=== PATIENT | female | born 1940 | race Caucasian/White ===

== ENCOUNTER → 2023-05-19 | Outpatient (REF) | payer MEDICARE, OTHER, SELFPAY | LOC: DHSLP | PROVIDERS: ATTENDING PHYSICIAN Internal Medicine; FAMILY PHYSICIAN Family Medicine | DX: G47.33 Obstructive sleep apnea (adult) (pediatric) (principal) | CPT/HCPCS: 95806 ==

== ENCOUNTER 2023-06-19 12:06 | Inpatient (IN) | payer MEDICARE, OTHER, SELFPAY ==
[2023-06-19] VITALS (20 sets, daily range): BP systolic 106–158; BP diastolic 65–107; BMI 27.2; BMI 24.3
[2023-06-19 09:08] LABS: % Basophils 0.4 % (0-2); % Eosinophils 1.7 % (0-6); % Immature Granulocytes 0.2 % (0-0.5); % Lymphocytes 11.6 % (20.5-51.1); % Monocytes 9.5 % (1.7-9.3); % Neutrophils 76.6 % (42.2-75.2); Absolute Eosinophils 0.1 10^3/uL (0-0.7); Absolute Monocytes 0.8 10^3/uL (0.1-0.6); Absolute Neutrophils 6.5 10^3/uL (1.4-6.5); Hematocrit 36.1 % (37.0-47.0); Hemoglobin 11.6 g/dL (12.0-16.0); Mean Corp Hgb Conc. 32.1 g/dL (33.0-37.0); Mean Corpuscular Volume 99.4 fL (81.0-99.0); Mean Platelet Volume 9.6 fL (7.4-10.4); Nucleated Red Blood Cells % 0 %; Platelet Count 282 10^3/uL (130-400); Red Blood Cell Count 3.63 10^6/uL (4.20-5.40); Red Cell Dist. Width 15.1 % (11.5-14.5); White Blood Cell Count 8.5 10^3/uL (4.8-10.8)
[2023-06-19 09:30] LABS: NT-proBNP 3490 pg/ml; Troponin I < 0.012 ng/ml
[2023-06-19 09:32] LABS: ALT (SGPT) 32 U/L (0-35); AST (SGOT) 39 U/L (14-36); Albumin 3.2 g/dl (3.5-5.0); Alkaline Phosphatase 76 U/L (38-126); Blood Urea Nitrogen 19 mg/dl (7-17); Calcium 8.9 mg/dl (8.4-10.2); Carbon Dioxide 29 mmol/L (22-30); Chloride 104 mmol/L (98-107); Estimated Creatinine Clearance 51 ml/min; Glucose 109 mg/dl (70-99); Potassium 4.3 mmol/L (3.5-5.1); Sodium 137 mmol/L (135-145); Total Bilirubin 0.7 mg/dl (0.2-1.3); Total Protein 6.3 g/dl (6.3-8.2); eGFR > 60.00
--- NOTE | 2023-06-19 09:52 | ED.GENMED ---
History of Present Illness
General
Chief Complaint: Breathing Problem
Source: patient
Exam Limitations: none
Time Seen by Provider: 06/19/23 09:06
Nursing documentation reviewed up to this point in time: agreed with
Travel History
Have you had any contact with someone who has COVID-19?: No
Do you have any symptoms of coronavirus? Fever > 100 degrees, chills, cough, shortness of breath, sore throat, loss of taste or smell, muscle aches, or headache?: No
History of Present Illness
History of Present Illness:
82-year-old female with interstitial lung disease heart failure AF followed by Dr. Horton and Dr. Curtis baseline 3 L of oxygen past few days has had increased shortness of breath worse last evening and this morning so short of breath she can get off
the toilet, no fevers, has had mild leg edema mild cough, no hemoptysis no abdominal pain
Past History
Past History
ED Past Medical History: Arrthythmia (atrial fibrillation), CHF, GERD, HTN, Hypercholesterolemia, Psychiatric (Anxiety, Depression), Other (Rheumatoid arthritis, dizziness, shingles, Lyme disease, vertigo, PNA, Diverticulitis, Cataracts) and Other
(RA)
ED Past Surgical History: Orthopedic (Laminectomy, Left hip replacement, Bilateral knee replacement) and Other (Cataract surgery, laminectomy)
Patient has exhibited threatening behavior?: No
PSI?: No
Social History
Tobacco: Non-smoker
Alcohol: None
Drug: None
Personal:
Living: with family
Employment: Retired
Family History
Family History: Other
Review of Systems
Review of Systems
All Other Systems: Not applicable
Constitutional: Reports fatigue; Denies fever
Respiratory: Reports cough and trouble breathing
Cardiac: Reports no symptoms; Denies chest pain
ABD/GI: Reports no symptoms
: Reports no symptoms
Musculoskeletal: Reports no symptoms
Skin: Reports no symptoms
Neurological: Reports weakness
Endocrine: Reports no symptoms
Phy Exam
Physical Exam
Physical Exam:
Physical Exam
General: Chronically ill-appearing
Neck: No jaundice
Heart: Tachycardic
Lungs: Crackles
Abdomen: Not
Neuro: alert and oriented. no focal neurological deficits
Skin: no rash
Psychiatric: well kept. interactive and cooperative
Extremities: no edema
Scores
Heart Failure Risk
Heart Failure Risk Score: Yes
History of Stroke or TIA: Yes
History of intubation for respiratory distress: No
Heart rate on ED arrival >/= 110: Yes
SaO2 <90% on arrival on room air: Yes
HR >/=110 during 3min walk test (or too ill to perform test): Yes
ECG has acute ischemic changes: No
Urea >/=12mmol/L (BUN 33.6mg/dL): No
Serum CO2>/=35mmol/L: No
Troponin I or T elevated to ME Level (0.4mg/dL): No
NT-proBNP >/=5,000ng/L (5,000pg/ml): Yes
HF Risk Score: 5
Admission Status: VERY HIGH RISK 39.8% Consider admission to hospital
Course
Orders/Labs/Results
Orders:
Orders
06/19/23 08:57
CMP [Comprehensive Metabolic Panel] Urgent
Complete Blood Count/With Diff Urgent
NT-proBNP Urgent
Troponin I Urgent
06/19/23 09:15
CR Chest - 2 Views Urgent
Comment:
Reason For Exam: sobb
06/19/23 09:54
Ipratropium/Albuterol Sulfate [Duoneb] 3 ml INH R NOW STA
06/19/23 Lunch
Cholesterol Lowering
At Your Request: Full Participation
06/19/23 10:02
Prothrombin Time Urgent
06/19/23 10:41
Furosemide [Lasix] 60 mg IV NOW STA
06/19/23 11:28
COVID-19 Antigen Routine
Source: Nasal Swab
06/19/23 11:31
Admit/Transfer Patient As Directed
Co-Sign Provider:
Level of Care: Inpatient admission
Assign to:: IVU
Physician / Group: Danie
Diagnosis: Acute heart failure, rapid atrial fibrillation
Reason for Hospitalization: Heart failure treatment, rate control, cardiology consult
Expected length of stay greater than two midnights?: Yes
ELOS- Estimated Length of Stay in days: 4
I certify the patient meets the requirements for IP care: Yes
06/19/23 11:33
Code Status As Directed
Resuscitation Status: Do not resuscitate
Reached after discussion with pt or family/Healthcare POA: Yes
DNR Bracelet Application ONCE
06/19/23 11:41
Diltiazem 125 mg/125 ml Nss [Cardizem] 125 mg in 125 ml .ROUTE .STK-MED
06/19/23 11:45
Diltiazem 125 mg/125 ml Nss [Cardizem] 125 mg in 125 ml IV PER PROTOCOL
Initial dose in mg/hr, then titrate:: 5
Titrate to keep:: Heart rate 80-100 bpm
Titrate by mg/hr:: 5 mg/hr
Frequency of titrations (minutes):: 15
Maximum dose in mg/hr:: 15
06/19/23 12:04
Electrocardiogram (*1) Urgent
Reason for Study: Abnormal EKG
EKG- Treatment ONCE
06/19/23 15:52
Acetaminophen [Tylenol] 1,000 mg PO BIDPRN PRN
Ipratropium/Albuterol Sulfate [Duoneb] 3 ml INH R Q4HPRN PRN
Ipratropium/Albuterol Sulfate [Duoneb] 3 ml INH R QID
Rosuvastatin Calcium [Crestor] 10 mg PO NOON
06/19/23 15:52
Echo 2D MMode Color/Doppler [Echo 2D MMode Color/Doppler] Routine
Reason for Study: CHF
CARDIOLOGY CONSULT Routine
Consulting Provider: Ghassan Edmonds
Was physician already notified: Yes
VTE Contraindication Routine
VTE Mechanical Device Contraindication: Edema of lower extremity
Pharmocologic Contraindication: Medical Contraindication
Activity As Directed
Activity Level: With Assistance
I&O [Intake/ Output] As Directed
Frequency: q12h
Rx Incentive Spirometry [RESP] Routine
Frequency: q1h while awake
Rx Pep / Acapela [RESP] Routine
06/20/23 03:13
CMP [Comprehensive Metabolic Panel] IN AM
INR [Prothrombin Time] IN AM
06/20/23 08:00
Empagliflozin [Jardiance] 10 mg PO DAILY
Flecainide [Tambocor] 100 mg PO BID
Fluoxetine HCl [Prozac] 20 mg PO DAILY
Furosemide [Lasix] 40 mg IV DAILY
Potassium Chloride [KCl] 20 meq PO DAILY
06/20/23 12:00
Magnesium Oxide 500 mg PO NOON
06/21/23 06:00
CMP [Comprehensive Metabolic Panel] IN AM
INR [Prothrombin Time] IN AM
06/22/23 06:00
CMP [Comprehensive Metabolic Panel] IN AM
INR [Prothrombin Time] IN AM
Abnormal Lab Results
06/19/23 06/19/23
08:57 10:02
RBC 3.63 L 10^6/uL
(4.20-5.40)
Hgb 11.6 L g/dL
(12.0-16.0)
Hct 36.1 L %
(37.0-47.0)
MCV 99.4 H fL
(81.0-99.0)
MCH 32.0 H pg
(27.0-31.0)
MCHC 32.1 L g/dL
(33.0-37.0)
RDW 15.1 H %
(11.5-14.5)
Absolute Lymphs (auto) 1.0 L 10^3/uL
(1.2-3.4)
Absolute Monos (auto) 0.8 H 10^3/uL
(0.1-0.6)
Neutrophils % 76.6 H %
(42.2-75.2)
Lymphocytes % 11.6 L %
(20.5-51.1)
Monocytes % 9.5 H %
(1.7-9.3)
PT 36.6 H Sec
(11.4-14.6)
BUN 19 H mg/dl
(7-17)
Glucose 109 H mg/dl
(70-99)
AST 39 H U/L
(14-36)
Albumin 3.2 L g/dl
(3.5-5.0)
06/19/23 08:57
06/19/23 08:57
Vital Signs
Initial and Last Documented VS:
Initial Vital Signs
Pulse Ox
97
06/19/23 08:44
Last Documented Vital Signs
Temp Pulse Resp BP Pulse Ox
98.4 F 77 20 125/85 97
06/19/23 22:59 06/20/23 05:00 06/19/23 22:59 06/20/23 03:11 06/19/23 22:59
MDM/Problems Addressed
Differential Diagnosis Includes:
Interstitial lung disease flare, CHF, bronchitis, pneumonia, less likely PE as she is anticoagulated
MDM/Problems Addressed:
Shortness of breath cough
Chronic conditions affecting care:
CHF interstitial lung disease A-fib
Chronic conditions affecting care: HTN and Arrhythmia
Acute Exacerbation and/or Progression of Chronic Illness: HTN and Arrhythmia
*Radiology
Radiology exam reviewed: preliminary read by ED provider
*Pulse Oximetry
Patient hypoxic: yes
*EKG
Interpreted by ED Provider?: Yes
Interpretation: abnormal
Comparison EKG: no comparison EKG present
Heart Rate: 112
Rate: tachycardiac
Rhythm: a-fib
Ischemia: non-specific ST changes
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
Rate: tachycardiac
Interpretation: abnormal
Heart Rate: 112
Rhythm: a-fib
*Critical Care Note
Total Time (30-74mins, 75-104mins- exclusive of procedures): 13
Data Reviewed
Review of Other/Old Records Reveals: Labs
Source: patient and records
Update Note
Update Note:
10:35 AM chest x-ray noted proBNP noted will give dose of IV diuretic low threshold to admit
ED Attending Note
-
Portions of this chart may have been created with voice recognition software.� Occasional wrong word or��sound alike� substitutions may have occurred due to the inherent limitations of voice recognition software.
Discharge Plan
Departure
Patient Disposition: Admit
Date of Disposition: 06/19/23
Time of Disposition: 10:41
Admit to: Telemetry
Presentation/result/management discussed w/ accepting MD/DO: Hospitalist
Patient with high blood pressure during this ER visit?: Yes
Condition: Fair
Discharge Problem:
ILD (interstitial lung disease), PAF (paroxysmal atrial fibrillation), Acute on chronic hypoxic respiratory failure, Hypertensive heart disease with heart failure, Acute on chronic heart failure with preserved ejection fraction (HFpEF), Pulmonary
hypertension
Interventions
Interventions:
*Risk Screen - Suicide Last Done: 06/19/23 08:48
*General Assessment Last Done: 06/19/23 08:48
*Neglect/Abuse Screening Last Done: 06/19/23 08:48
ED- Fall Risk Assessment Last Done: 06/19/23 08:48
*ED COVID-19 Vaccine History Last Done: 06/19/23 08:48
*Nursing Disposition Last Done: 06/19/23 16:45
ED- Cardiac Assessment Last Done: 06/19/23 08:48
ED- Pulmonary Assessment Last Done: 06/19/23 08:48
Discharge Date and Time
Discharge Date/Time: 06/19/23 16:45
[2023-06-19] MEDS: DUONEB 3 ML INH ×3 (10:01→21:11)
[2023-06-19 10:31] LABS: INR 3.68; PT 36.6 Sec (11.4-14.6)
[2023-06-19] MEDS: LASIX 60 MG IV (10:48)
--- NOTE | 2023-06-19 11:38 | HPS.HSE ---
Family Physician
-
Family Physician: Samir Tobias
Chief Complaint
-
Shortness of breath
History of Present Illness
82-year-old female with interstitial lung disease here complaining of shortness of breath that she noticed last night, worsened this morning. Baseline uses 3 L of oxygen at home continuously. This morning the shortness of breath was so bad that
she could not get off the toilet. Has postnasal drip induced cough but this is chronic. Shortness of breath somewhat worse when she is completely supine. Denies any chest pain or pressure.
Medical History
Past Medical History
Past Medical History: Reports Other
Additional Past Medical History:
CHF, diastolic
ILD
Paroxysmal atrial fibrillation
Hypertension
Rheumatoid arthritis
Seasonal allergies
Mixed hyperlipidemia
Osteopenia
Lumbar spinal stenosis
Major depression
Past Surgical History: Reports Other
Additional Past Surgical History:
Left total hip replacement
Left total knee replacement
Right total knee replacement
Social History
Tobacco: Non-smoker
Alcohol: None
Drug: None
Personal:
Living: With Family
Family History
Family History: Not pertinent
Allergies / Home Medications
Allergies reflects when Allergies were last updated in [facility].
Home Medications with original date entered in [facility]
Allergy/Medication List:
Allergies
Allergy/AdvReac Type Severity Reaction Status Date / Time
No Known Allergies Allergy Verified 11/22/22 17:22
Home Medications
vitamin B complex-vitamin C-folic acid 400 mcg tablet 1 tab PO NOON Supplement 07/18/17
calcium carbonate 600 mg-vitamin D3 20 mcg (800 unit) tablet 1 tab PO NOON Supplement 02/01/18
flecainide 100 mg tablet 100 mg PO BID Arrhythmia 02/01/18
fluoxetine 20 mg capsule 20 mg PO DAILY Mental Health/Anxiety 04/26/18
rosuvastatin 10 mg tablet 10 mg PO NOON High Cholesterol 10/25/22
warfarin 5 mg tablet 7.5 mg PO TUWETHFR@1200 Blood Clot Prevention/Tx 11/22/22
furosemide 40 mg tablet 40 mg PO DAILY #90 tabs 11/28/22
ipratropium 0.5 mg-albuterol 3 mg (2.5 mg base)/3 mL nebulization soln 3 ml inhalation R TIDPRN PRN sob/wheezing 12/21/22
empagliflozin 10 mg tablet (Jardiance) 10 mg PO DAILY 30 days #30 tabs 12/26/22
acetaminophen 500 mg tablet (Tylenol Extra Strength) 1,000 mg PO BIDPRN PRN hand pain 06/19/23
albuterol sulfate 90 mcg/actuation aerosol inhaler 1 puff inhalation R Q4HPRN PRN sob 06/19/23
budesonide 160 mcg-glycopyr 9 mcg-formot 4.8 mcg/actuation HFA inhaler (Breztri Aerosphere) 2 inh inhalation R BID 06/19/23
magnesium oxide 400 mg PO NOON 06/19/23
potassium chloride 20 mEq tablet,extended release(part/cryst) 20 meq PO DAILY 06/19/23
verapamil 120 mg tablet,extended release 120 mg PO NOON Arrhythmia 06/19/23
warfarin 5 mg tablet 5 mg PO SUMOSA@1200 06/19/23
Review of Systems
-
History Source: Patient
A 12 point ROS was completed and negative except as noted: Yes
Respiratory: Reports Trouble Breathing
Physical Exam
Vital Signs
Vital Signs
Temp Pulse Resp BP Pulse Ox
98.1 F 122 20 133/92 96
06/19/23 08:48 06/19/23 11:30 06/19/23 08:48 06/19/23 11:00 06/19/23 11:30
Physical Exam
General: Well Developed, Well Nourished, No Apparent Distress and Comfortable
HEENT: NormoCephalic, Anicteric and Moist mucous membranes
Respiratory: Rales
Cardiac: S1/S2, Irregular Rhythm and Tachycardia
Breast: Deferred by me
GI: Soft, Non Tender and Non Distended
Genito-urinary: Deferred by me
Musculoskeletal: No Clubbing, No Cyanosis, Edema, Left Lower Extremity and Edema, Right Lower Extremity
Skin: Warm and Dry
Neuro: AO x 3
Hematologic/Lymphatic: No Lymphadenopathy
Psych: Calm
Laboratory Results
-
06/19/23 08:57
06/19/23 08:57
Laboratory Results
PT 36.6 Sec (11.4-14.6) H 06/19/23 10:02
INR 3.68 06/19/23 10:02
Total Bilirubin 0.7 mg/dl (0.2-1.3) 06/19/23 08:57
AST 39 U/L (14-36) H 06/19/23 08:57
ALT 32 U/L (0-35) 06/19/23 08:57
Alkaline Phosphatase 76 U/L (38-126) 06/19/23 08:57
Troponin I < 0.012 ng/ml 06/19/23 08:57
Impression/Plan
-
Acute on chronic hypoxic respiratory failure -suspect multifactorial etiology including rapid atrial fibrillation, acute heart failure exacerbation, chronic interstitial lung disease. Baseline uses 3 L of oxygen at home continuously. Currently on
3 L, monitor for now. Changed cardiomegaly, diffuse increased reticular opacity, small bilateral effusions. Interstitial edema suspected.
Check COVID antigen.
Rapid atrial fibrillation -history of paroxysmal A-fib. Admit to IVU. Start Cardizem drip. Consult cardiology. On chronic warfarin therapy, INR over 3, hold for for tonight, repeat INR in the morning. Continue flecainide pending cardiology
input.
She is followed by Dr. Curtis.
Acute on chronic heart failure preserved EF exacerbation -patient admits to 3 pound weight gain over the past few days. BNP elevated, 3490. She is on furosemide 40 mg daily at home. IV Lasix administered in the emergency room, will continue.
Daily weights, I's and O's. Check echocardiogram. Fluid and sodium restriction. Suspect rapid atrial fibrillation may have triggered heart failure exacerbation.
Chronic interstitial lung disease -on chronic home O2. Followed by Dr. Horton.
Rheumatoid arthritis -stable.
Hypertension
Hyperlipidemia -new rosuvastatin.
DNR -confirmed with patient.
[2023-06-19] MEDS: CARDIZEM 125 IV (11:45)
[2023-06-19 11:50] LABS: COVID-19 Antigen Negative (Negative)
--- NOTE | 2023-06-19 11:53 | CON.CAR ---
Addendum entered and electronically signed by Ghassan Edmonds MD 06/19/23 16:48:
Patient seen and examined in collaboration with [employer]CH[employer]IC; agree with below.
-82-year-old female with medical history as outlined below, including paroxysmal A-fib (on Coumadin, flecainide, and verapamil at home) and COPD/ILD; admitted with A-fib with RVR likely secondary to underlying lung disease exacerbation.
-Continue Cardizem drip.
-Continue flecainide 100 mg twice daily.
-Will likely transition to a higher dose of verapamil tomorrow to 240 mg daily (currently taking 120 mg daily at home) with hopes of discontinuing Cardizem drip at that time.
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
Original Note:
Consultation
Consultation Request
Date/Time Consultation Requested: 06/19/23 11:30a
Date/Time Consultation Performed: 06/19/23 11:45a
Requesting Provider: Dr. Helton
Performing Provider: MAT Muñoz for Dr. Edmodns
Reason for Consultation: rapid Afib, HFpEF
Medical History
-
Chief Complaint: sob
History of Present Illness:
Mrs. Quiñonez is an 82 yo female with HFpEF, mild/mod , paroxysmal Afib on Coumadin ([id number] VASC 5) and Flecainide, TAA 4.5cm, COPD/ILD on 2L NC oxygen, HTN, RA, GERD and HLD, who presents to the ER with c/o SOB and noted to be in rapid Afib. She
reports feeling acutely SOB last night, worse with exertion. No associated symptoms. She denies any palpitations. She is admitted to the hospitalist service and we are consulted for acute HFpEF and rapid Afib. She denies any missed doses of her
home medications, denies any abnormal bleeding on Coumadin. She is on IV Cardizem drip with rates in the 110s. She denies feeling any palpitations currently or last night. INR is 3.68 currently.
Past Medical History
Past Medical History: Other (as above)
Past Surgical History: Other (cataract, right TKA, left TKA, left JAVI, laminectomy, d&c)
Social History
Tobacco: Non-Smoker
Alcohol: None
Personal:
Living: With Family
Employment: Retired
Family History
Family History: Reviewed & Not Pertinent
Allergies / Home Medications
Allergy/AdvReac Type Severity Reaction Status Date / Time
No Known Allergies Allergy Verified 11/22/22 17:22
�Medication �Instructions �Recorded �Confirmed �Type
vitamin B complex-vitamin C-folic 1 tab PO NOON Supplement 07/18/17 06/19/23 History
acid 400 mcg tablet
calcium carbonate 600 mg-vitamin 1 tab PO NOON Supplement 02/01/18 06/19/23 History
D3 20 mcg (800 unit) tablet
flecainide 100 mg tablet 100 mg PO BID Arrhythmia 02/01/18 06/19/23 History
fluoxetine 20 mg capsule 20 mg PO DAILY Mental 04/26/18 06/19/23 History
Health/Anxiety
rosuvastatin 10 mg tablet 10 mg PO NOON High Cholesterol 10/25/22 06/19/23 History
warfarin 5 mg tablet 7.5 mg PO FR@1200 Blood Clot 11/22/22 06/19/23 History
Prevention/Tx
furosemide 40 mg tablet 40 mg PO DAILY #90 tabs 11/28/22 06/19/23 Rx
ipratropium 0.5 mg-albuterol 3 mg 3 ml inhalation R TIDPRN PRN 12/21/22 06/19/23 History
(2.5 mg base)/3 mL nebulization sob/wheezing
soln
empagliflozin 10 mg tablet 10 mg PO DAILY 30 days #30 tabs 12/26/22 06/19/23 Rx
(Jardiance)
acetaminophen 500 mg tablet 1,000 mg PO BIDPRN PRN hand pain 06/19/23 06/19/23 History
(Tylenol Extra Strength)
albuterol sulfate 90 mcg/actuation 1 puff inhalation R Q4HPRN PRN sob 06/19/23 06/19/23 History
aerosol inhaler
budesonide 160 mcg-glycopyr 9 2 inh inhalation R BID 06/19/23 06/19/23 History
mcg-formot 4.8 mcg/actuation HFA
inhaler (Breztri Aerosphere)
magnesium oxide 400 mg PO NOON 06/19/23 06/19/23 History
potassium chloride 20 mEq 20 meq PO DAILY 06/19/23 06/19/23 History
tablet,extended release(part/cryst)
verapamil 120 mg tablet,extended 120 mg PO NOON Arrhythmia 06/19/23 06/19/23 History
release
warfarin 5 mg tablet 5 mg PO SUMOSA@1200 06/19/23 06/19/23 History
Review of Systems
-
History Source: Patient
All other systems: Negative unless noted
Physical Exam
Vital Signs
Temp Pulse Resp BP Pulse Ox
98.1 F 122 20 133/92 96
06/19/23 08:48 06/19/23 11:30 06/19/23 08:48 06/19/23 11:00 06/19/23 11:30
Lab Results
06/19/23 08:57
06/19/23 08:57
Troponin I < 0.012 ng/ml 06/19/23 08:57
Obo-W-Zzeirwkrbua Pept 3490 pg/ml 06/19/23 08:57
Physical Exam
General: Well Developed, Well Nourished and No Apparent Distress
HEENT: Normocephalic, Anicteric and Moist Mucous Membranes
Respiratory: Crackles (diffuse b/l ) and Non Labored Respirations
Cardiac: S1/S2, Irregular Rhythm (tachycardic) and Murmur (2/6 UZMA)
Breast: Deferred by me
GI: Soft, Non Tender, Non Distended and Normal Bowel Sounds
Rectal: Deferred by Provider
Genito-urinary: No Costovertebral Tender
Musculoskeletal: No Clubbing, No Cyanosis and No Edema
Skin: Warm and Dry
Neuro: AO x 3
Hematologic/Lymphatic: No Lymphadenopathy
Psych: Calm
Impression / Plan
-
Afib - rapid ventricular response.
- rates slowing with IV Cardizem, continue.
- no missed doses of Flecainide, Verapamil or Warfarin.
- continue Flecainide for now, avoiding Amiodarone and Sotalol due to ILD/COPD.
- on Coumadin, [id number] VASC 5. INR 3.68 today, denies any bleeding.
HFpEF - acute on chronic.
- agree with IV Lasix 40mg BID and monitor.
- daily weights, I&Os.
- continue Jardiance.
COPD/ILD - chronic 2L NC.
- oxygen, diuresis.
HTN - stable.
- monitor on Cardizem drip.
��Data reviewed:
�������LHC/RHC 12/25/2022 PCWP 16 CO 5.5 CI 2.9 mild to moderate AAS MG 18 mmHg GEOVANNY 1.5 cm2 EF 67 no significant CAD. Luminal irregularities. Mild pulmonary hypertension. Weight at time of RHC 170 pounds.
�������CT chest t 02/2021 ascending aortic aneurysm 4.5 cm
�������CT angio 02/2020 with ascending aorta ( aneurysm) 4.3cm.
Echo 11/25/22: Normal biventricular size and systolic function without RWMA, EF 60-65%, stage II diastolic dysfunction, mild/mod MR, mild peak/mean gradients 31/17mmHg, mild AR.
�������Echocardiogram 10/07/2022 from [facility] EF 55-70 mild MR mild TR mild AR with mild AAS ascending aorta 4.4 cm.
�������Echocardiogram 2020 normal left ventricular function mild to moderate mitral regurgitation mild aortic regurgitation mild tricuspid regurgitation. Ascending aorta 4.6 cm.
�������Echocardiogram 11/11/17 normal left ventricular systolic function, mild to moderate mitral regurgitation, mild aortic regurgitation, mild tricuspid regurgitation. Aortic root 3.8 cm.
�������Lexiscan nuclear perfusion stress test 12/18/17 normal perfusion. Ejection fraction 72%. No ischemia.
Data Reviewed
-
Radiology: Report Reviewed by me (CXR: small b/l pleural effusions)
Medical Tests (Nuc Med, Echo etc): Report Reviewed by me (Echo 11/25/22: Normal biventricular size and systolic function without RWMA, EF 60-65%, stage II diastolic dysfunction, mild/mod MR, mild peak/mean gradients 31/17mmHg, mild AR.)
Labs: Labs Reviewed by me
Old Records: Reviewed (testing as noted above.)
[2023-06-19] MEDS: TAMBOCOR 100 MG PO (15:57)
[2023-06-19] MEDS: TYLENOL 1000 MG PO (15:59)
[2023-06-19] MEDS: DUONEB INH (17:12)
--- NOTE | 2023-06-19 17:30 | PTCARENOTE ---
Received pt from ED via stretcher. Walked into room w/o difficulty. Pt still reports feeling but this has improved this coming to the hospital. 99-100% on 3L, pt wears 3L baseline at home, fine crackles 1/2 bilaterally. No cough. BP wnl, Afib on
monitor HR 80-90's. Cardizem gtt @ 10mg/hr. Will monitor closely. Full assessment and admission completed.
[2023-06-19] MEDS: CRESTOR 10 MG PO (18:08)
--- NOTE | 2023-06-19 19:30 | PTCARENOTE ---
report received. aaox3. afib on monitor. nss. pulse ox 97% on 3lnc. cardizem gtt @ 10. Hr in the 70-80's. Will monitor
[2023-06-20] MEDS: CARDIZEM 125 IV (02:58)
[2023-06-20 03:11] VITALS: BP 125/85
[2023-06-20 03:59] LABS: INR 3.38; PT 34.2 Sec (11.4-14.6)
[2023-06-20 04:03] LABS: ALT (SGPT) 23 U/L (0-35); AST (SGOT) 27 U/L (14-36); Albumin 3.1 g/dl (3.5-5.0); Alkaline Phosphatase 64 U/L (38-126); Blood Urea Nitrogen 26 mg/dl (7-17); Calcium 9.3 mg/dl (8.4-10.2); Carbon Dioxide 32 mmol/L (22-30); Chloride 102 mmol/L (98-107); Estimated Creatinine Clearance 53 ml/min; Glucose 97 mg/dl (70-99); Sodium 141 mmol/L (135-145); Total Bilirubin 0.6 mg/dl (0.2-1.3); Total Protein 6.3 g/dl (6.3-8.2); eGFR > 60.00
[2023-06-20 06:00] VITALS: BMI 24.3
[2023-06-20 06:50] VITALS: BP 121/75
[2023-06-20] MEDS: DUONEB 3 ML INH ×4 (07:20→18:05)
--- NOTE | 2023-06-20 09:22 | W.PN.CD ---
Addendum entered and electronically signed by Ghassan Edmonds MD 06/20/23 14:07:
Patient seen and examined in collaboration with CANAL LOCK TENDER CHIEF OPERATOR; agree with below.
-Discontinuing Cardizem drip.
-Increasing home dose of verapamil from 120 to 240 mg daily.
-Continue flecainide 100 mg twice daily.
-Transition to PO Lasix tomorrow.
-Treatment of respiratory status as per primary Hospitalist team.
Original Note:
Today's Communication / Plan
-
-transition from IV diltiazem to PO verapamil at increased dosing (240 mg daily)
-IV Lasix today, then transition back to PO tomorrow
-continue warfarin and INR monitoring
Impression / Plan
-
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
exacerbation.
Afib - rapid ventricular response:
- rates improved with IV diltiazem- will transition to verapamil at increased dosing (240 mg daily) and monitor
- no missed doses of Flecainide, Verapamil or Warfarin.
- continue Flecainide for now, avoiding Amiodarone and Sotalol due to ILD/COPD.
- on Coumadin, [id number] VASC 5. INR 3.38 today, denies any bleeding.
HFpEF - acute on chronic.
-Echo 06/19/23: LV ejection fraction is 60-65%. No regional wall motion abnormalities are seen. Mild to moderate concentric left ventricular hypertrophy. Moderately dilated left atrium. Moderately dilated right atrium. Mild to moderate mitral
regurgitation. Mild to moderate aortic stenosis; peak/mean gradients are 31/17 mmHg, calculated GEOVANNY is 1.2 cm2. Mild aortic regurgitation. Moderate tricuspid regurgitation. Estimated pulmonary artery pressure of 40-45 mmHg. The IVC is dilated and
does not collapse.
- improved weight back down to her baseline (155-160 per patient)- today is 155. Give IV lasix today, then transition to PO tomorrow.
- continue Jardiance.
COPD/ILD - chronic 3L NC.
-oxygen, getting breathing tx
-management per primary
HTN - stable.
-monitor with med adjustments
Data:
�������LHC/RHC 12/25/2022 PCWP 16 CO 5.5 CI 2.9 mild to moderate AAS MG 18 mmHg GEOVANNY 1.5 cm2 EF 67 no significant CAD. Luminal irregularities. Mild pulmonary hypertension. Weight at time of RHC 170 pounds.
�������CT chest t 02/2021 ascending aortic aneurysm 4.5 cm
�������CT angio 02/2020 with ascending aorta ( aneurysm) 4.3cm.
Echo 11/25/22: Normal biventricular size and systolic function without RWMA, EF 60-65%, stage II diastolic dysfunction, mild/mod MR, mild peak/mean gradients 31/17mmHg, mild AR.
�������Echocardiogram 10/07/2022 from [facility] EF 55-70 mild MR mild TR mild AR with mild AAS ascending aorta 4.4 cm.
�������Echocardiogram 2020 normal left ventricular function mild to moderate mitral regurgitation mild aortic regurgitation mild tricuspid regurgitation. Ascending aorta 4.6 cm.
�������Echocardiogram 11/11/17 normal left ventricular systolic function, mild to moderate mitral regurgitation, mild aortic regurgitation, mild tricuspid regurgitation. Aortic root 3.8 cm.
�������Lexiscan nuclear perfusion stress test 12/18/17 normal perfusion. Ejection fraction 72%. No ischemia.
Physical Exam
Vital Signs/Labs
Vital Signs
Temp Pulse Resp BP Pulse Ox
98.0 F 108 18 121/75 97
06/20/23 06:48 06/20/23 08:00 06/20/23 07:26 06/20/23 06:50 06/20/23 09:18
06/19/23 06/20/23 06/21/23
06:59 06:59 06:59
Actual Weight 70.4 kg
06/19/23 08:57
06/20/23 03:13
PT 34.2 Sec (11.4-14.6) H 06/20/23 03:13
INR 3.38 06/20/23 03:13
06/19/23
08:57
Vpk-B-Uxahgybqvao Pept 3490
LAB Results
06/19/23
08:57
Troponin I < 0.012
Physical Exam
Constitutional: No acute distress
EENT: Anicteric
Cardiovascular: Pedal edema is absent and Rhythm/rate is irregular
Respiratory: Crackles Present (bases) and Other (on O2 by NC)
Neuro/Psych: AO x 3
Data Reviewed
-
Date of Service: June 20, 2023
EKG: Other (afib)
[2023-06-20] MEDS: LASIX 40 MG IV (09:41)
[2023-06-20] MEDS: JARDIANCE 10 MG PO (09:41)
[2023-06-20] MEDS: KCL 20 MEQ PO (09:41)
[2023-06-20] MEDS: TAMBOCOR 100 MG PO ×2 (09:41→20:10)
[2023-06-20] MEDS: PROZAC 20 MG PO (09:41)
--- NOTE | 2023-06-20 10:29 | W.PN.HOSP.TC ---
Today's Communication/Plan
-
Continue diuresis
Rate control
Bowel regimen
Assessment / Plan
Assessment / Plan
Gen-AAOx3, NAD
HEENT-NC, AT, anicteric, clear oral mm
Neck-supple
CV-reg, no M, +S1/S2
Lungs-Rales bilateral bases
Abd-soft, NT, ND
Ext-no edema
Musculoskeletal-no cyanosis, clubbing
Skin-warm and dry
Neuro-grossly non-focal
Psych-calm, cooperative
Acute on chronic hypoxic respiratory failure -suspect multifactorial etiology including rapid atrial fibrillation, acute heart failure exacerbation, chronic interstitial lung disease. Baseline uses 3 L of oxygen at home continuously. Currently on
3 L, monitor for now. Chest x-ray with cardiomegaly, diffuse increased reticular opacity, small bilateral effusions. Interstitial edema suspected. COVID-negative.
Rapid atrial fibrillation -history of paroxysmal A-fib. Rates overall improving. Verapamil resumed at higher dose. Off Cardizem drip. Cardiology following. INR 3.3 today, warfarin on hold currently.
She is known to Dr. Curtis.
Acute on chronic heart failure preserved EF exacerbation - Suspect rapid atrial fibrillation may have triggered heart failure exacerbation. Continue IV Lasix. Echocardiogram completed, LVEF 60 to 65%, no regional wall motion abnormalities, mild
to moderate concentric LVH, mild to moderate MR, mild to moderate AAS. Moderate TR.
Chronic interstitial lung disease -on chronic home O2. Followed by Dr. Horton.
Chronic anemia -likely anemia of chronic disease. Hemoglobin at baseline.
Rheumatoid arthritis -stable.
Hypertension
Hyperlipidemia -new rosuvastatin.
Constipation -will order bowel regimen.
DNR -confirmed with patient.
Anticipated Discharge: Within 24 hours
Subjective/Interval History
-
Date of Service: June 20, 2023
Patient seen and examined. Somewhat less short of breath today. No other complaints.
Objective Data
-
Labs:
Laboratory Results
06/20/23
03:13
PT 34.2 H
INR 3.38
Sodium 141
Potassium 4.0
Chloride 102
Carbon Dioxide 32 H
BUN 26 H
Creatinine 0.8
Glucose 97
Calcium 9.3
Total Bilirubin 0.6
AST 27
ALT 23
Alkaline Phosphatase 64
Vital Signs:
Vital Signs
Temp Pulse Resp BP Pulse Ox
98.0 F 96 18 121/75 97
06/20/23 06:48 06/20/23 09:41 06/20/23 07:26 06/20/23 09:41 06/20/23 09:18
Review of Systems
-
History Source: Patient
All other systems: Reviewed and negative
[2023-06-20] MEDS: CALAN EXTENDED RELEASE 240 MG PO (10:35)
[2023-06-20 10:59] VITALS: BP 113/75
[2023-06-20] MEDS: COLACE 100 MG PO ×2 (11:48→20:11)
[2023-06-20] MEDS: MAGNESIUM OXIDE 500 MG PO (11:48)
[2023-06-20] MEDS: MIRALAX 17 GRAMS PO (11:48)
[2023-06-20] MEDS: CRESTOR 10 MG PO (11:48)
[2023-06-20 15:38] VITALS: BP 112/67
[2023-06-20 20:04] VITALS: BP 115/77
[2023-06-20 22:15] VITALS: BP 128/87
[2023-06-21 04:16] VITALS: BP 114/84
[2023-06-21 04:31] VITALS: BMI 24.7
[2023-06-21 04:53] LABS: INR 2.87
[2023-06-21 05:02] LABS: Carbon Dioxide 35 mmol/L (22-30)
[2023-06-21 05:13] LABS: ALT (SGPT) 20 U/L (0-35); AST (SGOT) 22 U/L (14-36); Albumin 2.9 g/dl (3.5-5.0); Alkaline Phosphatase 62 U/L (38-126); Blood Urea Nitrogen 26 mg/dl (7-17); Calcium 9.3 mg/dl (8.4-10.2); Chloride 102 mmol/L (98-107); Estimated Creatinine Clearance 47 ml/min; Glucose 98 mg/dl (70-99); Potassium 4.2 mmol/L (3.5-5.1); Sodium 139 mmol/L (135-145); Total Bilirubin 0.5 mg/dl (0.2-1.3); Total Protein 5.9 g/dl (6.3-8.2); eGFR > 60.00
[2023-06-21] MEDS: DUONEB 3 ML INH ×4 (07:36→19:29)
[2023-06-21 08:06] VITALS: BP 129/93
--- NOTE | 2023-06-21 08:11 | W.PN.HOSP.TC ---
Today's Communication/Plan
-
Resume warfarin
Assessment / Plan
Assessment / Plan
Gen-AAOx3, NAD
HEENT-NC, AT, anicteric, clear oral mm
Neck-supple
CV-irregular, tachycardic, systolic M, +S1/S2
Lungs-Rales bilateral bases
Abd-soft, NT, ND
Ext-no edema
Musculoskeletal-no cyanosis, clubbing
Skin-warm and dry
Neuro-grossly non-focal
Psych-calm, cooperative
Acute on chronic hypoxic respiratory failure -suspect multifactorial etiology including rapid atrial fibrillation, acute heart failure exacerbation, chronic interstitial lung disease. Baseline uses 3 L of oxygen at home continuously. Currently on
3 L, monitor for now. Chest x-ray with cardiomegaly, diffuse increased reticular opacity, small bilateral effusions. Interstitial edema suspected. COVID-negative.
Rapid atrial fibrillation -history of paroxysmal A-fib. Rates occasionally fast still. May need cardioversion prior to discharge. Verapamil resumed at higher dose. Off Cardizem drip. Cardiology following. INR improved to 2.87 today. Will
resume warfarin at slightly lower dose, 6 mg daily. This works out to 42 mg/week. Prior to admission she was on 45 mg weekly. Discussed with patient. Monitor INR closely.
She is known to Dr. Curtis.
Acute on chronic heart failure preserved EF exacerbation - Suspect rapid atrial fibrillation may have triggered heart failure exacerbation. Cardiology changed Lasix to 40 mg p.o. daily, which is her home dose. Weight is slightly up today but
patient appears euvolemic. I's and O's are not recorded accurately. Echocardiogram completed, LVEF 60 to 65%, no regional wall motion abnormalities, mild to moderate concentric LVH, mild to moderate MR, mild to moderate AAS. Moderate TR.
Chronic interstitial lung disease -on chronic home O2. Followed by Dr. Horton.
Chronic anemia -likely anemia of chronic disease. Hemoglobin at baseline.
Rheumatoid arthritis -stable.
Essential hypertension stable.-
Hyperlipidemia - rosuvastatin.
Constipation -continue bowel regimen. Moving bowels.
DNR -confirmed with patient.
Anticipated Discharge: 24 - 48 hours
Subjective/Interval History
-
Date of Service: June 21, 2023
Patient seen and examined. Still with dyspnea on exertion.
Objective Data
-
Labs:
Laboratory Results
06/21/23
04:22
PT 30.0 H
INR 2.87
Sodium 139
Potassium 4.2
Chloride 102
Carbon Dioxide 35 H
BUN 26 H
Creatinine 0.9
Glucose 98
Calcium 9.3
Total Bilirubin 0.5
AST 22
ALT 20
Alkaline Phosphatase 62
Vital Signs:
Vital Signs
Temp Pulse Resp BP Pulse Ox
97.8 F 91 16 114/84 99
06/21/23 04:16 06/21/23 07:39 06/21/23 07:39 06/21/23 04:16 06/21/23 07:39
I&O
06/20/23 06/21/23 06/22/23
06:59 06:59 06:59
Intake Total 720 / 720
Output Total 200 / 200
Balance 520 / 520
Review of Systems
-
History Source: Patient
All other systems: Reviewed and negative
[2023-06-21] MEDS: LASIX 40 MG PO (08:33)
[2023-06-21] MEDS: KCL 20 MEQ PO (08:33)
[2023-06-21] MEDS: JARDIANCE 10 MG PO (08:34)
[2023-06-21] MEDS: CALAN EXTENDED RELEASE 240 MG PO (08:34)
[2023-06-21] MEDS: COLACE 100 MG PO (08:34)
[2023-06-21] MEDS: TAMBOCOR 100 MG PO ×2 (08:34→19:43)
[2023-06-21] MEDS: MIRALAX 17 GRAMS PO (08:34)
[2023-06-21] MEDS: PROZAC 20 MG PO (08:35)
[2023-06-21 11:49] VITALS: BP 98/62
[2023-06-21] MEDS: MAGNESIUM OXIDE 500 MG PO (13:23)
[2023-06-21] MEDS: CRESTOR 10 MG PO (13:23)
[2023-06-21 15:33] VITALS: BP 113/97
--- NOTE | 2023-06-21 16:24 | W.PN.CD ---
Today's Communication / Plan
-
- Heart rates rates remain a bit suboptimal; continue flecainide 100 mg twice daily and verapamil 240 mg daily.
- Will arrange for DCCVN tomorrow; patient's INR has been therapeutic since 05/25/2023.
- NPO after midnight.
Impression / Plan
-
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
exacerbation.
Afib - rapid ventricular response:
- Heart rates rates remain a bit suboptimal; continue flecainide 100 mg twice daily and verapamil 240 mg daily.
- Will arrange for DCCVN tomorrow; patient's INR has been therapeutic since 05/25/2023.
- NPO after midnight.
- Continue warfarin; [id number] VASC 5.
HFpEF - acute on chronic.
-Echo 06/19/23: LV ejection fraction is 60-65%. No regional wall motion abnormalities are seen. Mild to moderate concentric left ventricular hypertrophy. Moderately dilated left atrium. Moderately dilated right atrium. Mild to moderate mitral
regurgitation. Mild to moderate aortic stenosis; peak/mean gradients are 31/17 mmHg, calculated GEOVANNY is 1.2 cm2. Mild aortic regurgitation. Moderate tricuspid regurgitation. Estimated pulmonary artery pressure of 40-45 mmHg. The IVC is dilated and
does not collapse.
-Volume status improved with IV Lasix; now transition to PO--continue Lasix 40 mg PO daily.
-Continue Jardiance.
COPD/ILD - chronic 3L NC.
-oxygen, getting breathing tx
-management per primary
Valvular heart disease -Mild to moderate /MR, moderate TR:
-Volume management with Lasix.
HTN - stable.
-monitor with med adjustments
Data:
�������LHC/RHC 12/25/2022 PCWP 16 CO 5.5 CI 2.9 mild to moderate AAS MG 18 mmHg GEOVANNY 1.5 cm2 EF 67 no significant CAD. Luminal irregularities. Mild pulmonary hypertension. Weight at time of RHC 170 pounds.
�������CT chest t 02/2021 ascending aortic aneurysm 4.5 cm
�������CT angio 02/2020 with ascending aorta ( aneurysm) 4.3cm.
Echo 11/25/22: Normal biventricular size and systolic function without RWMA, EF 60-65%, stage II diastolic dysfunction, mild/mod MR, mild peak/mean gradients 31/17mmHg, mild AR.
�������Echocardiogram 10/07/[address] [facility] EF 55-70 mild MR mild TR mild AR with mild AAS ascending aorta 4.4 cm.
�������Echocardiogram 2020 normal left ventricular function mild to moderate mitral regurgitation mild aortic regurgitation mild tricuspid regurgitation. Ascending aorta 4.6 cm.
�������Echocardiogram 11/11/17 normal left ventricular systolic function, mild to moderate mitral regurgitation, mild aortic regurgitation, mild tricuspid regurgitation. Aortic root 3.8 cm.
�������Lexiscan nuclear perfusion stress test 12/18/17 normal perfusion. Ejection fraction 72%. No ischemia.
Physical Exam
Vital Signs/Labs
Vital Signs
Temp Pulse Resp BP Pulse Ox
98.7 F 81 22 113/97 95
06/21/23 15:48 06/21/23 15:33 06/21/23 15:48 06/21/23 15:33 06/21/23 15:48
06/20/23 06/21/23 06/22/23
06:59 06:59 06:59
Actual Weight 70.3 kg 71.4 kg
06/19/23 08:57
06/21/23 04:22
PT 30.0 Sec (11.4-14.6) H 06/21/23 04:22
INR 2.87 06/21/23 04:22
06/19/23
08:57
[id number]-K-Mwsjhmmgvwo Pept 3490
LAB Results
06/19/23
08:57
Troponin I < 0.012
Physical Exam
Cardiovascular: Pedal edema is absent, Rhythm/rate is irregular, Systolic murmur present (04/21) and S1S2 is normal
Respiratory: Wheeze Absent and Crackles Present
GI: Soft
Neuro/Psych: AO x 3
Other: Skin (Warm, dry, intact)
Data Reviewed
-
Date of Service: June 21, 2023
EKG: Tracing Personally Visualized and interpreted (EKG: Atrial fibrillation)
Medical Tests (PFT, Pathology etc): Discussed with Patient
Labs: Labs Reviewed by me
[2023-06-21] MEDS: COUMADIN 6 MG PO (17:10)
[2023-06-21] MEDS: DULCOLAX 10 MG PO (17:11)
--- NOTE | 2023-06-21 18:04 | PTCARENOTE ---
Assumed care of pt this am and she reports feeling 'not quite back to her baseline' for activity tolerance and respiratory status. Throughout the day pt is independent in activity but feels increased fatigued and taking multiple naps. 3L NC which is
her baseline use of oxygen at home and pulse ox remains > 94% throughout the day. Lungs with bilateral coarse and basilar crackles. Lowers with trace edema, pt reports this about 'normal' for her. Heart rate in 90s to low 100s Atrial Fibrillation
increases with activity then returns to 90s. Pt c/o of ongoing constipation and requests Dulcolax tablets as she feels her abd is tight and increasing her FAN. Order obtained and dulc tabs given. Pt independent in ADLs. Tolerating diet without
difficulties. Patient for Cardioversion Thursday. Pt had a cardioversion 30 years ago and verbalizes understanding of plan of care. Pt aware she will be NPO after midnight.
[2023-06-21 19:39] VITALS: BP 111/78
[2023-06-21] MEDS: COLACE PO (19:43)
[2023-06-21 22:12] VITALS: BP 116/83
[2023-06-22] VITALS (9 sets, daily range): BP systolic 113–142; BP diastolic 63–95; PULSE 77; O2SAT 97; BMI 25.0
--- NOTE | 2023-06-22 01:14 | PTCARENOTE ---
Patient denies any pain or discomfort. Tele remains Afib, HR in the 80-100's. VSS, and sating 95% on 3L (baseline O2). Patient aware to remain NPO at midnight for possible cardioversion on 06/21. Call [email or web address] in reach.
[2023-06-22 04:54] LABS: INR 2.11; PT 23.5 Sec (11.4-14.6)
[2023-06-22 05:14] LABS: ALT (SGPT) 30 U/L (0-35); AST (SGOT) 39 U/L (14-36); Albumin 3.3 g/dl (3.5-5.0); Alkaline Phosphatase 59 U/L (38-126); Blood Urea Nitrogen 28 mg/dl (7-17); Calcium 9.3 mg/dl (8.4-10.2); Carbon Dioxide 34 mmol/L (22-30); Chloride 100 mmol/L (98-107); Estimated Creatinine Clearance 53 ml/min; Glucose 88 mg/dl (70-99); Potassium 4.7 mmol/L (3.5-5.1); Sodium 136 mmol/L (135-145); Total Bilirubin 0.6 mg/dl (0.2-1.3); Total Protein 6.5 g/dl (6.3-8.2); eGFR > 60.00
--- NOTE | 2023-06-22 08:04 | W.PN.CD ---
Today's Communication / Plan
-
- Successful eleccardioversion to NSR 06/22/23
- Continue coumadin
- Will have EP assess options for detention management of afib. She want to consider ablation but would also consider transition from Flecainide to Tikosyn
Impression / Plan
-
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
exacerbation.
Afib - rapid ventricular response:
- Outpatietn flecainide 100 mg twice daily and verapamil 240 mg daily.
- Dr Curtis has discussed stopping Flecainide in the past and the patient has declined
- Successful eleccardioversion to NSR 06/22/23
- Therapeutic INR > 3 weeks. Continue warfarin; [id number] VASC 5.
- Will have EP assess options for detention management of afib. She want to consider ablation but would also consider transition from Flecainide to Tikosyn
HFpEF - acute on chronic.
-Echo 06/19/23: LV ejection fraction is 60-65%. No regional wall motion abnormalities are seen. Mild to moderate concentric left ventricular hypertrophy. Moderately dilated left atrium. Moderately dilated right atrium. Mild to moderate mitral
regurgitation. Mild to moderate aortic stenosis; peak/mean gradients are 31/17 mmHg, calculated GEOVANNY is 1.2 cm2. Mild aortic regurgitation. Moderate tricuspid regurgitation. Estimated pulmonary artery pressure of 40-45 mmHg. The IVC is dilated and
does not collapse.
-Volume status improved with IV Lasix; now transition to PO--continue Lasix 40 mg PO daily.
-Continue Jardiance.
COPD/ILD - chronic 3L NC.
-oxygen, getting breathing tx
-management per primary
Valvular heart disease -Mild to moderate /MR, moderate TR:
-Volume management with Lasix.
HTN - stable.
-monitor with med adjustments
Data:
�������LHC/RHC 12/25/2022 PCWP 16 CO 5.5 CI 2.9 mild to moderate AAS MG 18 mmHg GEOVANNY 1.5 cm2 EF 67 no significant CAD. Luminal irregularities. Mild pulmonary hypertension. Weight at time of RHC 170 pounds.
�������CT chest t 02/2021 ascending aortic aneurysm 4.5 cm
�������CT angio 02/2020 with ascending aorta ( aneurysm) 4.3cm.
Echo 11/25/22: Normal biventricular size and systolic function without RWMA, EF 60-65%, stage II diastolic dysfunction, mild/mod MR, mild peak/mean gradients 31/17mmHg, mild AR.
�������Echocardiogram 10/07/2022 from [facility] EF 55-70 mild MR mild TR mild AR with mild AAS ascending aorta 4.4 cm.
�������Echocardiogram 2020 normal left ventricular function mild to moderate mitral regurgitation mild aortic regurgitation mild tricuspid regurgitation. Ascending aorta 4.6 cm.
�������Echocardiogram 11/11/17 normal left ventricular systolic function, mild to moderate mitral regurgitation, mild aortic regurgitation, mild tricuspid regurgitation. Aortic root 3.8 cm.
�������Lexiscan nuclear perfusion stress test 12/18/17 normal perfusion. Ejection fraction 72%. No ischemia.
Physical Exam
Vital Signs/Labs
Vital Signs
Temp Pulse Resp BP Pulse Ox
98.8 F 96 20 127/90 99
06/22/23 06:52 06/22/23 05:00 06/22/23 06:52 06/22/23 03:31 06/22/23 06:52
06/21/23 06/22/23 06/23/23
06:59 06:59 06:59
Actual Weight 71.4 kg 72.2 kg
06/19/23 08:57
06/22/23 04:13
PT 23.5 Sec (11.4-14.6) H 06/22/23 04:13
INR 2.11 06/22/23 04:13
06/19/23
08:57
Ejx-Y-Lkaknrvgtds Pept 3490
LAB Results
06/19/23
08:57
Troponin I < 0.012
Physical Exam
Constitutional: No acute distress
Cardiovascular: Rhythm & rate is regular
Respiratory: Respiratory effort normal
GI: Soft
Neuro/Psych: Alert
Data Reviewed
-
Date of Service: June 22, 2023
Medical Decision Making: Reviewed Test Results
Medical Tests (PFT, Pathology etc): Report Reviewed by me
Labs: Labs Reviewed by me
[2023-06-22] MEDS: DUONEB INH (08:47)
[2023-06-22] MEDS: MIRALAX 17 GRAMS PO (08:57)
[2023-06-22] MEDS: TAMBOCOR 100 MG PO ×2 (08:57→19:53)
[2023-06-22] MEDS: COLACE 100 MG PO ×2 (08:57→19:53)
[2023-06-22] MEDS: JARDIANCE 10 MG PO (08:57)
[2023-06-22] MEDS: KCL 20 MEQ PO (08:57)
[2023-06-22] MEDS: PROZAC 20 MG PO (08:57)
[2023-06-22] MEDS: LASIX 40 MG PO (08:58)
[2023-06-22] MEDS: CALAN EXTENDED RELEASE 240 MG PO (08:58)
--- NOTE | 2023-06-22 09:00 | PTCARENOTE ---
received patient back from operations label clerk after cardioversion. pt AAOX3, denies pain. SR on telemetry heart rate in 70s. +pulses. +1 lower extremity edema. pt on 3L nasal cannula, sat 98%. lung sounds with crackles in the bases. +bs. voids in bathroom. pt
updated on plan of care. pt sitting in chair, ordering breakfast.
[2023-06-22] MEDS: DUONEB 3 ML INH ×3 (11:14→19:21)
[2023-06-22] MEDS: MAGNESIUM OXIDE 500 MG PO (12:11)
[2023-06-22] MEDS: CRESTOR 10 MG PO (12:11)
--- NOTE | 2023-06-22 13:27 | W.PN.HOSP.TC ---
Today's Communication/Plan
-
Monitor vital signs see plan
Successful cardioversion today
Possible transition to Tikosyn, defer to EP
cw coumadin
Assessment / Plan
Assessment / Plan
Gen-AAOx3, NAD
HEENT-NC, AT, anicteric, clear oral mm
Neck-supple
CV-regular, systolic M, +S1/S2
Lungs-Rales bilateral bases
Abd-soft, NT, ND
Ext-no edema
Musculoskeletal-no cyanosis, clubbing
Skin-warm and dry
Neuro-grossly non-focal
Psych-calm, cooperative
Acute on chronic hypoxic respiratory failure -suspect multifactorial etiology including rapid atrial fibrillation, acute heart failure exacerbation, chronic interstitial lung disease. Baseline uses 3 L of oxygen at home continuously. Currently on
3 L, monitor for now. Chest x-ray with cardiomegaly, diffuse increased reticular opacity, small bilateral effusions. Interstitial edema suspected. COVID-negative.
Rapid atrial fibrillation -history of paroxysmal A-fib. Rates occasionally fast still. s/p CV 5/6; now in NSR. Verapamil resumed at higher dose. Off Cardizem drip. Cardiology following. Monitor INR. Continue Coumadin.
She is known to Dr. Curtis.
plan for possible change flecainide to tikosyn; defer to EP
Acute on chronic heart failure preserved EF exacerbation - Suspect rapid atrial fibrillation may have triggered heart failure exacerbation. Cardiology changed Lasix to 40 mg p.o. daily, which is her home dose. Weight is slightly up today but
patient appears euvolemic. I's and O's are not recorded accurately. Echocardiogram completed, LVEF 60 to 65%, no regional wall motion abnormalities, mild to moderate concentric LVH, mild to moderate MR, mild to moderate AAS. Moderate TR.
Chronic interstitial lung disease -on chronic home O2. Followed by Dr. Horton.
Chronic anemia -likely anemia of chronic disease. Hemoglobin at baseline.
Rheumatoid arthritis -stable.
Essential hypertension stable.-
Hyperlipidemia - rosuvastatin.
Constipation -continue bowel regimen. Moving bowels.
DNR -confirmed with patient.
Anticipated Discharge: 24 - 48 hours
Subjective/Interval History
-
Date of Service: June 22, 2023
denies pain
Objective Data
-
Labs:
Laboratory Results
06/22/23
04:13
PT 23.5 H
INR 2.11
Sodium 136
Potassium 4.7
Chloride 100
Carbon Dioxide 34 H
BUN 28 H
Creatinine 0.8
Glucose 88
Calcium 9.3
Total Bilirubin 0.6
AST 39 H
ALT 30
Alkaline Phosphatase 59
Vital Signs:
Vital Signs
Temp Pulse Resp BP Pulse Ox
98.8 F 77 16 141/72 96
06/22/23 06:52 06/22/23 12:00 06/22/23 11:14 06/22/23 10:35 06/22/23 08:00
I&O
06/21/23 06/22/23 06/23/23
06:59 06:59 06:59
Intake Total 720 / 720 1180 / 1180
Output Total 200 / 200
Balance 520 / 520 1180 / 1180
--- NOTE | 2023-06-22 15:15 | CM ---
Chart reviewed. Patient is independent of ADLS, lives with her at the [facility] at [facility], wears O2 3L NC with [employer], ambulates with a rolling walker while wearing oxygen to carry the oxygen tank. Patient uses [facility]. Referral placed to [facility]. Plan is for the patient to return home with [facility]. CM to follow
[2023-06-22] MEDS: COUMADIN 6 MG PO (17:54)
--- NOTE | 2023-06-22 21:22 | PTCARENOTE ---
pt reassesed. pt OOB in chair, resting comfortably. AAOX3, denies pain. reports feeling tired today after cardioversion. dyspneic on exertion. remains on chronic 3L nasal cannula. remains SR on telemetry heart rate in 70s. no changes in assessment
noted.
[2023-06-23] VITALS (9 sets, daily range): BP systolic 91–150; BP diastolic 63–88; PULSE 73–85; O2SAT 98; BMI 25.0
--- NOTE | 2023-06-23 02:45 | PTCARENOTE ---
Assumed care of patient at 2300, no complaints at that time. SR with first degree AVB on the monitor. Sleeping at present.
[2023-06-23 06:31] LABS: % Basophils 0.3 % (0-2); % Eosinophils 4.4 % (0-6); % Immature Granulocytes 0.4 % (0-0.5); % Lymphocytes 17.8 % (20.5-51.1); % Monocytes 10.3 % (1.7-9.3); % Neutrophils 66.8 % (42.2-75.2); Absolute Eosinophils 0.3 10^3/uL (0-0.7); Absolute Lymphocytes 1.4 10^3/uL (1.2-3.4); Absolute Monocytes 0.8 10^3/uL (0.1-0.6); Absolute Neutrophils 5.2 10^3/uL (1.4-6.5); Hematocrit 34.4 % (37.0-47.0); Mean Corpuscular Hgb 31.1 pg (27.0-31.0); Mean Corpuscular Volume 97.2 fL (81.0-99.0); Nucleated Red Blood Cells % 0 %; Platelet Count 273 10^3/uL (130-400); Red Blood Cell Count 3.54 10^6/uL (4.20-5.40); Red Cell Dist. Width 15.1 % (11.5-14.5); White Blood Cell Count 7.8 10^3/uL (4.8-10.8)
[2023-06-23 06:47] LABS: Blood Urea Nitrogen 22 mg/dl (7-17); Calcium 9.1 mg/dl (8.4-10.2); Carbon Dioxide 30 mmol/L (22-30); Chloride 103 mmol/L (98-107); Estimated Creatinine Clearance 60 ml/min; Glucose 84 mg/dl (70-99); Potassium 4.8 mmol/L (3.5-5.1); Sodium 138 mmol/L (135-145); eGFR > 60.00
[2023-06-23] MEDS: DUONEB 3 ML INH ×2 (07:01→11:14)
[2023-06-23 08:50] LABS: PT 26.1 Sec (11.4-14.6)
[2023-06-23] MEDS: COLACE 100 MG PO ×2 (09:12→19:40)
[2023-06-23] MEDS: CALAN EXTENDED RELEASE 240 MG PO (09:12)
[2023-06-23] MEDS: FLUSH (NSS) 1 FLUSH IV ×2 (09:13→12:46)
[2023-06-23] MEDS: JARDIANCE 10 MG PO (09:13)
[2023-06-23] MEDS: KCL 20 MEQ PO (09:13)
[2023-06-23] MEDS: LASIX 40 MG PO (09:13)
[2023-06-23] MEDS: PROZAC 20 MG PO (09:13)
[2023-06-23] MEDS: MIRALAX 17 GRAMS PO (09:16)
--- NOTE | 2023-06-23 09:31 | W.PN.UPDATE ---
Update Note
Progress Note Update
EP Consult dictated
Imp/Suggestions
AFib, mostly paroxysmal
- Chronic warfarin
- Chronic Fle/Verapamil
- Very good control for many years
- Cardioversion 06/22/2023 is first in more than 10 years
- I suggest NO CHANGE in AFib management at this time
- If Afib quickly recurs then move to Tikosyn or better yet ABLATION evaulatoin
HFpEF
Asc TAA
No CAD at cath 12/2022
ILD
[2023-06-23] MEDS: TAMBOCOR 100 MG PO ×2 (10:10→19:40)
[2023-06-23] MEDS: SYMBICORT 160/4.5 MCG INHALER 2 PUFF INH ×2 (11:15→20:45)
[2023-06-23] MEDS: SPIRIVA RESPIMAT 2.5 MCG INH ×2 (11:19→11:21)
[2023-06-23] MEDS: VENTOLIN NEBULES INH (11:20)
--- NOTE | 2023-06-23 11:31 | CM ---
Chart reviewed. Patient is independent of ADLS, lives with her in the [facility] at [facility], ambulates with a rolling walker to help assist with holding her oxygen, she wears O2 3l at home and uses [employer], patient is
current with VN through [facility]. Plan is for the patient to return home with [facility]. CM to follow
--- NOTE | 2023-06-23 11:46 | PTCARENOTE ---
Received patient this morning sitting oob in the chair. Patient was inquiring about if plan was to continue her usual flecainide or switch to tikosyn. TT sent to cardiology. Dr. Osborne in to speak with the patient and plan is to continue current
medication regimen. Patient remains on 3L NC, still feels sob, will administer IV decadron as now ordered by hospitalist.
[2023-06-23] MEDS: DECADRON 4 MG IV ×2 (12:46→19:40)
[2023-06-23] MEDS: MAGNESIUM OXIDE 500 MG PO (12:46)
[2023-06-23] MEDS: CRESTOR 10 MG PO (12:46)
--- NOTE | 2023-06-23 13:54 | W.PN.HOSP.TC ---
Today's Communication/Plan
-
Monitor vital signs see plan
Still complains of short of breath, added Decadron
Continue with Lasix
Continue flecainide
Assessment / Plan
Assessment / Plan
Gen-AAOx3, NAD
HEENT-NC, AT, anicteric, clear oral mm
Neck-supple
CV-regular, systolic M, +S1/S2
Lungs-Rales bilateral bases
Abd-soft, NT, ND
Ext-no edema
Musculoskeletal-no cyanosis, clubbing
Skin-warm and dry
Neuro-grossly non-focal
Psych-calm, cooperative
Acute on chronic hypoxic respiratory failure -suspect multifactorial etiology including rapid atrial fibrillation, acute heart failure exacerbation, chronic interstitial lung disease. Baseline uses 3 L of oxygen at home continuously. Currently on
3 L, monitor for now. Chest x-ray with cardiomegaly, diffuse increased reticular opacity, small bilateral effusions. Interstitial edema suspected. COVID-negative.
I suspect ILD flareup. Will start Decadron and monitor. Patient does follow-up with pulmonary outpatient
Rapid atrial fibrillation -history of paroxysmal A-fib. Rates occasionally fast still. s/p CV 5/6; now in NSR. Verapamil resumed at higher dose. Off Cardizem drip. Cardiology following. Monitor INR. Continue Coumadin.
She is known to Dr. Curtis.
EP reviewed case with patient, plan now to remain on flecainide and follow-up outpatient.
Acute on chronic heart failure preserved EF exacerbation - Suspect rapid atrial fibrillation may have triggered heart failure exacerbation. Cardiology changed Lasix to 40 mg p.o. daily, which is her home dose. Weight is slightly up today but
patient appears euvolemic. I's and O's are not recorded accurately. Echocardiogram completed, LVEF 60 to 65%, no regional wall motion abnormalities, mild to moderate concentric LVH, mild to moderate MR, mild to moderate AAS. Moderate TR.
Chronic interstitial lung disease -on chronic home O2. Followed by Dr. Horton.
Suspect acute on chronic flareup, start Decadron and monitor
Chronic anemia -likely anemia of chronic disease. Hemoglobin at baseline.
Rheumatoid arthritis -stable.
Essential hypertension stable.-
Hyperlipidemia - rosuvastatin.
Constipation -continue bowel regimen. Moving bowels.
DNR -confirmed with patient.
Anticipated Discharge: Within 24 hours
Subjective/Interval History
-
Date of Service: June 23, 2023
denies pain
Objective Data
-
Labs:
Laboratory Results
06/23/23 06/23/23
05:54 08:29
WBC 7.8
Hgb 11.0 L
Hct 34.4 L
Plt Count 273
PT Cancelled 26.1 H
INR Cancelled 2.40
Sodium 138
Potassium 4.8
Chloride 103
Carbon Dioxide 30
BUN 22 H
Creatinine 0.7
Glucose 84
Calcium 9.1
Vital Signs:
Vital Signs
Temp Pulse Resp BP Pulse Ox
98.3 F 65 18 116/65 98
06/23/23 11:52 06/23/23 12:27 06/23/23 11:52 06/23/23 12:27 06/23/23 11:52
I&O
06/22/23 06/23/23 06/24/23
06:59 06:59 06:59
Intake Total 1180 / 1180 480 / 480 200 / 200
Balance 1180 / 1180 480 / 480 200 / 200
--- NOTE | 2023-06-23 15:39 | PTCARENOTE ---
Patient worried this morning that she was still so sob, pleased to have decadron added to her meds. Patient resting in bed now.
[2023-06-23] MEDS: VENTOLIN NEBULES 2.5 MG INH ×2 (16:51→20:45)
[2023-06-23] MEDS: COUMADIN 6 MG PO (17:22)
--- NOTE | 2023-06-23 17:58 | PTCARENOTE ---
Patient is still complaining of constipation unrelieved by miralax and colace. Passing gas and bowel sounds are present but unable to move her bowels and beginning to feel uncomfortable. Notified Dr. Glez for additional medication for constipation.
[2023-06-23] MEDS: DULCOLAX 10 MG RECTAL (19:40)
--- NOTE | 2023-06-23 23:19 | PTCARENOTE ---
Pt rec'd at change of shift with pt in recliner crocheting. + dyspnea with minimal exertion. O2 at 3 lit n/c maintained. sat 97-99%. At 1855 when telemetry assessed pt was in sinus rhythm At 1933 pt noted to have converted to afib; rate controlled.
Pt remains in afib at this time. Pt also
with c/o no bm despite Miralax and Colace. Pt given Dulcolax suppository with no success. requested po Dulcolax tablet from [facility].
[2023-06-24] VITALS (7 sets, daily range): BP systolic 115–146; BP diastolic 64–87; PULSE 65; O2SAT 98; BMI 25.0
[2023-06-24] MEDS: DULCOLAX 10 MG PO (02:08)
[2023-06-24] MEDS: DECADRON 4 MG IV ×3 (04:09→20:31)
[2023-06-24 04:47] LABS: % Basophils 0.1 % (0-2); % Immature Granulocytes 0.4 % (0-0.5); % Lymphocytes 4.3 % (20.5-51.1); % Monocytes 2.5 % (1.7-9.3); % Neutrophils 92.7 % (42.2-75.2); Absolute Lymphocytes 0.4 10^3/uL (1.2-3.4); Absolute Monocytes 0.2 10^3/uL (0.1-0.6); Absolute Neutrophils 8.9 10^3/uL (1.4-6.5); Hematocrit 35.1 % (37.0-47.0); Hemoglobin 11.3 g/dL (12.0-16.0); Mean Corp Hgb Conc. 32.2 g/dL (33.0-37.0); Mean Corpuscular Volume 96.2 fL (81.0-99.0); Mean Platelet Volume 9.5 fL (7.4-10.4); Nucleated Red Blood Cells % 0 %; Platelet Count 272 10^3/uL (130-400); Red Blood Cell Count 3.65 10^6/uL (4.20-5.40); White Blood Cell Count 9.6 10^3/uL (4.8-10.8)
[2023-06-24 04:56] LABS: INR 2.84; PT 29.8 Sec (11.4-14.6)
[2023-06-24 05:12] LABS: Blood Urea Nitrogen 22 mg/dl (7-17); Calcium 9.3 mg/dl (8.4-10.2); Carbon Dioxide 32 mmol/L (22-30); Chloride 102 mmol/L (98-107); Estimated Creatinine Clearance 60 ml/min; Glucose 139 mg/dl (70-99); Sodium 136 mmol/L (135-145); eGFR > 60.00
--- NOTE | 2023-06-24 06:27 | PTCARENOTE ---
Pt back in sinus rhythm with first degree
[2023-06-24] MEDS: SYMBICORT 160/4.5 MCG INHALER 2 PUFF INH ×2 (09:06→19:21)
[2023-06-24] MEDS: SPIRIVA RESPIMAT 2.5 MCG 2 PUFF INH (09:06)
[2023-06-24] MEDS: VENTOLIN NEBULES 2.5 MG INH ×4 (09:06→19:21)
[2023-06-24] MEDS: KCL 20 MEQ PO (09:31)
[2023-06-24] MEDS: CALAN EXTENDED RELEASE 240 MG PO (09:31)
[2023-06-24] MEDS: COLACE 100 MG PO ×2 (09:31→20:31)
[2023-06-24] MEDS: JARDIANCE 10 MG PO (09:31)
[2023-06-24] MEDS: MIRALAX 17 GRAMS PO (09:32)
[2023-06-24] MEDS: FLUSH (NSS) 1 FLUSH IV ×2 (09:32→12:33)
[2023-06-24] MEDS: PROZAC 20 MG PO (09:32)
[2023-06-24] MEDS: TAMBOCOR 100 MG PO ×2 (09:32→20:34)
[2023-06-24] MEDS: LASIX 40 MG PO (09:32)
--- NOTE | 2023-06-24 09:40 | PTCARENOTE ---
Patient sitting oob in the chair eating breakfast. States she slept well and feels that her breathing is a little better today. Still has been unable to move her bowels, received dulcolax tabs and supp last night, getting miralax this morning and
she wants to try prune juice. Patient was in a controlled AF during the night, asymptomatic, now SR. Dr. Stanley on the floor and notified, no changes to her current medications.
[2023-06-24] MEDS: CITROMA 300 ML PO (10:33)
--- NOTE | 2023-06-24 11:03 | PN.CDI ---
CDI
- -
CDI:
Physician Documentation Request
Admit Date: 06/19/23 12:06
Dear Doctor Newton
H&P and progress notes state 'Acute on chronic hypoxic respiratory failure Baseline uses 3 L of oxygen at home continuously. Currently on 3 L,'
Per documented vital signs pt has remains on 3 L without increase.
Please clarify in the Progress Notes:
� Acute Respiratory failure is/was present and is a clinical diagnosis based on (please include this additional support in the medical record)
�Chronic respiratory failure only
�Other
Use of terms such as suspected, likely, concern for, or probable (associated with a specific diagnosis that is being evaluated, monitored, or treated as if it exists) are acceptable and can be coded in the inpatient setting, when documented at the
time of discharge.
Thank you,
Nancy Hernandez RN, BSN
CDI Specialist
tiger text
Please use your independent medical judgment in providing your response.
--- NOTE | 2023-06-24 11:39 | CM ---
Chart reviewed. Patient is independent of ADLS, lives with her in Independent Living, ambulates with a rolling walker to hold her oxygen tank, wears 3l NC, uses [facility]. Patient is current with [facility]. Plan is for the patient
to return to [facility]. CM to follow
--- NOTE | 2023-06-24 11:42 | W.PN.HOSP.TC ---
Today's Communication/Plan
-
Monitor vitals
See plan
Mag citrate today
Continue with Decadron
Hopeful DC in next 24 hours
Assessment / Plan
Assessment / Plan
Gen-AAOx3, NAD
HEENT-NC, AT, anicteric, clear oral mm
Neck-supple
CV-regular, systolic M, +S1/S2
Lungs-Rales bilateral bases
Abd-soft, NT, ND
Ext-no edema
Musculoskeletal-no cyanosis, clubbing
Skin-warm and dry
Neuro-grossly non-focal
Psych-calm, cooperative
-Worsening SOB suspect multifactorial etiology including rapid atrial fibrillation, acute heart failure exacerbation, acute on chronic interstitial lung disease. Baseline uses 3 L of oxygen at home continuously. Currently on 3 L, monitor for now.
Chest x-ray with cardiomegaly, diffuse increased reticular opacity, small bilateral effusions. Interstitial edema suspected. COVID-negative.
I suspect ILD flareup. Started Decadron and she appears to be slowly improving. Patient does follow-up with pulmonary outpatient
chronic hypoxic respiratory failure on baseline 3 L
Rapid atrial fibrillation -history of paroxysmal A-fib. now in NSR after successful cardioversion 06/21. Verapamil resumed at higher dose. Off Cardizem drip. Cardiology following. Monitor INR. Continue Coumadin.
She is known to Dr. Curtis.
EP reviewed case with patient, plan now to remain on flecainide and follow-up outpatient.
Acute on chronic heart failure preserved EF exacerbation - Suspect rapid atrial fibrillation may have triggered heart failure exacerbation. Cardiology changed Lasix to 40 mg p.o. daily, which is her home dose. Weight is slightly up today but
patient appears euvolemic. I's and O's are not recorded accurately. Echocardiogram completed, LVEF 60 to 65%, no regional wall motion abnormalities, mild to moderate concentric LVH, mild to moderate MR, mild to moderate AAS. Moderate TR.
Constipation
Laxatives
Mag citrate today
Chronic interstitial lung disease -on chronic home O2. Followed by Dr. Horton.
Suspect acute on chronic flareup, start Decadron and monitor
Chronic anemia -likely anemia of chronic disease. Hemoglobin at baseline.
Rheumatoid arthritis -stable.
Essential hypertension stable.-
Hyperlipidemia - rosuvastatin.
Constipation -continue bowel regimen. Moving bowels.
DNR -confirmed with patient.
Anticipated Discharge: Within 24 hours
Subjective/Interval History
-
Date of Service: June 24, 2023
feels a little better
Objective Data
-
Labs:
Laboratory Results
06/24/23
04:24
WBC 9.6
Hgb 11.3 L
Hct 35.1 L
Plt Count 272
PT 29.8 H
INR 2.84
Sodium 136
Potassium 5.0
Chloride 102
Carbon Dioxide 32 H
BUN 22 H
Creatinine 0.7
Glucose 139 H
Calcium 9.3
Vital Signs:
Vital Signs
Temp Pulse Resp BP Pulse Ox
98.5 F 77 18 143/81 96
06/24/23 11:05 06/24/23 09:00 06/24/23 11:05 06/24/23 07:08 06/24/23 11:05
I&O
06/23/23 06/24/23 06/25/23
06:59 06:59 06:59
Intake Total 480 / 480 440 / 440 360 / 360
Balance 480 / 480 440 / 440 360 / 360
[2023-06-24] MEDS: MAGNESIUM OXIDE 500 MG PO (12:33)
[2023-06-24] MEDS: CRESTOR 10 MG PO (12:33)
[2023-06-24] MEDS: COUMADIN 6 MG PO (18:25)
--- NOTE | 2023-06-24 22:59 | PTCARENOTE ---
Pt rec'd at change of shift in recliner chair. no c/o pain. states resp status has improved with steroids. Reports feeling less sob, no coughing at present. Sinus with first degree on telemetry. No afib noted. Pt given afib book with verbal
education given as well.
[2023-06-25 03:48] VITALS: BP 149/85
[2023-06-25] MEDS: DECADRON 4 MG IV ×2 (03:50→12:58)
[2023-06-25 04:05] VITALS: BMI 24.9
[2023-06-25 04:15] LABS: % Basophils 0.1 % (0-2); % Immature Granulocytes 1.1 % (0-0.5); % Lymphocytes 3.3 % (20.5-51.1); % Monocytes 3.2 % (1.7-9.3); % Neutrophils 92.3 % (42.2-75.2); Absolute Immature Granulocytes 0.2 10^3/uL (0-0.05); Absolute Lymphocytes 0.5 10^3/uL (1.2-3.4); Absolute Monocytes 0.5 10^3/uL (0.1-0.6); Absolute Neutrophils 13.7 10^3/uL (1.4-6.5); Hematocrit 33.5 % (37.0-47.0); Hemoglobin 10.9 g/dL (12.0-16.0); Mean Corp Hgb Conc. 32.5 g/dL (33.0-37.0); Mean Corpuscular Hgb 31.1 pg (27.0-31.0); Mean Corpuscular Volume 95.7 fL (81.0-99.0); Mean Platelet Volume 9.3 fL (7.4-10.4); Nucleated Red Blood Cells % 0 %; Platelet Count 276 10^3/uL (130-400); Red Cell Dist. Width 15.1 % (11.5-14.5); White Blood Cell Count 14.9 10^3/uL (4.8-10.8)
[2023-06-25 04:24] LABS: PT 32.4 Sec (11.4-14.6)
--- NOTE | 2023-06-25 04:35 | PTCARENOTE ---
Pt remains in sinus rhythm.
[2023-06-25 04:40] LABS: Blood Urea Nitrogen 29 mg/dl (7-17); Calcium 9.7 mg/dl (8.4-10.2); Carbon Dioxide 30 mmol/L (22-30); Chloride 102 mmol/L (98-107); Estimated Creatinine Clearance 53 ml/min; Glucose 143 mg/dl (70-99); Potassium 4.9 mmol/L (3.5-5.1); Sodium 135 mmol/L (135-145); eGFR > 60.00
[2023-06-25 06:27] VITALS: BP 152/80
[2023-06-25] MEDS: SPIRIVA RESPIMAT 2.5 MCG 2 PUFF INH (07:11)
[2023-06-25] MEDS: SYMBICORT 160/4.5 MCG INHALER 2 PUFF INH (07:11)
[2023-06-25] MEDS: VENTOLIN NEBULES 2.5 MG INH ×2 (07:11→11:20)
--- NOTE | 2023-06-25 07:59 | W.PN.CD ---
Today's Communication / Plan
-
stable overnight
No complatins and wants to go home
remains in sinus
Ok for discharge from cardiac standpoint
She was on Coumadin 7.5mg - 4 days a wek and coumadin 5mg - 3 days a week on admit. She has 5 mg tablets at home
INR mildly high on admit
- At discharge Coumdian 5mg Thu , thu and thursday. Coumadin 7.5 Mg and Thursday
Impression / Plan
-
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
exacerbation.
Afib - rapid ventricular response:
- Outpatient flecainide 100 mg twice daily and verapamil 240 mg daily.
- Dr Curtis has discussed stopping Flecainide in the past and the patient has declined but we reconsidered change this admit
- Successful eleccardioversion to NSR 06/22/23
- Therapeutic INR > 3 weeks. Continue warfarin; [id number] VASC 5.
- EP DR Osborne reviewed and will coninue with Flecainde for now
HFpEF - acute on chronic.
-Echo 06/19/23: LV ejection fraction is 60-65%. No regional wall motion abnormalities are seen. Mild to moderate concentric left ventricular hypertrophy. Moderately dilated left atrium. Moderately dilated right atrium. Mild to moderate mitral
regurgitation. Mild to moderate aortic stenosis; peak/mean gradients are 31/17 mmHg, calculated GEOVANNY is 1.2 cm2. Mild aortic regurgitation. Moderate tricuspid regurgitation. Estimated pulmonary artery pressure of 40-45 mmHg. The IVC is dilated and
does not collapse.
-Volume status improved with IV Lasix; now transition to PO--continue Lasix 40 mg PO daily.
-Continue Jardiance.
COPD/ILD - chronic 3L NC.
-oxygen, getting breathing tx
-management per primary
Valvular heart disease -Mild to moderate /MR, moderate TR:
-Volume management with Lasix.
HTN - stable.
-monitor with med adjustments
Data:
�������LHC/RHC 12/25/2022 PCWP 16 CO 5.5 CI 2.9 mild to moderate AAS MG 18 mmHg GEOVANNY 1.5 cm2 EF 67 no significant CAD. Luminal irregularities. Mild pulmonary hypertension. Weight at time of RHC 170 pounds.
�������CT chest t 02/2021 ascending aortic aneurysm 4.5 cm
�������CT angio 02/2020 with ascending aorta ( aneurysm) 4.3cm.
Echo 11/25/22: Normal biventricular size and systolic function without RWMA, EF 60-65%, stage II diastolic dysfunction, mild/mod MR, mild peak/mean gradients 31/17mmHg, mild AR.
�������Echocardiogram 10/07/2022 from [facility] EF 55-70 mild MR mild TR mild AR with mild AAS ascending aorta 4.4 cm.
�������Echocardiogram 2020 normal left ventricular function mild to moderate mitral regurgitation mild aortic regurgitation mild tricuspid regurgitation. Ascending aorta 4.6 cm.
�������Echocardiogram 11/11/17 normal left ventricular systolic function, mild to moderate mitral regurgitation, mild aortic regurgitation, mild tricuspid regurgitation. Aortic root 3.8 cm.
�������Lexiscan nuclear perfusion stress test 12/18/17 normal perfusion. Ejection fraction 72%. No ischemia.
Physical Exam
Vital Signs/Labs
Vital Signs
Temp Pulse Resp BP Pulse Ox
97.8 F 68 16 149/85 100
06/25/23 03:48 06/25/23 07:16 06/25/23 07:16 06/25/23 03:48 06/25/23 07:16
06/24/23 06/25/23 06/26/23
06:59 06:59 06:59
Actual Weight 72.3 kg 72.1 kg
06/25/23 04:01
06/25/23 04:01
PT 32.4 Sec (11.4-14.6) H 06/25/23 04:01
INR 3.10 06/25/23 04:01
06/19/23
08:57
Sln-J-Ahzghrszmui Pept 3490
Physical Exam
Constitutional: No acute distress
Cardiovascular: Rhythm & rate is regular
Respiratory: Wheeze Absent and Rhonchi Absent
GI: Soft
Neuro/Psych: Alert
Data Reviewed
-
Date of Service: June 25, 2023
Medical Decision Making: Reviewed Test Results
X-Ray/CT/US/MRI/NUC/PET: Report Reviewed by me
Medical Tests (PFT, Pathology etc): Report Reviewed by me
[2023-06-25] MEDS: JARDIANCE 10 MG PO (08:28)
[2023-06-25] MEDS: CALAN EXTENDED RELEASE 240 MG PO (08:28)
[2023-06-25] MEDS: PROZAC 20 MG PO (08:28)
[2023-06-25] MEDS: LASIX 40 MG PO (08:28)
[2023-06-25] MEDS: TAMBOCOR 100 MG PO (08:28)
[2023-06-25] MEDS: COLACE 100 MG PO (08:28)
[2023-06-25] MEDS: KCL 20 MEQ PO (08:28)
[2023-06-25] MEDS: MIRALAX PO (08:29)
--- NOTE | 2023-06-25 10:41 | W.PN.HOSP.TC ---
Today's Communication/Plan
-
Monitor vital signs and plan
Change steroids to oral prednisone with taper
Continue with Lasix
Discharge today
Time of discharge 38 minutes
Assessment / Plan
Assessment / Plan
Gen-AAOx3, NAD
HEENT-NC, AT, anicteric, clear oral mm
Neck-supple
CV-regular, systolic M, +S1/S2
Lungs-Rales bilateral bases
Abd-soft, NT, ND
Ext-no edema
Musculoskeletal-no cyanosis, clubbing
Skin-warm and dry
Neuro-grossly non-focal
Psych-calm, cooperative
-Worsening SOB suspect multifactorial etiology including rapid atrial fibrillation, acute heart failure exacerbation, acute on chronic interstitial lung disease. Baseline uses 3 L of oxygen at home continuously. Currently on 3 L, monitor for now.
Chest x-ray with cardiomegaly, diffuse increased reticular opacity, small bilateral effusions. Interstitial edema suspected. COVID-negative.
I suspect ILD flareup. Started Decadron and she appears to be slowly improving. Transition to p.o. steroids with taper patient does follow-up with pulmonary outpatient
chronic hypoxic respiratory failure on baseline 3 L
Rapid atrial fibrillation -history of paroxysmal A-fib. now in NSR after successful cardioversion 06/21. Verapamil resumed at higher dose. Off Cardizem drip. Cardiology following. Monitor INR. Continue Coumadin.
She is known to Dr. Curtis.
EP reviewed case with patient, plan now to remain on flecainide and follow-up outpatient.
Acute on chronic heart failure preserved EF exacerbation - Suspect rapid atrial fibrillation may have triggered heart failure exacerbation. Cardiology changed Lasix to 40 mg p.o. daily, which is her home dose. Weight is slightly up today but
patient appears euvolemic. I's and O's are not recorded accurately. Echocardiogram completed, LVEF 60 to 65%, no regional wall motion abnormalities, mild to moderate concentric LVH, mild to moderate MR, mild to moderate AAS. Moderate TR.
Constipation
Laxatives
Not improved after mag citrate
Chronic interstitial lung disease -on chronic home O2. Followed by Dr. Horton.
Suspect acute on chronic flareup, start Decadron and monitor
Chronic anemia -likely anemia of chronic disease. Hemoglobin at baseline.
Rheumatoid arthritis -stable.
Essential hypertension stable.-
Hyperlipidemia - rosuvastatin.
Constipation -continue bowel regimen. Moving bowels.
DNR -confirmed with patient.
Anticipated Discharge: Today
Subjective/Interval History
-
Date of Service: June 25, 2023
feeling better
Objective Data
-
Labs:
Laboratory Results
06/25/23
04:01
WBC 14.9 H
Hgb 10.9 L
Hct 33.5 L
Plt Count 276
PT 32.4 H
INR 3.10
Sodium 135
Potassium 4.9
Chloride 102
Carbon Dioxide 30
BUN 29 H
Creatinine 0.8
Glucose 143 H
Calcium 9.7
Vital Signs:
Vital Signs
Temp Pulse Resp BP Pulse Ox
98.3 F 75 18 152/80 99
06/25/23 08:00 06/25/23 08:00 06/25/23 08:00 06/25/23 06:27 06/25/23 08:00
I&O
06/24/23 06/25/23 06/26/23
06:59 06:59 06:59
Intake Total 440 / 440 600 / 600 480 / 480
Balance 440 / 440 600 / 600 480 / 480
--- NOTE | 2023-06-25 10:50 | W.DCSUMMARY ---
Discharge Summary
Discharge Data
Date of Admission: 06/19/23
Date of Discharge: 06/25/23
-
Pending Results: No
Hospital Course
82-year-old female with past medical history of interstitial lung disease, A-fib, CHF, anemia, rheumatoid arthritis, essential hypertension, hyperlipidemia, chronic hypoxic respiratory failure came to the hospital with worsening shortness of breath
which was likely thought was multifactorial from atrial fibrillation, heart failure and interstitial lung disease. On this hospitalization patient diltiazem was increased. Patient also had successful cardioversion on 06/22/2023. For her heart
failure she was initially started on IV Lasix which was later transitioned to oral Lasix. Echocardiogram was consistent with a EF 60 to 65%. Despite diuresis and A-fib control she still continued to be short of breath and it appeared that that was
due to ILD flareup. Her symptoms then improved after we started IV steroids. She was transitioned to oral steroids prior to discharge. On this hospitalization patient was also seen by electrophysiology who did not wanted to change her flecainide
and wanted her to follow-up with them outpatient. Once patient symptoms continue to improve, she was then discharged home with instructions to follow-up with all her physicians outpatient.
Discharge Plan
-
Patient Disposition: Home (Routine Discharge)
Discharge Diagnosis/Procedures: Shortness of breath multifactorial secondary to atrial fibrillation, acute heart failure exacerbation, acute on chronic interstitial lung disease
Atrial fibrillation with rapid ventricular rate status post cardioversion
Acute on chronic congestive heart failure exacerbation
Constipation
Diet: As tolerated
Activity: As tolerated
Driving Restrictions: As prior to admission
Bathing Restrictions: None
Activity Restrictions/Additional Instructions:
Coumdian 5mg Thu , thu and thursday. Coumadin 7.5 Mg and Thursday
Instructions: Docusate, Prednisone, Verapamil, *CBC Heart Failure Instructions
Referrals:
[facility] [Other] (FAX [phone])
Jann Curtis MD [Active] - in two to four weeks
Samir Tobias MD [Family Provider] -
Prescriptions:
New
docusate sodium 100 mg Capsule
100 mg PO BID Qty: 0 0RF
verapamil 240 mg Tablet Extended Release
240 mg PO DAILY Qty: 30 0RF
prednisone 10 mg Tablet
See Rx Instructions .ROUTE .COMPLEX Qty: 30 0RF
Rx Instructions:
Take By Mouth:
40 mg daily x3 days, 30 mg daily x3 days,
20 mg daily x3 days, 10 mg daily x3 days.
polyethylene glycol 3350 [HealthyLax] 17 gram Powder In Packet
17 g PO DAILY Qty: 0 0RF
Continued
B complex-vitamin C-folic acid 1 EACH tablet
1 tab PO NOON
flecainide 100 MG tablet
100 mg PO BID
calcium carbonate-vitamin D3 1 EACH tablet
1 tab PO NOON
fluoxetine 20 MG capsule
20 mg PO DAILY
rosuvastatin 10 mg tablet
10 mg PO NOON
furosemide 40 mg Tablet
40 mg PO DAILY Qty: 90 0RF
ipratropium-albuterol 0.5 mg-3 mg(2.5 mg base)/3 mL solution for nebulization
3 ml INHALATION R TIDPRN PRN (Reason: sob/wheezing)
Jardiance 10 mg Tablet
10 mg PO DAILY 30 Days Qty: 30 0RF
acetaminophen [Tylenol Extra Strength] 500 mg Tablet
1,000 mg PO BIDPRN PRN (Reason: hand pain)
potassium chloride 20 mEq tablet,ER particles/crystals
20 meq PO DAILY
albuterol sulfate 90 mcg/actuation Hfa Aerosol Inhaler
1 puff INHALATION R Q4HPRN PRN (Reason: sob)
magnesium oxide 400 mg magnesium Tablet
400 mg PO NOON
Breztri Aerosphere 160-9-4.8 mcg/actuation Hfa Aerosol Inhaler
2 inh INHALATION R BID
Changed
warfarin 5 mg tablet
See Rx Instructions .ROUTE .COMPLEX Qty: 0 0RF
Rx Instructions:
7.5 mg orally and Thursday
warfarin 5 mg Tablet
5 mg PO .sumowedfri Qty: 0 0RF
Rx Instructions:
Thu , thu and thursday
Discontinued
verapamil 120 MG tablet extended release
120 mg PO NOON
Discharge Orders:
Discharge Patient (As Directed); Ordered 06/25/23
Ordered By: Isaias Glez
Care Plan Goals
Care Plan Goals:
Problem: Readiness for enhanced knowledge related to diagnosis and treatment plan
Goal: Understand your diagnosis and treatment plan needs, including medications if applicable.
Instructions: Know your diagnosis, underlying causes and treatment plan options, including medications if applicable. Consult with your health care team to learn about your diagnosis and treatment plan, including medications if applicable.
Discharge Date and Time
Discharge Date/Time: 06/25/23 16:23
Print Language: GREEN[place]
[2023-06-25] MEDS: MAGNESIUM OXIDE 500 MG PO (12:58)
[2023-06-25] MEDS: CRESTOR 10 MG PO (12:58)
[2023-06-25 13:36] VITALS: BP 115/69
[2023-06-25 14:47] VITALS: BP 110/66
[2023-06-25] MEDS: VENTOLIN NEBULES INH (15:45)
== END 2023-06-25 16:23 | disposition home health service (06) | DRG 196 ==
LOC: IVU 12:06
PROVIDERS: ADMITTING PHYSICIAN Hospitalist; ATTENDING PHYSICIAN Internal Medicine; CONSULT PHYSICIAN Internal Medicine; EMERGENCY PHYSICIAN Emergency Medicine; FAMILY PHYSICIAN Family Medicine; OTHER PHYSICIAN Internal Medicine Cardiovascular Disease
PROC: 5A2204Z Restoration of Cardiac Rhythm, Single (ICD-10-PCS; 2023-06-22)
DX: J84.9 Interstitial pulmonary disease, unspecified (principal); I50.33 Acute on chronic diastolic (congestive) heart failure; J96.11 Chronic respiratory failure with hypoxia; Z66 Do not resuscitate; M06.9 Rheumatoid arthritis, unspecified; I11.0 Hypertensive heart disease with heart failure; I48.0 Paroxysmal atrial fibrillation; E78.2 Mixed hyperlipidemia; K59.00 Constipation, unspecified; D64.9 Anemia, unspecified
CPT/HCPCS: 71046; 80048; 80053; 83880; 84484; 85025; 85610; 87811; 92960; 93005; 93306; 94640; 96365; 96366; 96375; 97116; 97162; 97530; 99285

== ENCOUNTER 2023-06-28 13:44 | Inpatient (IN) | payer MEDICARE, OTHER, SELFPAY ==
[2023-06-28] VITALS (17 sets, daily range): BP systolic 89–163; BP diastolic 56–93; BMI 26.0; BMI 24.4
[2023-06-28 04:56] LABS: % Basophils 0.1 % (0-2); % Eosinophils 0.1 % (0-6); % Immature Granulocytes 0.8 % (0-0.5); % Lymphocytes 11.3 % (20.5-51.1); % Monocytes 14.2 % (1.7-9.3); % Neutrophils 73.5 % (42.2-75.2); Absolute Immature Granulocytes 0.1 10^3/uL (0-0.05); Absolute Lymphocytes 1.7 10^3/uL (1.2-3.4); Absolute Monocytes 2.1 10^3/uL (0.1-0.6); Absolute Neutrophils 10.8 10^3/uL (1.4-6.5); Hematocrit 39.2 % (37.0-47.0); Hemoglobin 12.7 g/dL (12.0-16.0); Mean Corp Hgb Conc. 32.4 g/dL (33.0-37.0); Mean Corpuscular Volume 95.6 fL (81.0-99.0); Mean Platelet Volume 9.1 fL (7.4-10.4); Nucleated Red Blood Cells % 0 %; Platelet Count 305 10^3/uL (130-400); Red Cell Dist. Width 15.5 % (11.5-14.5); White Blood Cell Count 14.7 10^3/uL (4.8-10.8)
[2023-06-28 05:16] LABS: APTT 41.3 Sec (23.4-35.0); INR 2.53; PT 27.1 Sec (11.4-14.6)
[2023-06-28 05:23] LABS: Troponin I < 0.012 ng/ml
[2023-06-28 05:35] LABS: ALT (SGPT) 37 U/L (0-35); AST (SGOT) 24 U/L (14-36); Albumin 2.9 g/dl (3.5-5.0); Alkaline Phosphatase 59 U/L (38-126); Blood Urea Nitrogen 38 mg/dl (7-17); Calcium 9.1 mg/dl (8.4-10.2); Carbon Dioxide 30 mmol/L (22-30); Chloride 105 mmol/L (98-107); Estimated Creatinine Clearance 60 ml/min; Glucose 87 mg/dl (70-99); Potassium 3.9 mmol/L (3.5-5.1); Sodium 142 mmol/L (135-145); Total Bilirubin 0.4 mg/dl (0.2-1.3); Total Protein 5.7 g/dl (6.3-8.2); eGFR > 60.00
--- NOTE | 2023-06-28 06:21 | ED.GENMED ---
History of Present Illness
General
Chief Complaint: Chest Pain
Source: patient
Time Seen by Provider: 06/28/23 06:13
Travel History
Have you had any contact with someone who has COVID-19?: No
Do you have any symptoms of coronavirus? Fever > 100 degrees, chills, cough, shortness of breath, sore throat, loss of taste or smell, muscle aches, or headache?: No
History of Present Illness
History of Present Illness:
82-year-old female presents to the emergency room complaining of some pressure in her neck bilaterally as well as palpitations. Patient states she was hospitalized here at [facility] up until couple days ago. That hospitalization was due to
shortness of breath and atrial fibrillation. She was cardioverted into sinus rhythm which she remained in until she believes Thursday when she began having palpitations. Patient was also treated for heart failure and exacerbation of interstitial
lung disease. She is on chronic oxygen. She feels like her shortness of breath is at baseline. She does not have chest pain per se is concerned about this tightness in her neck. It has been constant yesterday.
Past History
Past History
ED Past Medical History: Arrthythmia (atrial fibrillation), CHF, GERD, HTN, Hypercholesterolemia, Psychiatric (Anxiety, Depression), Other (Rheumatoid arthritis, dizziness, shingles, Lyme disease, vertigo, PNA, Diverticulitis, Cataracts) and Other
(RA)
ED Past Surgical History: Orthopedic (Laminectomy, Left hip replacement, Bilateral knee replacement) and Other (Cataract surgery, laminectomy)
Patient has exhibited threatening behavior?: No
PSI?: No
Social History
Tobacco: Non-smoker
Alcohol: None
Drug: None
Personal:
Living: with family
Employment: Retired
Family History
Family History: Other
Phy Exam
Physical Exam
Physical Exam:
General: Awake, Alert, Oriented X3. Appears stated age and chronically ill
Vitals: unremarkable
Head: Atraumatic
Eyes: Pupils equal, EOMI
Throat: Airway intact, no exudates
Neck: Trachea midline
Lungs: Clear and equal b/l
Heart: irregular rate, no murmurs
Abd: Soft, Nontender, No pulsatile mass
Neuro: Nonfocal
Skin: Warm, dry, no rash
Extremities: pulses equal b/l, trace edema
Scores
Heart Score for Chest Pain Patients
STEMI patient?: No
History: Slightly or Non-Suspicious
ECG: Nonspecific Repolarization
Age: >/= 65 years
Risk Factors: >/= 3 Risk Factors or History of CAD
Troponin: </= Normal Limit
Heart Score for Chest Pain Patients: 5
Heart Score Risk: 20.3% MACE over next 6 weeks
Course
Orders/Labs/Results
Orders:
Orders
06/28/23 04:41
Electrocardiogram (*1) Urgent
Reason for Study: Chest Pain
Cardiac Monitoring- Treatment ONCE
EKG- Treatment ONCE
IV Insert/Care/Rem.- Treatment PRN
O2 Therapy [RESP] Urgent
Titrate/Wean O2 to maintain O2 sat greater than (%): 90
Special Instructions: Maintain sats >/=90%
Pulse Ox/spot Check [RESP] Urgent
Quantity: 1
Special Instructions: ON ROOM AIR
06/28/23 04:48
Complete Blood Count/With Diff Urgent
PTT Urgent
Prothrombin Time Urgent
Troponin I Urgent
06/28/23 04:57
Add On- LAB Urgent
Tests Added?: pt/irn
06/28/23 05:10
Comprehensive Metabolic Panel Routine
Comment: REDRAW
06/28/23 06:21
CR Chest - 2 Views Urgent
Comment:
Reason For Exam: sob, chest pain
06/28/23 08:09
Electrocardiogram (*1) Urgent
Reason for Study: Chest Pain
EKG- Treatment ONCE
06/28/23 08:17
NT-proBNP Urgent
Comment: ADD ON
Troponin I Urgent
06/28/23 09:01
Add On- LAB Urgent
Tests Added?: proBNP
06/28/23 09:51
Furosemide [Lasix] 40 mg IV NOW STA
Ipratropium/Albuterol Sulfate [Duoneb] 3 ml INH R NOW STA
06/28/23 10:00
Ipratropium/Albuterol Sulfate [Duoneb] 3 ml .ROUTE .STK-MED ONE
Abnormal Lab Results
06/28/23 06/28/23
04:48 05:10
WBC 14.7 H 10^3/uL
(4.8-10.8)
RBC 4.10 L 10^6/uL
(4.20-5.40)
MCHC 32.4 L g/dL
(33.0-37.0)
RDW 15.5 H %
(11.5-14.5)
Abs Immat Gran (auto) 0.1 H 10^3/uL
(0-0.05)
Absolute Neuts (auto) 10.8 H 10^3/uL
(1.4-6.5)
Absolute Monos (auto) 2.1 H 10^3/uL
(0.1-0.6)
Immature Gran % 0.8 H %
(0-0.5)
Lymphocytes % 11.3 L %
(20.5-51.1)
Monocytes % 14.2 H %
(1.7-9.3)
PT 27.1 H Sec
(11.4-14.6)
APTT 41.3 H Sec
(23.4-35.0)
BUN 38 H mg/dl
(7-17)
ALT 37 H U/L
(0-35)
Total Protein 5.7 L g/dl
(6.3-8.2)
Albumin 2.9 L g/dl
(3.5-5.0)
06/28/23 04:48
06/28/23 05:10
Vital Signs
Initial and Last Documented VS:
Initial Vital Signs
BP
151/93
06/28/23 04:41
Last Documented Vital Signs
Temp Pulse Resp BP Pulse Ox
98.5 F 101 19 130/87 100
06/28/23 04:45 06/28/23 10:02 06/28/23 10:00 06/28/23 10:02 06/28/23 10:00
MDM/Problems Addressed
Chronic conditions affecting care: HTN, Arrhythmia (Atrial fibrillation) and COPD
*Pulse Oximetry
Patient hypoxic: no (While on supplemental oxygen)
*EKG
Interpreted by ED Provider?: Yes
Heart Rate: 91
Rate: normal
Rhythm: a-fib
[place]: normal axis
Interval: normal interval
QRS Pattern: left vent hypertrophy
Ischemia: no ischemia
*White Mixing Operator Interpretation
Rate: normal
Interpretation: abnormal
Rhythm: a-fib
*Critical Care Note
Total Time (30-74mins, 75-104mins- exclusive of procedures): Not Applicable
Patient Management
Discussion with other providers: Hospitalist
ED Attending Note
-
Portions of this chart may have been created with voice recognition software.� Occasional wrong word or��sound alike� substitutions may have occurred due to the inherent limitations of voice recognition software.
Discharge Plan
Departure
Prescriptions:
No Action
B complex-vitamin C-folic acid 1 EACH tablet
1 tab PO NOON
flecainide 100 MG tablet
100 mg PO BID
calcium carbonate-vitamin D3 1 EACH tablet
1 tab PO NOON
fluoxetine 20 MG capsule
20 mg PO DAILY
rosuvastatin 10 mg tablet
10 mg PO NOON
furosemide 40 mg Tablet
40 mg PO DAILY Qty: 90 0RF
ipratropium-albuterol 0.5 mg-3 mg(2.5 mg base)/3 mL solution for nebulization
3 ml INHALATION R TIDPRN PRN (Reason: sob/wheezing)
Jardiance 10 mg Tablet
10 mg PO DAILY 30 Days Qty: 30 0RF
acetaminophen [Tylenol Extra Strength] 500 mg Tablet
1,000 mg PO BIDPRN PRN (Reason: hand pain)
potassium chloride 20 mEq tablet,ER particles/crystals
20 meq PO DAILY
albuterol sulfate 90 mcg/actuation Hfa Aerosol Inhaler
1 puff INHALATION R Q4HPRN PRN (Reason: sob)
magnesium oxide 400 mg magnesium Tablet
400 mg PO NOON
Breztri Aerosphere 160-9-4.8 mcg/actuation Hfa Aerosol Inhaler
2 inh INHALATION R BID
docusate sodium 100 mg Capsule
100 mg PO BID Qty: 0 0RF
verapamil 240 mg Tablet Extended Release
240 mg PO DAILY Qty: 30 0RF
prednisone 10 mg Tablet
See Rx Instructions .ROUTE .COMPLEX Qty: 30 0RF
Rx Instructions:
Take By Mouth:
40 mg daily x3 days, 30 mg daily x3 days,
20 mg daily x3 days, 10 mg daily x3 days.
polyethylene glycol 3350 [HealthyLax] 17 gram Powder In Packet
17 g PO DAILY Qty: 0 0RF
warfarin 5 mg tablet
See Rx Instructions .ROUTE .COMPLEX Qty: 0 0RF
Rx Instructions:
7.5 mg orally and Thursday
warfarin 5 mg Tablet
5 mg PO .sumowedfri Qty: 0 0RF
Rx Instructions:
Thu , thu and thursday
Referrals:
Samir Tobias MD [Family Provider] -
Interventions
Interventions:
*Risk Screen - Suicide Last Done: 06/28/23 04:45
*General Assessment Last Done: 06/28/23 04:45
*Neglect/Abuse Screening Last Done: 06/28/23 04:45
ED- Fall Risk Assessment Last Done: 06/28/23 04:52
*ED COVID-19 Vaccine History Last Done: 06/28/23 04:45
ED- Cardiac Assessment Last Done: 06/28/23 10:06
Discharge Date and Time
Print Language: SLOVAK
--- NOTE | 2023-06-28 08:06 | EDRN ---
Pt calling from doorway of her room for assistance. This RN went in and pt complained of SOB and chest pain 5-07/26. This RN replaced pt on stretcher, reconnected her to panel monitor. Dr. Marshall was informed by Josh Falcon NP who answered his
phone. Pt was tachypneic but resps slowed and pt calmer. Pt also said she thinks she felt panicky.
--- NOTE | 2023-06-28 08:23 | EDRN ---
Dr. Marshall was in to see pt and saw EKG which showed A FIB. EKG done jayesh 8:15 and repeat troponin sent at 8:17. Pt calmer at this time.
[2023-06-28 08:47] LABS: Troponin I 0.013 ng/ml
[2023-06-28 09:35] LABS: NT-proBNP 5050 pg/ml
--- NOTE | 2023-06-28 10:00 | EDRN ---
Dr. Marshall in to see pt at this time.
[2023-06-28] MEDS: DUONEB 3 ML INH ×3 (10:02→19:30)
[2023-06-28] MEDS: LASIX 40 MG IV (10:02)
--- NOTE | 2023-06-28 13:25 | HPS.HSE ---
Addendum entered and electronically signed by Todd Church MD 06/28/23 13:33:
I saw and examined the patient.
The PA note was reviewed and I agree with the note.
Comment:
82-year-old female with past medical history of interstitial lung disease, A-fib, CHF, anemia, rheumatoid arthritis, essential hypertension, hyperlipidemia, chronic hypoxic respiratory failure came to the hospital with worsening shortness of breath
which was likely thought was multifactorial from atrial fibrillation, heart failure and interstitial lung disease presented with chest discomfort and shortness of breath. Denies any productive cough. Denies any fevers or chills. Was recently
admitted for atrial fibrillation status post cardioversion. Also with ILD flare. Was started on prednisone taper regimen at home. Patient states she is unclear if with lower extremity edema. In the ER she was found to be in atrial fibrillation
with rapid ventricular response. Unclear if she received her morning dose of a.m. medication. Remains on baseline oxygenation.
Gen-AAOx3, NAD
HEENT-NC, AT, anicteric, clear oral mm
Neck-supple
CV-irregularly irregular, tachycardic in atrial fibrillation
Lungs-Rales bilateral bases, oxygenation
Abd-soft, NT, ND
Musculoskeletal-trace edema
Skin-warm and dry
Neuro-grossly non-focal
Psych-calm, cooperative
Impression
Dyspnea on exertion likely secondary acute on chronic heart failure exacerbation probably exacerbated with atrial fibrillation with rapid ventricular response
Chronic hypoxic respiratory failure on baseline 3 L
Atrial fibrillation with rapid ventricular response status post recent cardioversion
Chronic ILD
Rheumatoid arthritis
Primary hypertension hyperlipidemia
Plan
Start patient on IV Lasix 40 mg daily.
Cardiology evaluation
We need to control heart rate
May require Cardizem IV infusion
Continue with outpatient prednisone taper regimen
Continue with home dose of Coumadin his INR is therapeutic
Continue other home meds
DVT prophylaxis with Coumadin
DNR/DNI confirmed with patient
I spent a total of 78 minutes with the patient or on the floor. More than 50% of this time involved counseling and coordination of care.
Original Note:
Family Physician
-
Family Physician: Samir Tobias
Chief Complaint
-
Chest Pain and Shortness of Breath
History of Present Illness
This is a 82 year old female with a past medical history on a-fib, HFpEF, interstitial lung disease who presents today for worsening SOB x 3 days as well as new onset chest pain x 1 day. She described the SOB like she is not 'getting enough air' and
it has been worsening since onset. She states her chest pain is located centrally and radiates to her neck and is a dull pressure. She is chronically on 3L O2 at home which she is compliant with during the day and at night. She denies fever, chills,
coughing, wheezing, N/V or abdominal pain. She was recently admitted to [facility] for A-Fib and underwent cardioversion on 06/21. She is currently on a prednisone taper for recent acute exacerbation of her interstitial lung disease.
Medical History
Past Medical History
Past Medical History: Reports Other
Additional Past Medical History:
Chronic Diastolic Heart Failure
Atrial Fibrillation
Essential Hypertension
Hyperlipidemia
Interstitial Lung Disease
Rheumatoid Arthritis
Depression
Past Surgical History: Reports Other
Additional Past Surgical History:
Bilateral Cataracts
Laminectomy
Left Hip Replacement
Right Total Knee Replacement
Social History
Tobacco: Non-smoker
Alcohol: None
Drug: None
Personal:
Living: With Family
Family History
Family History: Not pertinent
Allergies / Home Medications
Allergies reflects when Allergies were last updated in [facility].
Home Medications with original date entered in [facility]
Allergy/Medication List:
Allergies
Allergy/AdvReac Type Severity Reaction Status Date / Time
No Known Allergies Allergy Verified 11/22/22 17:22
Home Medications
vitamin B complex-vitamin C-folic acid 400 mcg tablet 1 tab PO NOON Supplement 07/18/17
calcium carbonate 600 mg-vitamin D3 20 mcg (800 unit) tablet 1 tab PO NOON Supplement 02/01/18
flecainide 100 mg tablet 100 mg PO BID Arrhythmia 02/01/18
fluoxetine 20 mg capsule 20 mg PO DAILY Mental Health/Anxiety 04/26/18
rosuvastatin 10 mg tablet 10 mg PO NOON High Cholesterol 10/25/22
furosemide 40 mg tablet 40 mg PO DAILY #90 tabs 11/28/22
ipratropium 0.5 mg-albuterol 3 mg (2.5 mg base)/3 mL nebulization soln 3 ml inhalation R TIDPRN PRN sob/wheezing 12/21/22
empagliflozin 10 mg tablet (Jardiance) 10 mg PO DAILY 30 days #30 tabs 12/26/22
acetaminophen 500 mg tablet (Tylenol Extra Strength) 1,000 mg PO BIDPRN PRN hand pain 06/19/23
albuterol sulfate 90 mcg/actuation aerosol inhaler 1 puff inhalation R Q4HPRN PRN sob 06/19/23
budesonide 160 mcg-glycopyr 9 mcg-formot 4.8 mcg/actuation HFA inhaler (Breztri Aerosphere) 2 inh inhalation R BID Lung/Breathing Issues 06/19/23
magnesium oxide 400 mg PO NOON Supplement 06/19/23
potassium chloride 20 mEq tablet,extended release(part/cryst) 20 meq PO DAILY Supplement 06/19/23
docusate sodium 100 mg capsule 100 mg PO BID #0 caps 06/25/23
polyethylene glycol 3350 17 gram oral powder packet (HealthyLax) 17 g PO DAILY #0 ea 06/25/23
prednisone 10 mg tablet See Rx Instructions .Route .COMPLEX #30 tabs 06/25/23
verapamil 240 mg tablet,extended release 240 mg PO DAILY #30 tabs 06/25/23
warfarin 5 mg tablet 5 mg PO .sumowedfri Blood Clot Prevention/Tx #0 tabs 06/25/23
warfarin 5 mg tablet See Rx Instructions .Route .COMPLEX Blood Clot Prevention/Tx #0 tabs 06/25/23
Review of Systems
-
A 12 point ROS was completed and negative except as noted: Yes
Constitutional: Denies Fever or Chills
Respiratory: Reports Cough (Chronic) and Trouble Breathing
Cardiac: Reports See HPI
Abdomen/GI: Denies Abdominal Pain, Nausea or Vomiting
Physical Exam
Vital Signs
Vital Signs
Temp Pulse Resp BP Pulse Ox
98.5 F 114 21 118/81 100
06/28/23 04:45 06/28/23 12:45 06/28/23 12:45 06/28/23 11:00 06/28/23 12:45
Physical Exam
General: Comfortable and Conversant
HEENT: Anicteric, Moist mucous membranes and Oxygen (Nasal [place])
Respiratory: Rales (Bilateral Bases) and Non Labored Respirations
Cardiac: S1/S2, Irregular Rhythm and Tachycardia
GI: Soft and Non Tender
Rectal: Deferred by Provider
Musculoskeletal: No Clubbing, No Cyanosis and Other (+2 pitting edema bilateral lower ext)
Skin: Warm and Dry
Neuro: Awake, Alert, Oriented and Nonfocal/grossly intact
Psych: Calm
Laboratory Results
-
06/28/23 04:48
06/28/23 05:10
Laboratory Results
PT 27.1 Sec (11.4-14.6) H 06/28/23 04:48
INR 2.53 06/28/23 04:48
APTT 41.3 Sec (23.4-35.0) H 06/28/23 04:48
Total Bilirubin 0.4 mg/dl (0.2-1.3) 06/28/23 05:10
AST 24 U/L (14-36) 06/28/23 05:10
ALT 37 U/L (0-35) H 06/28/23 05:10
Alkaline Phosphatase 59 U/L (38-126) 06/28/23 05:10
Troponin I 0.013 ng/ml 06/28/23 08:17
Data Reviewed
-
Diagnostic Radiology: Report Reviewed by me
Lab Data: Labs Reviewed by me
Old Records: Reviewed
Impression/Plan
-
Persistent Atrial Fibrillation
-Failed cardioversion on June 21
-Consult Cardiology
-Give dose of verapamil now as patient missed morning dose - If heart remains elevated start Cardizem drip
-Continue Flecainide - Possible transition to Tikosyn
-Continue Coumadin for anticoagulation with Daily INR
Acute on Chronic Diastolic Heart Failure
-Continue Lasix 40mg IV Daily
-Continue Jardiance
-Monitor Is&Os and Daily Weights
Hyperlipidemia
-Continue Crestor
Chronic Hypoxic Respiratory Failure secondary to Interstitial Lung Disease
-Continue supplemental oxygen at 3L via nasal cannula
-Continue Pulmicort Neb and Duoneb in place of Breztri
-Continue prednisone taper
Depression
-Continue Fluoxetine
Rheumatoid Arthritis
-Stable
DVT proph: Coumadin
Code Status: DNR
--- NOTE | 2023-06-28 13:33 | W.PN.UPDATE ---
Update Note
Progress Note Update
For billing purposes
[2023-06-28] MEDS: CALAN EXTENDED RELEASE 240 MG PO (13:47)
--- NOTE | 2023-06-28 16:56 | CON.CAR ---
Consultation
Consultation Request
Date/Time Consultation Requested: 06/28/23, 2pm
Date/Time Consultation Performed: 06/28/23, 330pm
Requesting Provider: Ranjit
Performing Provider: Lizeth
Reason for Consultation: A fib, heart failure
Medical History
-
Chief Complaint: SOB
History of Present Illness:
82 yo female with chronic HFpEF, mild/mod , paroxysmal Afib on Coumadin ([id number] VASC 5) and Flecainide, TAA 4.5cm, COPD/ILD on 2L NC oxygen, HTN, RA, GERD and HLD, who presents to the ER with c/o SOB and noted to be back in A fib.
Recently admitted for A fib and HF. Underwent DCCV and diuresis. Was discharged in sinus rhythm. Now returns with palps, SOB, weight gain; and is back in A fib.
Past Medical History
Past Medical History: Arrhythmias (paroxysmal A fib), CHF (chronic HFPEF), GERD, HTN, Hypercholesterolemia and Valvular Disease
Past Surgical History: Other (cataract, right TKA, left TKA, left JAVI, laminectomy, d&c)
Social History
Tobacco: Non-Smoker
Alcohol: None
Personal:
Living: With Family
Employment: Retired
Family History
Family History: Reviewed & Not Pertinent
Allergies / Home Medications
Allergy/AdvReac Type Severity Reaction Status Date / Time
No Known Allergies Allergy Verified 11/22/22 17:22
�Medication �Instructions �Recorded �Confirmed �Type
calcium carbonate 600 mg-vitamin 1 tab PO NOON Supplement 02/01/18 06/28/23 History
D3 20 mcg (800 unit) tablet
flecainide 100 mg tablet 100 mg PO BID Arrhythmia 02/01/18 06/28/23 History
fluoxetine 20 mg capsule 20 mg PO DAILY Mental 04/26/18 06/28/23 History
Health/Anxiety
rosuvastatin 10 mg tablet 10 mg PO NOON High Cholesterol 10/25/22 06/28/23 History
furosemide 40 mg tablet 40 mg PO DAILY #90 tabs 11/28/22 06/28/23 Rx
ipratropium 0.5 mg-albuterol 3 mg 3 ml inhalation R TIDPRN PRN 12/21/22 06/28/23 History
(2.5 mg base)/3 mL nebulization sob/wheezing
soln
empagliflozin 10 mg tablet 10 mg PO DAILY 30 days #30 tabs 12/26/22 06/28/23 Rx
(Jardiance)
albuterol sulfate 90 mcg/actuation 2 puff inhalation R Q4HPRN PRN sob 06/19/23 06/28/23 History
aerosol inhaler
budesonide 160 mcg-glycopyr 9 2 inh inhalation R BID 06/19/23 06/28/23 History
mcg-formot 4.8 mcg/actuation HFA Lung/Breathing Issues
inhaler (Breztri Aerosphere)
magnesium oxide 400 mg PO NOON Supplement 06/19/23 06/28/23 History
potassium chloride 20 mEq 20 meq PO DAILY Supplement 06/19/23 06/28/23 History
tablet,extended release(part/cryst)
prednisone 10 mg tablet See Rx Instructions .Route 06/25/23 06/28/23 Rx
.COMPLEX #30 tabs
verapamil 240 mg tablet,extended 240 mg PO DAILY #30 tabs 06/25/23 06/28/23 Rx
release
B-complex with vitamin C 1 tab PO NOON 06/28/23 06/28/23 History
docusate sodium 100 mg capsule 100 mg PO BID PRN constipation 06/28/23 06/28/23 History
warfarin 5 mg tablet 5 mg PO SUMOWEFR Blood Clot 06/28/23 06/28/23 History
Prevention/Tx
warfarin 5 mg tablet 7.5 mg PO TUTHSA 06/28/23 06/28/23 History
Review of Systems
-
History Source: Patient
All other systems: Negative unless noted
Constitutional: Fatigue
Respiratory: Trouble Breathing
Cardiac: Palpitations
Physical Exam
Vital Signs
Temp Pulse Resp BP Pulse Ox
98.8 F 86 18 89/56 98
06/28/23 15:31 06/28/23 16:41 06/28/23 16:00 06/28/23 16:41 06/28/23 16:00
Lab Results
06/28/23 04:48
06/28/23 05:10
Troponin I 0.013 ng/ml 06/28/23 08:17
Qgn-B-Mhvskwjapmb Pept 5050 pg/ml 06/28/23 08:17
Physical Exam
General: Well Developed and Well Nourished
HEENT: Normocephalic and Anicteric
Respiratory: Clear and Wheezes (none)
Cardiac: S1/S2 (normal), Irregular Rhythm, Murmur (II/ systolic at RUSB), Peripheral Edema (minimal) and JVD (present)
GI: Soft, Non Tender and Non Distended
Musculoskeletal: No Clubbing, No Cyanosis and Edema (minimal)
Skin: Warm and Dry
Neuro: AO x 3
Psych: Calm
Impression / Plan
-
82 y/o female with chronic HFpEF, mild/mod , paroxysmal Afib on Coumadin ([id number] VASC 5) and Flecainide, TAA 4.5cm, COPD/ILD on 2L NC oxygen, HTN, RA, GERD and HLD, who is re-admitted with recurrent A fib and heart failure.
Afib - paroxysmal: recurrent
-INR today is 2.53
- Outpatient flecainide 100 mg twice daily and verapamil 240 mg daily
-last flecainide 06/26 PM; last verapamil 06/27
- Last DCCV 06/22/23
- A fib has recurred and is symptomatic
-she is interested in tikosyn load, and eventual ablation
-to discuss with EP washout periods for flecainide and verapamil
HFpEF - acute on chronic. Weight gain noted on ED scale, and given IV lasix.
-recent echo below
-Continue Jardiance.
-received IV lasix in ED, then BP dropped
-hold further lasix, and repeat weight
Valvular heart disease -Mild to moderate /MR, moderate TR:
-Volume management with lasix
HTN - BP low on admission
-holding verapamil
-monitor
ascending aortic aneurysm 4.5 cm
-monitor
COPD/ILD - chronic 3L NC.
-per hospitalist
Data:
�������LHC/RHC 12/25/2022: PCWP 16 CO 5.5 CI 2.9 mild to moderate AAS MG 18 mmHg GEOVANNY 1.5 cm2 EF 67 no significant CAD. Luminal irregularities. Mild pulmonary hypertension. Weight at time of RHC 170 pounds.
�������CT chest 02/2021 ascending aortic aneurysm 4.5 cm
Echo 06/19/23: EF 60-65%, mild/mod MR, mild/mod (peak/mean gradients 31/17mmHg, GEOVANNY 1.2cm2), mild AR, nl RV, moderate TR, PASP 40-45
.
Data Reviewed
-
EKG: Tracing Personally Visualized and interpreted (A fib, iLBBB, HR 92)
Medical Tests (Nuc Med, Echo etc): Report Reviewed by me (per note)
Labs: Labs Reviewed by me
--- NOTE | 2023-06-28 17:28 | PTCARENOTE ---
Received patient from the ED at 1515. Patient felt nauseated upon arrival, she was pale and diaphoretic. BP 104/76-AF on the monitor with HR 110's, 99% on 4L NC. Assisted to the bed and nausea began to subside. Patient felt nausea was possibly due
to being given verapamil PO in ED on an empty stomach. Order obtained to start IV diltiazem and for second dose of IV lasix however SBP 80-90's and HR controlled in the 70'80's. Dr. Stanley in the room to see the patient and medications withheld as
per MD order. Resting comfortably now, sipping soda, will order dinner soon. Call zaragoza within reach.
[2023-06-28] MEDS: DELTASONE 40 MG PO (18:15)
[2023-06-28] MEDS: COUMADIN 7.5 MG PO (18:16)
[2023-06-28] MEDS: PULMICORT 0.5 MG INH (19:29)
[2023-06-28] MEDS: TYLENOL 650 MG PO (20:28)
--- NOTE | 2023-06-28 21:18 | PTCARENOTE ---
Pt rec'd at change of shift awake,alert c/o mild discomfort in chest when taking deep breaths. O2 at 3 lit n/c, crackles noted 1/2 up B/l,no cough sat 95%. afib on telemetry over 100 with activity.
--- NOTE | 2023-06-28 22:56 | PTCARENOTE ---
Pt diaphoretic, afebrile afib rates 90-100 b/p stable. No further c/p pain.
[2023-06-29] VITALS (8 sets, daily range): BP systolic 83–120; BP diastolic 63–103; BMI 24.4
[2023-06-29 03:34] LABS: Hematocrit 42.3 % (37.0-47.0); Hemoglobin 13.6 g/dL (12.0-16.0); Mean Corp Hgb Conc. 32.2 g/dL (33.0-37.0); Mean Corpuscular Hgb 31.1 pg (27.0-31.0); Mean Corpuscular Volume 96.6 fL (81.0-99.0); Mean Platelet Volume 9.2 fL (7.4-10.4); Platelet Count 257 10^3/uL (130-400); Red Blood Cell Count 4.38 10^6/uL (4.20-5.40); Red Cell Dist. Width 15.6 % (11.5-14.5); White Blood Cell Count 27.3 10^3/uL (4.8-10.8)
[2023-06-29 03:45] LABS: INR 3.14; PT 32.3 Sec (11.4-14.6)
[2023-06-29 03:57] LABS: Blood Urea Nitrogen 33 mg/dl (7-17); Calcium 9.2 mg/dl (8.4-10.2); Carbon Dioxide 29 mmol/L (22-30); Chloride 99 mmol/L (98-107); Estimated Creatinine Clearance 53 ml/min; Glucose 139 mg/dl (70-99); Magnesium 2.1 mg/dl (1.6-2.3); Potassium 4.3 mmol/L (3.5-5.1); Sodium 139 mmol/L (135-145); eGFR > 60.00
[2023-06-29 04:19] LABS: Troponin I < 0.012 ng/ml
--- NOTE | 2023-06-29 04:27 | PTCARENOTE ---
Pt with night sweats x 3. Per pt she slept from mn to 0300 without complaint. Scheduled am 12 lead ecg completed read STEMI. am labs draw at that time including a troponin which resulted neg. Wbc elevated to 27.3. PA notified labs and ecg reviewed.
Pt pain free at present on O2 at 3 lit n/c. RODRIGO Ed Boatang will send ecg and update to Dr Stanley.
--- NOTE | 2023-06-29 07:54 | W.PN.CD ---
Addendum entered and electronically signed by Rd Christine DO 06/29/23 16:45:
Discussed with patient and with EP.
Patient would like to initiate dofetilide while admitted.
Verapamil discontinued.
Start diltiazem 240 mg PO daily.
Start dofetilide 250 mg q12 hours.
EKG 2H post dofetilide.
Maintain anticoagulation.
She will need DCCV if she does not spontaneously convert ().
Addendum entered and electronically signed by Rd Christine DO 06/29/23 13:06:
Echocardiogram is negative for any new wall motion abnormalities.
Pericardial effusion is more prominent, raising the possibility of pericarditis which would better fit with her pleuritic symptoms.
Check CRP/ESR.
Start colchicine 0.3 mg twice daily.
Maintain steroids (higher rate of relapse of pericarditis, though necessary for underlying pulmonary disease).
I will discuss transition to dofetilide and off of flecainide with my EP colleagues.
Original Note:
Today's Communication / Plan
-
Concerning EKG findings overnight (inferolateral LEOLA).
Chest pain has resolved.
Prior cath shows no CAD (12/25/2022).
STAT echo ordered and pending.
DDx includes focal pericarditis vs. ACS.
Cycle troponin.
Possible cath this morning.
Furosemide changed to PRN weight gain.
Impression / Plan
-
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
pleuritic chest pain.
#Afib
-Paroxysmal, recurrent.
-Rate/rhythm control with verapamil and flecainide. She is interested in dofetilide/ablation.
-Last DCCV was 06/22/2023.
-CHADS2-Vasc = 5 (CHF, HTN, Age x2, Female)
-Therapeutic anticoagulation with warfarin. INR = 2.53.
#Chest Pain
-Acute.
-Pleuritic when she was admitted, now resolved.
-EKG concerning for inferolateral LEOLA.
-Cycle troponin.
-STAT echo.
-Cardiac catheterization from 12/25/2022 shows no CAD. We will check a STAT echo and possibly re-cath.
#HFpEF
-Chronic.
-Recent echo below
-Continue empagliflozin.
-Weight gain noted on ED scale. Received IV furosemide in ED, then BP dropped (likely from true intravascular depletion).
-Daily weights. Furosemide changed to PRN weight gain.
#Valvular heart disease
-Mild to moderate /MR, moderate TR
-Volume management with furosemide PRN.
#HTN
-Chronic.
-Relatively hypotensive on admission, now recovered.
-Continue verapamil.
#Ascending aortic aneurysm
-4.[address] Chest (with contrast), 04/24/2022.
-Monitor.
#COPD/ILD
-Chronic, stable.
-Chronic 3L NC.
-Per hospitalist.
Subjective/Interval History:
Patient admitted yesterday with symptomatic atrial fibrillation/HFpEF.
Overnight, patient found to be diaphoretic.
Weight up in the ER (questionable accuracy) but lower than her discharge weight when she got to the floor (72.1 kg at discharge, 75.2 kg in ER, 70.7 kg in IVU).
DATA:
CXR, 06/28/2023:
IMPRESSION:
Chronic interstitial lung disease with suspicion for superimposed edema or interstitial pneumonia.
TTE, 06/19/2023:
CONCLUSIONS
-LV ejection fraction is 60-65%. No regional wall motion abnormalities are
seen. Mild to moderate concentric left ventricular hypertrophy.
-Normal right ventricular size and function.
-Moderately dilated left atrium. Moderately dilated right atrium.
-Mild to moderate mitral regurgitation.
-Mild to moderate aortic stenosis; peak/mean gradients are 31/17 mmHg,
calculated GEOVANNY is 1.2 cm2. Mild aortic regurgitation.
-Moderate tricuspid regurgitation. Estimated pulmonary artery pressure of 40-45
mmHg.
-The IVC is dilated and does not collapse.
Compared to previous echo on 11/25/2022, slightly progressive aortic stenosis
is noted. Progressive tricuspid regurgitation is noted. PASP has increased
(previously 30-35 mmHg).
Cardiac Catheterization, 12/25/2022:
CONCLUSIONS:
1. Top normal left and right heart filling pressures with mild pulmonary hypertension
2. Mild to moderate aortic stenosis with mean gradient 18 mmHg and calculated GEOVANNY 1.5 cm�
3. Borderline ascending aortic enlargement with 1+ aortic insufficiency
4. Normal left ventricular function with EF 67%
5. No significant CAD
6. No clear cardiac etiology for her ongoing dyspnea. She has mild to moderate aortic stenosis and was admitted with HFpEF
Physical Exam
Vital Signs/Labs
Vital Signs
Temp Pulse Resp BP Pulse Ox
36.6 C 97 16 120/85 98
06/29/23 07:13 06/29/23 07:13 06/29/23 07:13 06/29/23 03:08 06/29/23 07:13
06/27/23 06/28/23 06/29/23
11:59 11:59 11:59
Actual Weight 75.2 kg 70.6 kg
06/29/23 03:28
06/29/23 03:28
PT 32.3 Sec (11.4-14.6) H 06/29/23 03:28
INR 3.14 06/29/23 03:28
APTT 41.3 Sec (23.4-35.0) H 06/28/23 04:48
Magnesium 2.1 mg/dl (1.6-2.3) 06/29/23 03:28
06/28/23
08:17
Tsy-G-Rpcuohcztrc Pept 5050
LAB Results
06/28/23 06/28/23 06/29/23
04:48 08:17 03:45
Troponin I < 0.012 0.013 < 0.012
Physical Exam
Constitutional: No acute distress and Comfortable
EENT: Anicteric and Moist mucous membranes
Cardiovascular: Pedal edema is absent, JVD pressure is normal, Rhythm/rate is irregular, Systolic murmur present and S1S2 is normal
Respiratory: Respiratory effort normal and Other (Diffusely decreased.)
GI: Soft, Distention absent, Flat, Non tender and Normal bowel sounds
Neuro/Psych: AO x 3
Data Reviewed
-
Date of Service: June 29, 2023
Medical Decision Making: Reviewed Test Results, Independent Historian Assessment, Test Interpretation and Review of Case with other Provider
EKG: Tracing Personally Visualized and interpreted and Report Reviewed by me
Echo: Tracing Personally Visualized and interpreted and Report Reviewed by me
X-Ray/CT/US/MRI/NUC/PET: Image Personally Visualized and interpreted and Report Reviewed by me
Medical Tests (PFT, Pathology etc): Image Personally Visualized and interpreted and Report Reviewed by me
Labs: Labs Reviewed by me and Labs Ordered by me
Old Records: Reviewed
[2023-06-29 08:34] LABS: Troponin I < 0.012 ng/ml
[2023-06-29] MEDS: PULMICORT 0.5 MG INH (08:47)
[2023-06-29] MEDS: DUONEB 3 ML INH ×2 (08:47→11:54)
[2023-06-29] MEDS: LOW STRENGTH ASPIRIN 324 MG PO (09:21)
[2023-06-29] MEDS: MIRALAX PO (11:25)
--- NOTE | 2023-06-29 11:49 | W.PN.HOSP.TC ---
Today's Communication/Plan
-
monitor vitals
see plan
echo
flecainide,verapamil when ok with cardiology
cw prednisone with taper
Assessment / Plan
Assessment / Plan
Gen-AAOx3, NAD
HEENT-NC, AT, anicteric, clear oral mm
Neck-supple
CV-irregularly irregular, tachycardic in atrial fibrillation
Lungs-Rales bilateral bases, oxygenation
Abd-soft, NT, ND
Musculoskeletal-trace edema
Skin-warm and dry
Neuro-grossly non-focal
Psych-calm, cooperative
Persistent Atrial Fibrillation
-Failed cardioversion on June 21
cardiology following
Was given IV Lasix however was hypotensive after. Lasix is currently on hold
verapamil per cardiology
- Flecainide per cardiology
-Continue Coumadin for anticoagulation with Daily INR
periods of chest pain 06/27 with EKG concerning for inferolateral LEOLA
trop however benign
echo today; possible cath depending echo findings
Chronic Diastolic Heart Failure
Initially was thought that patient likely has acute on chronic CHF exacerbation however after IV Lasix blood pressure dropped.
-Continue Lasix 40mg IV Daily
-Continue Jardiance
-Monitor Is&Os and Daily Weights
Leukocytosis likely secondary to steroids
Monitor
Hyperlipidemia
-Continue Crestor
Chronic Hypoxic Respiratory Failure secondary to Interstitial Lung Disease
-Continue supplemental oxygen at 3L via nasal cannula
-Continue Pulmicort Neb and Duoneb in place of Breztri
-Continue prednisone taper
Depression
-Continue Fluoxetine
Rheumatoid Arthritis
-Stable
DVT proph: Coumadin
Code Status: DNR
Anticipated Discharge: > 48 hours
Subjective/Interval History
-
Date of Service: June 29, 2023
denies chest pain currently
Objective Data
-
Labs:
Laboratory Results
06/29/23
03:28
WBC 27.3 H
Hgb 13.6
Hct 42.3
Plt Count 257
PT 32.3 H
INR 3.14
Sodium 139
Potassium 4.3
Chloride 99
Carbon Dioxide 29
BUN 33 H
Creatinine 0.8
Glucose 139 H
Calcium 9.2
Vital Signs:
Vital Signs
Temp Pulse Resp BP Pulse Ox
98.4 F 105 22 114/94 99
06/29/23 11:39 06/29/23 11:39 06/29/23 11:39 06/29/23 07:35 06/29/23 11:39
I&O
06/28/23 06/29/23 06/30/23
06:59 06:59 06:59
Output Total 450 / 450
Balance -450 / -450
[2023-06-29] MEDS: CRESTOR 10 MG PO (13:38)
[2023-06-29] MEDS: MAGNESIUM OXIDE 500 MG PO (13:38)
[2023-06-29] MEDS: KCL 20 MEQ PO (13:38)
[2023-06-29] MEDS: PROZAC 20 MG PO (13:39)
[2023-06-29] MEDS: JARDIANCE 10 MG PO (13:39)
[2023-06-29] MEDS: DELTASONE 40 MG PO (13:39)
--- NOTE | 2023-06-29 13:57 | CM ---
spoke to pt in room, she lives with her husb in an apt with no steps to enter. she uses a walker when needed. plan is for dc to home when medcially stable.
--- NOTE | 2023-06-29 15:06 | PTCARENOTE ---
Pt is AOx3, no complaints of pain or discomfort this shift. Pt had ECHO done today. VSS. Afib on tele monitor. Call zaragoza within reach.
--- NOTE | 2023-06-29 18:04 | W.CARD.TIKOS ---
Initiate Tikosyn
-
I verify that the patient has not taken any verapamil (Isoptin/Calan), ketoconazole (Nizoral), cimetidine (Tagamet), trimethoprim (Trimpex), trimethoprim/sulfamethoxazole (Bactrim), megesterol (Megace), prochlorperazine (Compazine),
hydrochlorothiazide (HCTZ), dolutegravir (Tivicay) or any Class I or Class III anti-arrhythmic within the last three days
AND
I verify that the patient has not taken amiodarone within the last THREE months, or that the patient's amiodarone plasma concentration is <0.3 mcg/mL.
Creatinine 0.8 mg/dL (0.6-1.0) 06/29/23 03:28
Estimated Creat Clear 53 ml/min 06/29/23 03:28
Does patient have a Ventricular Conduction Abnormality: No
I have assessed the baseline QTc interval (using QT for heart rate less than 60 bpm) and deemed the patient is appropriate for Dofetilide therapy. I understand that Tikosyn is contraindicated if the QTc is >440msec (500msec in patients with
ventricular conduction abnormalities).
Baseline QTc (in msec): 477
QTc interval is greater than 440msec without conduction abnormality OR greater than 500msec with a conduction abnormality, but acceptable to proceed per Cardiology attending.
Ordering Physician: Stewart Christine
[2023-06-29] MEDS: COUMADIN 5 MG PO (18:42)
[2023-06-29] MEDS: COLCHICINE 0.299999999999999989 MG PO (19:32)
[2023-06-29] MEDS: SYMBICORT 160/4.5 MCG INHALER 2 PUFF INH (21:09)
--- NOTE | 2023-06-29 22:23 | PTCARENOTE ---
OOB in chair at change of shift. Denied any complaints of pain or discomfort. Remains in A-fib on the monitor.
[2023-06-30 04:04] VITALS: BP 119/94
[2023-06-30 04:53] LABS: % Basophils 0.1 % (0-2); % Immature Granulocytes 0.9 % (0-0.5); % Lymphocytes 3.7 % (20.5-51.1); % Monocytes 9.5 % (1.7-9.3); % Neutrophils 85.8 % (42.2-75.2); Absolute Immature Granulocytes 0.2 10^3/uL (0-0.05); Absolute Lymphocytes 0.8 10^3/uL (1.2-3.4); Absolute Monocytes 2.2 10^3/uL (0.1-0.6); Absolute Neutrophils 19.4 10^3/uL (1.4-6.5); Hematocrit 39.7 % (37.0-47.0); Hemoglobin 13.2 g/dL (12.0-16.0); Mean Corp Hgb Conc. 33.2 g/dL (33.0-37.0); Mean Corpuscular Hgb 31.3 pg (27.0-31.0); Mean Corpuscular Volume 94.1 fL (81.0-99.0); Mean Platelet Volume 9.2 fL (7.4-10.4); Nucleated Red Blood Cells % 0 %; Platelet Count 276 10^3/uL (130-400); Red Blood Cell Count 4.22 10^6/uL (4.20-5.40); Red Cell Dist. Width 15.6 % (11.5-14.5); White Blood Cell Count 22.6 10^3/uL (4.8-10.8)
[2023-06-30 05:07] LABS: PT 47.1 Sec (11.4-14.6)
[2023-06-30 05:08] LABS: Blood Urea Nitrogen 45 mg/dl (7-17); Calcium 9.3 mg/dl (8.4-10.2); Carbon Dioxide 29 mmol/L (22-30); Chloride 102 mmol/L (98-107); Estimated Creatinine Clearance 53 ml/min; Glucose 131 mg/dl (70-99); Potassium 4.3 mmol/L (3.5-5.1); Sodium 138 mmol/L (135-145); eGFR > 60.00
[2023-06-30 05:10] LABS: INR 5.06
[2023-06-30 05:15] LABS: Erythrocyte Sed Rate 33 mm/hour (0-20)
--- NOTE | 2023-06-30 05:32 | W.PN.UPDATE ---
Update Note
Progress Note Update
INR 5.06 will hold Coumadin today.
--- NOTE | 2023-06-30 06:21 | PTCARENOTE ---
Result of INR this morning of 5.06 tiger texted to Ralph Evans [employer], at 0525, orders received. Patient had periods of diaphoresis thru the nite.
[2023-06-30 07:09] VITALS: BP 115/76
[2023-06-30] MEDS: TIKOSYN 250 MCG PO ×2 (07:57→20:23)
[2023-06-30] MEDS: MIRALAX 17 GRAMS PO (07:57)
[2023-06-30] MEDS: PROZAC 20 MG PO (07:57)
[2023-06-30] MEDS: CARDIZEM CD 240 MG PO (07:58)
[2023-06-30] MEDS: KCL 20 MEQ PO (07:58)
[2023-06-30] MEDS: DELTASONE 30 MG PO (07:58)
[2023-06-30] MEDS: COLCHICINE 0.299999999999999989 MG PO ×2 (07:59→20:22)
[2023-06-30] MEDS: JARDIANCE 10 MG PO (07:59)
--- NOTE | 2023-06-30 08:24 | W.PN.CD ---
Today's Communication / Plan
-
Dofetilide load starting today.
EKG 2 hours after every dofetilide dose.
Likely DCCV on AM if she does not spontaneously convert.
Maintain colchicine for 2 months.
Impression / Plan
-
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
pleuritic chest pain.
#Afib
-Paroxysmal, recurrent.
-Rate control with diltiazem. Verapamil and flecainide discontinued. Starting dofetilide 250 mg q12 hours this morning. EKG 2 hours post dofetilide dose.
-Last DCCV was 06/22/2023.
-CHADS2-Vasc = 5 (CHF, HTN, Age x2, Female)
-Therapeutic anticoagulation with warfarin. INR = 5.06. Hold warfarin today.
#Chest Pain/Pericarditis
-Acute.
-Pleuritic when she was admitted, now resolved.
-EKG concerning for inferolateral LEOLA.
-Troponin negative.
-Cardiac catheterization from 12/25/2022 shows no CAD.
-Echo shows preserved systolic function/wall motion with a more prominent pericardial effusion. Given symptoms and echo findings, more consistent with pericarditis.
-Check CRP/ESR (may not be accurate due to steroids).
-Maintain colchicine for 2 months. She will need careful monitoring as steroids make pericarditis prone to relapse.
#HFpEF
-Chronic.
-Recent echo below.
-Continue empagliflozin.
-Weight gain noted on ED scale. Received IV furosemide in ED, then BP dropped (likely from true intravascular depletion).
-Daily weights. Furosemide changed to PRN weight gain.
#Valvular heart disease
-Mild to moderate /MR, moderate TR
-Volume management with furosemide PRN.
#HTN
-Chronic.
-Relatively hypotensive on admission, now recovered.
-Continue verapamil.
#Ascending aortic aneurysm
-4.[address] Chest (with contrast), 04/24/2022.
-Monitor.
#COPD/ILD
-Chronic, stable.
-Chronic 3L NC.
-Per hospitalist.
Subjective/Interval History:
Yesterday, patient felt better throughout the day.
Diagnosis of pericarditis was made as wall motion on echo is unchanged, inconsistent with STEMI. Colchicine 0.3 mg BID was started (in addition to her underlying steroids).
Discussed options for atrial fibrillation treatment. She would like to pursue dofetilide loading while inpatient.
HR is better controlled this morning.
DATA:
CXR, 06/28/2023:
IMPRESSION:
Chronic interstitial lung disease with suspicion for superimposed edema or interstitial pneumonia.
TTE, 06/19/2023:
CONCLUSIONS
-LV ejection fraction is 60-65%. No regional wall motion abnormalities are
seen. Mild to moderate concentric left ventricular hypertrophy.
-Normal right ventricular size and function.
-Moderately dilated left atrium. Moderately dilated right atrium.
-Mild to moderate mitral regurgitation.
-Mild to moderate aortic stenosis; peak/mean gradients are 31/17 mmHg,
calculated GEOVANNY is 1.2 cm2. Mild aortic regurgitation.
-Moderate tricuspid regurgitation. Estimated pulmonary artery pressure of 40-45
mmHg.
-The IVC is dilated and does not collapse.
Compared to previous echo on 11/25/2022, slightly progressive aortic stenosis
is noted. Progressive tricuspid regurgitation is noted. PASP has increased
(previously 30-35 mmHg).
Cardiac Catheterization, 12/25/2022:
CONCLUSIONS:
1. Top normal left and right heart filling pressures with mild pulmonary hypertension
2. Mild to moderate aortic stenosis with mean gradient 18 mmHg and calculated GEOVANNY 1.5 cm�
3. Borderline ascending aortic enlargement with 1+ aortic insufficiency
4. Normal left ventricular function with EF 67%
5. No significant CAD
6. No clear cardiac etiology for her ongoing dyspnea. She has mild to moderate aortic stenosis and was admitted with HFpEF
Physical Exam
Vital Signs/Labs
Vital Signs
Temp Pulse Resp BP Pulse Ox
36.8 C 98 16 115/76 100
06/30/23 07:06 06/30/23 07:09 06/30/23 07:06 06/30/23 07:09 06/30/23 07:06
06/28/23 06/29/23 06/30/23
11:59 11:59 11:59
Actual Weight 75.2 kg 70.6 kg
06/30/23 04:37
06/30/23 04:37
PT 47.1 Sec (11.4-14.6) H 06/30/23 04:37
INR 5.06 H* 06/30/23 04:37
APTT 41.3 Sec (23.4-35.0) H 06/28/23 04:48
Magnesium 2.1 mg/dl (1.6-2.3) 06/29/23 03:28
06/28/23
08:17
Beg-F-Qnanzgldvoj Pept 5050
LAB Results
06/28/23 06/28/23 06/29/23
04:48 08:17 03:45
Troponin I < 0.012 0.013 < 0.012
06/29/23
07:58
Troponin I < 0.012
Physical Exam
Constitutional: No acute distress and Comfortable
EENT: Anicteric and Moist mucous membranes
Cardiovascular: Pedal edema is absent, JVD pressure is normal, Rhythm/rate is irregular, Systolic murmur present and S1S2 is normal
Respiratory: Respiratory effort normal and Crackles Present (Bilateral bases.)
GI: Soft, Distention absent, Flat, Non tender and Normal bowel sounds
Neuro/Psych: AO x 3
Data Reviewed
-
Date of Service: June 30, 2023
Medical Decision Making: Reviewed Test Results, Independent Historian Assessment and Test Interpretation
EKG: Tracing Personally Visualized and interpreted and Report Reviewed by me
Echo: Tracing Personally Visualized and interpreted and Report Reviewed by me
X-Ray/CT/US/MRI/NUC/PET: Image Personally Visualized and interpreted and Report Reviewed by me
Medical Tests (PFT, Pathology etc): Image Personally Visualized and interpreted and Report Reviewed by me
Labs: Labs Reviewed by me and Labs Ordered by me
Old Records: Reviewed
[2023-06-30] MEDS: SYMBICORT 160/4.5 MCG INHALER 2 PUFF INH ×2 (08:26→20:37)
[2023-06-30] MEDS: SPIRIVA RESPIMAT 2.5 MCG 2 PUFF INH (08:27)
--- NOTE | 2023-06-30 09:03 | PTCARENOTE ---
Assumed care of pt from night RN. Pt received awake and alert, Ox3. VSS, CM shows AF 90-100, POX 100% on 3L. First dose of Tikosyn given at 0800, will check EKG at 1000. Pt denies any pain or discomfort, ambulating in room.
--- NOTE | 2023-06-30 10:43 | PTCARENOTE ---
Qt/QTc 2 hr after fist Tikosyn is 298/390.
[2023-06-30 11:01] VITALS: BP 118/89
--- NOTE | 2023-06-30 11:43 | W.PN.HOSP.TC ---
Today's Communication/Plan
-
Monitor vital signs and see plan
Continue with colchicine
Tikosyn loading, monitor QTc
Possible cardioversion on if patient does not convert
Hold Coumadin, INR supratherapeutic
Daily INR
Assessment / Plan
Assessment / Plan
Gen-AAOx3, NAD
HEENT-NC, AT, anicteric, clear oral mm
Neck-supple
CV-irregularly irregular, tachycardic
Lungs-Rales bilateral bases, oxygenation
Abd-soft, NT, ND
Musculoskeletal-trace edema
Skin-warm and dry
Neuro-grossly non-focal
Psych-calm, cooperative
Persistent Atrial Fibrillation
-Failed cardioversion on June 21
cardiology following
Was given IV Lasix however was hypotensive after. Lasix is currently on hold
Now started on Cardizem
Flecainide stopped and switched to Tikosyn. Monitor QTc
Plan for another cardioversion on if patient does not convert
Supratherapeutic INR, on Coumadin
Hold Coumadin
Monitor INR
periods of chest pain 06/27 with EKG concerning for inferolateral LEOLA suspect 2/2 Acute pericarditis
trop however benign
echo 06/28 without significant change. Concern for pericarditis. ESR and CRP high. now chest pain improving with colchicine; continue colchicine for 2 months. No plans for cath
Chronic Diastolic Heart Failure
Initially was thought that patient likely has acute on chronic CHF exacerbation however after IV Lasix blood pressure dropped.
lasix when ok with cardiology
-Continue Jardiance
-Monitor Is&Os and Daily Weights
Leukocytosis likely secondary to steroids
Monitor
Hyperlipidemia
-Continue Crestor
Chronic Hypoxic Respiratory Failure secondary to Interstitial Lung Disease
-Continue supplemental oxygen at 3L via nasal cannula
-Continue Pulmicort Neb and Duoneb in place of Breztri
-Continue prednisone taper
Depression
-Continue Fluoxetine
Rheumatoid Arthritis
-Stable
DVT proph: Coumadin,supratherapeutic INR
Code Status: DNR
I spent a total of 52 minutes with the patient or on the floor. More than 50% of this time involved counseling and coordination of care.
Anticipated Discharge: > 48 hours
Subjective/Interval History
-
Date of Service: June 30, 2023
denies pain
Objective Data
-
Labs:
Laboratory Results
06/30/23
04:37
WBC 22.6 H
Hgb 13.2
Hct 39.7
Plt Count 276
PT 47.1 H
INR 5.06 H*
Sodium 138
Potassium 4.3
Chloride 102
Carbon Dioxide 29
BUN 45 H
Creatinine 0.8
Glucose 131 H
Calcium 9.3
Vital Signs:
Vital Signs
Temp Pulse Resp BP Pulse Ox
98.3 F 103 20 118/89 100
06/30/23 10:59 06/30/23 11:01 06/30/23 10:59 06/30/23 11:01 06/30/23 10:59
I&O
06/29/23 06/30/23 07/01/23
06:59 06:59 06:59
Output Total 450 / 450 600 / 600
Balance -450 / -450 -600 / -600
[2023-06-30] MEDS: CRESTOR 10 MG PO (13:57)
[2023-06-30] MEDS: MAGNESIUM OXIDE 500 MG PO (13:57)
[2023-06-30 15:34] VITALS: BP 123/71
[2023-06-30 18:46] VITALS: BP 128/88
--- NOTE | 2023-06-30 19:45 | PTCARENOTE ---
Assumed care of pt from prev nsg shift; Pt AAOx3 w/no c/o CP or SOB. Pt does use O2 3L via NC at baseline. SpO2 sat 98-99% on the 3L O2. Pt's VS stable. Pt given info sheet on the Tikosyn which was started this AM. Pt to receive 2nd dose this
evening. Pt's questions answered & emotional support provided. Plan of care ongoing.
[2023-06-30] MEDS: FLUSH (NSS) 1 FLUSH IV (20:23)
[2023-06-30 22:44] VITALS: BP 120/82
[2023-07-01] VITALS (7 sets, daily range): BP systolic 111–145; BP diastolic 78–132; BMI 24.7
--- NOTE | 2023-07-01 03:12 | DOWNTIME ---
There was a [employer] Downtime on 06/30/2023 from 0100 to 07/01/2023 at 0300. Downtime documentation of patient's care, including medication administrations, has been reconciled in the electronic record per guidelines. Refer to the
patient's paper chart under the miscellaneous tab to see printed paper medication records and downtime forms.
[2023-07-01 03:57] LABS: % Basophils 0.1 % (0-2); % Eosinophils 0.8 % (0-6); % Immature Granulocytes 0.6 % (0-0.5); % Lymphocytes 9.5 % (20.5-51.1); % Monocytes 8.5 % (1.7-9.3); % Neutrophils 80.5 % (42.2-75.2); Absolute Eosinophils 0.1 10^3/uL (0-0.7); Absolute Immature Granulocytes 0.1 10^3/uL (0-0.05); Absolute Lymphocytes 1.6 10^3/uL (1.2-3.4); Absolute Monocytes 1.4 10^3/uL (0.1-0.6); Absolute Neutrophils 13.6 10^3/uL (1.4-6.5); Hematocrit 39.8 % (37.0-47.0); Hemoglobin 12.7 g/dL (12.0-16.0); Mean Corp Hgb Conc. 31.9 g/dL (33.0-37.0); Mean Corpuscular Hgb 30.8 pg (27.0-31.0); Mean Corpuscular Volume 96.6 fL (81.0-99.0); Mean Platelet Volume 9.8 fL (7.4-10.4); Nucleated Red Blood Cells % 0 %; Platelet Count 300 10^3/uL (130-400); Red Blood Cell Count 4.12 10^6/uL (4.20-5.40); Red Cell Dist. Width 15.7 % (11.5-14.5); White Blood Cell Count 16.9 10^3/uL (4.8-10.8)
[2023-07-01 04:17] LABS: INR 3.89; PT 38.2 Sec (11.4-14.6)
[2023-07-01 04:21] LABS: Blood Urea Nitrogen 42 mg/dl (7-17); Calcium 9.3 mg/dl (8.4-10.2); Carbon Dioxide 31 mmol/L (22-30); Chloride 104 mmol/L (98-107); Estimated Creatinine Clearance 53 ml/min; Glucose 98 mg/dl (70-99); Potassium 4.2 mmol/L (3.5-5.1); Sodium 141 mmol/L (135-145); eGFR > 60.00
[2023-07-01] MEDS: SPIRIVA RESPIMAT 2.5 MCG 2 PUFF INH (07:47)
[2023-07-01] MEDS: SYMBICORT 160/4.5 MCG INHALER 2 PUFF INH ×2 (07:47→19:31)
[2023-07-01] MEDS: CARDIZEM CD 240 MG PO (08:47)
[2023-07-01] MEDS: MIRALAX 17 GRAMS PO (08:47)
[2023-07-01] MEDS: DELTASONE 30 MG PO (08:48)
[2023-07-01] MEDS: PROZAC 20 MG PO (08:48)
[2023-07-01] MEDS: SENOKOT 17.1999999999999993 MG PO ×2 (08:48→19:46)
[2023-07-01] MEDS: TIKOSYN 250 MCG PO ×2 (08:48→19:48)
[2023-07-01] MEDS: JARDIANCE 10 MG PO (08:48)
[2023-07-01] MEDS: KCL 20 MEQ PO (08:48)
[2023-07-01] MEDS: COLCHICINE 0.299999999999999989 MG PO ×2 (08:49→19:47)
--- NOTE | 2023-07-01 09:50 | W.PN.HOSP.TC ---
Today's Communication/Plan
-
Awaiting cardioversion
Follow INR
Assessment / Plan
Assessment / Plan
CVS: S1-S2 normal
Chest: CTA B/L
Abdomen: Soft, NT / Bowel sounds present
Extremities: mild pedal edema, normal pulses
PETROLEUM GEOLOGIST: Non focal exam
#Persistent Atrial Fibrillation
Failed cardioversion on June 21
cardiology following
Was given IV Lasix however was hypotensive after. Lasix is currently on hold-weight stable
Now started on Cardizem
Flecainide stopped and switched to Tikosyn. Monitor QTc
Plan for another cardioversion on if patient does not convert
#Supratherapeutic INR, on Coumadin
Hold Coumadin
Monitor INR
#Periods of chest pain 06/27 with EKG concerning for inferolateral LEOLA suspect 2/2 Acute pericarditis
trop however benign
echo 06/28 without significant change.
Concern for pericarditis.
ESR and CRP high.
Now chest pain improving with colchicine; continue colchicine for 2 months.
No plans for cath
#Chronic Diastolic Heart Failure
Initially was thought that patient likely has acute on chronic CHF exacerbation however after IV Lasix blood pressure dropped.
Continue Jardiance
Monitor Is&Os and Daily Weights
#Leukocytosis likely secondary to steroids
Monitor
#Hyperlipidemia
-Continue Crestor
#Chronic Hypoxic Respiratory Failure secondary to Interstitial Lung Disease
-Continue supplemental oxygen at 3L via nasal cannula
-Continue Pulmicort Neb and Duoneb in place of Breztri
-Continue prednisone taper
#Depression
-Continue Fluoxetine
# Essential tremor
# Spinal stenosis/DDD osteopenia/osteoarthritis
#Rheumatoid Arthritis
-Stable
#DVT proph: Coumadin,supratherapeutic INR
#Code Status: DNR
Discussed with nursing
Anticipated Discharge: 24 - 48 hours
Subjective/Interval History
-
Date of Service: July 01, 2023
Objective Data
-
Labs:
Laboratory Results
07/01/23 07/01/23
03:41 03:42
WBC 16.9 H
Hgb 12.7
Hct 39.8
Plt Count 300
PT 38.2 H
INR 3.89
Sodium 141
Potassium 4.2
Chloride 104
Carbon Dioxide 31 H
BUN 42 H
Creatinine 0.8
Glucose 98
Calcium 9.3
Vital Signs:
Vital Signs
Temp Pulse Resp BP Pulse Ox
97.9 F 99 20 123/87 97
07/01/23 07:21 07/01/23 08:47 07/01/23 07:21 07/01/23 08:47 07/01/23 07:21
I&O
06/30/23 07/01/23 07/02/23
06:59 06:59 06:59
Intake Total 480 / 480
Output Total 1100 / 1100
Balance -620 / -620
[2023-07-01] MEDS: CRESTOR 10 MG PO (11:10)
[2023-07-01] MEDS: MAGNESIUM OXIDE 500 MG PO (11:10)
--- NOTE | 2023-07-01 11:12 | W.PN.CD ---
Today's Communication / Plan
-
Continue dofetilide load.
EKG 2h post dofetilide dose.
NPO after MN for DCCV tomorrow AM (if no spontaneous conversion).
Impression / Plan
-
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
pleuritic chest pain.
#Afib
-Paroxysmal, recurrent.
-Rate control with diltiazem.
-Dofetilide load is proceeding. QTc roughly 490 ms after 3 doses (stable from prior).
-All INR dating back to 05/25/2023 are therapeutic (> 3 weeks). INR on 05/18/2023 was 1.8.
-CHADS2-Vasc = 5 (CHF, HTN, Age x2, Female).
-Therapeutic anticoagulation with warfarin. INR = 5.06. Hold warfarin today.
-Given > 3 weeks of therapeutic INR and degree of lung disease, I would favor no JATINDER prior to DCCV.
-NPO after MN for DCCV tomorrow AM (if no spontaneous conversion).
#Chest Pain/Pericarditis
-Acute.
-Pleuritic when she was admitted, now resolved.
-EKG concerning for inferolateral LEOLA.
-Troponin negative.
-Cardiac catheterization from 12/25/2022 shows no CAD.
-Echo shows preserved systolic function/wall motion with a more prominent pericardial effusion. Given symptoms and echo findings, more consistent with pericarditis.
-ESR 33, CRP 219.40.
-Maintain colchicine for 2 months. She will need careful monitoring as steroids make pericarditis prone to relapse.
#HFpEF
-Chronic.
-Recent echo below.
-Continue empagliflozin.
-Weight gain noted on ED scale. Received IV furosemide in ED, then BP dropped (likely from true intravascular depletion).
-Daily weights. Furosemide changed to PRN weight gain.
#Valvular heart disease
-Mild to moderate /MR, moderate TR
-Volume management with furosemide PRN.
#HTN
-Chronic.
-Relatively hypotensive on admission, now recovered.
-Continue verapamil.
#Ascending aortic aneurysm
-4.[address] Chest (with contrast), 04/24/2022.
-Monitor.
#COPD/ILD
-Chronic, stable.
-Chronic 3L NC.
-Per hospitalist.
Subjective/Interval History:
Dofetilide started yesterday.
Weight stable.
HR improved on diltiazem.
Remains on 3LNC (home dose).
EKG's appear stable. QTc around 490 ms.
DATA:
CXR, 06/28/2023:
IMPRESSION:
Chronic interstitial lung disease with suspicion for superimposed edema or interstitial pneumonia.
TTE, 06/19/2023:
CONCLUSIONS
-LV ejection fraction is 60-65%. No regional wall motion abnormalities are
seen. Mild to moderate concentric left ventricular hypertrophy.
-Normal right ventricular size and function.
-Moderately dilated left atrium. Moderately dilated right atrium.
-Mild to moderate mitral regurgitation.
-Mild to moderate aortic stenosis; peak/mean gradients are 31/17 mmHg,
calculated GEOVANNY is 1.2 cm2. Mild aortic regurgitation.
-Moderate tricuspid regurgitation. Estimated pulmonary artery pressure of 40-45
mmHg.
-The IVC is dilated and does not collapse.
Compared to previous echo on 11/25/2022, slightly progressive aortic stenosis
is noted. Progressive tricuspid regurgitation is noted. PASP has increased
(previously 30-35 mmHg).
Cardiac Catheterization, 12/25/2022:
CONCLUSIONS:
1. Top normal left and right heart filling pressures with mild pulmonary hypertension
2. Mild to moderate aortic stenosis with mean gradient 18 mmHg and calculated GEOVANNY 1.5 cm�
3. Borderline ascending aortic enlargement with 1+ aortic insufficiency
4. Normal left ventricular function with EF 67%
5. No significant CAD
6. No clear cardiac etiology for her ongoing dyspnea. She has mild to moderate aortic stenosis and was admitted with HFpEF
Physical Exam
Vital Signs/Labs
Vital Signs
Temp Pulse Resp BP Pulse Ox
36.6 C 81 20 123/87 97
07/01/23 07:21 07/01/23 10:00 07/01/23 07:21 07/01/23 08:47 07/01/23 07:21
06/29/23 06/30/23 07/01/23
11:59 11:59 11:59
Actual Weight 70.6 kg
07/01/23 03:41
07/01/23 03:42
PT 38.2 Sec (11.4-14.6) H 07/01/23 03:42
INR 3.89 07/01/23 03:42
APTT 41.3 Sec (23.4-35.0) H 06/28/23 04:48
Magnesium 2.1 mg/dl (1.6-2.3) 06/29/23 03:28
06/28/23
08:17
Gol-Z-Pgliqqixgku Pept 5050
LAB Results
06/29/23 06/29/23
03:45 07:58
Troponin I < 0.012 < 0.012
Physical Exam
Constitutional: No acute distress and Comfortable
EENT: Anicteric and Moist mucous membranes
Cardiovascular: Pedal edema is absent, JVD pressure is normal, Rhythm/rate is irregular, S1S2 is normal and Murmur/rub/gallop absent
Respiratory: Respiratory effort normal, Lungs clear to auscul., Wheeze Absent, Rhonchi Absent and Crackles Present (Bilateral bases.)
GI: Soft, Distention absent, Flat, Non tender and Normal bowel sounds
Neuro/Psych: AO x 3
Data Reviewed
-
Date of Service: July 01, 2023
Medical Decision Making: Reviewed Test Results, Independent Historian Assessment and Test Interpretation
EKG: Tracing Personally Visualized and interpreted and Report Reviewed by me
Echo: Tracing Personally Visualized and interpreted and Report Reviewed by me
X-Ray/CT/US/MRI/NUC/PET: Image Personally Visualized and interpreted and Report Reviewed by me
Medical Tests (PFT, Pathology etc): Image Personally Visualized and interpreted and Report Reviewed by me
Labs: Labs Reviewed by me
--- NOTE | 2023-07-01 11:38 | CM ---
CM following for DC planning needs.
Attempted to meet w/ patient at bedside, however, patient was not present in her room.
Reviewed initial assessment. Pt. admitted from apartment w/ spouse. Pt. is functionally indep. w/ use of a RW at baseline.
Anticipated DC plan is for home without needs.
Will follow.
--- NOTE | 2023-07-01 16:49 | PTCARENOTE ---
Pt AOx3, no complaints of pain or discomfort. Afib on tele monitor. Wearing 3L O2 via NC. Educated on NPO after midnight for CV tomorrow. Call zaragoza within reach.
--- NOTE | 2023-07-02 01:58 | PTCARENOTE ---
Pt received at start of shift, HR afib. 4th dose of Tikosyn administered, QTc 2 hours after - 474. Updated pt on plan for CV in AM and NPO status at 0000, pt states understanding. Pt denies any diaphoresis, CP, SOB, or lightheadedness/dizziness.
Informed to notify RN if any changes, call zaragoza within reach.
[2023-07-02 05:04] VITALS: BP 135/80
[2023-07-02 05:41] LABS: INR 2.87; PT 30.5 Sec (11.4-14.6)
[2023-07-02 06:00] VITALS: BMI 25.1
[2023-07-02 06:03] LABS: Blood Urea Nitrogen 42 mg/dl (7-17); Calcium 8.9 mg/dl (8.4-10.2); Carbon Dioxide 28 mmol/L (22-30); Chloride 106 mmol/L (98-107); Estimated Creatinine Clearance 53 ml/min; Glucose 95 mg/dl (70-99); Magnesium 2.1 mg/dl (1.6-2.3); Potassium 4.4 mmol/L (3.5-5.1); Sodium 140 mmol/L (135-145); eGFR > 60.00
[2023-07-02 07:10] VITALS: BP 121/90
[2023-07-02] MEDS: SPIRIVA RESPIMAT 2.5 MCG 2 PUFF INH (07:24)
[2023-07-02] MEDS: SYMBICORT 160/4.5 MCG INHALER 2 PUFF INH (07:24)
--- NOTE | 2023-07-02 07:28 | W.PN.CD ---
Addendum entered and electronically signed by Michael Frey MD 07/02/23 08:16:
DCCV successful
Original Note:
Today's Communication / Plan
-
-Dofetilide
-Restart warfarin
-DCCV today
Impression / Plan
-
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
pleuritic chest pain.
#Afib
-Paroxysmal, recurrent.
-Rate control with diltiazem.
-Dofetilide
-All INR dating back to 05/25/2023 are therapeutic (> 3 weeks). INR on 05/18/2023 was 1.8.
-CHADS2-Vasc = 5 (CHF, HTN, Age x2, Female).
-Therapeutic anticoagulation with warfarin. Restart warfarin
-Given > 3 weeks of therapeutic INR and degree of lung disease, I would favor no JATINDER prior to DCCV.
-DCCV today
#Chest Pain/Pericarditis
-Acute.
-Pleuritic when she was admitted, now resolved.
-EKG concerning for inferolateral LEOLA.
-Troponin negative.
-Cardiac catheterization from 12/25/2022 shows no CAD.
-Echo shows preserved systolic function/wall motion with a more prominent pericardial effusion. Given symptoms and echo findings, more consistent with pericarditis.
-ESR 33, CRP 219.40.
-Maintain colchicine for 2 months. She will need careful monitoring as steroids make pericarditis prone to relapse.
#HFpEF
-Chronic.
-Recent echo below.
-Continue empagliflozin.
-Weight gain noted on ED scale. Received IV furosemide in ED, then BP dropped (likely from true intravascular depletion).
-Daily weights. Furosemide changed to PRN weight gain.
#Valvular heart disease
-Mild to moderate /MR, moderate TR
-Volume management with furosemide PRN.
#HTN
-Chronic.
-Relatively hypotensive on admission, now recovered.
-Continue verapamil.
#Ascending aortic aneurysm
-4.[address] Chest (with contrast), 04/24/2022.
-Monitor.
#COPD/ILD
-Chronic, stable.
-Chronic 3L NC.
-Per hospitalist.
Subjective/Interval History:
DATA:
CXR, 06/28/2023:
IMPRESSION:
Chronic interstitial lung disease with suspicion for superimposed edema or interstitial pneumonia.
TTE, 06/19/2023:
CONCLUSIONS
-LV ejection fraction is 60-65%. No regional wall motion abnormalities are
seen. Mild to moderate concentric left ventricular hypertrophy.
-Normal right ventricular size and function.
-Moderately dilated left atrium. Moderately dilated right atrium.
-Mild to moderate mitral regurgitation.
-Mild to moderate aortic stenosis; peak/mean gradients are 31/17 mmHg,
calculated GEOVANNY is 1.2 cm2. Mild aortic regurgitation.
-Moderate tricuspid regurgitation. Estimated pulmonary artery pressure of 40-45
mmHg.
-The IVC is dilated and does not collapse.
Compared to previous echo on 11/25/2022, slightly progressive aortic stenosis
is noted. Progressive tricuspid regurgitation is noted. PASP has increased
(previously 30-35 mmHg).
Cardiac Catheterization, 12/25/2022:
CONCLUSIONS:
1. Top normal left and right heart filling pressures with mild pulmonary hypertension
2. Mild to moderate aortic stenosis with mean gradient 18 mmHg and calculated GEOVANNY 1.5 cm�
3. Borderline ascending aortic enlargement with 1+ aortic insufficiency
4. Normal left ventricular function with EF 67%
5. No significant CAD
6. No clear cardiac etiology for her ongoing dyspnea. She has mild to moderate aortic stenosis and was admitted with HFpEF
Laboratory Data
07/02/23
05:06
INR 2.87
BUN 42 H
Creatinine 0.8
Generic Name Dose Route Start Last Admin
Trade Name Yanick PRN Reason Stop Dose Admin
Empagliflozin 10 mg 06/29/23 08:00 07/01/23 08:48
Empagliflozin (Jardiance) 10 Mg Tablet PO 07/27/23 07:59 10 mg
DAILY MARIEL
Potassium Chloride 20 meq 06/29/23 08:00 07/01/23 08:48
Potassium Chloride 20 Meq Extended Release Tablet PO 07/27/23 07:59 20 meq
DAILY MARIEL
Rosuvastatin Calcium 10 mg 06/29/23 12:00 07/01/23 11:10
Rosuvastatin (Crestor) 10 Mg Tablet PO 07/27/23 11:59 10 mg
NOON MARIEL
Warfarin Sodium 5 mg 06/29/23 18:00 06/29/23 18:42
Warfarin 5 Mg Tablet PO 07/04/23 17:59 5 mg
MOWEFR MARIEL
Furosemide 40 mg 06/28/23 16:00 06/28/23 16:41
Furosemide 40 Mg (10 Mg/Ml) 4 Ml Vial IV 07/26/23 15:59 Not Given
BID AT 0800,1600 MARIEL
Warfarin Sodium 7.5 mg 06/28/23 18:00 06/28/23 18:16
Warfarin 5 Mg Tablet PO 07/03/23 17:59 7.5 mg
SUTUTHSA MARIEL
Colchicine 0.3 mg 06/29/23 20:00 07/01/23 19:47
Colchicine 0.6 Mg Tablet PO 07/27/23 19:59 0.3 mg
BID MARIEL
Diltiazem HCl 240 mg 06/30/23 08:00 07/01/23 08:47
Diltiazem 240 Mg Extended Release (24 H) Capsule PO 06/11/24 07:59 240 mg
DAILY MARIEL
Dofetilide 250 mcg 06/30/23 08:00 07/01/23 19:48
Dofetilide 250 Mcg Capsule PO 07/28/23 07:59 250 mcg
Q12H MARIEL
Protocol
Physical Exam
Vital Signs/Labs
Vital Signs
Temp Pulse Resp BP Pulse Ox
36.5 C 84 20 135/80 100
07/02/23 07:04 07/02/23 07:00 07/02/23 07:04 07/02/23 05:04 07/02/23 07:04
07/01/23 07/02/23 07/03/23
06:59 06:59 06:59
Actual Weight 159 lb 13.362 oz
07/01/23 03:41
07/02/23 05:06
PT 30.5 Sec (11.4-14.6) H 07/02/23 05:06
INR 2.87 07/02/23 05:06
APTT 41.3 Sec (23.4-35.0) H 06/28/23 04:48
Magnesium 2.1 mg/dl (1.6-2.3) 07/02/23 05:06
06/28/23
08:17
Lim-A-Uddsxfkolqx Pept 5050
LAB Results
06/29/23
07:58
Troponin I < 0.012
Physical Exam
Constitutional: No acute distress
EENT: Anicteric and Moist mucous membranes
Cardiovascular: Systolic murmur absent, Diastolic murmur absent and Rhythm/rate is irregular
Respiratory: Respiratory effort normal, Lungs clear to auscul., Wheeze Absent and Crackles Absent
GI: Soft and Distention absent
Neuro/Psych: Alert
Data Reviewed
-
Date of Service: July 02, 2023
[2023-07-02] MEDS: TIKOSYN 250 MCG PO (07:32)
[2023-07-02] MEDS: CARDIZEM CD 240 MG PO (07:32)
--- NOTE | 2023-07-02 08:00 | PTCARENOTE ---
Assumed care of patient at 0645. Assessment completed and documented in shift assessment.
Patient is AAOX3, pleasant and cooperative. Taken to labor supervisor for cardioversion early AM/before 8AM.
--- NOTE | 2023-07-02 09:15 | PTCARENOTE ---
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 EKG obtained for Tikosyn dosing.
[2023-07-02] MEDS: SENOKOT PO ×2 (10:15→10:16)
[2023-07-02] MEDS: PROZAC 20 MG PO (10:17)
[2023-07-02] MEDS: JARDIANCE 10 MG PO (10:17)
[2023-07-02] MEDS: KCL 20 MEQ PO (10:17)
[2023-07-02] MEDS: COLCHICINE 0.299999999999999989 MG PO (10:17)
[2023-07-02] MEDS: MIRALAX 17 GRAMS PO (10:17)
[2023-07-02] MEDS: DELTASONE 30 MG PO (10:17)
--- NOTE | 2023-07-02 10:44 | CM ---
CM following for DC planning needs.
Met w/ patient at bedside. She is hopeful for DC soon.
Reviewed DC plans. Pt. was open to [facility] prior to admission and would like to resume services.
Referral initiated to [facility], followed by a phone call for resumption of care.
Call to [facility]- they do have Tikosyn in stock. Will still need x3 day supply prior to DC. This was relayed to pt.
She has transport home.
Plan: HOME w/ [facility] KAREN
--- NOTE | 2023-07-02 10:54 | W.PN.HOSP.TC ---
Addendum entered and electronically signed by Madyson Cruz MD 07/06/23 08:36:
correction- Paroxysmal Afib
Addendum entered and electronically signed by Madyson Cruz MD 07/02/23 15:03:
Dictation- [id number]
Addendum entered and electronically signed by Madyson Cruz MD 07/02/23 13:37:
Discussed with cardiology okay for discharge on dofetilide and Cardizem. Coumadin to be changed to 5 mg daily and INR check on Thursday. Cardiology to see the patient I have given her colchicine 20 tablet prescriptions. More scripts at cards appt as
OP .
Cardiology follow-up visit.
Patient to complete prednisone as outpatient
Total discharge coordination time 37 minutes
Original Note:
Today's Communication/Plan
-
Lasix
Watch HR
Possible discharge
Will D/W Cards re Coumadin
Assessment / Plan
Assessment / Plan
CVS: S1-S2 normal, SR now
Chest: CTA B/L
Abdomen: Soft, NT / Bowel sounds present
Extremities: mild pedal edema, normal pulses
GEOTHERMAL OPERATIONS ENGINEER: Non focal exam
#Persistent Atrial Fibrillation
Failed cardioversion on June 21
cardiology following
IV Lasix ordered today
Flecainide stopped and switched to Tikosyn.
Also on PO Cardizem
S/P cardioversion today with conversion to SR
#Supratherapeutic INR
INR OK now
#Periods of chest pain 06/27 with EKG concerning for inferolateral LEOLA suspect 2/2 Acute pericarditis
trop however benign
echo 06/28 without significant change.
Concern for pericarditis.
ESR and CRP high.
Now chest pain improving with colchicine; continue colchicine for 2 months.
No plans for cath
#Chronic Diastolic Heart Failure
Initially was thought that patient likely has acute on chronic CHF exacerbation however after IV Lasix blood pressure dropped.
Will give a dose IV now as she is in SR now.
Continue Jardiance
Monitor Is&Os and Daily Weights
#Leukocytosis likely secondary to steroids
#Hyperlipidemia
-Continue Crestor
#Chronic Hypoxic Respiratory Failure secondary to Interstitial Lung Disease
-Continue supplemental oxygen at 3L via nasal cannula
-Continue Pulmicort Neb and Duoneb in place of Breztri
-Continue prednisone taper
#Depression
-Continue Fluoxetine
# Essential tremor
# Spinal stenosis/DDD osteopenia/osteoarthritis
#Rheumatoid Arthritis
-Stable
#DVT proph: Coumadin
#Code Status: DNR
Discussed with nursing at bed side
D/W Cards
Called , went to message
Called daughter and updated. Also discussed to check NOACS , if covered may bed a better choice given her INR was running high.
Anticipated Discharge: Today
Subjective/Interval History
-
Date of Service: July 02, 2023
Objective Data
-
Labs:
Laboratory Results
07/02/23
05:06
PT 30.5 H
INR 2.87
Sodium 140
Potassium 4.4
Chloride 106
Carbon Dioxide 28
BUN 42 H
Creatinine 0.8
Glucose 95
Calcium 8.9
Vital Signs:
Vital Signs
Temp Pulse Resp BP Pulse Ox
97.7 F 90 16 121/90 100
07/02/23 07:04 07/02/23 07:32 07/02/23 07:30 07/02/23 07:32 07/02/23 07:30
I&O
07/01/23 07/02/23 07/03/23
06:59 06:59 06:59
Intake Total 480 / 480 240 / 240
Output Total 1100 / 1100
Balance -620 / -620 240 / 240
[2023-07-02] MEDS: LASIX 40 MG IV (11:01)
[2023-07-02 11:44] VITALS: BP 130/69
[2023-07-02] MEDS: CRESTOR 10 MG PO (13:33)
[2023-07-02] MEDS: MAGNESIUM OXIDE 500 MG PO (13:34)
--- NOTE | 2023-07-02 13:35 | W.DS.TRANS ---
DC Summary - Communications Operator
-
Discharge Instructions:
Sleep Apnea Risk Low
Discharge Diagnosis/Procedures Atrial fibrillation with cardioversion, chest
pain, CHF, high cholesterol, interstitial lung
disease, depression, essential tremor, spinal
stenosis,
Diet 2 Gram Sodium,Restrict fluids to 48 oz
Activity As tolerated
Driving Restrictions As prior to admission
Blood Work INR Thursday- slip in chart, BMP 1 week
Other Services V[facility]
Specialty Instructions Weigh Daily
Instructions: *CBC Heart Failure Instructions
Stand-Alone Forms:
Changes to Home Medications: Yes
Discharge Medications:
DC Medications w/original date entered in [employer]
calcium carbonate 600 mg-vitamin D3 20 mcg (800 unit) tablet 1 tab PO NOON Supplement 02/01/18
fluoxetine 20 mg capsule 20 mg PO DAILY Mental Health/Anxiety 04/26/18
rosuvastatin 10 mg tablet 10 mg PO NOON High Cholesterol 10/25/22
ipratropium 0.5 mg-albuterol 3 mg (2.5 mg base)/3 mL nebulization soln 3 ml inhalation R TIDPRN PRN sob/wheezing 12/21/22
albuterol sulfate 90 mcg/actuation aerosol inhaler 2 puff inhalation R Q4HPRN PRN sob 06/19/23
budesonide 160 mcg-glycopyr 9 mcg-formot 4.8 mcg/actuation HFA inhaler (Breztri Aerosphere) 2 inh inhalation R BID Lung/Breathing Issues 06/19/23
magnesium oxide 400 mg PO NOON Supplement 06/19/23
potassium chloride 20 mEq tablet,extended release(part/cryst) 20 meq PO DAILY Supplement 06/19/23
B-complex with vitamin C 1 tab PO NOON Supplement 06/28/23
docusate sodium 100 mg capsule 100 mg PO BID PRN constipation 06/28/23
furosemide 40 mg tablet 40 mg PO DAILY Fluid Retention/Swelling 06/29/23
prednisone 10 mg tablet See Rx Instructions .Route .COMPLEX Anti-Inflammatory 06/29/23
colchicine 0.6 mg tablet 0.3 mg (1/2 x 0.6 mg) PO BID Heart disease/condition #20 tabs 07/02/23
diltiazem HCl 240 mg capsule,extended release 24 hr 240 mg PO DAILY Arrhythmia #30 caps 07/02/23
dofetilide 250 mcg capsule 250 mcg PO Q12H Arrhythmia #60 caps 07/02/23
empagliflozin 10 mg tablet (Jardiance) 10 mg PO DAILY Heart disease/condition 30 days #30 tabs 07/02/23
nystatin 100,000 unit/mL oral suspension 5 ml PO QID thrush #60 mL 07/02/23
polyethylene glycol 3350 17 gram oral powder packet (HealthyLax) 17 g PO DAILY Constipation #0 ea 07/02/23
warfarin 5 mg tablet 5 mg PO DAILY Blood Clot Prevention/Tx #0 tabs 07/02/23
Home Medication Changes
new
colchicine 0.6 mg tablet 0.3 mg (1/2 x 0.6 mg) PO BID Heart disease/condition #20 tabs 07/02/23
diltiazem HCl 240 mg capsule,extended release 24 hr 240 mg PO DAILY Arrhythmia #30 caps 07/02/23
dofetilide 250 mcg capsule 250 mcg PO Q12H Arrhythmia #60 caps 07/02/23
empagliflozin 10 mg tablet (Jardiance) 10 mg PO DAILY Heart disease/condition 30 days #30 tabs 07/02/23
nystatin 100,000 unit/mL oral suspension 5 ml PO QID thrush #60 mL 07/02/23
polyethylene glycol 3350 17 gram oral powder packet (HealthyLax) 17 g PO DAILY Constipation #0 ea 07/02/23
Dose change Coumadin
Stopped Verapamil,Flecainide
Pending Results: No
--- NOTE | 2023-07-02 13:39 | PN.CDI ---
CDI
- -
CDI:
Physician Documentation Request
Admit Date: 06/28/23 13:44
Dear Doctor Nancy,
Patient presented to ED complaining of some pressure in her neck bilaterally as well as palpitations.
Patient found to be in atrial fibrillation.
Hospitalist progress notes refer to the afib as persistent.
Cardiology as paroxysmal, recurrent.
In an attempt to clarify potential conflicting documentation, please clarify:
Paroxysmal atrial fibrillation - terminates spontaneously or with intervention within 7 days of onset
Persistent atrial fibrillation - episodes of continuous AF that last more than 7 days and do not self-terminate
Other - please specify
Use of terms such as suspected, likely, concern for, or probable (associated with a specific diagnosis that is being evaluated, monitored, or treated as if it exists) are acceptable and can be coded in the inpatient setting, when documented at the
time of discharge.
Thank you,
Nancy Hernandez RN, BSN
CDI Specialist
tiger text
Please use your independent medical judgment in providing your response.
[2023-07-02 15:15] VITALS: BP 122/66
--- NOTE | 2023-07-02 15:50 | PTCARENOTE ---
Patient written for discharge.
Removed IV. Went over discharge instructions. Discussed importance of medication adherence, HF education and follow-up.
Awaiting ride from daughter.
== END 2023-07-02 17:09 | disposition home health service (06) | DRG 309 ==
LOC: IVU 13:44
PROVIDERS: Emergency Medicine; Internal Medicine; Internal Medicine Cardiovascular Disease; Nurse Practitioner Gerontology; Physician Assistant Medical; ADMITTING PHYSICIAN Hospitalist; ATTENDING PHYSICIAN Hospitalist; CONSULT PHYSICIAN Internal Medicine; EMERGENCY PHYSICIAN Emergency Medicine; FAMILY PHYSICIAN Family Medicine
PROC: 5A2204Z Restoration of Cardiac Rhythm, Single (ICD-10-PCS; 2023-07-02)
DX: I48.0 Paroxysmal atrial fibrillation (principal); I31.39 Other pericardial effusion (noninflammatory); J84.9 Interstitial pulmonary disease, unspecified; J96.11 Chronic respiratory failure with hypoxia; I50.32 Chronic diastolic (congestive) heart failure; Z66 Do not resuscitate; I11.0 Hypertensive heart disease with heart failure; F32.A Depression, unspecified; M06.9 Rheumatoid arthritis, unspecified; Z79.01 Long term (current) use of anticoagulants; E78.00 Pure hypercholesterolemia, unspecified; G25.0 Essential tremor; M48.00 Spinal stenosis, site unspecified
CPT/HCPCS: 71046; 80048; 80053; 83735; 83880; 84484; 85025; 85027; 85610; 85652; 85730; 86140; 92960; 93005; 93306; 93458; 94640; 96374; 99285; C1894

== ENCOUNTER 2023-07-09 16:21 | Inpatient (IN) | payer MEDICARE, OTHER, SELFPAY ==
[2023-07-09] VITALS (12 sets, daily range): BP systolic 107–129; BP diastolic 73–96; BMI 25.9; BMI 25.2
[2023-07-09 12:12] LABS: % Basophils 0.3 % (0-2); % Eosinophils 2.2 % (0-6); % Immature Granulocytes 0.7 % (0-0.5); % Lymphocytes 8.5 % (20.5-51.1); % Monocytes 9.3 % (1.7-9.3); Absolute Eosinophils 0.3 10^3/uL (0-0.7); Absolute Immature Granulocytes 0.1 10^3/uL (0-0.05); Absolute Lymphocytes 1.2 10^3/uL (1.2-3.4); Absolute Monocytes 1.3 10^3/uL (0.1-0.6); Absolute Neutrophils 10.6 10^3/uL (1.4-6.5); Hematocrit 35.3 % (37.0-47.0); Hemoglobin 11.1 g/dL (12.0-16.0); Mean Corp Hgb Conc. 31.4 g/dL (33.0-37.0); Mean Corpuscular Hgb 30.5 pg (27.0-31.0); Mean Platelet Volume 9.4 fL (7.4-10.4); Nucleated Red Blood Cells % 0 %; Platelet Count 318 10^3/uL (130-400); Red Blood Cell Count 3.64 10^6/uL (4.20-5.40); Red Cell Dist. Width 16.4 % (11.5-14.5); White Blood Cell Count 13.5 10^3/uL (4.8-10.8)
[2023-07-09 12:24] LABS: ALT (SGPT) 26 U/L (0-35); AST (SGOT) 24 U/L (14-36); Albumin 3.2 g/dl (3.5-5.0); Alkaline Phosphatase 60 U/L (38-126); Blood Urea Nitrogen 28 mg/dl (7-17); Calcium 8.9 mg/dl (8.4-10.2); Carbon Dioxide 32 mmol/L (22-30); Chloride 101 mmol/L (98-107); Glucose 77 mg/dl (70-99); Potassium 4.3 mmol/L (3.5-5.1); Sodium 140 mmol/L (135-145); eGFR > 60.00
[2023-07-09 12:31] LABS: NT-proBNP 2200 pg/ml
[2023-07-09 12:44] LABS: INR 2.84; PT 30.2 Sec (11.4-14.6)
--- NOTE | 2023-07-09 13:14 | ED.GENMED ---
History of Present Illness
General
Chief Complaint: Breathing Problem
Source: patient
Time Seen by Provider: 07/09/23 11:34
Travel History
Have you had any contact with someone who has COVID-19?: No
Do you have any symptoms of coronavirus? Fever > 100 degrees, chills, cough, shortness of breath, sore throat, loss of taste or smell, muscle aches, or headache?: Yes
Symptoms:: SOB
History of Present Illness
History of Present Illness:
82-year-old female with history of paroxysmal atrial fibrillation, CHF, interstitial lung disease who presents short of breath and weight gain. Patient recently had a cardioversion for A-fib but on repeat visit with cardiology was back in A-fib.
The patient was in sinus rhythm when she was discharged. Patient states she has had progressive shortness of breath and progressive weight gain. Patient admits that she saw cardiology and was advised to increase Lasix. Despite that she has had
weight gain. Does have interstitial lung disease as well. Is on 3 L at home
Past History
Past History
ED Past Medical History: Arrthythmia (atrial fibrillation), CHF, GERD, HTN, Hypercholesterolemia, Psychiatric (Anxiety, Depression), Other (Rheumatoid arthritis, dizziness, shingles, Lyme disease, vertigo, PNA, Diverticulitis, Cataracts) and Other
(RA)
ED Past Surgical History: Orthopedic (Laminectomy, Left hip replacement, Bilateral knee replacement) and Other (Cataract surgery, laminectomy)
Patient has exhibited threatening behavior?: No
PSI?: No
Social History
Tobacco: Non-smoker
Alcohol: None
Drug: None
Personal:
Living: with family
Employment: Retired
Family History
Family History: Other
Phy Exam
Physical Exam
Physical Exam:
CONSTITUTIONAL Patient alert and oriented to person, place and time. Well-appearing. Vital signs reviewed.
HEAD atraumatic, normocephalic.
EYES eyelids normal to inspection, Extraocular muscles intact, Conjunctiva normal, Sclera normal.
NECK normal range of motion, Trachea midline, no jugular venous distention.
RESPIRATORY CHEST No respiratory distress noted, Chest expansion equal, crackles at bilateral bases
CARDIOVASCULAR irregularly irregular and tachycardic.
ABDOMEN abdomen nontender, Bowel sounds normal. No distention.
BACK normal inspection, no obvious deformities
UPPER EXTREMITY range of motion normal, Motor strength normal, no cyanosis, no edema.
LOWER EXTREMITY range of motion normal, Motor strength normal, no cyanosis, mild edema bilaterally
NEURO Speech normal, No focal motor deficits, Superior coma scale 15, Memory normal, Cranial Nerves intact to screening exam.
SKIN skin warm, dry, and normal in color.
PSYCHIATRIC patient oriented to person place and time, Normal affect.
Scores
Heart Failure Risk
Heart Failure Risk Score: Yes
History of Stroke or TIA: No
History of intubation for respiratory distress: No
Heart rate on ED arrival >/= 110: No
SaO2 <90% on arrival on room air: No
HR >/=110 during 3min walk test (or too ill to perform test): Yes
ECG has acute ischemic changes: No
Urea >/=12mmol/L (BUN 33.6mg/dL): No
Serum CO2>/=35mmol/L: No
Troponin I or T elevated to HI Level (0.4mg/dL): No
NT-proBNP >/=5,000ng/L (5,000pg/ml): No
HF Risk Score: 2
Admission Status: MEDIUM RISK 9.2% Consider observation or discharge to home with homecare & f/u visit to PCP/Director Plans, or SNF for treatment
Course
Orders/Labs/Results
Orders:
Orders
07/09/23 11:24
CXR2 [CR Chest - 2 Views ] Urgent
Comment:
Reason For Exam: SOB
07/09/23 11:25
Electrocardiogram (*1) Urgent
Reason for Study: Shortness of Breath
EKG- Treatment ONCE
07/09/23 11:51
CMP [Comprehensive Metabolic Panel] Urgent
Complete Blood Count/With Diff Urgent
NT-proBNP Urgent
PT/INR [Prothrombin Time] Urgent
07/09/23 13:14
Furosemide [Lasix] 80 mg IV NOW STA
07/09/23 14:00
Weight As Directed
Frequency: Daily
Comment: starting now thank you
07/09/23 14:05
CARDIOLOGY CONSULT Routine
Consulting Provider: Michael Frey
Was physician already notified: Yes
Reason for consult: af,chf
07/09/23 15:29
Admit/Transfer Patient As Directed
Co-Sign Provider:
Level of Care: Inpatient admission
Assign to:: IVU
Physician / Group: Hospitalist
Diagnosis: Afib,chf
Reason for Hospitalization: Afib,chf
Expected length of stay greater than two midnights?: Yes
ELOS- Estimated Length of Stay in days: 3
I certify the patient meets the requirements for IP care: Yes
07/09/23 15:31
Digoxin [Lanoxin] 500 mcg PO NOW STA
07/09/23 17:18
Blood Culture Q30M
MARCIN Source: Blood/Venous
Specimen Description:
07/09/23 17:25
Blood Culture Q30M
MARCIN Source: Blood/Venous
Specimen Description:
07/09/23 17:45
Albuterol [ProAIR HFA INHALER] 2 puff INH R Q4HPRN PRN
Furosemide [Lasix] 40 mg IV BID AT 0800,1600
Ipratropium/Albuterol Sulfate [Duoneb] 3 ml INH R TIDPRN PRN
07/09/23 17:45
HF DIETARY CONSULT Routine
HF EDUCATOR CONSULT Routine
Comment:
Activity As Directed
Activity Level: Ambulate
Intake/ Output As Directed
Frequency: Per unit guidelines
Patient Education As Directed
Type: CHF folder
Comment: give on admission. Document in Interdisciplinary Education record
Sleep Apnea Assessment by RN As Directed
Comment:
Physician Instructions:
Vital Signs As Directed
Frequency: Other
Additional Instructions:: Q12 or per unit guidelines if more frequent.
Weight As Directed
Frequency: Daily
Type of Scale: Standing Scale
Comment: Daily morning weight. If unable to stand, use balanced bed scale.
Weight As Directed
Frequency: Once
Type of Scale: Standing Scale
Comment: Upon Admission. If unable to stand, use balanced bed scale.
Pulse Ox/cont/shift [RESP] Routine
Quantity: 1
Special Instructions: Daily pulse oximetry at rest. If greater than 92% at rest also obtain pulse oximetry
while ambulating as tolerated.
07/09/23 18:00
Warfarin [Coumadin] 5 mg PO QPM
07/09/23 18:31
Troponin I Q6H
Comment: at admission & every 6 hours x 2 (3 total), ECG to be done with each level
07/09/23 18:56
Urinalysis Reflex To Culture Routine
Date Specimen was Collected: 07/09/23
Time Specimen was Collected: 18:55
07/09/23 20:00
Budesonide/Formoterol 160/4.5 [Symbicort 160/4.5 Mcg Inhaler] 2 puff INH R BID
Colchicine 0.3 mg PO BID
Dofetilide [Tikosyn] 250 mcg PO Q12
07/10/23 07:28
Basic Metabolic Panel IN AM
Magnesium IN AM
Troponin I Q6H
Comment: at admission & every 6 hours x 2 (3 total), ECG to be done with each level
07/10/23 08:00
Digoxin [Lanoxin] 500 mcg PO ONCE ONE
Diltiazem Extended Release [Cardizem Cd] 240 mg PO DAILY
Empagliflozin [Jardiance] 10 mg PO DAILY
Fluoxetine HCl [Prozac] 20 mg PO DAILY
Potassium Chloride [KCl] 20 meq PO DAILY
07/10/23 12:00
Calcium Carbonate/Vitamin D3 [Oscal 500 + D] 500 mg PO NOON
Magnesium l-Lactate [Mag-Tab Sr] 84 mg PO NOON
Rosuvastatin Calcium [Crestor] 10 mg PO NOON
Vitamin B Complex with C [B COMPLEX w/VITAMIN C] 1 caplet PO NOON
07/11/23 06:00
Basic Metabolic Panel IN AM
07/12/23 06:00
Basic Metabolic Panel IN AM
Abnormal Lab Results
07/09/23
11:51
WBC 13.5 H 10^3/uL
(4.8-10.8)
RBC 3.64 L 10^6/uL
(4.20-5.40)
Hgb 11.1 L g/dL
(12.0-16.0)
Hct 35.3 L %
(37.0-47.0)
MCHC 31.4 L g/dL
(33.0-37.0)
RDW 16.4 H %
(11.5-14.5)
Abs Immat Gran (auto) 0.1 H 10^3/uL
(0-0.05)
Absolute Neuts (auto) 10.6 H 10^3/uL
(1.4-6.5)
Absolute Monos (auto) 1.3 H 10^3/uL
(0.1-0.6)
Immature Gran % 0.7 H %
(0-0.5)
Neutrophils % 79.0 H %
(42.2-75.2)
Lymphocytes % 8.5 L %
(20.5-51.1)
PT 30.2 H Sec
(11.4-14.6)
Carbon Dioxide 32 H mmol/L
(22-30)
BUN 28 H mg/dl
(7-17)
Total Protein 6.0 L g/dl
(6.3-8.2)
Albumin 3.2 L g/dl
(3.5-5.0)
07/09/23 11:51
07/09/23 11:51
Vital Signs
Initial and Last Documented VS:
Initial Vital Signs
BP
122/90
07/09/23 11:24
Last Documented Vital Signs
Temp Pulse Resp BP Pulse Ox
98.0 F 86 20 114/50 97
07/10/23 15:12 07/10/23 15:08 07/10/23 15:12 07/10/23 15:09 07/10/23 15:12
MDM/Problems Addressed
MDM/Problems Addressed:
Congestive heart failure, atrial fibrillation with RVR, chronic interstitial lung disease, hypoxia
*Radiology
Radiology exam reviewed: preliminary read by ED provider (Volume overload, Cardiomegaly)
*Pulse Oximetry
Patient hypoxic: yes
*EKG
Interpreted by ED Provider?: Yes
Interpretation: abnormal
Rate: tachycardiac
Rhythm: a-fib
Ischemia: non-specific ST changes
*Endodontist Interpretation
Rate: tachycardiac
Interpretation: abnormal
Rhythm: a-fib
*Critical Care Note
Total Time (30-74mins, 75-104mins- exclusive of procedures): 30 minutes
Data Reviewed
Review of Other/Old Records Reveals: Discharge Summary
Source: patient
Further Testing Considered But Not Given:
Consider CTA but do not suspect PE the likelihood of CHF with weight gain and recurrent A-fib
Patient Management
Discussion with other providers: Hospitalist
Escalation/DeEscalation of care consider admission/obs:
Recurrent A-fib and now with weight gain and suspected CHF. Diuresed. Not tolerating diuresing with 80 of Lasix at home.
ED Attending Note
-
Portions of this chart may have been created with voice recognition software.� Occasional wrong word or��sound alike� substitutions may have occurred due to the inherent limitations of voice recognition software.
Discharge Plan
Departure
Patient Disposition: Admit
Date of Disposition: 07/09/23
Time of Disposition: 13:20
Admit to: Telemetry
Presentation/result/management discussed w/ accepting MD/DO: Hospitalist
Discharge Problem:
Atrial fibrillation with RVR, Congestive heart failure
Interventions
Interventions:
*Risk Screen - Suicide Last Done: 07/09/23 18:00
*General Assessment Last Done: 07/09/23 11:54
*Neglect/Abuse Screening Last Done: 07/09/23 11:54
ED- Fall Risk Assessment Last Done: 07/09/23 11:54
*ED COVID-19 Vaccine History Last Done: 07/09/23 18:00
*Nursing Disposition Last Done: 07/09/23 17:47
ED- Cardiac Assessment Last Done: 07/09/23 11:54
ED- Pulmonary Assessment Last Done: 07/09/23 11:54
Discharge Date and Time
Discharge Date/Time: 07/09/23 17:48
[2023-07-09] MEDS: LASIX 80 MG IV (13:21)
--- NOTE | 2023-07-09 14:06 | HPS.HSE ---
Addendum entered and electronically signed by Madyson Cruz MD 07/09/23 17:41:
Pt wants DNR
Original Note:
Family Physician
-
Family Physician: Samir Tobias
Chief Complaint
-
Shortness of breath
History of Present Illness
82-year-old female who was recently admitted here for CHF, atrial fibrillation had a cardioversion and was back in sinus rhythm she was discharged. She was seen in the cardiology office where her Lasix was increased. She is back in atrial
fibrillation and has shortness of breath and weight gain.
Medical History
Past Medical History
Past Medical History: Reports Other
Additional Past Medical History:
Chronic respiratory failure on oxygen, atrial fibrillation, hypertension, hyperlipidemia, diverticulosis, arthritis, rheumatoid arthritis, anxiety and depression
Past Surgical History: Reports Other
Additional Past Surgical History:
Bilateral cataract surgery, laminectomy, left hip replacement, bilateral total knee arthroplasty
Social History
Tobacco: Non-smoker
Alcohol: None
Drug: None
Living: With Family
Family History
Family History: CAD (mom) and Cancer (colon ca father)
Allergies / Home Medications
Allergies reflects when Allergies were last updated in [facility].
Home Medications with original date entered in [facility]
Allergy/Medication List:
Allergies
Allergy/AdvReac Type Severity Reaction Status Date / Time
No Known Allergies Allergy Verified 11/22/22 17:22
Home Medications
calcium carbonate 600 mg-vitamin D3 20 mcg (800 unit) tablet 1 tab PO NOON Supplement 02/01/18
fluoxetine 20 mg capsule 20 mg PO DAILY Mental Health/Anxiety 04/26/18
rosuvastatin 10 mg tablet 10 mg PO NOON High Cholesterol 10/25/22
ipratropium 0.5 mg-albuterol 3 mg (2.5 mg base)/3 mL nebulization soln 3 ml inhalation R TIDPRN PRN sob/wheezing 12/21/22
albuterol sulfate 90 mcg/actuation aerosol inhaler 2 puff inhalation R Q4HPRN PRN sob 06/19/23
budesonide 160 mcg-glycopyr 9 mcg-formot 4.8 mcg/actuation HFA inhaler (Breztri Aerosphere) 2 inh inhalation R BID Lung/Breathing Issues 06/19/23
magnesium oxide 400 mg PO NOON Supplement 06/19/23
potassium chloride 20 mEq tablet,extended release(part/cryst) 20 meq PO DAILY Supplement 06/19/23
B-complex with vitamin C 1 tab PO NOON Supplement 06/28/23
furosemide 40 mg tablet 40 mg PO DAILY Fluid Retention/Swelling 06/29/23
colchicine 0.6 mg tablet 0.3 mg (1/2 x 0.6 mg) PO BID Heart disease/condition #20 tabs 07/02/23
diltiazem HCl 240 mg capsule,extended release 24 hr 240 mg PO DAILY Arrhythmia #30 caps 07/02/23
dofetilide 250 mcg capsule 250 mcg PO Q12H Arrhythmia #60 caps 07/02/23
empagliflozin 10 mg tablet (Jardiance) 10 mg PO DAILY Heart disease/condition 30 days #30 tabs 07/02/23
warfarin 5 mg tablet 5 mg PO SUSA@1800 Blood Clot Prevention/Tx 07/09/23
warfarin 7.5 mg tablet 7.5 mg PO TUWETHFR@1800 Blood Clot Prevention/Tx 07/09/23
Review of Systems
-
A 12 point ROS was completed and negative except as noted: Yes
Respiratory: Reports Trouble Breathing
Cardiac: Denies Chest Pain or Palpitations
Abdomen/GI: Denies Abdominal Pain
Physical Exam
Vital Signs
Vital Signs
Temp Pulse Resp BP Pulse Ox
100.1 F 117 17 124/83 99
07/09/23 11:28 07/09/23 13:30 07/09/23 13:30 07/09/23 13:23 07/09/23 13:23
Physical Exam
General: Comfortable
Respiratory: Rales
Cardiac: S1/S2 and Irregular Rhythm
GI: Soft and Normal Bowel Sounds
Musculoskeletal: Edema, Left Lower Extremity and Edema, Right Lower Extremity
Neuro: AO x 3 and Nonfocal/grossly intact
Psych: Intact Judgment/Insight
Laboratory Results
-
07/09/23 11:51
07/09/23 11:51
Laboratory Results
PT 30.2 Sec (11.4-14.6) H 07/09/23 11:51
INR 2.84 07/09/23 11:51
Total Bilirubin 1.0 mg/dl (0.2-1.3) 07/09/23 11:51
AST 24 U/L (14-36) 07/09/23 11:51
ALT 26 U/L (0-35) 07/09/23 11:51
Alkaline Phosphatase 60 U/L (38-126) 07/09/23 11:51
Data Reviewed
-
Diagnostic Radiology: Image Personally Visualized and interpreted (Chest [id number]-[id number] changes small bilateral pleural effusions left greater than right. Cardiomegaly, increase in cardiac silhouette )
Impression/Plan
-
IMPRESSION/PLAN:
# Paroxysmal Atrial Fibrillation
Failed cardioversion on June 21, successful cardioversion on 07/06/2023
Back in atrial fibrillation now
Lasix 40 IV BID
cardiology consultation
Flecainide stopped and switched to Tikosyn last admission
Also on PO Cardizem
Continue Coumadin which was recently changed to 5 mg daily dosage. INR therapeutic
# Heart failure-acute on chronic heart failure with preserved ejection fraction
Patient on Lasix 40 mg daily which was increased to 50 mg with recent cardiology visit
Still in CHF
Also on Jardiance
Monitor intake output
Cardiology evaluation
# Recent admission-concern for pericarditis.
ESR and CRP high.
Patient started on colchicine; continue colchicine for 2 months.
#Leukocytosis -workup again including blood culture
Recently finished Prednisone Taper
#Hyperlipidemia
Continue Crestor
#Chronic Hypoxic Respiratory Failure secondary to Interstitial Lung Disease
Continue supplemental oxygen at 3L via nasal cannula
Continue Pulmicort Neb and Duoneb in place of Breztri
Recently finished prednisone taper
#Depression
Continue Fluoxetine
# Essential tremor
#Spinal stenosis/DDD osteopenia/osteoarthritis
#Rheumatoid Arthritis
#DVT prophylaxis: Coumadin
#Code Status: needs to be addressed.
D/W Cards
--- NOTE | 2023-07-09 14:22 | CON.CAR ---
Addendum entered and electronically signed by Michael Frey MD 07/09/23 15:31:
I saw and examined the patient.
The SHRINK PIT OPERATOR's note was reviewed and I agree with the note.
Comment: 82F with recurrent AF despite flecainide and, now, dofetilide. Rate is a bit fast and she is developing mild HF.
- Another antiarrhythmic seems less than ideal. Amiodarone might work better, but she already has significant lung disease. There is no reason to suspect sotalol,etc., would work better. She is already referred for ablation with Dr. Hampton
- Continue dofetilide until PVI
- add digoxin for rate control & continue diltiazem
Original Note:
Medical History
-
Chief Complaint: SOB, weight gain
History of Present Illness:
82 y/o female with persistent AFIB on warfarin, ILD on NC, HFpEF, TAA 4.5cm, HTN, RA, GERD, and HLD. She was recently hospitalized with recurrent AFIB (after CV early June) and CHF exacerbation. Her flecainide was stopped, and dofetilide was started.
She had a CV on 07/02/23. Verapamil was stopped transitioned to diltiazem. She was also treated with steroids for her lung disease. Finally, she was treated for pericarditis and is on colchicine. She was d/c'd home 07/02/23. She was seen in our office
2 days ago and was back in AFIB and also had some weight gain, LE edema. Lasix was increased from 40 mg to 80 mg, but she continued to gain weight then developed SOB. Plan was for OP EP eval to consider ablation.
Past Medical History
Past Medical History: Arrhythmias, CHF, COPD, GERD, HTN and Hypercholesterolemia
Social History
Tobacco: Non-Smoker
Personal:
Living: With Family
Family History
Family History: Reviewed & Not Pertinent
Allergies / Home Medications
Allergy/AdvReac Type Severity Reaction Status Date / Time
No Known Allergies Allergy Verified 11/22/22 17:22
�Medication �Instructions �Recorded �Confirmed �Type
calcium carbonate 600 mg-vitamin 1 tab PO NOON Supplement 02/01/18 07/09/23 History
D3 20 mcg (800 unit) tablet
fluoxetine 20 mg capsule 20 mg PO DAILY Mental 04/26/18 07/09/23 History
Health/Anxiety
rosuvastatin 10 mg tablet 10 mg PO NOON High Cholesterol 10/25/22 07/09/23 History
ipratropium 0.5 mg-albuterol 3 mg 3 ml inhalation R TIDPRN PRN 12/21/22 07/09/23 History
(2.5 mg base)/3 mL nebulization sob/wheezing
soln
albuterol sulfate 90 mcg/actuation 2 puff inhalation R Q4HPRN PRN sob 06/19/23 07/09/23 History
aerosol inhaler
budesonide 160 mcg-glycopyr 9 2 inh inhalation R BID 06/19/23 07/09/23 History
mcg-formot 4.8 mcg/actuation HFA Lung/Breathing Issues
inhaler (Breztri Aerosphere)
magnesium oxide 400 mg PO NOON Supplement 06/19/23 07/09/23 History
potassium chloride 20 mEq 20 meq PO DAILY Supplement 06/19/23 07/09/23 History
tablet,extended release(part/cryst)
B-complex with vitamin C 1 tab PO NOON Supplement 06/28/23 07/09/23 History
furosemide 40 mg tablet 40 mg PO DAILY Fluid 06/29/23 07/09/23 History
Retention/Swelling
colchicine 0.6 mg tablet 0.3 mg (1/2 x 0.6 mg) PO BID Heart 07/02/23 07/09/23 Rx
disease/condition #20 tabs
diltiazem HCl 240 mg 240 mg PO DAILY Arrhythmia #30 caps 07/02/23 07/09/23 Rx
capsule,extended release 24 hr
dofetilide 250 mcg capsule 250 mcg PO Q12H Arrhythmia #60 caps 07/02/23 07/09/23 Rx
empagliflozin 10 mg tablet 10 mg PO DAILY Heart 07/02/23 07/09/23 Rx
(Jardiance) disease/condition 30 days #30 tabs
warfarin 5 mg tablet 5 mg PO SUSA@1800 Blood Clot 07/09/23 07/09/23 History
Prevention/Tx
warfarin 7.5 mg tablet 7.5 mg PO TUWETHFR@1800 Blood Clot 07/09/23 07/09/23 History
Prevention/Tx
Review of Systems
-
History Source: Patient
All other systems: Negative unless noted
Constitutional: Weight Gain
Respiratory: Trouble Breathing
Physical Exam
Vital Signs
Temp Pulse Resp BP Pulse Ox
100.1 F 117 17 124/83 99
07/09/23 11:28 07/09/23 13:30 07/09/23 13:30 07/09/23 13:23 07/09/23 13:23
Lab Results
07/09/23 11:51
07/09/23 11:51
Pvm-M-Axqbkdxzydh Pept 2200 pg/ml 07/09/23 11:51
Physical Exam
General: Well Developed, Well Nourished and No Apparent Distress
HEENT: Normocephalic and Anicteric
Respiratory: Crackles (b/l bases) and Other (on O2 by NC)
Cardiac: Irregular Rhythm
Musculoskeletal: Edema (mild BLE edema)
Neuro: AO x 3
Psych: Calm
Impression / Plan
-
AFIB, recurrent:
-rates mildly fast- continue diltiazem
-on dofetilide, plan as OP was to see Dr. Hampton to discuss ablation. Will discuss overall rhythm plan with EP.
-continue warfarin and daily INR monitoring- they have been therapeutic since CV to my review
Calkh-hs-gvdvccx HFpEF:
-Recent echo EF is 55%, Severe biatrial dilation, At least moderate mitral regurgitation. Mild to moderate tricuspid regurgitation. Ascending aorta is 4.1 cm. Trivial pericardial effusion. Mild pulmonary hypertension.
-agree with IV diuresis, which requires intensive monitoring
-weight in ER ordered and pending, but patient reports 6 lb weight gain. Was 72.5 kg at recent d/c.
Recent pericarditis:
-continue colchicine
ILD/COPD:
-on O2 by TN
-management per primary team
Ascending aortic aneurysm
-4.[address] Chest (with contrast), 04/24/2022.
-Monitor over time
HTN:
-stable
-monitor
Data Reviewed
-
EKG: Tracing Personally Visualized and interpreted (AFIB 109 BPM)
Radiology: Report Reviewed by me
Medical Tests (Nuc Med, Echo etc): Report Reviewed by me (Echo 06/2023: EF is 55%, Severe biatrial dilation, At least moderate mitral regurgitation. Mild to moderate tricuspid regurgitation. Ascending aorta is 4.1 cm. Trivial pericardial effusion.
Mild pulmonary hypertension.)
Labs: Labs Reviewed by me
[2023-07-09] MEDS: LANOXIN 500 MCG PO (16:58)
[2023-07-09] MEDS: LASIX IV (18:14)
[2023-07-09] MEDS: COUMADIN 5 MG PO (18:22)
--- NOTE | 2023-07-09 18:34 | PTCARENOTE ---
pt received from ER, oriented. Afib on the monitor, HR 110-140s. irregular apical pulses. palpable pulses. pt on 3LNC, 98% POX. lungs crackles in b/l bases. FAN. pt abdomen s/n, denies n/v. PIV. admission interview completed. labs drawn.
[2023-07-09 19:01] LABS: Troponin I 0.014 ng/ml
[2023-07-09 19:03] LABS: Urine Albumin Negative (Neg - Trace); Urine Bilirubin Negative (Negative); Urine Character Clear (Clear); Urine Color Yellow; Urine Glucose 3+ (Negative); Urine Ketone Negative (Negative); Urine Leukocyte 2+ (Negative); Urine Nitrite Negative (Negative); Urine Occult Blood Negative (Negative); Urine Urobilinogen Negative (Neg - 1+)
[2023-07-09 19:16] LABS: Urine Bacteria Few (Negative); Urine Red Blood Cell 0-2 /HPF (0-2)
[2023-07-09] MEDS: SYMBICORT 160/4.5 MCG INHALER 2 PUFF INH (20:12)
[2023-07-09] MEDS: COLCHICINE 0.299999999999999989 MG PO (20:43)
[2023-07-09] MEDS: TIKOSYN 250 MCG PO (20:43)
[2023-07-10 02:03] LABS: Troponin I 0.014 ng/ml
[2023-07-10 03:35] VITALS: BP 122/84
[2023-07-10 03:36] VITALS: BMI 24.8
--- NOTE | 2023-07-10 04:16 | PTCARENOTE ---
Pt AAOX3 w/no c/o CP or SOB overnight. VS stable w/BP 122/84, HR 90's at rest & in the 110's-120's w/activity. Pt limiting OOB to BSC at this time. Pt remains Afib on telemetry monitoring. Pt afebrile overnight w/temp max 99.3. Pt stated that she
'feels much better already'. Pt w/call zaragoza within reach & plan of care ongoing.
[2023-07-10 07:19] VITALS: BP 116/90
[2023-07-10] MEDS: COLCHICINE 0.299999999999999989 MG PO ×2 (07:58→20:41)
[2023-07-10] MEDS: PROZAC 20 MG PO (07:58)
[2023-07-10] MEDS: TIKOSYN 250 MCG PO ×2 (07:58→20:41)
[2023-07-10] MEDS: CARDIZEM CD 240 MG PO (07:58)
[2023-07-10] MEDS: KCL 20 MEQ PO (07:58)
[2023-07-10] MEDS: JARDIANCE 10 MG PO (07:58)
[2023-07-10] MEDS: LASIX 40 MG IV (07:58)
[2023-07-10 08:15] LABS: Troponin I 0.012 ng/ml
[2023-07-10 08:24] LABS: Blood Urea Nitrogen 24 mg/dl (7-17); Calcium 8.5 mg/dl (8.4-10.2); Carbon Dioxide 33 mmol/L (22-30); Chloride 102 mmol/L (98-107); Estimated Creatinine Clearance 60 ml/min; Glucose 95 mg/dl (70-99); Magnesium 2.1 mg/dl (1.6-2.3); Potassium 3.7 mmol/L (3.5-5.1); Sodium 139 mmol/L (135-145); eGFR > 60.00
--- NOTE | 2023-07-10 08:35 | W.PN.CD ---
Today's Communication / Plan
-
continue with rate control and diuresis
- increase rate control
timing of cardioversion being assessed
with recent pericarditis will check out follow up study to r/o effusion
Impression / Plan
-
AFIB, recurrent:
-rratees mildly elvated. will increse rate control
-on dofetilide, plan as OP - ( Dr Frey reviewed with EP - Dr Hampton) will continue Dofetiilide and rate conrol as we assess timingof ablation.
-continue warfarin and daily INR monitoring- they have been therapeutic since CV to my review
Vjwot-lo-drdnucr HFpEF:
-Recent echo EF is 55%, Severe biatrial dilation, At least moderate mitral regurgitation. Mild to moderate tricuspid regurgitation. Ascending aorta is 4.1 cm. Trivial pericardial effusion. Mild pulmonary hypertension.
- IV diuresis, which requires intensive monitoring
-monitor weights and renal function
Recent pericarditis:
-continue colchicine
- follow up echo
ILD/COPD:
-on O2 by NC
-management per primary team
Ascending aortic aneurysm
-4.[address] Chest (with contrast), 04/24/2022.
-Monitor over time
HTN:
-stable
-monitor
Physical Exam
Vital Signs/Labs
Vital Signs
Temp Pulse Resp BP Pulse Ox
99 F 125 20 166/90 98
07/10/23 07:18 07/10/23 07:58 07/10/23 07:18 07/10/23 07:58 07/10/23 07:19
07/09/23 07/10/23 07/11/23
06:59 06:59 06:59
Actual Weight 71.8 kg
07/09/23 11:51
07/10/23 07:28
PT 30.2 Sec (11.4-14.6) H 07/09/23 11:51
INR 2.84 07/09/23 11:51
Magnesium 2.1 mg/dl (1.6-2.3) 07/10/23 07:28
07/09/23
11:51
Yxn-W-Kmxvppkjyiw Pept 2200
LAB Results
07/09/23 07/10/23 07/10/23
18:31 00:47 01:30
Troponin I 0.014 Cancelled 0.014
07/10/23
07:28
Troponin I 0.012
Physical Exam
Constitutional: No acute distress
Cardiovascular: Rhythm/rate is irregular
Respiratory: Wheeze Absent, Rhonchi Absent and Other (fine crackles at bases)
GI: Soft
Neuro/Psych: Alert
Data Reviewed
-
Date of Service: July 10, 2023
Medical Decision Making: Reviewed Test Results
EKG: Report Reviewed by me
Medical Tests (PFT, Pathology etc): Report Reviewed by me
Labs: Labs Reviewed by me
[2023-07-10] MEDS: LANOXIN 500 MCG PO (10:06)
[2023-07-10] MEDS: SYMBICORT 160/4.5 MCG INHALER INH (10:27)
[2023-07-10] MEDS: SPIRIVA RESPIMAT 2.5 MCG INH (10:27)
--- NOTE | 2023-07-10 10:30 | W.PN.HOSP.TC ---
Today's Communication/Plan
-
Cardizem dose increased
Continue Tikosyn
Diuresis
Assessment / Plan
Assessment / Plan
CVS: S1-S2 irregular
Chest: rales
Abdomen: Soft, NT / Bowel sounds present
Extremities: B/L edema
CASCARA BARK CUTTER: Non focal exam
# Paroxysmal Atrial Fibrillation
Afib with E+RVR
Failed cardioversion on June 21, successful cardioversion on 07/06/2023
Back in atrial fibrillation now
Lasix 40 IV BID
cardiology consultation
Flecainide stopped and switched to Tikosyn last admission
Also on PO Cardizem-dose increased
Continue Coumadin which was recently changed to 5 mg daily dosage. INR therapeutic
Eventually needs ablation timing per cardiology
# Heart failure-acute on chronic heart failure with preserved ejection fraction
Patient on Lasix 40 mg daily which was increased to 80 mg with recent cardiology visit
Still in CHF
Lasix 40 IV BID
Also on Jardiance
Monitor intake output
Cardiology evaluation noted
# Recent admission-concern for pericarditis.
ESR and CRP high.
Patient started on colchicine; continue colchicine for 2 months.
#Leukocytosis -workup again including blood culture
Recently finished Prednisone Taper
#Hyperlipidemia
Continue Crestor
#Chronic Hypoxic Respiratory Failure secondary to Interstitial Lung Disease
Continue supplemental oxygen at 3L via nasal cannula
Continue Pulmicort Neb and Duoneb in place of Breztri
Recently finished prednisone taper
#Depression
Continue Fluoxetine
# Essential tremor
#Spinal stenosis/DDD osteopenia/osteoarthritis
#Rheumatoid Arthritis
#DVT prophylaxis: Coumadin
#Code Status: DNR
Anticipated Discharge: > 48 hours
Subjective/Interval History
-
Date of Service: July 10, 2023
Objective Data
-
Labs:
Laboratory Results
07/10/23
07:28
Sodium 139
Potassium 3.7
Chloride 102
Carbon Dioxide 33 H
BUN 24 H
Creatinine 0.7
Glucose 95
Calcium 8.5
Vital Signs:
Vital Signs
Temp Pulse Resp BP Pulse Ox
99 F 107 20 166/90 98
07/10/23 07:18 07/10/23 10:06 07/10/23 07:18 07/10/23 07:58 07/10/23 07:19
I&O
07/09/23 07/10/23 07/11/23
06:59 06:59 06:59
Intake Total 480 / 480
Output Total 3250 / 3250
Balance -2770 / -2770
[2023-07-10 11:04] VITALS: BP 128/87
--- NOTE | 2023-07-10 12:21 | PTCARENOTE ---
Pt AOx3, no complaints of pain or discomfort. On 3L O2. VSS, afib on tele monitor. Independent with ADLs. Repeat ECHO done today. Call zaragoza within reach.
--- NOTE | 2023-07-10 12:38 | CM ---
Addendum entered by Sonja Pugh 07/10/23 16:59:
pt requested VN with kamran rae, referral faxed.
Original Note:
spoke to pt in room, she is prev indep, lives with her husb in an apt with no steps to enter. she uses O2 at home 3L-[employer] is her provider. she uses a rollator to carry her O2. she denies any dc planning needs. plan is for dc to home when medically
stable.
[2023-07-10] MEDS: OSCAL 500 + D 500 MG PO (13:14)
[2023-07-10] MEDS: MAG-TAB SR 84 MG PO (13:15)
[2023-07-10] MEDS: B COMPLEX w/VITAMIN C 1 CAPLET PO (13:15)
[2023-07-10] MEDS: CRESTOR 10 MG PO (13:15)
--- NOTE | 2023-07-10 13:17 | W.PN.UPDATE ---
Update Note
Progress Note Update
TTE shows large pericardial effusion without overt tamponade physiology
INR is therapeutic, which would increase risk of pericardiocentesis.
Patient is clinically stable so we will defer pericardiocentesis until INR down. But obviously we will reevaluate frequently
- lower diuretic
- hold warfarin
- continue dig for rate control
Patient and family updated
[2023-07-10] MEDS: CARDIZEM 30 MG PO ×2 (15:07→22:46)
[2023-07-10 15:09] VITALS: BP 114/50
[2023-07-10] MEDS: LANOXIN 125 MCG PO (15:09)
[2023-07-10 15:56] LABS: Hematocrit 34.4 % (37.0-47.0); Hemoglobin 11.3 g/dL (12.0-16.0); Mean Corp Hgb Conc. 32.8 g/dL (33.0-37.0); Mean Corpuscular Hgb 31.2 pg (27.0-31.0); Mean Platelet Volume 8.9 fL (7.4-10.4); Platelet Count 269 10^3/uL (130-400); Red Blood Cell Count 3.62 10^6/uL (4.20-5.40)
[2023-07-10 16:12] LABS: INR 2.87
[2023-07-10 19:16] VITALS: BP 105/72
[2023-07-10] MEDS: SYMBICORT 160/4.5 MCG INHALER 2 PUFF INH (20:25)
[2023-07-10 22:40] VITALS: BP 117/84
--- NOTE | 2023-07-11 03:52 | PTCARENOTE ---
Pt AAOx3 w/no c/o CP or increased SOB; Pt is SOB at baseline from chronic respiratory disease & uses 3L O2 via NC at home. Pt's VS stable w/HR in the 80's-90's at rest & in the low 100's w/activity. Pt remains A-fib on telemetry monitoring, but the
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 Pt w/call zaragoza within reach & plan of care ongoing.
[2023-07-11 04:11] VITALS: BP 119/79
[2023-07-11 04:49] VITALS: BMI 24.7
[2023-07-11 04:55] LABS: INR 2.87
[2023-07-11 05:09] LABS: Calcium 8.8 mg/dl (8.4-10.2); Carbon Dioxide 33 mmol/L (22-30); Estimated Creatinine Clearance 70 ml/min; Glucose 111 mg/dl (70-99); eGFR > 60.00
[2023-07-11 05:20] LABS: Blood Urea Nitrogen 29 mg/dl (7-17); Chloride 102 mmol/L (98-107); Sodium 139 mmol/L (135-145)
[2023-07-11] MEDS: SYMBICORT 160/4.5 MCG INHALER 2 PUFF INH ×2 (07:35→18:11)
[2023-07-11] MEDS: SPIRIVA RESPIMAT 2.5 MCG 2 PUFF INH (07:35)
[2023-07-11] MEDS: TIKOSYN 250 MCG PO ×2 (09:25→19:38)
[2023-07-11] MEDS: PROZAC 20 MG PO (09:27)
[2023-07-11] MEDS: COLCHICINE 0.299999999999999989 MG PO ×2 (09:27→19:39)
[2023-07-11] MEDS: KCL 20 MEQ PO (09:30)
[2023-07-11] MEDS: CARDIZEM 30 MG PO ×3 (09:30→22:12)
[2023-07-11] MEDS: LASIX 40 MG PO (09:31)
[2023-07-11] MEDS: JARDIANCE 10 MG PO (09:31)
[2023-07-11] MEDS: CARDIZEM CD 360 MG PO (09:32)
--- NOTE | 2023-07-11 09:43 | W.PN.CD ---
Today's Communication / Plan
-
Hodl warfarin
Echo on Tue and likely pericardiocentesis
Watch for need for urgent reversal of INR and urgent pericardiocentesis
Impression / Plan
-
Recent pericarditis, now with large pericardial effusion => high risk
- Anticipate follow up echo and likely pericardiocentesis
- Need to presume a component of hemorrhagic effusion => off warfarin now
AFIB, recurrent:
-rates mildly elevated.
-on dofetilide, plan as OP - ( Dr Frey reviewed with Dr Hampton) will continue Dofetilide and rate control as we assess timing of ablation.
-warfarin on hold
Ncegv-ur-rnwgaqw HFpEF:
-Recent echo EF is 55%, Severe biatrial dilation, At least moderate mitral regurgitation. Mild to moderate tricuspid regurgitation. Ascending aorta is 4.1 cm.
-Gentle IV diuresis, with large effusion
-monitor weights and renal function
ILD/COPD:
-on O2 by NC
-management per primary team
Ascending aortic aneurysm
-4.[address] Chest (with contrast), 04/24/2022.
-Monitor over time
HTN:
-stable
-monitor
Subjective:
Feels OK
Physical Exam
Vital Signs/Labs
Vital Signs
Temp Pulse Resp BP Pulse Ox
98.3 F 105 18 119/79 98
07/11/23 07:21 07/11/23 07:39 07/11/23 07:39 07/11/23 04:11 07/11/23 07:39
07/10/23 07/11/23 07/12/23
06:59 06:59 06:59
Actual Weight 71.8 kg 71.4 kg
07/10/23 15:45
07/11/23 04:22
PT 30.0 Sec (11.4-14.6) H 07/11/23 04:22
INR 2.87 07/11/23 04:22
Magnesium 2.1 mg/dl (1.6-2.3) 07/10/23 07:28
07/09/23
11:51
Pyu-G-Eidatggvzwf Pept 2200
LAB Results
07/09/23 07/10/23 07/10/23
18:31 00:47 01:30
Troponin I 0.014 Cancelled 0.014
07/10/23
07:28
Troponin I 0.012
Physical Exam
Constitutional: No acute distress
Cardiovascular: Rhythm/rate is irregular and Pedal edema present
Respiratory: Respiratory effort normal and Lungs clear to auscul.
GI: Soft and Distention absent
Neuro/Psych: AO x 3
Data Reviewed
-
Date of Service: July 11, 2023
--- NOTE | 2023-07-11 10:20 | W.PN.HOSP.TC ---
Addendum entered and electronically signed by Madyson Cruz MD 07/11/23 10:30:
Correction- Pericardial effusion now large- Pt to get Pericardiocentesis Hold Warfarin
Original Note:
Today's Communication/Plan
-
Diuresis
Rest of the plan per cardiology
Assessment / Plan
Assessment / Plan
CVS: S1-S2 irregular
Chest: rales
Abdomen: Soft, NT / Bowel sounds present
Extremities: B/L edema
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
ECHO 07/10/23-normal LV function. EF 55%. Mild concentric LVH. Mild to moderate . Moderate TR pulmonary pressure 49 mmHg. Pericardial effusion is now-mild
# Paroxysmal Atrial Fibrillation
Afib with E+RVR
Failed cardioversion on June 21, successful cardioversion on 07/06/2023
Back in atrial fibrillation now
Lasix 40 IV BID
cardiology consultation
Flecainide stopped and switched to Tikosyn last admission
Also on PO Cardizem-dose increased
Continue Coumadin which was recently changed to 5 mg daily dosage. INR therapeutic
Eventually needs ablation timing per cardiology
# Heart failure-acute on chronic heart failure with preserved ejection fraction
Patient on Lasix 40 mg daily which was increased to 80 mg with recent cardiology visit
Still in CHF
Lasix 40 IV BID
Also on Jardiance
Monitor intake output
Cardiology evaluation noted
# Recent admission-concern for pericarditis.
ESR and CRP high.
Patient started on colchicine; continue colchicine for 2 months.
#Leukocytosis -workup again including blood culture
Recently finished Prednisone Taper
#Hyperlipidemia
Continue Crestor
#Chronic Hypoxic Respiratory Failure secondary to Interstitial Lung Disease
Continue supplemental oxygen at 3L via nasal cannula
Continue Pulmicort Neb and Duoneb in place of Breztri
Recently finished prednisone taper
#Depression
Continue Fluoxetine
# Essential tremor
#Spinal stenosis/DDD osteopenia/osteoarthritis
#Rheumatoid Arthritis
#DVT prophylaxis: Coumadin
#Code Status: DNR
Offered to talk to family. Pt declined. Says she is keeping them updated.
Anticipated Discharge: 24 - 48 hours
Subjective/Interval History
-
Date of Service: July 11, 2023
Objective Data
-
Labs:
Laboratory Results
07/11/23
04:22
PT 30.0 H
INR 2.87
Sodium 139
Potassium 4.0
Chloride 102
Carbon Dioxide 33 H
BUN 29 H
Creatinine 0.6
Glucose 111 H
Calcium 8.8
Vital Signs:
Vital Signs
Temp Pulse Resp BP Pulse Ox
98.3 F 105 18 119/79 98
07/11/23 07:21 07/11/23 07:39 07/11/23 07:39 07/11/23 04:11 07/11/23 07:39
I&O
07/10/23 07/11/23 07/12/23
06:59 06:59 06:59
Intake Total 480 / 480 720 / 720
Output Total 3250 / 3250 1100 / 1100
Balance -2770 / -2770 -380 / -380
[2023-07-11 11:41] VITALS: BP 110/81
[2023-07-11] MEDS: LANOXIN 125 MCG PO (12:32)
[2023-07-11] MEDS: B COMPLEX w/VITAMIN C 1 CAPLET PO (12:32)
[2023-07-11] MEDS: OSCAL 500 + D 500 MG PO (12:32)
[2023-07-11] MEDS: MAG-TAB SR 84 MG PO (12:32)
[2023-07-11] MEDS: CRESTOR 10 MG PO (12:32)
[2023-07-11 15:42] VITALS: BP 93/68
[2023-07-11 19:35] VITALS: BP 120/58
--- NOTE | 2023-07-11 19:57 | PTCARENOTE ---
Pt rec'd oob in recliner chair awake,alert watching movie. Lungs with crackles throughout,pt denies cough. o2 maintained at pt's usual o2 of 3 lit n/c with at 98%.
Pt reports passing hard small bm earlier today requesting Colace and Miralax in am 'not tonight'. Controlled afib on telemetry.
[2023-07-11 22:14] VITALS: BP 134/80
[2023-07-11] MEDS: ProAIR HFA INHALER 2 PUFF INH (22:24)
--- NOTE | 2023-07-11 22:24 | PTCARENOTE ---
Pt awoken for Vs stated she felt sob and asked for extra mn tx. rsp called at bedside at this time. 97% on 3 lit n/c. RR 28
[2023-07-12 03:47] VITALS: BMI 24.8
[2023-07-12 03:55] VITALS: BP 125/65
[2023-07-12 04:08] LABS: Hematocrit 33.6 % (37.0-47.0); Hemoglobin 10.8 g/dL (12.0-16.0); Mean Corp Hgb Conc. 32.1 g/dL (33.0-37.0); Mean Corpuscular Hgb 31.1 pg (27.0-31.0); Mean Corpuscular Volume 96.8 fL (81.0-99.0); Platelet Count 277 10^3/uL (130-400); Red Blood Cell Count 3.47 10^6/uL (4.20-5.40); Red Cell Dist. Width 16.1 % (11.5-14.5); White Blood Cell Count 9.5 10^3/uL (4.8-10.8)
[2023-07-12 04:25] LABS: INR 2.26; PT 24.8 Sec (11.4-14.6)
[2023-07-12 04:57] LABS: Blood Urea Nitrogen 26 mg/dl (7-17); Calcium 8.9 mg/dl (8.4-10.2); Carbon Dioxide 30 mmol/L (22-30); Chloride 103 mmol/L (98-107); Estimated Creatinine Clearance 60 ml/min; Glucose 107 mg/dl (70-99); Potassium 3.8 mmol/L (3.5-5.1); Sodium 139 mmol/L (135-145); eGFR > 60.00
[2023-07-12] MEDS: SYMBICORT 160/4.5 MCG INHALER 2 PUFF INH ×2 (06:18→18:12)
[2023-07-12] MEDS: SPIRIVA RESPIMAT 2.5 MCG 2 PUFF INH (06:18)
[2023-07-12 07:13] VITALS: BP 113/67
--- NOTE | 2023-07-12 08:00 | PTCARENOTE ---
resumed care of aptient from previous RN. walking rounds completed. assessment done with patient oob in chair. Lungs with crackles throughout. SOB. dysp exert. 99% on 3L. Dr xavier at bedside currently. reporting increased SOB. colace given per
order for slight constupation. pulses palpable and will continue to monitor.
[2023-07-12] MEDS: JARDIANCE 10 MG PO (09:20)
[2023-07-12] MEDS: CARDIZEM 30 MG PO ×3 (09:20→22:30)
[2023-07-12] MEDS: CARDIZEM CD 360 MG PO (09:20)
[2023-07-12] MEDS: PROZAC 20 MG PO (09:21)
[2023-07-12] MEDS: TIKOSYN 250 MCG PO ×2 (09:21→19:38)
[2023-07-12] MEDS: KCL 20 MEQ PO (09:21)
[2023-07-12] MEDS: COLCHICINE 0.299999999999999989 MG PO ×2 (09:21→19:38)
[2023-07-12] MEDS: COLACE 100 MG PO ×2 (09:22→19:38)
[2023-07-12] MEDS: LASIX 40 MG PO (09:22)
--- NOTE | 2023-07-12 09:30 | W.PN.HOSP.TC ---
Today's Communication/Plan
-
Check urgent echo
Type and screen
Hold 2 units of FFP's
Chest x-ray ordered
Assessment / Plan
Assessment / Plan
CVS: S1-S2 irregular
Chest: rales
Abdomen: Soft, NT / Bowel sounds present
Extremities: B/L edema
LEAD BURNER: Non focal exam
ECHO 07/10/23-normal LV function. EF 55%. Mild concentric LVH. Mild to moderate . Moderate TR pulmonary pressure 49 mmHg. Pericardial effusion is large
# Large pericardial effusion
Likely secondary to rheumatoid arthritis
Check CRP and sed rate
Repeat echo today because she is feeling more short of breath mostly with exertion
Also get chest x-ray
If she has any hemodynamic compromise may need pericardiocentesis sooner than planned with FFP's
Type and screen and hold FFP's ordered
Not hypotensive
# Paroxysmal Atrial Fibrillation
Afib with RVR
Failed cardioversion on June 21, successful cardioversion on 07/06/2023
Back in atrial fibrillation now
Lasix 40 p.o. daily
cardiology consultation
Flecainide stopped and switched to Tikosyn last admission
Also on PO Cardizem-dose increased
Continue Coumadin which was recently changed to 5 mg daily dosage. On hold. INR still in therapeutic range
Eventually needs ablation timing per cardiology
# Heart failure-acute on chronic heart failure with preserved ejection fraction
Patient on Lasix 40 mg daily which was increased to 80 mg with recent cardiology visit
Lasix 40 IV BID on admission-changed to Lasix 40 mg PO daily.
Also on Jardiance
Monitor intake output
Cardiology evaluation noted
# Recent admission-concern for pericarditis.
Patient started on colchicine plan is to continue colchicine for 2 months.
# Leukocytosis -workup again including blood culture
Recently finished Prednisone Taper
# Hyperlipidemia
Continue Crestor
# Chronic Hypoxic Respiratory Failure secondary to Interstitial Lung Disease
Continue supplemental oxygen at 3L via nasal cannula
Continue Pulmicort Neb and Duoneb in place of Breztri
Recently finished prednisone taper
# Depression
Continue Fluoxetine
# Essential tremor
# Spinal stenosis/DDD osteopenia/osteoarthritis
# Rheumatoid Arthritis
# DVT prophylaxis: Coumadin
# Code Status: DNR
Requested to talk to family patient is agreeable. Spoke to daughter Lucía and updated.
Lucía has questions for cardiology regarding plan for pericardiocentesis and ablation.
Number and message passed over to cardiology.
Unfortunately difficult situation.
D/W RN at bed side
D/W
Time spent 52 min
Anticipated Discharge: > 48 hours
Subjective/Interval History
-
Date of Service: July 12, 2023
Objective Data
-
Labs:
Laboratory Results
07/12/23
04:02
WBC 9.5
Hgb 10.8 L
Hct 33.6 L
Plt Count 277
PT 24.8 H
INR 2.26
Sodium 139
Potassium 3.8
Chloride 103
Carbon Dioxide 30
BUN 26 H
Creatinine 0.7
Glucose 107 H
Calcium 8.9
Vital Signs:
Vital Signs
Temp Pulse Resp BP Pulse Ox
99.1 F 83 20 113/67 100
07/12/23 07:09 07/12/23 09:20 07/12/23 07:09 07/12/23 09:20 07/12/23 07:09
I&O
07/11/23 07/12/23 07/13/23
06:59 06:59 06:59
Intake Total 720 / 720
Output Total 1100 / 1100
Balance -380 / -380
[2023-07-12 10:18] LABS: Erythrocyte Sed Rate 39 mm/hour (0-20)
[2023-07-12 11:18] VITALS: BP 110/74
[2023-07-12] MEDS: LANOXIN 125 MCG PO (12:12)
[2023-07-12] MEDS: B COMPLEX w/VITAMIN C 1 CAPLET PO (12:13)
[2023-07-12] MEDS: CRESTOR 10 MG PO (12:13)
[2023-07-12] MEDS: MAG-TAB SR 84 MG PO (12:13)
[2023-07-12] MEDS: OSCAL 500 + D 500 MG PO (12:13)
[2023-07-12 15:00] VITALS: BP 121/75
--- NOTE | 2023-07-12 15:22 | W.PN.CD ---
Today's Communication / Plan
-
Hold warfarin
Pericardiocentesis Thursday is planned
Watch for need for urgent reversal of INR and urgent pericardiocentesis
Impression / Plan
-
Recent pericarditis, now with large pericardial effusion => high risk
- Anticipate pericardiocentesis for diagnosis and likely symptomatic improvement
- Need to presume a component of hemorrhagic effusion => off warfarin now
AFIB, recurrent:
-rates mildly elevated.
-on dofetilide, plan as OP - ( Dr Frey reviewed with Dr Hampton) will continue Dofetilide and rate control as we assess timing of ablation.
-warfarin on hold
Augiw-mo-stgvtob HFpEF:
-Gentle IV diuresis, with large effusion
-monitor weights and renal function
ILD/COPD:
-on O2 by NC
-management per primary team
Ascending aortic aneurysm
-4.[address] Chest (with contrast), 04/24/2022.
-Monitor over time
HTN:
-stable
-monitor
Subjective:
Feels OK. FAN.
More recent echo: NEW LARGE pericardial effusin
Recent echo EF is 55%, Severe biatrial dilation, At least moderate mitral regurgitation. Mild to moderate tricuspid regurgitation. Ascending aorta is 4.1 cm.
Physical Exam
Vital Signs/Labs
Vital Signs
Temp Pulse Resp BP Pulse Ox
98.8 F 79 20 113/67 97
07/12/23 15:00 07/12/23 12:12 07/12/23 15:00 07/12/23 09:20 07/12/23 15:00
07/11/23 07/12/23 07/13/23
06:59 06:59 06:59
Actual Weight 71.4 kg 71.9 kg
07/12/23 04:02
07/12/23 04:02
PT 24.8 Sec (11.4-14.6) H 07/12/23 04:02
INR 2.26 07/12/23 04:02
Magnesium 2.1 mg/dl (1.6-2.3) 07/10/23 07:28
07/09/23
11:51
Tyg-I-Unbjrwyneaa Pept 2200
LAB Results
07/09/23 07/10/23 07/10/23
18:31 00:47 01:30
Troponin I 0.014 Cancelled 0.014
07/10/23
07:28
Troponin I 0.012
Physical Exam
Cardiovascular: Rhythm/rate is irregular and Pedal edema present
Respiratory: Respiratory effort normal and Lungs clear to auscul.
GI: Soft and Distention absent
Neuro/Psych: AO x 3
Data Reviewed
-
Date of Service: July 12, 2023
--- NOTE | 2023-07-12 16:00 | PTCARENOTE ---
echo done bedside. pt receving stat resp tx for increased shortness of breath. type and screen drawn for possible upcoming procedure.
[2023-07-12] MEDS: ProAIR HFA INHALER 2 PUFF INH (17:27)
[2023-07-12 19:24] VITALS: BP 104/73
[2023-07-12] MEDS: MIRALAX 17 GRAMS PO (19:37)
--- NOTE | 2023-07-12 20:50 | PTCARENOTE ---
Pt rec'd in bed awake,alert. Dyspnea noted with little activity. O2 at 3 lit n/c in use. Lungs with crackles throughout. Pt reported having had her rescue inhaler at 1700 feels ok at present. NO bm ,Colace and Miralax given. call zaragoza within reach.
[2023-07-12 22:29] VITALS: BP 118/82
[2023-07-13] VITALS (7 sets, daily range): BP systolic 129–136; BP diastolic 67–85; BMI 25.1
[2023-07-13] MEDS: ProAIR HFA INHALER 2 PUFF INH ×3 (05:17→20:07)
[2023-07-13] MEDS: SYMBICORT 160/4.5 MCG INHALER 2 PUFF INH ×2 (05:18→20:07)
[2023-07-13] MEDS: SPIRIVA RESPIMAT 2.5 MCG 2 PUFF INH (05:18)
--- NOTE | 2023-07-13 05:20 | PTCARENOTE ---
Pt with c/o sob at this time. Rsp called for stat treatment. 99% on 3 lit n/c.
--- NOTE | 2023-07-13 06:09 | W.PN.HOSP.TC ---
Today's Communication/Plan
-
O2 supplementation prn
npo after midnight for pericardiocentesis
cont diuresis
rate control as per cardio
Assessment / Plan
Assessment / Plan
General: no acute distress appears comfortable at this time.
CVS: S1-S2 irregular
Chest: rales
Abdomen: Soft, NT / Bowel sounds present
Extremities: B/L edema
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
ECHO 07/10/23-normal LV function. EF 55%. Mild concentric LVH. Mild to moderate . Moderate TR pulmonary pressure 49 mmHg. Pericardial effusion is large
# Large pericardial effusion
Likely secondary to rheumatoid arthritis
mild CRP elevation noted, sed rate wnl for age
ECOH repeated 07/11 d/t concerns increased exertional dyspnea. Repeat ECHO however appreciated no significant change from prior study 07/09
CXR 07/11 appreciated Stable mild CHF with small bilateral pleural effusions with associated probable atelectasis, possible underlying chronic interstitial lung disease.
Type and screen and hold FFP's ordered
Not hypotensive
cardio eval appreciated, npo after midnight for pericardiocentesis Tu07/13
# Paroxysmal Atrial Fibrillation
Afib with RVR
Failed cardioversion on June 21, successful cardioversion on 07/06/2023
Back in atrial fibrillation now
Lasix 40 p.o. daily
cardiology consultation appreciated
Flecainide stopped and switched to Tikosyn last admission
Also on PO Cardizem-dose increased but long acting subsequently placed on hold in anticipation pericardiocentesis Tu
Cardizem converted to short acting and titrated up as per cardio
Eventually needs ablation timing per cardiology
# Heart failure-acute on chronic heart failure with preserved ejection fraction
Patient on Lasix 40 mg daily which was increased to 80 mg with recent cardiology visit
Lasix 40 IV BID on admission-changed to Lasix 40 mg PO daily.
Also on Jardiance
Monitor intake output
Cardiology evaluation noted
# Recent admission-concern for pericarditis.
Patient started on colchicine plan is to continue colchicine for 2 months.
# Leukocytosis -workup again including blood culture
Recently finished Prednisone Taper
# Hyperlipidemia
Continue Crestor
# Chronic Hypoxic Respiratory Failure secondary to Interstitial Lung Disease
Continue supplemental oxygen at 3L via nasal cannula
Continue Pulmicort Neb and Duoneb in place of Breztri
Recently finished prednisone taper
# Depression
Continue Fluoxetine
# Essential tremor
# Spinal stenosis/DDD osteopenia/osteoarthritis
# Rheumatoid Arthritis
# DVT prophylaxis: Coumadin
# Code Status: DNR
discussed with patient at bedside and patient's daughter Lucía over phone
I spent a total of 50 minutes with the patient or on the floor. More than 50% of this time involved counseling and coordination of care.
Anticipated Discharge: > 48 hours
Subjective/Interval History
-
Date of Service: July 13, 2023
Shortness of breath noted this morning improved with prn nebulizer therapy. Seen and examined at bedside in no acute distress sitting up comfortably on bed. Remain oxygen dependent continues to report exertional dyspnea.
Objective Data
-
Labs:
Laboratory Results
07/13/23
06:04
WBC Pending
Hgb Pending
Hct Pending
Plt Count Pending
PT Pending
INR Pending
Sodium Pending
Potassium Pending
Chloride Pending
Carbon Dioxide Pending
BUN Pending
Creatinine Pending
Glucose Pending
Calcium Pending
Vital Signs:
Vital Signs
Temp Pulse Resp BP Pulse Ox
98.5 F 79 15 129/81 97
07/13/23 05:17 07/13/23 05:23 07/13/23 05:23 07/13/23 05:15 07/13/23 05:23
I&O
07/11/23 07/12/23 07/13/23
06:59 06:59 06:59
Intake Total 720 / 720 245 / 245
Output Total 1100 / 1100 450 / 450
Balance -380 / -380 - / -
[2023-07-13 06:24] LABS: Hematocrit 32.2 % (37.0-47.0); Hemoglobin 10.4 g/dL (12.0-16.0); Mean Corp Hgb Conc. 32.3 g/dL (33.0-37.0); Mean Corpuscular Hgb 30.9 pg (27.0-31.0); Mean Corpuscular Volume 95.5 fL (81.0-99.0); Mean Platelet Volume 9.3 fL (7.4-10.4); Platelet Count 283 10^3/uL (130-400); Red Blood Cell Count 3.37 10^6/uL (4.20-5.40); Red Cell Dist. Width 16.2 % (11.5-14.5); White Blood Cell Count 9.4 10^3/uL (4.8-10.8)
[2023-07-13 06:31] LABS: INR 1.72
[2023-07-13 06:35] LABS: Blood Urea Nitrogen 21 mg/dl (7-17); Carbon Dioxide 35 mmol/L (22-30); Chloride 103 mmol/L (98-107); Estimated Creatinine Clearance 60 ml/min; Glucose 105 mg/dl (70-99); Potassium 4.1 mmol/L (3.5-5.1); Sodium 141 mmol/L (135-145); eGFR > 60.00
[2023-07-13] MEDS: TIKOSYN 250 MCG PO ×2 (08:30→19:39)
[2023-07-13] MEDS: LASIX 40 MG PO (08:31)
[2023-07-13] MEDS: PROZAC 20 MG PO (08:31)
[2023-07-13] MEDS: KCL 20 MEQ PO (08:31)
[2023-07-13] MEDS: COLACE 100 MG PO (08:31)
[2023-07-13] MEDS: JARDIANCE 10 MG PO (08:31)
[2023-07-13] MEDS: COLCHICINE 0.299999999999999989 MG PO ×2 (08:31→19:39)
--- NOTE | 2023-07-13 08:50 | W.PN.CD ---
Today's Communication / Plan
-
Dilt 90 q 6 hrs until effusion is drained, then more aggressive HR control
Impression / Plan
-
Recent pericarditis, now with large pericardial effusion => high risk
- Anticipate pericardiocentesis for diagnosis and likely symptomatic improvement
- Need to presume a component of hemorrhagic effusion => off warfarin now
AFIB, recurrent:
-rates mildly elevated, dilt 90 mg q6 hrs for HR control, however given large nature and concern for tamponade OK with higher HR for now
-on dofetilide, plan as OP - ( Dr Frey reviewed with Dr Hampton) will continue Dofetilide and rate control as we assess timing of ablation.
-warfarin on hold
Ldgrs-pb-nugdiik HFpEF:
-Gentle IV diuresis, with large effusion
-monitor weights and renal function
ILD/COPD:
-on O2 by NC
-management per primary team
Ascending aortic aneurysm
-4.[address] Chest (with contrast), 04/24/2022.
-Monitor over time
HTN:
-stable
-monitor
Subjective:
Cont SOB and FAN
More recent echo: NEW LARGE pericardial effusin
Recent echo EF is 55%, Severe biatrial dilation, At least moderate mitral regurgitation. Mild to moderate tricuspid regurgitation. Ascending aorta is 4.1 cm.
Physical Exam
Vital Signs/Labs
Vital Signs
Temp Pulse Resp BP Pulse Ox
98.5 F 97 18 129/69 97
07/13/23 05:17 07/13/23 08:31 07/13/23 08:19 07/13/23 08:31 07/13/23 05:23
07/12/23 07/13/23 07/14/23
06:59 06:59 06:59
Actual Weight 158 lb 8.198 oz 159 lb 13.362 oz
07/13/23 06:04
07/13/23 06:04
PT 20.0 Sec (11.4-14.6) H 07/13/23 06:04
INR 1.72 07/13/23 06:04
Magnesium 2.1 mg/dl (1.6-2.3) 07/10/23 07:28
07/09/23
11:51
Gad-T-Ceylrcvebhx Pept 2200
Physical Exam
Constitutional: No acute distress
EENT: Anicteric
Cardiovascular: Rhythm/rate is irregular, Pedal edema present, Systolic murmur present and Rub present
Respiratory: Respiratory effort normal and Lungs clear to auscul.
GI: Soft
Neuro/Psych: AO x 3
Data Reviewed
-
Date of Service: July 13, 2023
Medical Decision Making: Reviewed Test Results
EKG: Tracing Personally Visualized and interpreted (af)
Echo: Report Reviewed by me
Labs: Labs Reviewed by me
[2023-07-13] MEDS: CARDIZEM PO (09:02)
[2023-07-13] MEDS: CARDIZEM CD PO (09:03)
[2023-07-13] MEDS: CARDIZEM 90 MG PO ×4 (10:03→22:29)
[2023-07-13] MEDS: LANOXIN 125 MCG PO (12:06)
[2023-07-13] MEDS: CRESTOR 10 MG PO (12:06)
[2023-07-13] MEDS: OSCAL 500 + D 500 MG PO (12:06)
[2023-07-13] MEDS: MAG-TAB SR 84 MG PO (12:06)
[2023-07-13] MEDS: B COMPLEX w/VITAMIN C 1 CAPLET PO (12:06)
--- NOTE | 2023-07-13 13:52 | PTCARENOTE ---
received patient this am, monitor shows Afib with HR 85, VSS. patient is SOB, on 3LNC(chronically) and o2 sat 98%. chief complaint is constipation, miralax given as ordered, had large, formed BM. call zaragoza within reach.
[2023-07-13] MEDS: FLUSH (NSS) 1 FLUSH IV (15:44)
--- NOTE | 2023-07-13 18:14 | PTCARENOTE ---
patient is very tired today, only OOB for breakfast and lunch. patient voices no other concerns at this time.
[2023-07-13] MEDS: COLACE PO (19:38)
[2023-07-13] MEDS: DUONEB 3 ML INH (20:11)
--- NOTE | 2023-07-13 21:57 | PTCARENOTE ---
Patient ambulating self in room. C/o SOB on exertion and rest. Lungs w/ crackles 1/2 way up, and scattered coarseness. Patient sating 98% on 3L of O2, which is baseline for patient. She denies any pain. Aware to remain NPO at midnight for procedure
on 07/13. Tele remains Afib. Call zaragoza in reach.
[2023-07-14] VITALS (14 sets, daily range): BP systolic 107–142; BP diastolic 60–94; BMI 25.1
[2023-07-14 04:56] LABS: Hematocrit 34.3 % (37.0-47.0); Hemoglobin 10.6 g/dL (12.0-16.0); Mean Corp Hgb Conc. 30.9 g/dL (33.0-37.0); Mean Corpuscular Hgb 30.5 pg (27.0-31.0); Mean Corpuscular Volume 98.8 fL (81.0-99.0); Mean Platelet Volume 9.2 fL (7.4-10.4); Platelet Count 295 10^3/uL (130-400); Red Blood Cell Count 3.47 10^6/uL (4.20-5.40); Red Cell Dist. Width 16.2 % (11.5-14.5); White Blood Cell Count 10.4 10^3/uL (4.8-10.8)
[2023-07-14 05:39] LABS: Blood Urea Nitrogen 24 mg/dl (7-17); Calcium 9.4 mg/dl (8.4-10.2); Carbon Dioxide 31 mmol/L (22-30); Chloride 104 mmol/L (98-107); Estimated Creatinine Clearance 60 ml/min; Glucose 108 mg/dl (70-99); Magnesium 2.1 mg/dl (1.6-2.3); Potassium 4.4 mmol/L (3.5-5.1); Sodium 140 mmol/L (135-145); eGFR > 60.00
[2023-07-14] MEDS: SPIRIVA RESPIMAT 2.5 MCG INH (07:12)
[2023-07-14] MEDS: DUONEB 3 ML INH (07:14)
[2023-07-14] MEDS: SYMBICORT 160/4.5 MCG INHALER 2 PUFF INH ×2 (07:14→19:36)
--- NOTE | 2023-07-14 07:17 | W.PN.HOSP.TC ---
Today's Communication/Plan
-
cont O2 supplementation as necessary goal sat 92%
npo for pericardiocentesis
cont diuresis
rate control as per cardio
Assessment / Plan
Assessment / Plan
General: no acute distress appears comfortable at this time.
CVS: S1-S2 irregular
Chest: crackles on auscultation
Abdomen: Soft, NT / Bowel sounds present
Extremities: B/L Lower ext edema +2
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
ECHO 07/10/23-normal LV function. EF 55%. Mild concentric LVH. Mild to moderate . Moderate TR pulmonary pressure 49 mmHg. Pericardial effusion is large
# Large pericardial effusion
Likely secondary to rheumatoid arthritis
mild CRP elevation noted, sed rate wnl for age
ECOH repeated 07/11 d/t concerns increased exertional dyspnea. Repeat ECHO however appreciated no significant change from prior study 07/09
CXR 07/11 appreciated Stable mild CHF with small bilateral pleural effusions with associated probable atelectasis, possible underlying chronic interstitial lung disease.
Type and screen and hold FFP's ordered
Not hypotensive
cardio eval appreciated, npo after midnight for pericardiocentesis today07/13
# Paroxysmal Atrial Fibrillation
Afib with RVR
Failed cardioversion on June 21, successful cardioversion on 07/06/2023
Back in atrial fibrillation now
Lasix 40 p.o. daily
cardiology consultation appreciated
Flecainide stopped and switched to Tikosyn last admission
Also on PO Cardizem-dose increased but long acting subsequently placed on hold in anticipation pericardiocentesis Tues
Cardizem converted to short acting and titrated up as per cardio
Eventually needs ablation timing per cardiology
# Heart failure-acute on chronic heart failure with preserved ejection fraction
Patient on Lasix 40 mg daily which was increased to 80 mg with recent cardiology visit
Lasix 40 IV BID on admission-changed to Lasix 40 mg PO daily.
Also on Jardiance
Monitor intake output
Cardiology evaluation noted
# Recent admission-concern for pericarditis.
Patient started on colchicine plan is to continue colchicine for 2 months.
# Leukocytosis -workup again including blood culture
Recently finished Prednisone Taper
# Hyperlipidemia
Continue Crestor
# Chronic Hypoxic Respiratory Failure secondary to Interstitial Lung Disease
Continue supplemental oxygen at 3L via nasal cannula
Continue Pulmicort Neb and Duoneb in place of Breztri
Recently finished prednisone taper
# Depression
Continue Fluoxetine
# Essential tremor
# Spinal stenosis/DDD osteopenia/osteoarthritis
# Rheumatoid Arthritis
# DVT prophylaxis: Coumadin
# Code Status: DNR
discussed with patient at bedside and patient's daughter Lucía over phone
I spent a total of 50 minutes with the patient or on the floor. More than 50% of this time involved counseling and coordination of care.
Anticipated Discharge: > 48 hours
Subjective/Interval History
-
Date of Service: July 14, 2023
seen and examined at bedside in no acute distress resting comfortably in bed. Sleeping, easily woken. continues to report shortness of breath. Saturating well on 3L.
Objective Data
-
Labs:
Laboratory Results
07/14/23
04:38
WBC 10.4
Hgb 10.6 L
Hct 34.3 L
Plt Count 295
Sodium 140
Potassium 4.4
Chloride 104
Carbon Dioxide 31 H
BUN 24 H
Creatinine 0.7
Glucose 108 H
Calcium 9.4
Vital Signs:
Vital Signs
Temp Pulse Resp BP Pulse Ox
98.1 F 81 16 134/72 97
07/14/23 07:00 07/14/23 07:00 07/14/23 07:00 07/14/23 04:39 07/14/23 07:00
I&O
07/13/23 07/14/23 07/15/23
06:59 06:59 06:59
Intake Total 245 / 245
Output Total 450 / 450 1300 / 1300
Balance -205 / -205 -1300 / -1300
[2023-07-14] MEDS: CARDIZEM 90 MG PO ×4 (09:58→22:32)
[2023-07-14] MEDS: COLCHICINE 0.299999999999999989 MG PO ×2 (09:59→19:40)
[2023-07-14] MEDS: PROZAC 20 MG PO (10:02)
[2023-07-14] MEDS: JARDIANCE 10 MG PO (10:02)
[2023-07-14] MEDS: TIKOSYN 250 MCG PO ×2 (10:03→19:42)
[2023-07-14] MEDS: FLUSH (NSS) 1 FLUSH IV (10:03)
[2023-07-14] MEDS: COLACE PO ×2 (10:03→19:37)
[2023-07-14] MEDS: LASIX 40 MG PO (10:10)
[2023-07-14] MEDS: VENTOLIN NEBULES 2.5 MG INH ×2 (11:14→19:36)
--- NOTE | 2023-07-14 11:14 | PTCARENOTE ---
Patient is NPO this morning, given AM meds with a sip of water. 98% on 3L but crackles auscultated throughout and patient states she is very sob with minimal activity. Seen by Dr. Weber, for pericardiocentesis at noon time. Sitting oob in the
chair now, call zaragoza within reach.
--- NOTE | 2023-07-14 11:43 | CM ---
Chart reviewed. Patient lives in an apartment independent living at [facility] with her , elevator access, ambulates with a rollator and wears home O2 3l with [employer]. Referral sent to [facility]. Plan is for the patient to return
to [facility]. CM to follow
--- NOTE | 2023-07-14 12:52 | ITS.CL.PN ---
Swimmer - Procedure Note
Procedure
Procedure Note:
PERICARDIOCENTESIS REPORT
Date of Procedure: 07/14/2023
Referring: Michael Frey MD
Indication: Large pericardial effusion with worsening rest dyspnea
PROCEDURE SUMMARY:
Successful pericardiocentesis with removal of 775 mL of bloody pericardial fluid. The intrapericardial pressure fell from 15 upon entry to 3 at the procedure conclusion. A drain to suction was left in the pericardial space
DESCRIPTION OF PROCEDURE: The pericardium was entered on the first attempt via subxiphoid approach. Appropriate position of the wire was verified by fluoroscopy. A 6 Luxembourgish sheath was placed in the pericardium followed by a pigtail catheter. The
initial pericardial pressure was 15 mmHg. 50 mL bloody pericardial fluid was sent for analysis. The hemoglobin was 5.4. Agitated saline injection confirmed and intrapericardial position of the pigtail catheter. A total of 775 mL of bloody fluid
was removed. The intrapericardial pressure gradually fell from 15 down to 3 mmHg at the procedure conclusion. Echo images near the end of the procedure demonstrated approximately 80% improvement in the size of the effusion. The bulk of the fluid
was sent for cytology. A new bottle was placed at the procedure conclusion for monitoring of the drainage over the next 24-48 hours. The sheath and pigtail catheter was secured in place and the patient was transferred back to the IVU in stable
condition.
Radiation (mGy): 13.1
DAP (cm2.Gy): 1.46
Fluoroscopy time: 0.6 minutes
CONCLUSIONS: Successful pericardiocentesis with removal of 775 mL pericardial fluid (bloody with hemoglobin 5.4). Fluid was sent for the usual suspects. The presumptive diagnosis is pericarditis. If the cytology is positive treatment of
pericarditis can be discontinued. Continue colchicine 0.3 mg twice daily for 12 weeks and we will add a tapering course of ibuprofen over the next 10-14 days. Warfarin should remain on hold until the drain has been removed and no significant
reaccumulation of fluid has been verified by echo 2 to 4 days after the drain is removed. We will add a PPI while on tapering dose of ibuprofen. I favor ibuprofen 600 mg twice daily x 3 days then 400 mg twice daily x 3 days then 200 mg twice daily
x 3 days then 200 mg daily x 3 days
Copy to: Michael Frey MD, Samir Tobias MD
Sly Weber MD, FACC, [facility]
--- NOTE | 2023-07-14 13:48 | PTCARENOTE ---
Patient returned from pericardiocentesis AAO but very drowsy. Needed to urinate and assisted to bedside commode. Resting in bed now, monitoring VS, dressing at upper abdomen is dry and intact with drainage bottle attached with minimal sanguineous
fluid in the container. Patient feels her breathing is more comfortable, minimal burning type discomfort with any movement at the drainage tube insertion site. Patient is resting comfortably now.
[2023-07-14 14:39] LABS: Body Fluid Hematocrit 14.4 %
[2023-07-14 14:45] LABS: Body Fluid Glucose 78 mg/dl; Body Fluid Protein 4.8 g/dl
[2023-07-14] MEDS: KCL 20 MEQ PO (14:45)
[2023-07-14] MEDS: OSCAL 500 + D 500 MG PO (14:45)
[2023-07-14] MEDS: LANOXIN 125 MCG PO (14:46)
[2023-07-14] MEDS: MAG-TAB SR 84 MG PO (14:46)
[2023-07-14] MEDS: CRESTOR 10 MG PO (14:47)
[2023-07-14] MEDS: B COMPLEX w/VITAMIN C 1 CAPLET PO (14:47)
[2023-07-14 16:15] LABS: Body Fluid WBC 803 /CUMM
[2023-07-14 16:19] LABS: Body Fluid Second Tech EYM
[2023-07-14 17:23] LABS: Body Fluid LDH 2559 U/L
[2023-07-14] MEDS: MOTRIN 600 MG PO (19:42)
[2023-07-14 19:57] LABS: Body Fluid Granulocytes 43 %; Body Fluid Lymphocytes 37 %; Body Fluid Macrophages 16 %; Body Fluid Mesothelials 1 %
[2023-07-14 19:58] LABS: Body Fluid Other Cells 3 %
--- NOTE | 2023-07-14 23:46 | PTCARENOTE ---
Pt rec'd at change of shift awake,alert with no c/o inc pain unless she is changing positions. Pericardial drain with drsg intact. afib on telemetry.
Pt still with dyspnea at rest and with activity but pt reports slightly better. One episode of diaphoresis where pt needed her gown changed. (same things noted last adm and at home)not assoc with pain. call zaragoza within reach.
[2023-07-15] VITALS (8 sets, daily range): BP systolic 98–128; BP diastolic 52–75; BMI 24.5
[2023-07-15 03:12] LABS: Hematocrit 34.9 % (37.0-47.0); Hemoglobin 11.2 g/dL (12.0-16.0); Mean Corp Hgb Conc. 32.1 g/dL (33.0-37.0); Mean Corpuscular Volume 96.7 fL (81.0-99.0); Mean Platelet Volume 9.8 fL (7.4-10.4); Platelet Count 309 10^3/uL (130-400); Red Blood Cell Count 3.61 10^6/uL (4.20-5.40); Red Cell Dist. Width 16.4 % (11.5-14.5); White Blood Cell Count 8.7 10^3/uL (4.8-10.8)
[2023-07-15 03:34] LABS: Blood Urea Nitrogen 22 mg/dl (7-17); Carbon Dioxide 33 mmol/L (22-30); Chloride 103 mmol/L (98-107); Estimated Creatinine Clearance 60 ml/min; Glucose 108 mg/dl (70-99); Magnesium 2.2 mg/dl (1.6-2.3); Phosphorus 4.5 mg/dl (2.5-4.5); Potassium 4.2 mmol/L (3.5-5.1); Sodium 141 mmol/L (135-145); eGFR > 60.00
--- NOTE | 2023-07-15 06:24 | PTCARENOTE ---
Pt reports feeling much better since having pericardial drain placed. resting at present
[2023-07-15] MEDS: SYMBICORT 160/4.5 MCG INHALER 2 PUFF INH ×2 (06:47→19:41)
[2023-07-15] MEDS: SPIRIVA RESPIMAT 2.5 MCG 2 PUFF INH (06:47)
[2023-07-15] MEDS: VENTOLIN NEBULES 2.5 MG INH (06:48)
--- NOTE | 2023-07-15 06:55 | PTCARENOTE ---
No further drainage noted in pericardial drain
--- NOTE | 2023-07-15 07:45 | W.PN.CD ---
Today's Communication / Plan
-
coumaidn stopped. will remain off anticoagulation
follow INR
rate control afib
- - monitor pericardilal drain output. will review durationof drain with interventional cardiology
- when anticaogulation resumed we will change to Eliquis rather than coumadin.
Impression / Plan
-
Recent pericarditis,
-large pericardial effusion this admit with pericariocentesis and drainage of 775 bloody fluid 07/14/23
- coumadin stoppedwith pericardiocentesis and need for drainage. INR 1.7. Anticoagulation remains on hold. whentime for restart patietn would like to transition to Eliquis
- continue with cautious use of colchinine ( patient on cardizem which limits dosing)
- await cytology
- continue to assess drainage. will review with interventional cardiology
- remains off anticoagulation
s/p pericardiocentesis . drain intact
- monitor output
AFIB, recurrent:
-rates mildly elevated, dilt 90 mg q6 hrs for HR control, however given large nature and concern for tamponade OK with higher HR for now
-on dofetilide, plan as OP - ( Dr Frey reviewed with Dr Hampton) will continue Dofetilide and rate control as we assess timing of ablation. However no short term plan for ablation with recetn pericarditis and pericardiocentesis . will need to
continue rate contrl for down
-warfarin on hold. Possible timing of restart outlined in Dr Vigil cath note but will need to continue to monitor clinical response.
Ljzjs-dz-pdjmeeu HFpEF:
-monitor weights and renal function
ILD/COPD:
-on O2 by NC
-management per primary team
Ascending aortic aneurysm
-4.[address] Chest (with contrast), 04/24/2022.
-Monitor over time
HTN:
-stable
-monitor
Subjective:
improvement post pericardiocentesis. sob improved
More recent echo: NEW LARGE pericardial effusin
Recent echo EF is 55%, Severe biatrial dilation, At least moderate mitral regurgitation. Mild to moderate tricuspid regurgitation. Ascending aorta is 4.1 cm.
Physical Exam
Vital Signs/Labs
Vital Signs
Temp Pulse Resp BP Pulse Ox
97.7 F 95 20 114/65 99
07/15/23 07:32 07/15/23 07:15 07/15/23 07:32 07/15/23 02:23 07/15/23 07:32
07/14/23 07/15/23 07/16/23
06:59 06:59 06:59
Actual Weight 72.5 kg 70.8 kg
07/15/23 02:30
07/15/23 02:30
PT 20.0 Sec (11.4-14.6) H 07/13/23 06:04
INR 1.72 07/13/23 06:04
Magnesium 2.2 mg/dl (1.6-2.3) 07/15/23 02:30
07/09/23
11:51
Ptg-[id number]-Hzagqfgvfgv Pept 2200
Physical Exam
Constitutional: No acute distress
Cardiovascular: Rhythm/rate is irregular and Other (systolic mumur. drain intact)
Respiratory: Wheeze Absent, Rhonchi Absent and Other (few fine crackles at bases)
GI: Soft
Neuro/Psych: Alert
Data Reviewed
-
Date of Service: July 15, 2023
Medical Decision Making: Reviewed Test Results
Echo: Report Reviewed by me
Medical Tests (PFT, Pathology etc): Report Reviewed by me
Labs: Labs Reviewed by me
--- NOTE | 2023-07-15 07:53 | W.PN.HOSP.TC ---
Addendum entered and electronically signed by Roro Mccabe MD 07/15/23 21:39:
correction dvt ppx SCD ordered. Patient off coumadin/anticoagulation d/t pericardial effusion and drain treatment
Original Note:
Today's Communication/Plan
-
Ibuprofen taper as per cardio
oxygen supplementation
diuresis
rate control
Assessment / Plan
Assessment / Plan
Physical Exam
General: no acute distress appears comfortable at this time.
CVS: S1-S2 irregular
Chest: crackles on auscultation
Abdomen: Soft, NT / Bowel sounds present
Extremities: B/L Lower ext edema +2
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
ECHO 07/10/23-normal LV function. EF 55%. Mild concentric LVH. Mild to moderate . Moderate TR pulmonary pressure 49 mmHg. Pericardial effusion is large
# Large pericardial effusion
Likely secondary to rheumatoid arthritis/pericarditis
mild CRP elevation noted, sed rate wnl for age
ECHO repeated 07/11 d/t concerns increased exertional dyspnea. Repeat ECHO however appreciated no significant change from prior study 07/09
CXR 07/11 appreciated Stable mild CHF with small bilateral pleural effusions with associated probable atelectasis, possible underlying chronic interstitial lung disease.
Type and screen and hold FFP's ordered
Not hypotensive
cardio eval appreciated
-s/p pericardiocentesis 07/13 drain placement
-colchicine 0.3 mg BID 12 wks, tapering ibuprofen 10-14 days, PPI gi ppx
-anticoagulation to remain on hold until drain is removed and no significant fluid re-accumulation noted on ECHO 2-4 days after drain removed
-07/14 no significant drainage noted as per cardio, repeat ECHO noted resolution of effusion, drain since removed
# Paroxysmal Atrial Fibrillation
Afib with RVR
Failed cardioversion on June 21, successful cardioversion on 07/06/2023
Back in atrial fibrillation now
Lasix 40 p.o. daily
cardiology consultation appreciated
Flecainide stopped and switched to Tikosyn last admission
Also on PO Cardizem-dose increased but long acting subsequently placed on hold in anticipation pericardiocentesis Tues
Cardizem converted to short acting and titrated up as per cardio
Eventually needs ablation timing per cardiology
anticoagulation on hold d/t pericardial effusion/drain placement, patient to start Eliquis instead of Coumadin as per cardio when safe to resume anticoagulation
# Heart failure-acute on chronic heart failure with preserved ejection fraction
Patient on Lasix 40 mg daily which was increased to 80 mg with recent cardiology visit
Lasix 40 IV BID on admission-changed to Lasix 40 mg PO daily.
Also on Jardiance
Monitor intake output
Cardiology eval appreciated
# Recent admission-concern for pericarditis.
colchicine as above
# Leukocytosis resolved
-Recently finished Prednisone Taper
# Hyperlipidemia
Continue Crestor
# Chronic Hypoxic Respiratory Failure secondary to Interstitial Lung Disease
Continue supplemental oxygen at 3L via nasal cannula
Continue Pulmicort Neb and Duoneb in place of Breztri
Recently finished prednisone taper
# Depression
Continue Fluoxetine
# Essential tremor
# Spinal stenosis/DDD osteopenia/osteoarthritis
# Rheumatoid Arthritis
# DVT prophylaxis: Coumadin
# Code Status: DNR
discussed with patient at bedside and patient's daughter Lucía over phone
I spent a total of 50 minutes with the patient or on the floor. More than 50% of this time involved counseling and coordination of care.
Anticipated Discharge: > 48 hours
Subjective/Interval History
-
Date of Service: July 15, 2023
No acute distress appears comfortable at this time. Sleeping but easily aroused oriented x3. Reports significant improvement in shortness of breath.
Objective Data
-
Labs:
Laboratory Results
07/15/23
02:30
WBC 8.7
Hgb 11.2 L
Hct 34.9 L
Plt Count 309
Sodium 141
Potassium 4.2
Chloride 103
Carbon Dioxide 33 H
BUN 22 H
Creatinine 0.7
Glucose 108 H
Calcium 9.0
Vital Signs:
Vital Signs
Temp Pulse Resp BP Pulse Ox
97.7 F 95 20 114/65 99
07/15/23 07:32 07/15/23 07:15 07/15/23 07:32 07/15/23 02:23 07/15/23 07:32
I&O
07/14/23 07/15/23 07/16/23
06:59 06:59 06:59
Intake Total 660 / 660
Output Total 1300 / 1300 1125 / 1125
Balance -1300 / -1300 -465 / -465
[2023-07-15] MEDS: CARDIZEM 90 MG PO ×4 (09:09→22:18)
[2023-07-15] MEDS: COLCHICINE 0.299999999999999989 MG PO ×2 (09:10→19:54)
[2023-07-15] MEDS: COLACE 100 MG PO ×2 (09:10→19:53)
[2023-07-15] MEDS: JARDIANCE 10 MG PO (09:12)
[2023-07-15] MEDS: KCL 20 MEQ PO (09:12)
[2023-07-15] MEDS: LASIX 40 MG PO (09:13)
[2023-07-15] MEDS: MOTRIN 600 MG PO ×2 (09:13→19:53)
[2023-07-15] MEDS: TIKOSYN 250 MCG PO ×2 (09:15→19:54)
[2023-07-15] MEDS: PROZAC 20 MG PO (09:15)
[2023-07-15] MEDS: PROTONIX 40 MG PO (09:15)
[2023-07-15] MEDS: FLUSH (NSS) 1 FLUSH IV (09:16)
--- NOTE | 2023-07-15 09:30 | CM ---
Addendum entered by Donna Louis RN 07/16/23 11:00:
Patient agreeable to the cost. Free 30 day coupon placed in the patients red discharge folder
Addendum entered by Donna Louis RN 07/15/23 11:35:
Patient is a little concerned with the pricing of Eliquis. She wants to think it over before she makes a decision
Addendum entered by Donna Louis RN 07/15/23 11:10:
mailorder $415 for 90 days. Free 30 day coupon placed in the patient's red discharge folder.
Original Note:
Pricing on Eliquis 5mg BID through the patient's [facility] is $143 for a 30 day supply
--- NOTE | 2023-07-15 10:21 | PTCARENOTE ---
Received patient this morning oob to the chair. States her breathing is much better since having pericardiocentesis. No further drainage in collection bottle, dressing is dry and intact at drainage tube insertion site. Patient able to ambulate to
the bathroom, no longer wants to use commode. Call zaragoza within reach, will continue to monitor.
--- NOTE | 2023-07-15 11:11 | CM ---
Chart reviewed. Patient is independent of ADLS, lives with her in a an apartment, 0 [address], wears home O2 3l NC with [employer]. Plan is for the patient to return home with [facility].
[2023-07-15] MEDS: LANOXIN 125 MCG PO (13:36)
[2023-07-15] MEDS: OSCAL 500 + D 500 MG PO (13:36)
[2023-07-15] MEDS: B COMPLEX w/VITAMIN C 1 CAPLET PO (13:36)
[2023-07-15] MEDS: CRESTOR 10 MG PO (13:36)
[2023-07-15] MEDS: MAG-TAB SR 84 MG PO (13:36)
--- NOTE | 2023-07-15 16:40 | PTCARENOTE ---
Dr. Christine in to see the patient and removed pericardial drain after reviewing echo results. Patient tolerated procedure well, dressing dry and intact.
--- NOTE | 2023-07-15 17:19 | W.PN.UPDATE ---
Update Note
Progress Note Update
Pericardial drain showed no significant drainage for > 24 hours.
Limited echo confirmed persistent resolution of effusion.
Pericardial drain/sheath pulled without complication.
Site dressed with gauze/tegaderm.
Patient tolerated the procedure well.
--- NOTE | 2023-07-15 23:09 | PTCARENOTE ---
Pt AOx3 and pleasant. Old pericardial drain site w/ gauze and tegaderm c/d/i. Pt has no c/o at this time. Sating at 100% on 3L O2 NC. Pt dyspneic on exertion. Currently in bed; call mila w/in reach.
[2023-07-16] VITALS (9 sets, daily range): BP systolic 109–146; BP diastolic 62–85; PULSE 74–91; O2SAT 96; BMI 24.7
[2023-07-16 05:31] LABS: Hematocrit 32.6 % (37.0-47.0); Hemoglobin 10.3 g/dL (12.0-16.0); Mean Corp Hgb Conc. 31.6 g/dL (33.0-37.0); Mean Corpuscular Hgb 30.7 pg (27.0-31.0); Mean Corpuscular Volume 97.3 fL (81.0-99.0); Mean Platelet Volume 8.9 fL (7.4-10.4); Platelet Count 303 10^3/uL (130-400); Red Blood Cell Count 3.35 10^6/uL (4.20-5.40); Red Cell Dist. Width 16.2 % (11.5-14.5)
[2023-07-16 05:54] LABS: INR 1.28; PT 15.9 Sec (11.4-14.6)
[2023-07-16 05:59] LABS: Blood Urea Nitrogen 25 mg/dl (7-17); Calcium 9.4 mg/dl (8.4-10.2); Carbon Dioxide 31 mmol/L (22-30); Chloride 105 mmol/L (98-107); Estimated Creatinine Clearance 60 ml/min; Glucose 101 mg/dl (70-99); Magnesium 2.2 mg/dl (1.6-2.3); Phosphorus 4.3 mg/dl (2.5-4.5); Potassium 4.4 mmol/L (3.5-5.1); Sodium 140 mmol/L (135-145); eGFR > 60.00
[2023-07-16] MEDS: SPIRIVA RESPIMAT 2.5 MCG 2 PUFF INH (06:03)
[2023-07-16] MEDS: SYMBICORT 160/4.5 MCG INHALER 2 PUFF INH ×2 (06:03→19:23)
--- NOTE | 2023-07-16 06:57 | W.PN.HOSP.TC ---
Today's Communication/Plan
-
PT/OT eval
cont ibuprofen taper
rate control
diuresis
observe
Assessment / Plan
Assessment / Plan
Physical Exam
General: no acute distress appears comfortable at this time.
CVS: S1-S2 irregular
Chest: crackles on auscultation
Abdomen: Soft, NT / Bowel sounds present
Extremities: B/L Lower ext edema +2
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
ECHO 07/10/23-normal LV function. EF 55%. Mild concentric LVH. Mild to moderate . Moderate TR pulmonary pressure 49 mmHg. Pericardial effusion is large
# Large pericardial effusion
Likely secondary to rheumatoid arthritis/pericarditis
mild CRP elevation noted, sed rate wnl for age
ECHO repeated 07/11 d/t concerns increased exertional dyspnea. Repeat ECHO however appreciated no significant change from prior study 07/09
CXR 07/11 appreciated Stable mild CHF with small bilateral pleural effusions with associated probable atelectasis, possible underlying chronic interstitial lung disease.
Type and screen and hold FFP's ordered
Not hypotensive
cardio eval appreciated
-s/p pericardiocentesis 07/13 drain placement
-colchicine 0.3 mg BID 12 wks, tapering ibuprofen 10-14 days, PPI gi ppx
-anticoagulation to remain on hold until drain is removed and no significant fluid re-accumulation noted on ECHO 2-4 days after drain removed
-07/14 no significant drainage noted as per cardio, repeat ECHO noted resolution of effusion, drain since removed
# Paroxysmal Atrial Fibrillation
Afib with RVR
Failed cardioversion on June 21, successful cardioversion on 07/06/2023
Back in atrial fibrillation now
Lasix 40 p.o. daily
cardiology consultation appreciated
Flecainide stopped and switched to Tikosyn last admission
Also on PO Cardizem-dose increased but long acting subsequently placed on hold in anticipation pericardiocentesis Tues
Cardizem converted to short acting and titrated up as per cardio eventually converted back to long acting 360 mg daily
Eventually needs ablation timing per cardiology
anticoagulation held d/t pericardial effusion/drain placement since discontinued
As per cardio, patient to start Eliquis if ECHO 1 week shows not recurrent effusion and cytology neg for ca
# Heart failure-acute on chronic heart failure with preserved ejection fraction
Patient on Lasix 40 mg daily which was increased to 80 mg with recent cardiology visit
Lasix 40 IV BID on admission-changed to Lasix 40 mg PO daily.
Also on Jardiance
Monitor intake output
Cardiology eval appreciated
# Recent admission-concern for pericarditis.
colchicine as above
# Leukocytosis resolved
-Recently finished Prednisone Taper
# Hyperlipidemia
Continue Crestor
# Chronic Hypoxic Respiratory Failure secondary to Interstitial Lung Disease
Continue supplemental oxygen at 3L via nasal cannula
Continue Pulmicort Neb and Duoneb in place of Breztri
Recently finished prednisone taper
# Depression
Continue Fluoxetine
# Essential tremor
# Spinal stenosis/DDD osteopenia/osteoarthritis
# Rheumatoid Arthritis
# DVT prophylaxis: Coumadin
# Code Status: DNR
PT/OT eval
I spent a total of 50 minutes with the patient or on the floor. More than 50% of this time involved counseling and coordination of care.
Anticipated Discharge: Within 24 hours
Subjective/Interval History
-
Date of Service: July 16, 2023
Seen and examined at bedside in no acute distress sitting up comfortably in chair reports overall feeling well. Breathing significantly improved baseline.
Objective Data
-
Labs:
Laboratory Results
07/16/23
05:16
WBC 8.0
Hgb 10.3 L
Hct 32.6 L
Plt Count 303
PT 15.9 H
INR 1.28
Sodium 140
Potassium 4.4
Chloride 105
Carbon Dioxide 31 H
BUN 25 H
Creatinine 0.7
Glucose 101 H
Calcium 9.4
Vital Signs:
Vital Signs
Temp Pulse Resp BP Pulse Ox
97.1 F 74 16 124/69 96
07/16/23 04:52 07/16/23 06:07 07/16/23 06:07 07/16/23 04:48 07/16/23 06:07
I&O
07/14/23 07/15/23 07/16/23
06:59 06:59 06:59
Intake Total 660 / 660 920 / 920
Output Total 1300 / 1300 1125 / 1125
Balance -1300 / -1300 -465 / -465 920 / 920
--- NOTE | 2023-07-16 07:11 | W.PN.CD ---
Today's Communication / Plan
-
changing dilt 90 qid to Dilt CD 360 qAM
Impression / Plan
-
Recent pericarditis,
-large pericardial effusion this admit with pericariocentesis and drainage of 775 bloody fluid 07/14/23
- coumadin stopped with pericardiocentesis and need for drainage. INR 1.7. Anticoagulation remains on hold. when time for restart patietn would like to transition to Eliquis
- continue with cautious use of colchicine ( patient on cardizem which limits dosing)
- await cytology
-Recommend echo one week then if no recurrent effusion and cytology negative for cancer begin Eliquis 5mg bid
- Rates are very well controlled on dilt 90 qid. This is not a reasonable outpt regimen. Will change to Dilt CD 360mg po qAM today.
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
s/p pericardiocentesis . drain removed 07-14
- await cytology
AFIB, recurrent:
-on dofetilide, plan as OP - ( Dr Frey reviewed with Dr Hampton) will continue Dofetilide and rate control as we assess timing of ablation. However no short term plan for ablation with recent pericarditis and pericardiocentesis . will need to
continue rate contrl for down
-warfarin on hold.
Roqpu-ec-rwueyzc HFpEF:
-monitor weights and renal function
ILD/COPD:
-on O2 by SD including home O2 at 3L/min
-management per primary team
Ascending aortic aneurysm
-4.[address] Chest (with contrast), 04/24/2022.
-Monitor over time
HTN:
-stable
-monitor
Subjective:
SOB now at her ILD baseline. Rate of AF controlled. Plan as above
More recent echo: NEW LARGE pericardial effusion
Recent echo EF is 55%, Severe biatrial dilation, At least moderate mitral regurgitation. Mild to moderate tricuspid regurgitation. Ascending aorta is 4.1 cm.
Physical Exam
Vital Signs/Labs
Vital Signs
Temp Pulse Resp BP Pulse Ox
97.1 F 74 16 124/69 96
07/16/23 04:52 07/16/23 06:07 07/16/23 06:07 07/16/23 04:48 07/16/23 06:07
07/15/23 07/16/23 07/17/23
06:59 06:59 06:59
Actual Weight 156 lb 1.396 oz 157 lb 10.088 oz
07/16/23 05:16
07/16/23 05:16
PT 15.9 Sec (11.4-14.6) H 07/16/23 05:16
INR 1.28 07/16/23 05:16
Magnesium 2.2 mg/dl (1.6-2.3) 07/16/23 05:16
07/09/23
11:51
Hhr-E-Yjkqwtvfcvj Pept 2200
Physical Exam
Constitutional: No acute distress and Comfortable
Cardiovascular: Rhythm/rate is irregular, Systolic murmur present (murmurs of and MR clearly audible) and S1S2 is normal
Respiratory: Crackles Present (Loud coarse crackles all lung lomas)
GI: Soft
Neuro/Psych: AO x 3
Data Reviewed
-
Date of Service: July 16, 2023
[2023-07-16] MEDS: CARDIZEM CD 360 MG PO (08:48)
[2023-07-16] MEDS: LASIX 40 MG PO (08:50)
[2023-07-16] MEDS: KCL 20 MEQ PO (08:50)
[2023-07-16] MEDS: PROTONIX 40 MG PO (08:50)
[2023-07-16] MEDS: MOTRIN 600 MG PO ×2 (08:50→20:44)
[2023-07-16] MEDS: COLCHICINE 0.299999999999999989 MG PO ×2 (08:51→20:44)
[2023-07-16] MEDS: TIKOSYN 250 MCG PO ×2 (08:51→20:44)
[2023-07-16] MEDS: PROZAC 20 MG PO (08:51)
[2023-07-16] MEDS: JARDIANCE 10 MG PO (08:51)
[2023-07-16] MEDS: FLUSH (NSS) 1 FLUSH IV (08:52)
[2023-07-16] MEDS: COLACE 100 MG PO (08:52)
--- NOTE | 2023-07-16 11:02 | CM ---
Chart reviewed. Patient is independent of ADLS, lives with her at the independent living at [facility], elevator access, ambulates with a rollator, wears O2 3L NC with [employer]. Plan is for the patient to return home with [facility].
CM to follow
[2023-07-16] MEDS: ProAIR HFA INHALER 2 PUFF INH (11:39)
--- NOTE | 2023-07-16 11:46 | PTCARENOTE ---
Received patient this morning oob in the chair. Had a very good night's sleep, dressing at old pericardial drainage site is dry and intact. Patient is worried about going home today, feels she is not ready and would like to increase her activity to
see that she tolerates before being discharged. PT in to see the patient.
[2023-07-16] MEDS: CRESTOR 10 MG PO (12:48)
[2023-07-16] MEDS: MAG-TAB SR 84 MG PO (12:48)
[2023-07-16] MEDS: LANOXIN 125 MCG PO (12:48)
[2023-07-16] MEDS: OSCAL 500 + D 500 MG PO (12:48)
[2023-07-16] MEDS: B COMPLEX w/VITAMIN C 1 CAPLET PO (12:48)
[2023-07-16] MEDS: VENTOLIN NEBULES 2.5 MG INH (17:35)
[2023-07-16] MEDS: COLACE PO (20:45)
--- NOTE | 2023-07-16 22:20 | PTCARENOTE ---
Received pt at handoff. AOX3 and pleasant. Dressing at old pericardial drainage site is dry and intact. Pt sating at 100% on 3L O2 NC. Currently OOB in chair; call mila w/in reach.
[2023-07-17] VITALS (9 sets, daily range): BP systolic 116–133; BP diastolic 62–87; BMI 25.0
[2023-07-17 06:06] LABS: INR 1.29; PT 15.9 Sec (11.4-14.6)
[2023-07-17 06:18] LABS: Hematocrit 32.4 % (37.0-47.0); Mean Corp Hgb Conc. 30.9 g/dL (33.0-37.0); Mean Corpuscular Hgb 30.3 pg (27.0-31.0); Mean Corpuscular Volume 98.2 fL (81.0-99.0); Mean Platelet Volume 9.4 fL (7.4-10.4); Platelet Count 300 10^3/uL (130-400); Red Cell Dist. Width 16.1 % (11.5-14.5); White Blood Cell Count 5.9 10^3/uL (4.8-10.8)
[2023-07-17 06:38] LABS: Blood Urea Nitrogen 27 mg/dl (7-17); Calcium 8.9 mg/dl (8.4-10.2); Carbon Dioxide 29 mmol/L (22-30); Chloride 105 mmol/L (98-107); Estimated Creatinine Clearance 53 ml/min; Glucose 98 mg/dl (70-99); Magnesium 2.2 mg/dl (1.6-2.3); Phosphorus 4.3 mg/dl (2.5-4.5); Potassium 4.3 mmol/L (3.5-5.1); Sodium 140 mmol/L (135-145); eGFR > 60.00
[2023-07-17] MEDS: SPIRIVA RESPIMAT 2.5 MCG 2 PUFF INH (07:11)
[2023-07-17] MEDS: VENTOLIN NEBULES 2.5 MG INH ×2 (07:11→17:23)
[2023-07-17] MEDS: SYMBICORT 160/4.5 MCG INHALER 2 PUFF INH ×2 (07:11→17:23)
--- NOTE | 2023-07-17 07:25 | W.PN.HOSP.TC ---
Today's Communication/Plan
-
monitor
cont diuresis
rate control
oxygen supplementation as necessary
repeat CXR in AM follow up pleural effusion
Assessment / Plan
Assessment / Plan
Physical Exam
General: no acute distress appears comfortable at this time.
CVS: S1-S2 irregular
Chest: crackles on auscultation
Abdomen: Soft, NT / Bowel sounds present
Extremities: B/L Lower ext edema +2
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
ECHO 07/10/23-normal LV function. EF 55%. Mild concentric LVH. Mild to moderate . Moderate TR pulmonary pressure 49 mmHg. Pericardial effusion is large
# Large pericardial effusion
Likely secondary to rheumatoid arthritis/pericarditis
mild CRP elevation noted, sed rate wnl for age
ECHO repeated 07/11 d/t concerns increased exertional dyspnea. Repeat ECHO however appreciated no significant change from prior study 07/09
CXR 07/11 appreciated Stable mild CHF with small bilateral pleural effusions with associated probable atelectasis, possible underlying chronic interstitial lung disease.
Type and screen and hold FFP's ordered
Not hypotensive
cardio eval appreciated
-s/p pericardiocentesis 07/13 drain placement
-colchicine 0.3 mg BID 12 wks, tapering ibuprofen 10-14 days, PPI gi ppx
-anticoagulation to remain on hold until drain is removed and no significant fluid re-accumulation noted on ECHO 2-4 days after drain removed
-07/14 no significant drainage noted as per cardio, repeat ECHO noted resolution of effusion, drain since removed
07/16 Follow up ECHO notes persistent resolution pericardial effusion, EF 65-75% mod aortic stenosis mod to severe TR
# Paroxysmal Atrial Fibrillation
Afib with RVR
Failed cardioversion on June 21, successful cardioversion on 07/06/2023
Back in atrial fibrillation now
Lasix 40 p.o. daily
cardiology consultation appreciated
Flecainide stopped and switched to Tikosyn last admission
Also on PO Cardizem-dose increased but long acting subsequently placed on hold in anticipation pericardiocentesis Tues
Cardizem converted to short acting and titrated up as per cardio eventually converted back to long acting 360 mg daily
Eventually needs ablation timing per cardiology
anticoagulation held d/t pericardial effusion/drain placement since discontinued
As per cardio, patient to start Eliquis if ECHO 1 week shows not recurrent effusion and cytology neg for ca
# Heart failure-acute on chronic heart failure with preserved ejection fraction
Patient on Lasix 40 mg daily which was increased to 80 mg with recent cardiology visit
Lasix 40 IV BID on admission-changed to Lasix 40 mg PO daily.
Also on Jardiance
Monitor intake output
Cardiology eval appreciated
# Recent admission-concern for pericarditis.
colchicine as above
# Leukocytosis resolved
-Recently finished Prednisone Taper
# Hyperlipidemia
Continue Crestor
# Chronic Hypoxic Respiratory Failure secondary to Interstitial Lung Disease
Continue supplemental oxygen at 3L via nasal cannula
Continue Pulmicort Neb and Duoneb in place of Breztri
Recently finished prednisone taper
# Depression
Continue Fluoxetine
# Essential tremor
# Spinal stenosis/DDD osteopenia/osteoarthritis
# Rheumatoid Arthritis
# DVT prophylaxis: SCD
# Code Status: DNR
PT/OT eval
I spent a total of 50 minutes with the patient or on the floor. More than 50% of this time involved counseling and coordination of care.
Anticipated Discharge: Within 24 hours
Subjective/Interval History
-
Date of Service: July 17, 2023
Continues to report improvement in shortness of breath. Has significant anxiety however with regards to returning home.
Objective Data
-
Labs:
Laboratory Results
07/17/23
05:45
WBC 5.9
Hgb 10.0 L
Hct 32.4 L
Plt Count 300
PT 15.9 H
INR 1.29
Sodium 140
Potassium 4.3
Chloride 105
Carbon Dioxide 29
BUN 27 H
Creatinine 0.8
Glucose 98
Calcium 8.9
Vital Signs:
Vital Signs
Temp Pulse Resp BP Pulse Ox
97.7 F 94 20 133/78 94
07/17/23 03:00 07/17/23 07:18 07/17/23 07:18 07/17/23 07:18 07/17/23 07:14
I&O
07/16/23 07/17/23 07/18/23
06:59 06:59 06:59
Intake Total 920 / 920 100 / 100
Balance 920 / 920 100 / 100
[2023-07-17] MEDS: CARDIZEM CD 360 MG PO (09:08)
[2023-07-17] MEDS: JARDIANCE 10 MG PO (09:10)
[2023-07-17] MEDS: MOTRIN 600 MG PO (09:10)
[2023-07-17] MEDS: KCL 20 MEQ PO (09:10)
[2023-07-17] MEDS: COLCHICINE 0.299999999999999989 MG PO ×2 (09:11→20:43)
[2023-07-17] MEDS: TIKOSYN 250 MCG PO ×2 (09:11→20:44)
[2023-07-17] MEDS: PROTONIX 40 MG PO (09:11)
[2023-07-17] MEDS: PROZAC 20 MG PO (09:11)
[2023-07-17] MEDS: COLACE 100 MG PO ×2 (09:11→20:44)
[2023-07-17] MEDS: LASIX 40 MG PO (09:12)
[2023-07-17] MEDS: B COMPLEX w/VITAMIN C 1 CAPLET PO (12:44)
[2023-07-17] MEDS: CRESTOR 10 MG PO (12:44)
[2023-07-17] MEDS: LANOXIN 125 MCG PO (12:44)
[2023-07-17] MEDS: OSCAL 500 + D 500 MG PO (12:44)
[2023-07-17] MEDS: MAG-TAB SR 84 MG PO (12:44)
[2023-07-17] MEDS: MOTRIN 400 MG PO (20:44)
--- NOTE | 2023-07-17 23:36 | PTCARENOTE ---
Received pt at handoff. Assessment noted as documented. Tele- Afib. AOX3 and pleasant. Sating at 100% on 3L O2 NC. Offers no c/o at this time. Ambulatory around room w/ steady gait. Pt reports 'feeling better.' Currently in bed; call mila w/in
reach.
[2023-07-18 02:08] VITALS: BP 108/75
[2023-07-18 02:50] VITALS: BMI 25.2
[2023-07-18 03:02] LABS: Hematocrit 32.2 % (37.0-47.0); Hemoglobin 10.1 g/dL (12.0-16.0); Mean Corp Hgb Conc. 31.4 g/dL (33.0-37.0); Mean Corpuscular Hgb 30.1 pg (27.0-31.0); Mean Corpuscular Volume 95.8 fL (81.0-99.0); Mean Platelet Volume 9.5 fL (7.4-10.4); Platelet Count 296 10^3/uL (130-400); Red Blood Cell Count 3.36 10^6/uL (4.20-5.40); Red Cell Dist. Width 16.4 % (11.5-14.5); White Blood Cell Count 6.9 10^3/uL (4.8-10.8)
[2023-07-18 03:13] LABS: INR 1.21; PT 15.2 Sec (11.4-14.6)
[2023-07-18] MEDS: SPIRIVA RESPIMAT 2.5 MCG 2 PUFF INH (07:50)
[2023-07-18] MEDS: VENTOLIN NEBULES 2.5 MG INH ×2 (07:50→15:21)
[2023-07-18] MEDS: SYMBICORT 160/4.5 MCG INHALER 2 PUFF INH (07:50)
[2023-07-18 08:01] VITALS: BP 122/87
[2023-07-18] MEDS: CARDIZEM CD 360 MG PO (08:20)
[2023-07-18] MEDS: PROTONIX 40 MG PO (08:20)
[2023-07-18] MEDS: LASIX 40 MG PO (08:20)
[2023-07-18] MEDS: COLCHICINE 0.299999999999999989 MG PO (08:20)
[2023-07-18] MEDS: TIKOSYN 250 MCG PO (08:20)
[2023-07-18] MEDS: PROZAC 20 MG PO (08:20)
[2023-07-18] MEDS: KCL 20 MEQ PO (08:20)
[2023-07-18] MEDS: MOTRIN 400 MG PO (08:21)
[2023-07-18] MEDS: COLACE 100 MG PO (08:21)
[2023-07-18] MEDS: JARDIANCE 10 MG PO (08:21)
--- NOTE | 2023-07-18 08:24 | W.PN.HOSP.TC ---
Addendum entered and electronically signed by Roro Mccabe MD 07/18/23 13:24:
Digoxin added 07/08 with Cardizem as per cardio recommendations, will cont on discharge and recommend follow up digoxin levels outpt in 1 week with primary and/or cardiology.
Original Note:
Today's Communication/Plan
-
discharge
Assessment / Plan
Assessment / Plan
Physical Exam
General: no acute distress appears comfortable at this time.
CVS: S1-S2 irregular
Chest: crackles on auscultation
Abdomen: Soft, NT / Bowel sounds present
Extremities: B/L Lower ext edema +2
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
ECHO 07/10/23-normal LV function. EF 55%. Mild concentric LVH. Mild to moderate . Moderate TR pulmonary pressure 49 mmHg. Pericardial effusion is large
# Large pericardial effusion
Likely secondary to rheumatoid arthritis/pericarditis
mild CRP elevation noted, sed rate wnl for age
ECHO repeated 07/11 d/t concerns increased exertional dyspnea. Repeat ECHO however appreciated no significant change from prior study 07/09
CXR 07/11 appreciated Stable mild CHF with small bilateral pleural effusions with associated probable atelectasis, possible underlying chronic interstitial lung disease.
Type and screen and hold FFP's ordered
Not hypotensive
cardio eval appreciated
-s/p pericardiocentesis 07/13 drain placement
-colchicine 0.3 mg BID 12 wks, tapering ibuprofen 10-14 days, PPI gi ppx
-anticoagulation to remain on hold until drain is removed and no significant fluid re-accumulation noted on ECHO 2-4 days after drain removed
-07/14 no significant drainage noted as per cardio, repeat ECHO noted resolution of effusion, drain since removed
07/16 Follow up ECHO notes persistent resolution pericardial effusion, EF 65-75% mod aortic stenosis mod to severe TR
# Paroxysmal Atrial Fibrillation
Afib with RVR
Failed cardioversion on June 21, successful cardioversion on 07/06/2023
Back in atrial fibrillation now
Lasix 40 p.o. daily
cardiology consultation appreciated
Flecainide stopped and switched to Tikosyn last admission
Also on PO Cardizem-dose increased but long acting subsequently placed on hold in anticipation pericardiocentesis Tues
Cardizem converted to short acting and titrated up as per cardio eventually converted back to long acting 360 mg daily
Eventually needs ablation timing per cardiology
anticoagulation held d/t pericardial effusion/drain placement since discontinued
As per cardio, patient to start Eliquis if ECHO 1 week shows not recurrent effusion and cytology neg for ca
# Heart failure-acute on chronic heart failure with preserved ejection fraction
Patient on Lasix 40 mg daily which was increased to 80 mg with recent cardiology visit
Lasix 40 IV BID on admission-changed to Lasix 40 mg PO daily.
Also on Jardiance
Monitor intake output
Cardiology eval appreciated
# Recent admission-concern for pericarditis.
colchicine as above
# Leukocytosis resolved
-Recently finished Prednisone Taper
# Hyperlipidemia
Continue Crestor
# Chronic Hypoxic Respiratory Failure secondary to Interstitial Lung Disease
Continue supplemental oxygen at 3L via nasal cannula
Continue Pulmicort Neb and Duoneb in place of Breztri
Recently finished prednisone taper
07/18/23 CXR notes stable effusions small right and minimal left. no acute abn's noted
# Depression
Continue Fluoxetine
# Essential tremor
# Spinal stenosis/DDD osteopenia/osteoarthritis
# Rheumatoid Arthritis
# DVT prophylaxis: SCD
# Code Status: DNR
PT/OT eval
Medically stable for discharge home with home services and outpatient follow up recommendations.
discussed with patient at bedside and patient's daughter Lucía over phone
Total Time Preparing Discharge ___50____ minutes including examination of the patient, summary of the hospital stay, instructions for continuing care to all relevant caregivers; and preparation of discharge records, prescriptions, and referral
forms if necessary.
Anticipated Discharge: Today
Subjective/Interval History
-
Date of Service: July 18, 2023
Seen and examined at bedside in no acute distress resting comfortably in bed. Reports overall feeling well. Denies new acute issues at this time. Looking forward to going home.
Objective Data
-
Labs:
Laboratory Results
07/18/23 07/18/23
02:40 03:38
WBC 6.9
Hgb 10.1 L
Hct 32.2 L
Plt Count 296
PT 15.2 H
INR 1.21
Sodium Cancelled Pending
Potassium Cancelled Pending
Chloride Cancelled Pending
Carbon Dioxide Cancelled Pending
BUN Cancelled Pending
Creatinine Cancelled Pending
Glucose Cancelled Pending
Calcium Cancelled Pending
Vital Signs:
Vital Signs
Temp Pulse Resp BP Pulse Ox
97.2 F 100 18 108/75 100
07/17/23 22:18 07/18/23 07:53 07/18/23 07:53 07/18/23 02:08 07/17/23 22:18
I&O
07/17/23 07/18/23 07/19/23
06:59 06:59 06:59
Intake Total 100 / 100 580 / 580
Balance 100 / 100 580 / 580
[2023-07-18 11:28] LABS: Blood Urea Nitrogen 21 mg/dl (7-17); Calcium 8.9 mg/dl (8.4-10.2); Carbon Dioxide 32 mmol/L (22-30); Chloride 104 mmol/L (98-107); Estimated Creatinine Clearance 53 ml/min; Glucose 148 mg/dl (70-99); Magnesium 2.1 mg/dl (1.6-2.3); Phosphorus 3.6 mg/dl (2.5-4.5); Potassium 3.9 mmol/L (3.5-5.1); Sodium 141 mmol/L (135-145); eGFR > 60.00
[2023-07-18 12:05] VITALS: BP 119/84
[2023-07-18] MEDS: CRESTOR 10 MG PO (13:33)
[2023-07-18] MEDS: OSCAL 500 + D 500 MG PO (13:33)
[2023-07-18] MEDS: MAG-TAB SR 84 MG PO (13:33)
[2023-07-18] MEDS: B COMPLEX w/VITAMIN C 1 CAPLET PO (13:33)
[2023-07-18] MEDS: LANOXIN 125 MCG PO (13:33)
--- NOTE | 2023-07-18 13:33 | W.DCSUMMARY ---
Discharge Summary
Discharge Data
Date of Admission: 07/09/23
Date of Discharge: 07/18/23
-
Pending Results: Yes
Additional Pending Results:
pericardial effusion pathology results
Hospital Course
82F ext pmhx including Chronic Respiratory Failure ILD on 3L baseline, CHF, atrial fibrillation, Rheumatoid Arthritis, Hypertension, Hyperlipidemia, who was recently admitted here for CHF, atrial fibrillation had a cardioversion and was back in
sinus rhythm prior discharge, seen in the cardiology office where her Lasix had been increased, returned due to atrial fibrillation, increased shortness of breath, and weight gain. ECHO 07/10/23 noted normal LV function, EF 55%, Mild concentric
LVH, Mild to moderate , Moderate TR pulmonary pressure 49 mmHg, and large Pericardial effusion. Large pericardial effusion, likely secondary to rheumatoid arthritis/pericarditis
mild CRP elevation noted, sed rate wnl for age. ECHO repeated 07/11 d/t concerns increased exertional dyspnea. Repeat ECHO however appreciated no significant change from prior study 07/09. CXR 07/11 appreciated Stable mild CHF with small
bilateral pleural effusions, associate probable atelectasis, possible underlying chronic interstitial lung disease. Cardio evaluated and performed pericardiocentesis 07/13 drain placement, recommended colchicine 0.3 mg BID 12 wks, tapering
ibuprofen 10-14 days, PPI gi ppx. Anticoagulation to remain on hold until drain is removed and no significant fluid re-accumulation noted on ECHO 1 week after drain removed. 07/14 no significant drainage noted as per cardio, repeat ECHO noted
resolution of effusion, drain since removed. 07/16 Follow up ECHO noted persistent resolution pericardial effusion, EF 65-75% mod aortic stenosis mod to severe TR. Paroxysmal Atrial Fibrillation, Afib with RVR, cardio added digoxin with Tikosyn
and Cardizem for rate rhythm control. Heart failure-acute on chronic heart failure with preserved ejection fraction, IV Lasix was transitioned to PO prior to discharge. 07/18/23 CXR noted stable effusions small right and minimal left, no acute
abn's noted. Medically stable, patient was discharged home with home services and outpatient follow up recommendations.
Discharge Plan
-
Patient Disposition: Home with Home Care
Discharge Diagnosis/Procedures: Large pericardial effusion secondary to rheumatoid arthritis/pericarditis status post pericardiocentesis, drain placement since completed,
Paroxysmal Atrial Fibrillation, Atrial Fibrillation with Rapid Ventricular Rate, Heart failure-acute on chronic heart failure with preserved ejection fraction, Hyperlipidemia, Chronic Hypoxic Respiratory Failure secondary to Interstitial Lung
Disease, Depression, Essential tremor, Spinal stenosis/Degenerative Disc Disease, osteopenia/osteoarthritis,
Condition: Fair
Diet: 2 Gram Sodium
Additional Diets: fluid restriction 50 oz
Activity: As tolerated and With Walker
Driving Restrictions: Not until seen by your Dr
Bathing Restrictions: None
Blood Work: Please obtain CBC BMP and digoxin level with primary care provider or Cardiology in 1 week of discharge
Others Tests: echo in one week- cardiology office will call you to arrange
Other Services: VN
Specialty Instructions: Weigh Daily- Call MD for wt gain/loss 3 lbs overnight/5 lbs in 1 week
Activity Restrictions/Additional Instructions:
Please keep your appointments with cardiology and follow up with primary care provider in 1 week of discharge.
Ibuprofen taper has been prescribed for pericarditis:
400 mg twice a day for 2 days, then 200 mg twice a day for 3 days, then 200 mg daily for last 3 days.
Protonix has been prescribed for GI prophylaxis while on ibuprofen taper, ok to discontinue when taper completes.
Colchicine has been refilled for 12 weeks treatment pericarditis as per cardiology.
Digoxin has been prescribed for atrial fibrillation and Heart Failure
Increased dose Home Cardizem has been prescribed for better heart rate control of atrial fibrillation.
Warfarin has been discontinued in favor of starting Eliquis for anticoagulation stroke risk reduction atrial fibrillation. Anticoagulation remains on hold at this time due to recent pericardial effusion drainage. Follow up with cardiology in 1
week of discharge to determine when safe to resume.
Please take medications as prescribed/recommended and follow up with primary care provider and/or other healthcare provider involved in your care for refills and/or further adjustment to your medication regimen as necessary.
calcium carbonate 600 mg-vitamin D3 20 mcg (800 unit) tablet 1 tab PO NOON Supplement Osteoporosis
fluoxetine 20 mg capsule 20 mg PO DAILY Mental Health/Anxiety Depression
rosuvastatin 10 mg tablet 10 mg PO NOON High Cholesterol
ipratropium 0.5 mg-albuterol 3 mg (2.5 mg base)/3 mL nebulization soln 3 ml inhalation R TIDPRN PRN Shortness of breath/wheezing
albuterol sulfate 90 mcg/actuation aerosol inhaler 2 puff inhalation R Q4HPRN PRN shortness of breath/wheezing
budesonide 160 mcg-glycopyr 9 mcg-formot 4.8 mcg/actuation HFA inhaler (Breztri Aerosphere) 2 inh inhalation R BID Lung/Breathing Issues Chronic Interstitial Lung Disease
magnesium oxide 400 mg PO NOON Supplement
potassium chloride 20 mEq tablet,extended release(part/cryst) 20 meq PO DAILY Supplement
B-complex with vitamin C 1 tab PO NOON Supplement
furosemide 40 mg tablet 40 mg PO DAILY Fluid Retention/Swelling for Heart Failure
dofetilide 250 mcg capsule 250 mcg PO Q12H Arrhythmia for Atrial Fibrillation
empagliflozin 10 mg tablet (Jardiance) 10 mg PO DAILY Heart disease/condition For Heart Failure
colchicine 0.6 mg tablet 0.3 mg (1/2 x 0.6 mg) PO BID Heart disease/condition For Pericarditis
digoxin 125 mcg (0.125 mg) tablet 125 mcg PO NOON For Atrial Fibrillation
diltiazem HCl 360 mg capsule,extended release 24 hr (Cardizem CD) 360 mg PO DAILY For atrial Fibrillation
ibuprofen 200 mg tablet See Rx Instructions .Route .COMPLEX #17 tabs For Pericarditis instructions as above
pantoprazole 40 mg tablet,delayed release 40 mg PO DAILY for GI prophylaxis while on ibuprofen taper for pericarditis
Instructions: *CBC Heart Failure Instructions
Referrals:
[facility] [Other] (FAX- [phone])
Jen Hampton MD [Active] - 07/22/23 2:00 pm
Jann Curtis MD [Active] - 07/27/23 11:20 am
Samir Tobias MD [Family Provider] - in one week
Prescriptions:
New
pantoprazole 40 mg Tablet,Delayed Release (Dr/Ec)
40 mg PO DAILY 8 Days Qty: 8 0RF
Rx Instructions:
continue while on ibuprofen. Ok to stop when ibuprofen taper completes.
digoxin 125 mcg (0.125 mg) Tablet
125 mcg PO NOON 30 Days Qty: 30 0RF
ibuprofen 200 mg tablet
See Rx Instructions .ROUTE .COMPLEX Qty: 17 0RF
Rx Instructions:
400 mg twice a day x2 days, then
200 mg twice a day x3 days, then
200 mg daily x3 days, then stop
diltiazem HCl [Cardizem CD] 360 mg capsule,extended release 24hr
360 mg PO DAILY 30 Days Qty: 30 0RF
Continued
calcium carbonate-vitamin D3 1 EACH tablet
1 tab PO NOON
fluoxetine 20 MG capsule
20 mg PO DAILY
rosuvastatin 10 mg tablet
10 mg PO NOON
ipratropium-albuterol 0.5 mg-3 mg(2.5 mg base)/3 mL solution for nebulization
3 ml INHALATION R TIDPRN PRN (Reason: sob/wheezing)
potassium chloride 20 mEq tablet,ER particles/crystals
20 meq PO DAILY
albuterol sulfate 90 mcg/actuation Hfa Aerosol Inhaler
2 puff INHALATION R Q4HPRN PRN (Reason: sob)
magnesium oxide 400 mg magnesium Tablet
400 mg PO NOON
Breztri Aerosphere 160-9-4.8 mcg/actuation Hfa Aerosol Inhaler
2 inh INHALATION R BID
B-complex with vitamin C Tablet
1 tab PO NOON
furosemide 40 mg tablet
40 mg PO DAILY
dofetilide 250 mcg Capsule
250 mcg PO Q12H Qty: 60 0RF
Jardiance 10 mg Tablet
10 mg PO DAILY 30 Days Qty: 30 0RF
colchicine 0.6 mg Tablet
0.3 mg PO BID 84 Days Qty: 42 0RF
Discontinued
diltiazem HCl 240 mg Capsule,Extended Release 24hr
240 mg PO DAILY Qty: 30 0RF
warfarin 7.5 mg Tablet
7.5 mg PO TUWETHFR@1800
warfarin 5 mg tablet
5 mg PO SUSA@1800
Patient Comments:
patient only took 5mg on 07/08/23
Discharge Orders:
Discharge Patient (As Directed); Ordered 07/18/23
Ordered By: Roro Mccabe
Care Plan Goals
Care Plan Goals:
Problem: Readiness for enhanced knowledge related to diagnosis and treatment plan
Goal: Understand your diagnosis and treatment plan needs, including medications if applicable.
Instructions: Know your diagnosis, underlying causes and treatment plan options, including medications if applicable. Consult with your health care team to learn about your diagnosis and treatment plan, including medications if applicable.
Discharge Date and Time
Discharge Date/Time: 07/18/23 16:23
Print Language: [place]
--- NOTE | 2023-07-18 16:20 | PTCARENOTE ---
d/c instructions read to pt and pt verbalized understanding. iv and tele removed. pt left with belongings from room, educational packets and eliquis coupon. pt left via wheelchair with staff.
== END 2023-07-18 16:23 | disposition home health service (06) | DRG 314 ==
LOC: IVU 16:21
PROVIDERS: Internal Medicine Cardiovascular Disease; ADMITTING PHYSICIAN Hospitalist; ATTENDING PHYSICIAN Internal Medicine; CONSULT PHYSICIAN Internal Medicine Cardiovascular Disease; EMERGENCY PHYSICIAN Emergency Medicine; FAMILY PHYSICIAN Family Medicine
PROC: 0W9D3ZZ Drainage of Pericardial Cavity, Percutaneous Approach (ICD-10-PCS; 2023-07-14)
DX: I31.39 Other pericardial effusion (noninflammatory) (principal); I50.33 Acute on chronic diastolic (congestive) heart failure; I48.19 Other persistent atrial fibrillation; J84.9 Interstitial pulmonary disease, unspecified; J44.0 Chronic obstructive pulmonary disease with (acute) lower respiratory infection; J96.11 Chronic respiratory failure with hypoxia; J98.11 Atelectasis; I11.0 Hypertensive heart disease with heart failure; I71.21 Aneurysm of the ascending aorta, without rupture; Z66 Do not resuscitate; I27.20 Pulmonary hypertension, unspecified; E78.00 Pure hypercholesterolemia, unspecified; F32.A Depression, unspecified; F41.9 Anxiety disorder, unspecified; G25.0 Essential tremor; M06.9 Rheumatoid arthritis, unspecified; M19.90 Unspecified osteoarthritis, unspecified site; M48.00 Spinal stenosis, site unspecified
CPT/HCPCS: 88305; 93308; 33016; 71045; 71046; 80048; 80053; 81003; 81015; 82945; 83615; 83735; 83880; 84100; 84157; 84484; 85014; 85025; 85027; 85610; 85652; 86140; 86850; 86900; 86901; 87015; 87040; 87070; 87077; 87086; 87102; 87116; 87205; 87206; 88112; 88341; 88342; 89051; 93005; 93321; 93325; 94640; 96374; 97163; 97166; 99291; C1894

== ENCOUNTER → 2023-07-21 08:18 | Outpatient (REF) | payer MEDICARE, OTHER, SELFPAY ==
[2023-07-21 10:11] LABS: % Basophils 0.3 % (0-2); % Eosinophils 3.7 % (0-6); % Immature Granulocytes 0.8 % (0-0.5); % Lymphocytes 13.9 % (20.5-51.1); % Monocytes 14.4 % (1.7-9.3); % Neutrophils 66.9 % (42.2-75.2); Absolute Eosinophils 0.2 10^3/uL (0-0.7); Absolute Immature Granulocytes 0.1 10^3/uL (0-0.05); Absolute Lymphocytes 0.9 10^3/uL (1.2-3.4); Absolute Monocytes 0.9 10^3/uL (0.1-0.6); Absolute Neutrophils 4.3 10^3/uL (1.4-6.5); Hematocrit 33.4 % (37.0-47.0); Hemoglobin 10.4 g/dL (12.0-16.0); Mean Corp Hgb Conc. 31.1 g/dL (33.0-37.0); Mean Corpuscular Hgb 30.7 pg (27.0-31.0); Mean Corpuscular Volume 98.5 fL (81.0-99.0); Mean Platelet Volume 9.3 fL (7.4-10.4); Nucleated Red Blood Cells % 0 %; Platelet Count 340 10^3/uL (130-400); Red Blood Cell Count 3.39 10^6/uL (4.20-5.40); Red Cell Dist. Width 16.3 % (11.5-14.5); White Blood Cell Count 6.5 10^3/uL (4.8-10.8)
[2023-07-21 10:18] LABS: Blood Urea Nitrogen 18 mg/dl (7-17); Calcium 8.9 mg/dl (8.4-10.2); Carbon Dioxide 32 mmol/L (22-30); Chloride 103 mmol/L (98-107); Digoxin 0.6 ng/ml (0.8-2.0); Glucose 89 mg/dl (70-99); Potassium 4.1 mmol/L (3.5-5.1); Sodium 141 mmol/L (135-145); eGFR > 60.00
== END ==
LOC: RCS 08:18
PROVIDERS: ATTENDING PHYSICIAN Internal Medicine Cardiovascular Disease; FAMILY PHYSICIAN Family Medicine
DX: I48.0 Paroxysmal atrial fibrillation (principal); I31.39 Other pericardial effusion (noninflammatory); J84.9 Interstitial pulmonary disease, unspecified
CPT/HCPCS: 93308; 36415; 80048; 80162; 85025

== ENCOUNTER → 2023-08-04 14:44 | Outpatient (REF) | payer MEDICARE, OTHER, SELFPAY | LOC: HWRCS 14:44 | PROVIDERS: ATTENDING PHYSICIAN Internal Medicine Cardiovascular Disease; FAMILY PHYSICIAN Family Medicine | DX: I30.9 Acute pericarditis, unspecified (principal); I31.39 Other pericardial effusion (noninflammatory) | CPT/HCPCS: 93306 ==

== ENCOUNTER → 2023-08-10 15:22 | Outpatient (REF) | payer MEDICARE, OTHER, SELFPAY ==
[2023-08-10 16:38] LABS: % Basophils 0.4 % (0-2); % Eosinophils 0.5 % (0-6); % Immature Granulocytes 0.7 % (0-0.5); % Lymphocytes 14.8 % (20.5-51.1); % Monocytes 11.4 % (1.7-9.3); % Neutrophils 72.2 % (42.2-75.2); Absolute Basophils 0.1 10^3/uL (0-0.2); Absolute Eosinophils 0.1 10^3/uL (0-0.7); Absolute Immature Granulocytes 0.1 10^3/uL (0-0.05); Absolute Lymphocytes 2.1 10^3/uL (1.2-3.4); Absolute Monocytes 1.6 10^3/uL (0.1-0.6); Absolute Neutrophils 10.3 10^3/uL (1.4-6.5); Hematocrit 37.5 % (37.0-47.0); Mean Corpuscular Hgb 30.5 pg (27.0-31.0); Mean Corpuscular Volume 95.2 fL (81.0-99.0); Mean Platelet Volume 9.6 fL (7.4-10.4); Nucleated Red Blood Cells % 0 %; Platelet Count 458 10^3/uL (130-400); Red Blood Cell Count 3.94 10^6/uL (4.20-5.40); Red Cell Dist. Width 16.1 % (11.5-14.5); White Blood Cell Count 14.3 10^3/uL (4.8-10.8)
[2023-08-10 17:00] LABS: ALT (SGPT) 15 U/L (0-35); AST (SGOT) 22 U/L (14-36); Albumin 3.5 g/dl (3.5-5.0); Alkaline Phosphatase 68 U/L (38-126); Blood Urea Nitrogen 21 mg/dl (7-17); Calcium 9.4 mg/dl (8.4-10.2); Carbon Dioxide 30 mmol/L (22-30); Chloride 102 mmol/L (98-107); Glucose 98 mg/dl (70-99); Potassium 4.4 mmol/L (3.5-5.1); Sodium 140 mmol/L (135-145); Total Bilirubin 0.7 mg/dl (0.2-1.3); Total Protein 6.5 g/dl (6.3-8.2); eGFR > 60.00
== END ==
LOC: REG 15:22
PROVIDERS: ATTENDING PHYSICIAN Nurse Practitioner; FAMILY PHYSICIAN Family Medicine
DX: I48.0 Paroxysmal atrial fibrillation (principal); R06.02 Shortness of breath; I31.39 Other pericardial effusion (noninflammatory); J90 Pleural effusion, not elsewhere classified
CPT/HCPCS: 36415; 71046; 80053; 85025

== ENCOUNTER → 2023-08-11 10:08 | Outpatient (REF) | payer MEDICARE, OTHER, SELFPAY | LOC: HWRCS 10:08 | PROVIDERS: ATTENDING PHYSICIAN Nurse Practitioner; FAMILY PHYSICIAN Family Medicine | DX: I50.32 Chronic diastolic (congestive) heart failure (principal); R06.02 Shortness of breath; I31.39 Other pericardial effusion (noninflammatory); J90 Pleural effusion, not elsewhere classified | CPT/HCPCS: 93306 ==

== ENCOUNTER → 2023-09-04 11:16 | Outpatient (REF) | payer MEDICARE, OTHER, SELFPAY | LOC: HWRCS 11:16 | PROVIDERS: ATTENDING PHYSICIAN Internal Medicine Cardiovascular Disease; FAMILY PHYSICIAN Family Medicine | DX: I31.39 Other pericardial effusion (noninflammatory) (principal); I10 Essential (primary) hypertension | CPT/HCPCS: 93308 ==

== ENCOUNTER 2023-09-12 11:16 | Emergency (ER) | payer MEDICARE, OTHER, SELFPAY ==
[2023-09-12] VITALS (30 sets, daily range): BP systolic 130–229; BP diastolic 72–199; BMI 26.1
--- NOTE | 2023-09-12 13:04 | ED.GENMED ---
History of Present Illness
<MAT Portillo - Last Filed: 09/12/23 16:19>
General
Chief Complaint: Musculo-Skeletal Complaint
Source: patient
Exam Limitations: none
Time Seen by Provider: 09/12/23 12:30
Nursing documentation reviewed up to this point in time: agreed with
History of Present Illness
History of Present Illness:
Patient is a 82-year-old female with past medical history of CHF A-fib on anticoagulation, cardioversions, hyperlipidemia hypertension RA pericarditis who presents to the [facility] from EMS. Patient was putting on her pants this morning and
bent over and reports her left hip popped and she believes it is dislocated. She has a full hip replacement on this left hip. Patient was brought by EMS and given fentanyl prior to arrival.
this has happened before, 6 months ago and she reports they were not able to get it done in the ER and she had to go to the OR and have this procedure done by orthopedics. She denies any trauma today denies any head injury. She has not eaten or
drink since last night.
Past History
<MAT Potrillo - Last Filed: 09/12/23 16:19>
Past History
ED Past Medical History: Arrthythmia (atrial fibrillation), CHF, GERD, HTN, Hypercholesterolemia, Psychiatric (Anxiety, Depression), Other (Rheumatoid arthritis, dizziness, shingles, Lyme disease, vertigo, PNA, Diverticulitis, Cataracts) and Other
(RA)
ED Past Surgical History: Orthopedic (Laminectomy, Left hip replacement, Bilateral knee replacement) and Other (Cataract surgery, laminectomy)
Patient has exhibited threatening behavior?: No
PSI?: No
Social History
Tobacco: Non-smoker
Alcohol: None
Drug: None
Personal:
Living: with family
Employment: Retired
Family History
Family History: Other
Review of Systems
<MAT Portillo - Last Filed: 09/12/23 16:19>
Review of Systems
Allergies reviewed?: Yes
All Other Systems: ROS reviewed and negative except as documented in HPI and ROS
Constitutional: Reports no symptoms
Respiratory: Reports no symptoms
Cardiac: Reports no symptoms
Musculoskeletal: Reports other (left hip pain )
Skin: Reports no symptoms
Neurological: Reports no symptoms
Phy Exam
<MAT Portillo - Last Filed: 09/12/23 16:19>
General Physical Exam
General Presentation: no apparent distress
General age: appears stated age
General Skin: warm and dry
General Habitus: normal
General Mental: alert
General Hydration: appears well hydrated
Neurological Exam
Neurological Exam: alert and oriented x3
Musculoskeletal Exam
Musculoskeletal Exam: other (Left hip shortened and rotated )
Course
<MAT Portillo - Last Filed: 09/12/23 16:19>
Orders/Labs/Results
Orders:
Orders
09/12/23 12:07
Hip, Left 1 View [CR Hip - LT without Pel 1 Vw] Urgent
Comment:
Reason For Exam: pain
09/12/23 13:11
Propofol [Diprivan] 20 ml .ROUTE .STK-MED
09/12/23 14:11
Morphine Sulfate 2 mg IV NOW STA
09/12/23 14:37
Propofol [Diprivan] 20 ml .ROUTE .STK-MED
09/12/23 14:57
CR Hip - LT without Pel 1 Vw Urgent
Reason For Exam: post reduction
09/12/23 15:06
Knee Immobilizer Left-Treatmen ONCE
09/12/23 15:12
Portable Chest Xray [CR Chest Portable - 1 View] Urgent
Comment:
Reason For Exam: coughiing after sedation
Reason Study Needs to be Portable: Unable to Transport
09/12/23 15:13
Albuterol Nebs [Ventolin Nebules] 2.5 mg INH R NOW STA
09/12/23 15:14
Phenylephrine HCl/0.9% NaCl [Benjie-Synephrine] 1,000 mcg .ROUTE .STK-MED ONE
Succinylcholine Chloride [Succinylcholine] 200 mg .ROUTE .STK-MED ONE
Vital Signs
Initial and Last Documented VS:
Initial Vital Signs
Temp
98.0 F
09/12/23 11:18
Last Documented Vital Signs
Temp Pulse Resp BP Pulse Ox
98.1 F 95 20 163/112 98
09/12/23 15:56 09/12/23 15:56 09/12/23 15:56 09/12/23 15:56 09/12/23 15:56
Director Of Solutions Architecture consulted with Physician
Director Of Solutions Architecture consulted with physician?: Yes
Name of Physician Consulted: Noh
<Bertrand Olmstead MD - Last Filed: 09/12/23 15:25>
Orders/Labs/Results
Orders:
Orders
09/12/23 12:07
Hip, Left 1 View [CR Hip - LT without Pel 1 Vw] Urgent
Comment:
Reason For Exam: pain
09/12/23 13:11
Propofol [Diprivan] 20 ml .ROUTE .STK-MED
09/12/23 14:11
Morphine Sulfate 2 mg IV NOW STA
09/12/23 14:37
Propofol [Diprivan] 20 ml .ROUTE .STK-MED
09/12/23 14:57
CR Hip - LT without Pel 1 Vw Urgent
Reason For Exam: post reduction
09/12/23 15:06
Knee Immobilizer Left-Treatmen ONCE
09/12/23 15:12
Portable Chest Xray [CR Chest Portable - 1 View] Urgent
Comment:
Reason For Exam: coughiing after sedation
Reason Study Needs to be Portable: Unable to Transport
09/12/23 15:13
Albuterol Nebs [Ventolin Nebules] 2.5 mg INH R NOW STA
09/12/23 15:14
Phenylephrine HCl/0.9% NaCl [Benjie-Synephrine] 1,000 mcg .ROUTE .STK-MED ONE
Succinylcholine Chloride [Succinylcholine] 200 mg .ROUTE .STK-MED ONE
Vital Signs
Initial and Last Documented VS:
Initial Vital Signs
Temp
98.0 F
09/12/23 11:18
Last Documented Vital Signs
Temp Pulse Resp BP Pulse Ox
98.1 F 95 20 163/112 98
09/12/23 15:56 09/12/23 15:56 09/12/23 15:56 09/12/23 15:56 09/12/23 15:56
Procedures
<MAT Portillo - Last Filed: 09/12/23 16:19>
Moderate Sedation
ASA Risk Score: Class III
Chart and allergies reviewed: Yes
Consent for anesthesia obtained: Yes
Time out completed (validating right patient & procedure): Yes
Moderate Sedation Start Time(when first medication is given): 13:59
History of difficult intubation: No
Airway free of obstruction: Yes
Patient has a gag reflex: Yes
Patient is able to open mouth: Yes
Patient has no dentures: Yes
Patient has no loose teeth: Yes
Medication administered by Provider during Moderate Sedation: IV Propofol (mg) (60)
Total dose administered: 60
Time drug administered: 13:59
Moderate Sedation Procedure End Time: 14:00
<MAT Portillo - Last Filed: 09/12/23 16:19>
MDM/Problems Addressed
Differential Diagnosis Includes:
Not limited to fracture dislocation
MDM/Problems Addressed:
Patient is an 82 -year-old female with acute dislocation of the femoral head component of the left total hip arthroplasty. She had done this previous 6 mos ago and needed to go to OR. She had not eaten or drank since last night. Patient was
given moderate sedation and attempted reduction by Dr. Olmstead and myself and additional help from additional physician academic affairs assistant however unsuccessful. I did notify orthopedics Dr. Monte.
Will medicate for pain as pt is uncomfortable.
1500: Patient's left hip successfully reduced by with anesthesia at bedside. will order knee immobilizer
1510: Patient awake alert however coughing. Not hypoxic mildly tachycardic Dr. Olmstead at bedside will order stat chest x-ray give neb
1530: Patient feeling better was given a neb chest x-ray unchanged. Patient not hypoxic. Will continue to observe and if feeling better will plan for discharge home with knee immobilizer/
1615: Patient feeling much better no shortness of breath lungs are clear not hypoxic ambulated back and forth to the bathroom with walker with immobilizer in place. Daughter will go home and get a close as daughter will be staying with her tonight
at [facility]. Will plan for discharge home with outpatient Ortho follow-up patient given instructions on immobilizer she is to wear day and night.
<MAT Portillo - Last Filed: 09/12/23 16:19>
*Critical Care Note
Total Time (30-74mins, 75-104mins- exclusive of procedures): Not Applicable
ED Attending Note
<MAT Portillo - Last Filed: 09/12/23 16:19>
-
Portions of this chart may have been created with voice recognition software.� Occasional wrong word or��sound alike� substitutions may have occurred due to the inherent limitations of voice recognition software.
<Bertrand Olmstead MD - Last Filed: 09/12/23 15:25>
ED Attending Note
Patient seen and examined by attending physician: Yes
ED Attending Note:
Patient with history of of left hip surgery 20 years ago, dislocation earlier this year, which required or intervention for reduction, presents to ED secondary to recurrent left hip pain with 'popping' sensation when she bent down to put her pants
on this morning. Denies any other injuries. Denies loss of sensation or weakness.
Physical Exam
General: mild painful distress, not acutely ill. afebrile
Head: nc/at. eomi
Neuro: alert and oriented. no focal neurological deficits
Skin: no rash
Psychiatric: well kept. interactive and cooperative
Extremities: left hip shortened and internally rotated.
History, exam, and x-ray consistent with left hip dislocation. No fracture associated.
Procedural consent obtained.
After sedation with propofol, dislocation unable to be reduced.
Patient will be evaluated by , orthopedic surgery on-call.
Hip dislocation successfully reduced by in ED with assistance from anesthesia (providing propofol/succinylcholine). X-ray confirms successful reduction.
After patient woke up from sedation, patient to exhibit sig. cough and sob. CXR: no acute findings. Symptoms likely secondary to potential aspiration. Will administer neb tx and reassess
Discharge Plan
Departure
Patient Disposition: Home (Routine Discharge)
Date of Disposition: 09/12/23
Time of Disposition: 16:16
Patient with high blood pressure during this ER visit?: Yes
Condition: Fair
Covid-19: Not Applicable
Discharge Problem:
Closed dislocation of left hip, moderate sedation
Instructions: Hip Dislocation (DC), MODERATE SEDATION ADULT
Prescriptions:
No Action
fluoxetine 20 MG capsule
20 mg PO DAILY
rosuvastatin 10 mg tablet
10 mg PO NOON
ipratropium-albuterol 0.5 mg-3 mg(2.5 mg base)/3 mL solution for nebulization
3 ml INHALATION R TIDPRN PRN (Reason: sob/wheezing)
potassium chloride 20 mEq tablet,ER particles/crystals
20 meq PO DAILY
albuterol sulfate 90 mcg/actuation Hfa Aerosol Inhaler
2 puff INHALATION R Q4HPRN PRN (Reason: sob)
Breztri Aerosphere 160-9-4.8 mcg/actuation Hfa Aerosol Inhaler
2 inh INHALATION R BID
B-complex with vitamin C Tablet
1 tab PO NOON
furosemide 40 mg tablet
40 mg PO DAILY
dofetilide 250 mcg Capsule
250 mcg PO Q12H Qty: 60 0RF
Jardiance 10 mg Tablet
10 mg PO DAILY 30 Days Qty: 30 0RF
colchicine 0.6 mg Tablet
0.3 mg PO BID 84 Days Qty: 42 0RF
digoxin 125 mcg (0.125 mg) Tablet
125 mcg PO NOON 30 Days Qty: 30 0RF
diltiazem HCl [Cardizem CD] 360 mg capsule,extended release 24hr
360 mg PO DAILY 30 Days Qty: 30 0RF
acetaminophen [Tylenol Extra Strength] 500 mg Tablet
1,000 mg PO Q6H PRN (Reason: pain)
magnesium 250 mg Tablet
250 mg PO DAILY
calcium carb-D3-mag ox-zinc ox 333 mg-133 unit -133 mg-5 mg Tablet
1 tab PO DAILY
Eliquis 5 mg Tablet
5 mg PO BID
Referrals:
Samir Tobias MD [Family Provider] -
Chris Carter MD [Active] -
Activity Restrictions/Additional Instructions:
Wear knee immobilizer both day and night. Use walker for ambulation. Follow-up with orthopedics. Please call Thursday morning for an appointment soon as possible return if any worsening of symptoms. As discussed return if any difficulty breathing
cough and fever.
Interventions
Interventions:
*Risk Screen - Suicide Last Done: 09/12/23 11:18
*General Assessment Last Done: 09/12/23 11:18
*Neglect/Abuse Screening Last Done: 09/12/23 11:18
ED-Musculoskeletal Assessment Last Done: 09/12/23 11:29
Discharge Date and Time
Print Language: SAMI
[2023-09-12] MEDS: MORPHINE SULFATE 2 MG IV (14:27)
[2023-09-12] MEDS: VENTOLIN NEBULES 2.5 MG INH (15:19)
== END 2023-09-12 17:56 | disposition home or self-care (01) ==
LOC: EMR 11:16
PROVIDERS: EMERGENCY PHYSICIAN Emergency Medicine; FAMILY PHYSICIAN Family Medicine; OTHER PHYSICIAN Orthopaedic Surgery Hand Surgery
DX: T84.021A Dislocation of internal left hip prosthesis, initial encounter (principal); X58.XXXA Exposure to other specified factors, initial encounter; R05.9 Cough, unspecified; I48.91 Unspecified atrial fibrillation; I11.0 Hypertensive heart disease with heart failure; I50.9 Heart failure, unspecified; F41.9 Anxiety disorder, unspecified; F32.A Depression, unspecified; E78.00 Pure hypercholesterolemia, unspecified; M06.9 Rheumatoid arthritis, unspecified; K21.9 Gastro-esophageal reflux disease without esophagitis; B02.9 Zoster without complications; K57.92 Diverticulitis of intestine, part unspecified, without perforation or abscess without bleeding; Z96.653 Presence of artificial knee joint, bilateral
CPT/HCPCS: 99285; 27265; 96374; 99152; 94640; 71045; 73501

== ENCOUNTER → 2023-09-28 12:48 | Outpatient (REF) | payer MEDICARE, OTHER, SELFPAY | LOC: HWRAD 12:48 | PROVIDERS: ATTENDING PHYSICIAN Physician Assistant Surgical; FAMILY PHYSICIAN Family Medicine | DX: Z96.642 Presence of left artificial hip joint (principal); M25.552 Pain in left hip | CPT/HCPCS: 73700 ==

== ENCOUNTER → 2023-10-20 14:11 | Outpatient (REF) | payer MEDICARE, OTHER, SELFPAY | LOC: HWRAD 14:11 | PROVIDERS: ATTENDING PHYSICIAN Nurse Practitioner Family; FAMILY PHYSICIAN Family Medicine | DX: J84.9 Interstitial pulmonary disease, unspecified (principal) | CPT/HCPCS: 71250 ==

== ENCOUNTER → 2023-11-17 09:00 | Outpatient (REF) | payer MEDICARE, OTHER, SELFPAY ==
[2023-11-17 13:40] LABS: % Basophils 0.4 % (0-2); % Eosinophils 0.4 % (0-6); % Immature Granulocytes 0.6 % (0-0.5); % Lymphocytes 11.5 % (20.5-51.1); % Monocytes 7.1 % (1.7-9.3); Absolute Immature Granulocytes 0.1 10^3/uL (0-0.05); Absolute Lymphocytes 1.2 10^3/uL (1.2-3.4); Absolute Monocytes 0.7 10^3/uL (0.1-0.6); Absolute Neutrophils 8.4 10^3/uL (1.4-6.5); Hematocrit 40.4 % (37.0-47.0); Hemoglobin 13.1 g/dL (12.0-16.0); Mean Corp Hgb Conc. 32.4 g/dL (33.0-37.0); Mean Corpuscular Hgb 29.4 pg (27.0-31.0); Mean Corpuscular Volume 90.6 fL (81.0-99.0); Mean Platelet Volume 9.2 fL (7.4-10.4); Nucleated Red Blood Cells % 0 %; Platelet Count 267 10^3/uL (130-400); Red Blood Cell Count 4.46 10^6/uL (4.20-5.40); Red Cell Dist. Width 18.6 % (11.5-14.5); White Blood Cell Count 10.5 10^3/uL (4.8-10.8)
[2023-11-17 14:01] LABS: ALT (SGPT) 30 U/L (0-35); AST (SGOT) 30 U/L (14-36); Albumin 3.8 g/dl (3.5-5.0); Alkaline Phosphatase 60 U/L (38-126); Blood Urea Nitrogen 25 mg/dl (7-17); Calcium 9.3 mg/dl (8.4-10.2); Carbon Dioxide 28 mmol/L (22-30); Chloride 102 mmol/L (98-107); Glucose 110 mg/dl (70-99); Sodium 142 mmol/L (135-145); Total Bilirubin 0.8 mg/dl (0.2-1.3); Total Protein 6.6 g/dl (6.3-8.2); eGFR > 60.00
== END ==
LOC: SDSPAT 09:00
PROVIDERS: ATTENDING PHYSICIAN Internal Medicine Cardiovascular Disease; FAMILY PHYSICIAN Family Medicine; OTHER PHYSICIAN Internal Medicine Cardiovascular Disease
DX: I48.0 Paroxysmal atrial fibrillation (principal)
CPT/HCPCS: 36415; 80053; 85025; 86850; 86900; 86901; 93005

== ENCOUNTER 2023-11-23 05:54 | Day surgery (SDC) | payer MEDICARE, OTHER, SELFPAY ==
[2023-10-15 09:13] VITALS: BMI 24.0
[2023-11-17 12:55] VITALS: BMI 24.1
[2023-11-23] VITALS (13 sets, daily range): BP systolic 100–151; BP diastolic 61–81; BMI 23.8
[2023-11-23 09:01] LABS: ACT-LR - POC 263 Seconds (116-155)
[2023-11-23 09:20] LABS: ACT-LR - POC 339 Seconds (116-155)
[2023-11-23 09:44] LABS: ACT-LR - POC 342 Seconds (116-155)
--- NOTE | 2023-11-23 11:01 | ITS.CL.ABL ---
[employer] - Ablation
Ablation
Procedure Report:
AFIB ablation:
Ms. Quiñonez is a very pleasant 83 yr old woman with symptomatic persistent AF failed Flecainide and Dofetilide, with hx of rheumatoid arthritis, spontaneous pericardial hemorrhagic effusion, HTN, interstitial lung disease, [place] and HFpEF, is
recommended a redo AF ablation.
Date of the Procedure:
11/23/2023
Indications:
Persistent with recurrent atrial fibrillation / Flutter
Pre-Operative Diagnosis:
Persistent with recurrent atrial fibrillation / Flutter
Post-Operative Diagnosis:
Persistent with recurrent atrial fibrillation / Flutter
Procedure Performed:
Atrial fibrillation ablation with Pulsed-Field approach for pulmonary vein isolation
Posterior wall isolation
Mitral flutter ablation
Left atrial anterior wall focal tachycardia ablation
Biatrial flutter ablation
Performing Physician:
Jen Hampton MD
Assistants:
EP staff
Anesthesia:
See anesthesia records
Detailed Description of the Procedure:
Written informed consent was obtained from the patient after a full explanation of the risks and benefits of the procedure including the risks of sedation and anesthesia.
The patient was brought to the electrophysiology laboratory in stable condition in fasting state. Continuous electrocardiographic and hemodynamic monitoring was initiated.
The initial rhythm was atrial fibrillation.
The procedure site was meticulously prepared with surgical scrub and allowed to dry with no pooling. Sterile draping was applied to cover the procedure site. The image intensifier was draped with sterile bag and positioned over the patient. After
infusion of local anesthetic, vascular access was obtained under ultrasound guidance and sheaths were placed over guide wire as detailed below.
Sheath and Catheter Placement:
The following catheters / sheaths were placed
Sheaths:
��������� 17Fr steerable sheath (Faradrive�, PacketSled) in right femoral
��������� 9Fr in right femoral vein
��������� 7Fr in right femoral vein
Catheters:
��������� ANGELA HD Grid mapping catheter � at locations of RA, LA
��������� Farawave� PFA catheter
��������� ICE catheter -AcuNav - at locations of RA, SVC, and RV.
��������� Decapolar Bard catheter in RA and CS
Intracardiac ECHO:
An 8-Finnish AcuNav intracardiac ECHO (ICE) probe was advanced through the 9-Finnish sheath in the right femoral vein into the right atrium under fluoroscopic and ICE ultrasound image guidance and a baseline ECHO study was performed. The left atrial
size was dilated. There was moderate tricuspid regurgitation. The aortic valve was grossly normal. There was normal left ventricular systolic functions. There is no pericardial effusion. All the four veins were identified and has flow identified.
There was sluggish flow noted in the MAGNOLIA with decreased velocities noted on Doppler.
During the procedure, ICE was used for monitoring of complications, guidance of trans-septal puncture, monitor the catheter position and tracking ablation lesions. No change in the pericardial space noted throughout the procedure.
Trans-septal Puncture:
Heparin was initiated and infused to maintain appropriate ACT. A pigtail guidewire was advanced through the 8-Finnish sheath in the right femoral vein into the superior vena cava under fluoroscopic and ICE guidance. The 9-Finnish sheath was exchanged
for a Faradrive sheath which was advanced into the superior vena cava. A transseptal RF pigtail via Faradrive connect system was utilized to perform the trans-septal puncture. The apparatus was withdrawn until it was in contact with the fossa
ovalis. The position was adjusted based on fluoroscopy and ultrasound images from ICE. Under fluoroscopic, hemodynamic and ICE ultrasound guidance, left atrium was cannulated by applying RF energy. Once atrial septum was cannulated, the pigtail wire
was advanced through the needle into the left atrium. The guide wire was advanced into the left superior pulmonary vein. Both the sheath and the dilator was advanced into the left atrium. The dilator with the needle was withdrawn. Blood was
aspirated from the Faradrive sheath and arterial blood confirmed. The sheath was flushed. Saline injection noted into the left atrium on ICE. The mapping catheter was advanced in the sheath into the left pulmonary vein. Left atrial pressure was
measured.
3D Electroanatomic Mapping:
Using the HD Grid catheter advanced through sheath into the left atrium, an electroanatomic map (EAM) of the left atrium was created using [employer] ANGELA mapping system. The map was used for localization of catheter position and tacking of ablation
lesions.
The EAM of the left atrium showed 4 pulmonary veins with all 4 veins electrically connected to the body the LA. It showed extensive areas of scar on the posterior and anterior wall of the LA. The LA was dilated in size.
Following the EAM, preparation were made for ablation.
Ablation:
Ablation # 1: Pulmonary vein Isolation:
Glycopyrrolate 0.2 mg was given prior to the placement of ablation. Using [employer] pulsed wave ablation system, pulmonary vein isolation was achieved. First the ablation catheter was placed in the LSPV and ostial ablation lesions were performed in a
counter clock serrano approach all around the PV ostium circumferentially. Then the catheter was placed on the antral location and multiple ablation lesions were placed circumferentially on the antrum of the vein.
In the similar fashion, the LIPV were isolated.
Then the catheter was moved to right sided veins. The ostial and antral ablations were placed as noted above.
Patient remained in atrial fibrillation.
Ablation # 2: Posterior wall isolation:
Using the pulsed field ablation catheter, the catheter was placed on the posterior wall and moved around the posterior wall to have adequate contact and ablations were placed isolating the posterior wall.
Cardioversion:
Once the PV isolation was achieved, decision was made to proceed with cardioversion. A 200 J biphasic shock was applied on the jeniffer posterior Zoll patches and sinus rhythm was achieved. Patient went back into atrial flutter /fibrillation. No
significant pause noted.
EPS and Confirmation of the PVI and bidirectional block:
Following achievement of entrance block at the pulmonary veins, pacing from the HD catheter in each of the four veins at 10 milliamps for 2 milliseconds showed entrance and exit block. All PVI were rechecked at the end of the case and remained
isolated. Entrance and exit block were demonstrated in all veins.
While mapping, patient went back into atrial flutter /fibrillation.
Mitral Flutter ablation:
Using the [employer] ablation catheter, the ablation cathere was put on the lateral mitral isthmus below the LIPV in �Flower� shape. Ablations were placed on the mitral isthmus and block was achieved.
The LA was mapped in atrial paced rhythm. Patient remained in atrial paced for few minutes and with mapping the LA went into tachycardia.
Focal/Micro-reentry atrial tachycardia ablation:
The tachycardia was fast (220 ms) and entrainment could not be done. The RA was out of the tachycardia circuit. The tachycardia was entrained but was difficult to assess the focal vs re-entry due to intermittent capture of the LA and extensive
scarring. The mapping was done using HD grid showing the origin in the anterior wall of the LA.
The farapulse ablation catheter was moved into a flower shape and placed on origin with focal AT vs micro-rentry AFL. With placement of the ablation, the tachycardia terminated and was again replaced by a different slower flutter at 420 msec.
Bi-Atrial Flutter Ablation:
The new tachycardia was much slower and was again earliest at the atrial septum consistent with biatrial flutter. Using the Farapulse ablation catheter, the flower was placed on the atrial septum and ablation was placed terminating the tachycardia
to atrial paced rhythm.
Post ablation Electroanatomic mapping:
Once ablation was completed, the EAM of the LA was done again in sinus rhythm with excellent demarcation of LA myocardium and isolated antral tissue. There was extensive scarring of the LA noted consistent with pre-ablation scar.
The MAGNOLIA had healthy signals and was not isolated.
With mapping the LA, the catheter induced ectopy pushed patient into AF again but was short lived and spontaneously converted to sinus once the catheter was removed. There was sinus node dysfunction and had junctional escape rhythm faster than the
sinus rhythm.
Procedure End
ICE study was done again that showed no epicardial accumulation. No complications noted.
Following the completion of the EP study, catheters were removed. Protamine 40 mg was given at the end of the procedure and ACT was checked repeatedly. The sheaths were removed and hemostasis achieved with Figure of 8 and manual compression after
acceptable ACT is achieved.
Left atrial Pressure:
Mean LA pressure was 3mmHg
Estimated Blood loss:
<10 cc
Specimens Removed:
None.
Implants / Devices:
None
Urine output:
None
Packs / Drains/ Tubes:
None
Instrument / Sponge Count Correct:
Yes
Complications of the Procedure:
None
Condition of Patient at Time of Transfer:
Hemodynamically stable with no neurological or vascular compromise.
Summary:
Successful atrial fibrillation ablation with Pulsed Field approach for pulmonary vein isolation, posterior wall isolation, Mitral flutter ablation, Left atrial anterior wall focal tachycardia ablation, Biatrial flutter ablation
Figures from the Procedure:
Figure 1: The electroanatomic mapping (EAM) of the left atrium with bipolar voltage (purple indicates normal electrical activity with corbin as no myocardial muscle electric activity indicating a line of block or scar.
[2023-11-23] MEDS: DELTASONE 5 MG PO (13:15)
[2023-11-23] MEDS: CRESTOR 10 MG PO (13:15)
[2023-11-23] MEDS: FARXIGA 10 MG PO (13:15)
--- NOTE | 2023-11-23 14:45 | PTCARENOTE ---
Rec'd report from Grace in the EP lab; Rec'd pt AAOx3 w/no c/o CP or SOB. Pt able to ambulate from stretcher to bed w/minimal contact guard assistance. Pt';s VS stable w/HR in the 60's & BP 136/75. Pt is SR on telemetry monitoring. Pt w/R groin
access site w/dressing intact, small area of old sanguineous drainage marked. Pt oriented to room. Call zaragoza within reach & plan of care ongoing.
[2023-11-23] MEDS: ANESTHETIC LOZENGE 1 LOZENGE PO (15:03)
[2023-11-23] MEDS: SYMBICORT 160/4.5 MCG INHALER 2 PUFF INH (19:32)
[2023-11-23] MEDS: COLCHICINE 0.3 MG PO (19:34)
[2023-11-23] MEDS: ELIQUIS 5 MG PO (19:34)
[2023-11-23] MEDS: TIKOSYN 250 MCG PO (19:35)
[2023-11-24 01:56] VITALS: BP 135/76
[2023-11-24 02:23] LABS: Hematocrit 36.6 % (37.0-47.0); Mean Corp Hgb Conc. 32.8 g/dL (33.0-37.0); Mean Corpuscular Hgb 29.7 pg (27.0-31.0); Mean Corpuscular Volume 90.6 fL (81.0-99.0); Mean Platelet Volume 9.5 fL (7.4-10.4); Platelet Count 251 10^3/uL (130-400); Red Blood Cell Count 4.04 10^6/uL (4.20-5.40); Red Cell Dist. Width 18.6 % (11.5-14.5); White Blood Cell Count 12.5 10^3/uL (4.8-10.8)
[2023-11-24 02:35] LABS: Blood Urea Nitrogen 28 mg/dl (7-17); Calcium 9.3 mg/dl (8.4-10.2); Carbon Dioxide 26 mmol/L (22-30); Chloride 106 mmol/L (98-107); Estimated Creatinine Clearance 46 ml/min; Glucose 191 mg/dl (70-99); Potassium 4.2 mmol/L (3.5-5.1); Sodium 140 mmol/L (135-145); eGFR > 60.00
[2023-11-24 07:34] VITALS: BP 137/80; BMI 25.0
[2023-11-24] MEDS: KCL 20 MEQ PO (07:36)
[2023-11-24] MEDS: ELIQUIS 5 MG PO (07:36)
[2023-11-24] MEDS: LASIX 40 MG PO (07:37)
[2023-11-24] MEDS: FARXIGA 10 MG PO (07:39)
[2023-11-24] MEDS: PROZAC 20 MG PO (07:40)
[2023-11-24] MEDS: COLCHICINE 0.3 MG PO (07:40)
[2023-11-24] MEDS: DELTASONE 5 MG PO (07:44)
[2023-11-24] MEDS: TIKOSYN 250 MCG PO (07:44)
[2023-11-24] MEDS: SPIRIVA RESPIMAT 2.5 MCG 2 PUFF INH (07:49)
[2023-11-24] MEDS: SYMBICORT 160/4.5 MCG INHALER 2 PUFF INH (07:50)
--- NOTE | 2023-11-24 08:05 | W.PN.CARDCBS ---
Addendum entered and electronically signed by Jen Hampton MD 11/24/23 09:10:
Patient is seen and evaluated personally. I agree with the note, documentations and the plan of care as below.
Briefly, 83 yrs old woman with persistent atrial fibrillation, s/p AF ablation and was observed overnight and her junctional escape improved to NSR. No need of pacemaker is noted. Her digoxin is discontnued and the Diltiazem dose is reduced to 120
mg QD. Will continue Tikosyn 250 mcg q12h and Eliquis 5 mg BID.
Stable for discharge.
Original Note:
Today's Communication / Plan
-
decrease diltiazem to 120mg/daily
continue eliquis, tikosyn
stop digoxin
followup [facility]
home today
Impression / Plan
-
PCP: Rupesh Tobias MD
CDY: Rayray Curtis MD
83 y/o, presents with recurrent symptomatic AFib with related acute heart failure events requiring hospitalization. She had a pericardial effusion 10/2023 requiring pericardiocentesis, as well as symptomatic bradycardia. SFM2DE8=TFAg=5, maintained on
eliquis, tikosyn, diltiazem, and digoxin.
Now s/p PFA. Post procedure, HR was junctional bradycardia 40s. She was kept NPO overnight for possible PPM implant today, however, she soon developed SB/SR w/rates 60s, 1st deg AVB.
IMPRESSION/PLAN:
AFib/Bradycardia
s/p PFA, 11/23/23
groin site stable
junctional rhythm post procedure- now resolved to NSR w/1st deg AVB 60s
no need for PPM at this time
resumed eliquis and tikosyn last evening
diltiazem was held and will resume at lower dose 120mg/daily
stop digoxin
followup at [facility] as scheduled
home today
Chronic systolic HFpEF 65-70%
stable on GDMT with furosemide, jardiance
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
ILD/RLD/COPD/Asthma- stable
HTN- stable
HLD- continue statin therapy
Mod , Mod MR
Rheumatoid Arthritis
Spinal stenosis
GERD
NOLA/CPAP
Anxiety/Depression
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
Subjective
Date of Service: November 24, 2023
Denies cp/palps/dyspnea
oob ambulating
groin site without pain
Objective
Labs:
11/24/23 02:04
11/24/23 02:04
Labs
Hgb 12.0 g/dL (12.0-16.0) 11/24/23 02:04
Hct 36.6 % (37.0-47.0) L 11/24/23 02:04
Plt Count 251 10^3/uL (130-400) 11/24/23 02:04
Sodium 140 mmol/L (135-145) 11/24/23 02:04
Potassium 4.2 mmol/L (3.5-5.1) 11/24/23 02:04
BUN 28 mg/dl (7-17) H 11/24/23 02:04
Creatinine 0.9 mg/dL (0.6-1.0) 11/24/23 02:04
Glucose 191 mg/dl (70-99) H 11/24/23 02:04
Vital Signs and I&O:
Vital Signs
Temp Pulse Resp BP Pulse Ox
97.8 F 64 16 135/76 94
11/23/23 21:57 11/24/23 07:52 11/24/23 07:52 11/24/23 01:56 11/24/23 07:52
Vital Signs
Temp Pulse Resp BP Pulse Ox
97.8 F 64 16 135/76 94
11/23/23 21:57 11/24/23 07:52 11/24/23 07:52 11/24/23 01:56 11/24/23 07:52
Intake & Output
11/22/23 11/23/23 11/24/23 11/25/23
06:59 06:59 06:59 06:59
Intake Total 1819
Balance 1819
Physical Exam
Physical Exam
AAOx3, MAEE 5/5
RRR S1 S2 no murmurs
CTA bilat, non labored
soft abd, + bs
right groin site without ht/bleeding, non tender
bilat extremities w/palpable distal pulses, no edema
--- NOTE | 2023-11-24 08:53 | W.DS.TRANS ---
DC Summary - Sap Business Objects Developer
-
Discharge Instructions:
Discharge Diagnosis/Procedures AFib, s/p ablation
Diet Low Cholesterol
Driving Restrictions No driving for 24 hours
Instructions:
Stand-Alone Forms: DC Instructions- Cath/EP Lab
Changes to Home Medications: Yes
Discharge Medications:
DC Medications w/original date entered in [facility]
fluoxetine 20 mg capsule 20 mg PO DAILY Mental Health/Anxiety 04/26/18
rosuvastatin 10 mg tablet 10 mg PO NOON High Cholesterol 10/25/22
albuterol sulfate 90 mcg/actuation aerosol inhaler 2 puff inhalation R Q4HPRN PRN sob 06/19/23
budesonide 160 mcg-glycopyr 9 mcg-formot 4.8 mcg/actuation HFA inhaler (Breztri Aerosphere) 2 inh inhalation R BID Lung/Breathing Issues 06/19/23
potassium chloride 20 mEq tablet,extended release(part/cryst) 20 meq PO DAILY Supplement 06/19/23
B-complex with vitamin C 1 tab PO NOON Supplement 06/28/23
furosemide 40 mg tablet 40 mg PO SUTUTHSA Fluid Retention/Swelling 06/29/23
empagliflozin 10 mg tablet (Jardiance) 10 mg PO DAILY Heart disease/condition 30 days #30 tabs 07/02/23
colchicine 0.6 mg tablet 0.3 mg (1/2 x 0.6 mg) PO BID Heart disease/condition 84 days #42 tabs 07/18/23
acetaminophen 500 mg tablet (Tylenol Extra Strength) 1,000 mg PO Q6H PRN pain 09/07/23
apixaban 5 mg tablet (Eliquis) 5 mg PO BID 09/07/23
calcium 333 mg-vit D3 133 unit-magnesium 133 mg-zinc 5 mg tablet 1 tab PO QPM 09/07/23
magnesium 250 mg tablet 250 mg PO DAILY 09/07/23
prednisone 5 mg tablet 5 mg PO DAILY 10/13/23
furosemide 40 mg tablet 80 mg PO MOWEFR Fluid Retention/Swelling 11/13/23
dofetilide 250 mcg capsule 250 mcg PO BID Arrhythmia 11/23/23
diltiazem HCl 120 mg capsule,extended release 24 hr 120 mg PO DAILY #90 caps 11/24/23
Home Medication Changes
STOP: digoxin
DOSE DECREASE: diltiazem
Pending Results: No
--- NOTE | 2023-11-24 09:00 | CM ---
Reviewed chart. Met with Mrs. Quiñonez to review discharge plans. She states prior to admission she resides with his spouse in a third floor apartment at [facility]. She uses an elevator. She states she has been there for 10
months. She states prior to admission she is independent with ambulation and adls. in the apartment. She states she uses a rolling walker in the community. She has a rolling walker at home and no other DME in the home. She states she has a
prescription sher and uses [facility]. The discharge plan is to return home with her spouse when medically stable.
[2023-11-24 11:11] VITALS: BP 149/77
--- NOTE | 2023-11-24 13:50 | PTCARENOTE ---
Pt received this am with no c/o. OOB ad carmel in the room. Right groin site dressing dry and intact with no hematoma. Pt discharged to home with her daughter. Discharge instructions given and reviewed with good understanding and all questions answered.
== END 2023-11-24 12:46 | disposition home or self-care (01) ==
LOC: CATH 05:54
PROVIDERS: Nurse Practitioner; ATTENDING PHYSICIAN Internal Medicine Cardiovascular Disease; FAMILY PHYSICIAN Family Medicine; OTHER PHYSICIAN Internal Medicine Cardiovascular Disease
DX: I48.19 Other persistent atrial fibrillation (principal); I11.0 Hypertensive heart disease with heart failure; I50.22 Chronic systolic (congestive) heart failure; E78.5 Hyperlipidemia, unspecified; J44.89 Other specified chronic obstructive pulmonary disease; G47.33 Obstructive sleep apnea (adult) (pediatric); K21.9 Gastro-esophageal reflux disease without esophagitis; Z79.01 Long term (current) use of anticoagulants
CPT/HCPCS: C1732; C1894; C1730; C1769; C1759; 80048; 85027; 85347; 93005; 93655; 93656; 93657; 94640; C1733; C1766

== ENCOUNTER → 2023-12-25 10:16 | Outpatient (REF) | payer MEDICARE, OTHER, SELFPAY | LOC: HWRAD 10:16 | PROVIDERS: ATTENDING PHYSICIAN Internal Medicine Rheumatology; FAMILY PHYSICIAN Family Medicine | DX: M81.0 Age-related osteoporosis without current pathological fracture (principal) | CPT/HCPCS: 77080 ==

== ENCOUNTER → 2024-01-25 08:05 | Outpatient (REF) | payer MEDICARE, OTHER, SELFPAY | LOC: WOUND 08:05 | PROVIDERS: ATTENDING PHYSICIAN Surgery; FAMILY PHYSICIAN Family Medicine | DX: L97.222 Non-pressure chronic ulcer of left calf with fat layer exposed (principal); I73.9 Peripheral vascular disease, unspecified; I87.2 Venous insufficiency (chronic) (peripheral); Z79.01 Long term (current) use of anticoagulants; M05.80 Other rheumatoid arthritis with rheumatoid factor of unspecified site; I50.32 Chronic diastolic (congestive) heart failure; D68.69 Other thrombophilia | CPT/HCPCS: 11042; 99204 ==

== ENCOUNTER → 2024-02-01 08:52 | Outpatient (REF) | payer MEDICARE, OTHER, SELFPAY | LOC: WOUND 08:52 | PROVIDERS: ATTENDING PHYSICIAN Surgery; FAMILY PHYSICIAN Family Medicine | DX: L97.222 Non-pressure chronic ulcer of left calf with fat layer exposed (principal); I73.9 Peripheral vascular disease, unspecified; I87.2 Venous insufficiency (chronic) (peripheral); Z79.01 Long term (current) use of anticoagulants; M05.80 Other rheumatoid arthritis with rheumatoid factor of unspecified site; I50.32 Chronic diastolic (congestive) heart failure; D68.69 Other thrombophilia | CPT/HCPCS: 11042 ==

== ENCOUNTER → 2024-02-15 09:01 | Outpatient (REF) | payer MEDICARE, OTHER, SELFPAY | LOC: WOUND 09:01 | PROVIDERS: ATTENDING PHYSICIAN Surgery; FAMILY PHYSICIAN Family Medicine | DX: L97.222 Non-pressure chronic ulcer of left calf with fat layer exposed (principal); I73.9 Peripheral vascular disease, unspecified; I87.2 Venous insufficiency (chronic) (peripheral); Z79.01 Long term (current) use of anticoagulants; M05.80 Other rheumatoid arthritis with rheumatoid factor of unspecified site; I50.32 Chronic diastolic (congestive) heart failure; D68.69 Other thrombophilia | CPT/HCPCS: 11042 ==

== ENCOUNTER → 2024-02-29 09:21 | Outpatient (REF) | payer MEDICARE, OTHER, SELFPAY | LOC: WOUND 09:21 | PROVIDERS: ATTENDING PHYSICIAN Surgery; FAMILY PHYSICIAN Family Medicine | DX: L97.222 Non-pressure chronic ulcer of left calf with fat layer exposed (principal); I73.9 Peripheral vascular disease, unspecified; I87.2 Venous insufficiency (chronic) (peripheral); M05.80 Other rheumatoid arthritis with rheumatoid factor of unspecified site; I50.32 Chronic diastolic (congestive) heart failure; D68.69 Other thrombophilia; Z79.01 Long term (current) use of anticoagulants | CPT/HCPCS: 11042 ==

== ENCOUNTER → 2024-03-14 09:11 | Outpatient (REF) | payer MEDICARE, OTHER, SELFPAY | LOC: WOUND 09:11 | PROVIDERS: ATTENDING PHYSICIAN Surgery; FAMILY PHYSICIAN Family Medicine | DX: L97.222 Non-pressure chronic ulcer of left calf with fat layer exposed (principal); I73.9 Peripheral vascular disease, unspecified; I87.2 Venous insufficiency (chronic) (peripheral); Z79.01 Long term (current) use of anticoagulants; M05.80 Other rheumatoid arthritis with rheumatoid factor of unspecified site; I50.32 Chronic diastolic (congestive) heart failure; D68.69 Other thrombophilia | CPT/HCPCS: 97597 ==

== ENCOUNTER → 2024-03-17 14:26 | Outpatient (REF) | payer MEDICARE, OTHER, SELFPAY | LOC: HWRCS 14:26 | PROVIDERS: ATTENDING PHYSICIAN Internal Medicine Cardiovascular Disease; FAMILY PHYSICIAN Family Medicine | DX: I50.32 Chronic diastolic (congestive) heart failure (principal); I48.0 Paroxysmal atrial fibrillation; I35.0 Nonrheumatic aortic (valve) stenosis; R06.02 Shortness of breath | CPT/HCPCS: 93306 ==

== ENCOUNTER → 2024-03-22 08:15 | Outpatient (REF) | payer MEDICARE, OTHER, SELFPAY ==
[2024-03-22 10:01] LABS: % Basophils 0.5 % (0-2); % Eosinophils 2.6 % (0-6); % Immature Granulocytes 0.6 % (0-0.5); % Lymphocytes 20.6 % (20.5-51.1); % Monocytes 10.5 % (1.7-9.3); % Neutrophils 65.2 % (42.2-75.2); Absolute Basophils 0.1 10^3/uL (0-0.2); Absolute Eosinophils 0.3 10^3/uL (0-0.7); Absolute Immature Granulocytes 0.1 10^3/uL (0-0.05); Absolute Lymphocytes 2.2 10^3/uL (1.2-3.4); Absolute Monocytes 1.1 10^3/uL (0.1-0.6); Absolute Neutrophils 7.1 10^3/uL (1.4-6.5); Hematocrit 43.1 % (37.0-47.0); Hemoglobin 13.7 g/dL (12.0-16.0); Mean Corp Hgb Conc. 31.8 g/dL (33.0-37.0); Mean Corpuscular Hgb 30.2 pg (27.0-31.0); Mean Corpuscular Volume 95.1 fL (81.0-99.0); Mean Platelet Volume 9.3 fL (7.4-10.4); Nucleated Red Blood Cells % 0 %; Platelet Count 267 10^3/uL (130-400); Red Blood Cell Count 4.53 10^6/uL (4.20-5.40); Red Cell Dist. Width 16.6 % (11.5-14.5); White Blood Cell Count 10.8 10^3/uL (4.8-10.8)
[2024-03-22 10:32] LABS: ALT (SGPT) 19 U/L (0-35); AST (SGOT) 25 U/L (14-36); Albumin 3.7 g/dl (3.5-5.0); Alkaline Phosphatase 61 U/L (38-126); Blood Urea Nitrogen 19 mg/dl (7-17); Calcium 9.1 mg/dl (8.4-10.2); Carbon Dioxide 30 mmol/L (22-30); Chloride 103 mmol/L (98-107); Glucose 75 mg/dl (70-99); Phosphorus 3.3 mg/dl (2.5-4.5); Potassium 3.7 mmol/L (3.5-5.1); Sodium 141 mmol/L (135-145); Total Bilirubin 0.9 mg/dl (0.2-1.3); Total Protein 6.7 g/dl (6.3-8.2); eGFR > 60.00
[2024-03-22 10:41] LABS: NT-proBNP 1090 pg/ml
[2024-03-22 10:50] LABS: Erythrocyte Sed Rate 18 mm/hour (0-20)
== END ==
LOC: RAD 08:15
PROVIDERS: ATTENDING PHYSICIAN Surgery; FAMILY PHYSICIAN Family Medicine; OTHER PHYSICIAN Internal Medicine Cardiovascular Disease; OTHER PHYSICIAN Internal Medicine Rheumatology
DX: L97.222 Non-pressure chronic ulcer of left calf with fat layer exposed (principal); I73.9 Peripheral vascular disease, unspecified; I87.2 Venous insufficiency (chronic) (peripheral); I50.32 Chronic diastolic (congestive) heart failure; I48.0 Paroxysmal atrial fibrillation; I35.0 Nonrheumatic aortic (valve) stenosis; R06.02 Shortness of breath
CPT/HCPCS: 36415; 80053; 83880; 84100; 85025; 85652; 86140; 93922; 93971

== ENCOUNTER → 2024-03-28 09:04 | Outpatient (REF) | payer MEDICARE, OTHER, SELFPAY | LOC: WOUND 09:04 | PROVIDERS: ATTENDING PHYSICIAN Surgery; FAMILY PHYSICIAN Family Medicine | DX: L97.222 Non-pressure chronic ulcer of left calf with fat layer exposed (principal); I73.9 Peripheral vascular disease, unspecified; I87.2 Venous insufficiency (chronic) (peripheral); M05.80 Other rheumatoid arthritis with rheumatoid factor of unspecified site; I50.32 Chronic diastolic (congestive) heart failure; D68.69 Other thrombophilia; Z79.01 Long term (current) use of anticoagulants | CPT/HCPCS: 11042 ==

== ENCOUNTER → 2024-04-18 09:15 | Outpatient (REF) | payer MEDICARE, OTHER, SELFPAY | LOC: WOUND 09:15 | PROVIDERS: ATTENDING PHYSICIAN Surgery; FAMILY PHYSICIAN Family Medicine | DX: L97.212 Non-pressure chronic ulcer of right calf with fat layer exposed (principal); I73.9 Peripheral vascular disease, unspecified; I87.2 Venous insufficiency (chronic) (peripheral); M05.80 Other rheumatoid arthritis with rheumatoid factor of unspecified site; I50.32 Chronic diastolic (congestive) heart failure; D68.69 Other thrombophilia; Z79.01 Long term (current) use of anticoagulants | CPT/HCPCS: 99213 ==

== ENCOUNTER → 2024-04-26 09:13 | Outpatient (REF) | payer MEDICARE, OTHER, SELFPAY | LOC: WOUND 09:13 | PROVIDERS: ATTENDING PHYSICIAN Surgery; FAMILY PHYSICIAN Family Medicine | DX: L97.212 Non-pressure chronic ulcer of right calf with fat layer exposed (principal); I73.9 Peripheral vascular disease, unspecified; I87.2 Venous insufficiency (chronic) (peripheral); M05.80 Other rheumatoid arthritis with rheumatoid factor of unspecified site; I50.32 Chronic diastolic (congestive) heart failure; D68.69 Other thrombophilia; Z79.01 Long term (current) use of anticoagulants | CPT/HCPCS: 11042 ==

== ENCOUNTER → 2024-05-03 09:20 | Outpatient (REF) | payer MEDICARE, OTHER, SELFPAY | LOC: WOUND 09:20 | PROVIDERS: ATTENDING PHYSICIAN Surgery; FAMILY PHYSICIAN Family Medicine | DX: L97.212 Non-pressure chronic ulcer of right calf with fat layer exposed (principal); I73.9 Peripheral vascular disease, unspecified; I87.2 Venous insufficiency (chronic) (peripheral); Z79.01 Long term (current) use of anticoagulants; M05.80 Other rheumatoid arthritis with rheumatoid factor of unspecified site; I50.32 Chronic diastolic (congestive) heart failure; D68.69 Other thrombophilia | CPT/HCPCS: 11042 ==

== ENCOUNTER → 2024-05-12 14:47 | Outpatient (REF) | payer MEDICARE, OTHER, SELFPAY | LOC: WOUND 14:47 | PROVIDERS: ATTENDING PHYSICIAN Surgery; FAMILY PHYSICIAN Family Medicine | DX: L97.212 Non-pressure chronic ulcer of right calf with fat layer exposed (principal); I73.9 Peripheral vascular disease, unspecified; I87.2 Venous insufficiency (chronic) (peripheral); M05.80 Other rheumatoid arthritis with rheumatoid factor of unspecified site; D68.69 Other thrombophilia; I50.32 Chronic diastolic (congestive) heart failure; Z79.01 Long term (current) use of anticoagulants | CPT/HCPCS: 11042 ==

== ENCOUNTER → 2024-06-02 08:54 | Outpatient (REF) | payer MEDICARE, OTHER, SELFPAY | LOC: WOUND 08:54 | PROVIDERS: ATTENDING PHYSICIAN Surgery; FAMILY PHYSICIAN Internal Medicine Cardiovascular Disease | DX: L97.212 Non-pressure chronic ulcer of right calf with fat layer exposed (principal); I73.9 Peripheral vascular disease, unspecified; I87.2 Venous insufficiency (chronic) (peripheral); M05.80 Other rheumatoid arthritis with rheumatoid factor of unspecified site; I50.32 Chronic diastolic (congestive) heart failure; D68.69 Other thrombophilia | CPT/HCPCS: 11042 ==

== ENCOUNTER 2024-07-19 19:12 | Emergency (ER) | payer MEDICARE, OTHER, SELFPAY ==
[2024-07-19 19:21] VITALS: BP 141/102
[2024-07-19 19:43] LABS: % Basophils 0.2 % (0-2); % Immature Granulocytes 1.6 % (0-0.5); % Lymphocytes 7.3 % (20.5-51.1); % Monocytes 4.7 % (1.7-9.3); % Neutrophils 86.2 % (42.2-75.2); Absolute Immature Granulocytes 0.2 10^3/uL (0-0.05); Absolute Lymphocytes 0.9 10^3/uL (1.2-3.4); Absolute Monocytes 0.6 10^3/uL (0.1-0.6); Absolute Neutrophils 11.1 10^3/uL (1.4-6.5); Hemoglobin 15.7 g/dL (12.0-16.0); Mean Corp Hgb Conc. 33.4 g/dL (33.0-37.0); Mean Corpuscular Hgb 31.3 pg (27.0-31.0); Mean Corpuscular Volume 93.6 fL (81.0-99.0); Mean Platelet Volume 9.6 fL (7.4-10.4); Nucleated Red Blood Cells % 0 %; Platelet Count 300 10^3/uL (130-400); Red Blood Cell Count 5.02 10^6/uL (4.20-5.40); Red Cell Dist. Width 15.8 % (11.5-14.5); White Blood Cell Count 12.9 10^3/uL (4.8-10.8)
[2024-07-19 19:55] LABS: COVID-19 Antigen Negative (Negative)
[2024-07-19 20:01] LABS: ALT (SGPT) 20 U/L (0-35); AST (SGOT) 20 U/L (14-36); Albumin 3.6 g/dl (3.5-5.0); Alkaline Phosphatase 55 U/L (38-126); Blood Urea Nitrogen 31 mg/dl (7-17); Calcium 9.5 mg/dl (8.4-10.2); Carbon Dioxide 29 mmol/L (22-30); Chloride 107 mmol/L (98-107); Glucose 113 mg/dl (70-99); Potassium 4.2 mmol/L (3.5-5.1); Sodium 143 mmol/L (135-145); Total Bilirubin 0.6 mg/dl (0.2-1.3); Total Protein 6.5 g/dl (6.3-8.2); eGFR > 60.00
[2024-07-19 21:55] VITALS: BP 130/87
--- NOTE | 2024-07-19 23:01 | ED.GENMED ---
History of Present Illness
General
Chief Complaint: Weakness
Source: patient
Exam Limitations: none
Time Seen by Provider: 07/19/24 22:58
Nursing documentation reviewed up to this point in time: agreed with
History of Present Illness
History of Present Illness:
This is a 83-year-old female with a past medical history of A-fib on Eliquis, hypertension, hyperlipidemia, interstitial lung disease who presents to the emergency department today with concerns of intermittent shortness of breath and persistent
cough. Patient reports that this started around a week and a half ago. Patient reports that she started to develop some coughing and was coughing up a lot of mucus and felt intermittently short of breath. She saw her primary who did a chest x-ray
and they said that the chest x-ray revealed her chronic interstitial disease but no obvious pneumonia. She was started on amoxicillin and steroids. She did finish the amoxicillin 2 doses early and is still taking her steroid with 3 doses left.
She has follow with pulmonology Dr. Horton. She is controlled on a daily breztri inhaler and albuterol as needed. She states that her albuterol inhaler has helped her as needed but she still feels fatigued and has a lingering cough. Her is
sick with similar symptoms. She denies any fevers or chills, chest pain, dizziness, lightheadedness. She denies any abdominal pain, dysuria, burning with urination. Patient also states that she has had feelings of congestion and post nasal drip
and feels that her allergies are acting up.
Past History
Past History
ED Past Medical History: Arrthythmia (atrial fibrillation), CHF, GERD, HTN, Hypercholesterolemia, Psychiatric (Anxiety, Depression), Other (Rheumatoid arthritis, dizziness, shingles, Lyme disease, vertigo, PNA, Diverticulitis, Cataracts) and Other
(RA)
ED Past Surgical History: Orthopedic (Laminectomy, Left hip replacement, Bilateral knee replacement) and Other (Cataract surgery, laminectomy)
Patient has exhibited threatening behavior?: No
PSI?: No
Social History
Tobacco: Non-smoker
Alcohol: None
Drug: None
Personal:
Living: with family
Employment: Retired
Family History
Family History: Other
Review of Systems
Review of Systems
All Other Systems: ROS reviewed and negative except as documented in HPI and ROS
Phy Exam
Physical Exam
Physical Exam:
General: Patient is well appearing and in no acute distress; non-toxic
Skin: Warm and dry, no rashes or lesions
Head: Normocephalic, atraumatic. No tenderness to palpation over the frontal sinuses
Eyes: Sclera non-icteric. EOMs intact.
Mouth: No pharyngeal erythema, uvula midline, post nasal drip noted
Cardiac: Regular rate and rhythm, systolic murmur noted
Peripheral Vascular: No lower extremity swelling or edema
Pulm: Normal respiratory effort, scattered wheezing heard throughout
Neuro: CN II-XII intact, no focal neurologic deficits.
Psychiatric: Appropriate mood and affect.
Course
Orders/Labs/Results
Orders:
Orders
07/19/24 19:29
COVID-19 Antigen Urgent
Source: Nasal Swab
Influenza A+B Rapid Molecular Urgent
MARCIN Source: Nasal Swab
Specimen Description:
07/19/24 19:32
Complete Blood Count/With Diff Urgent
Comprehensive Metabolic Panel Urgent
07/19/24 23:09
Guaifenesin [Mucinex] 600 mg PO NOW STA
Ipratropium/Albuterol Sulfate [Duoneb] 3 ml INH R NOW STA
CR Chest - 2 Views Urgent
Comment:
Reason For Exam: shortness of breath, wheezing
07/19/24 23:10
Electrocardiogram (*1) Urgent
Reason for Study: Shortness of Breath
07/19/24 23:13
0.9% Sodium Chloride 250 ml [Nss] 250 ml IV BOLUS
Abnormal Lab Results
07/19/24
19:32
WBC 12.9 H 10^3/uL
(4.8-10.8)
MCH 31.3 H pg
(27.0-31.0)
RDW 15.8 H %
(11.5-14.5)
Abs Immat Gran (auto) 0.2 H 10^3/uL
(0-0.05)
Absolute Neuts (auto) 11.1 H 10^3/uL
(1.4-6.5)
Absolute Lymphs (auto) 0.9 L 10^3/uL
(1.2-3.4)
Immature Gran % 1.6 H %
(0-0.5)
Neutrophils % 86.2 H %
(42.2-75.2)
Lymphocytes % 7.3 L %
(20.5-51.1)
BUN 31 H mg/dl
(7-17)
Glucose 113 H mg/dl
(70-99)
07/19/24 19:32
07/19/24 19:32
Vital Signs
Initial and Last Documented VS:
Initial Vital Signs
Temp Pulse Resp BP Pulse Ox
98 F 66 16 141/102 98
07/19/24 19:21 07/19/24 19:21 07/19/24 19:21 07/19/24 19:21 07/19/24 19:21
Last Documented Vital Signs
Temp Pulse Resp BP Pulse Ox
98 F 68 20 147/115 95
07/19/24 19:21 07/19/24 23:17 07/19/24 23:17 07/19/24 23:17 07/19/24 23:17
MDM/Problems Addressed
Differential Diagnosis Includes:
ddx include pneumonia, viral bronchitis, interstitial lung disease, allergic rhinitis
MDM/Problems Addressed:
This is a 83-year-old female with a past medical history of A-fib on Eliquis, hypertension, hyperlipidemia, interstitial lung disease who presents to the emergency department today with concerns of intermittent shortness of breath and persistent
cough. Patient reports that around a week and a half ago, she started coughing up a lot of mucus and started develop some more shortness of breath than her baseline. She originally saw urgent care and was started on doxycycline for presumed
pneumonia. She reports that this did not help and so she saw her primary care provider who did a chest x-ray and thought the chest x-ray looked normal but started her on amoxicillin anyway as well as steroids. Patient finished amoxicillin but
still has a few doses of steroids and she feels like her symptoms have not significantly improved. Today patient denies chest pain, denies any significant shortness of breath at rest but notes her cough persists. On physical exam she is
well-appearing in no acute respiratory distress, she has occasional wheezing, no rhonchi. She does have postnasal drip noted and does sound congested. In review of her blood work, she does have a mild leukocytosis. She does have an elevated BUN
to creatinine ratio was given a small IV fluid bolus. She tested negative for COVID and flu. Her x-ray shows no acute disease no clear wedge-shaped, likely shows chronic interstitial disease. Considering patient already has been on antibiotics
for typical and atypical pneumonia coverage, did not feel that additional antibiotics would be helpful at this time. Suspect prolonged cough from a viral bronchitis with component of allergic rhinitis. Patient's symptoms did improve with duoneb and
mucinex. Patient is giong to call Dr. Horton tomorrow. Stable for discharge.
Chronic conditions affecting care:
afib, htn, hlp
*Pulse Oximetry
Patient hypoxic: no
*EKG
Interpreted by ED Provider?: Yes
EKG Intrepretation Date: 07/20/24
Interpretation: abnormal
Comparison EKG: changes noted (t wave abnormalities no longer evident)
Heart Rate: 66
Rhythm: sinus
[place]: normal axis
*Critical Care Note
Total Time (30-74mins, 75-104mins- exclusive of procedures): Not Applicable
Data Reviewed
Review of Other/Old Records Reveals: Records (Discharge summary from 11/24/2023 patient seen for recurrent A-fib and pericardial effusion)
Source: patient and records
ED Attending Note
-
Portions of this chart may have been created with voice recognition software.� Occasional wrong word or��sound alike� substitutions may have occurred due to the inherent limitations of voice recognition software.
Discharge Plan
Departure
Patient Disposition: Home (Routine Discharge)
Date of Disposition: 07/20/24
Time of Disposition: 00:32
Patient with high blood pressure during this ER visit?: Yes
Condition: Good
Discharge Problem:
Cough, Upper respiratory infection
Instructions: Cough in adults, Generalized Weakness (DC), BLOOD PRESSURE
Prescriptions:
No Action
fluoxetine 20 MG capsule
20 mg PO DAILY
rosuvastatin 10 mg tablet
10 mg PO NOON
potassium chloride 20 mEq tablet,ER particles/crystals
20 meq PO DAILY
albuterol sulfate 90 mcg/actuation Hfa Aerosol Inhaler
2 puff INHALATION R Q4HPRN PRN (Reason: sob)
Breztri Aerosphere 160-9-4.8 mcg/actuation Hfa Aerosol Inhaler
2 inh INHALATION R BID
B-complex with vitamin C Tablet
1 tab PO NOON
furosemide 40 mg tablet
40 mg PO SUTUTHSA
Jardiance 10 mg Tablet
10 mg PO DAILY 30 Days Qty: 30 0RF
colchicine 0.6 mg Tablet
0.3 mg PO BID 84 Days Qty: 42 0RF
acetaminophen [Tylenol Extra Strength] 500 mg Tablet
1,000 mg PO Q6H PRN (Reason: pain)
magnesium 250 mg Tablet
250 mg PO DAILY
calcium carb-D3-mag ox-zinc ox 333 mg-133 unit -133 mg-5 mg Tablet
1 tab PO QPM
Eliquis 5 mg Tablet
5 mg PO BID
prednisone 5 mg Tablet
5 mg PO DAILY
furosemide 40 mg Tablet
80 mg PO MOWEFR
dofetilide 250 mcg capsule
250 mcg PO BID
diltiazem HCl 120 mg capsule,extended release 24hr
120 mg PO DAILY Qty: 90 3RF
Referrals:
Tamiko Liu DO [Active, Pulmonary Medicine] - Next open appointment
Keturah Stoner MD [Family Provider, Internal Medicine]
Activity Restrictions/Additional Instructions:
Please use your albuterol inhaler as needed.
Please call Dr. Horton's office tomorrow morning to schedule follow-up appointment.
PLEASE RETURN EMERGENCY DEPARTMENT SHOULD YOU DEVELOP LIGHTHEADEDNESS, DIZZINESS, CHEST PAIN, FEVERS OR CHILLS, INTRACTABLE NAUSEA OR VOMITING, SHORTNESS OF BREATH, OR ANY OTHER SYMPTOMS WORRISOME TO YOU.
Interventions
Interventions:
*Risk Screen - Suicide Last Done: 07/19/24 19:24
*General Assessment Last Done: 07/20/24 01:19
*Neglect/Abuse Screening Last Done: 07/19/24 19:24
*ED- Fall Risk Assessment Last Done: 07/20/24 01:19
*ED COVID-19 Vaccine History Last Done: 07/20/24 01:19
*Nursing Disposition Last Done: 07/20/24 01:19
ED- Cardiac Assessment Last Done: 07/19/24 23:17
ED- Neurological Assessment Last Done: 07/19/24 23:17
ED- Pulmonary Assessment Last Done: 07/19/24 23:17
Discharge Date and Time
Discharge Date/Time: 07/20/24 01:20
Print Language: MOSOTHO
[2024-07-19 23:17] VITALS: BP 147/115; BMI 24.2
[2024-07-19] MEDS: DUONEB 3 ML INH (23:21)
[2024-07-19] MEDS: MUCINEX 600 MG PO (23:22)
[2024-07-19] MEDS: NSS 250 IV (23:34)
== END 2024-07-20 01:20 | disposition home or self-care (01) ==
LOC: EMR 19:12
PROVIDERS: Emergency Medicine; EMERGENCY PHYSICIAN Student in an Organized Health Care Education/Training Program; FAMILY PHYSICIAN Internal Medicine Geriatric Medicine
DX: R05.9 Cough, unspecified (principal); J06.9 Acute upper respiratory infection, unspecified; Z11.52 Encounter for screening for COVID-19; I48.91 Unspecified atrial fibrillation; I11.0 Hypertensive heart disease with heart failure; I50.9 Heart failure, unspecified; E78.00 Pure hypercholesterolemia, unspecified; F32.A Depression, unspecified; F41.9 Anxiety disorder, unspecified; M06.9 Rheumatoid arthritis, unspecified; B02.9 Zoster without complications; K57.92 Diverticulitis of intestine, part unspecified, without perforation or abscess without bleeding; M19.90 Unspecified osteoarthritis, unspecified site; Z79.01 Long term (current) use of anticoagulants; Z96.653 Presence of artificial knee joint, bilateral; Z96.642 Presence of left artificial hip joint; Z87.01 Personal history of pneumonia (recurrent)
CPT/HCPCS: 99284; 94640; 71046; 80053; 85025; 87502; 87811; 93005

== ENCOUNTER → 2024-08-16 11:16 | Outpatient (REF) | payer MEDICARE, OTHER, SELFPAY | LOC: WOUND 11:16 | PROVIDERS: ATTENDING PHYSICIAN Surgery; FAMILY PHYSICIAN Family Medicine | DX: L97.222 Non-pressure chronic ulcer of left calf with fat layer exposed (principal); I87.2 Venous insufficiency (chronic) (peripheral); F19.20 Other psychoactive substance dependence, uncomplicated; I48.0 Paroxysmal atrial fibrillation; Z79.01 Long term (current) use of anticoagulants; Z96.642 Presence of left artificial hip joint | CPT/HCPCS: 11042; 99213 ==

== ENCOUNTER → 2024-08-25 09:21 | Outpatient (REF) | payer MEDICARE, OTHER, SELFPAY | LOC: WOUND 09:21 | PROVIDERS: ATTENDING PHYSICIAN Surgery; FAMILY PHYSICIAN Family Medicine | DX: L97.222 Non-pressure chronic ulcer of left calf with fat layer exposed (principal); I87.2 Venous insufficiency (chronic) (peripheral); F19.20 Other psychoactive substance dependence, uncomplicated; I48.0 Paroxysmal atrial fibrillation; M05.80 Other rheumatoid arthritis with rheumatoid factor of unspecified site; Z96.642 Presence of left artificial hip joint; Z79.01 Long term (current) use of anticoagulants | CPT/HCPCS: 11042 ==

== ENCOUNTER 2024-08-28 21:25 | Emergency (ER) | payer MEDICARE, OTHER, SELFPAY ==
[2024-08-28] VITALS (11 sets, daily range): BP systolic 133–199; BP diastolic 80–105; BMI 24.8
--- NOTE | 2024-08-28 21:43 | ED.GENMED ---
History of Present Illness
General
Chief Complaint: Fall
Source: patient
Exam Limitations: none
Time Seen by Provider: 08/28/24 21:42
History of Present Illness
History of Present Illness:
See MDM
Past History
Past History
ED Past Medical History: Arrthythmia (atrial fibrillation), CHF, GERD, HTN, Hypercholesterolemia, Psychiatric (Anxiety, Depression), Other (Rheumatoid arthritis, dizziness, shingles, Lyme disease, vertigo, PNA, Diverticulitis, Cataracts) and Other
(RA)
ED Past Surgical History: Orthopedic (Laminectomy, Left hip replacement, Bilateral knee replacement) and Other (Cataract surgery, laminectomy)
Patient has exhibited threatening behavior?: No
PSI?: No
Social History
Tobacco: Non-smoker
Alcohol: None
Drug: None
Personal:
Living: with family
Employment: Retired
Family History
Family History: Other
Phy Exam
Physical Exam
Physical Exam:
See MDM
Course
Orders/Labs/Results
Orders:
Orders
08/28/24 21:42
CT Head W/o Iv Contrast Urgent
Comment:
Reason For Exam: Fall, R posterior head injury
Hip, Left 2-3 Views [CR Hip - LT w/wo Pel 2-3 Vw*] Urgent
Comment:
Reason For Exam: fall, left hip pain
Include a pelvis x-ray?: Yes
08/28/24 21:58
Basic Metabolic Panel Urgent
Complete Blood Count/With Diff Urgent
08/28/24 22:40
HYDROmorphone [Dilaudid] 0.5 mg IV NOW STA
08/28/24 22:59
Propofol [Diprivan] 20 ml .ROUTE .STK-MED
08/28/24 23:05
Knee Immobilizer Left-Treatmen ONCE
08/28/24 23:25
Hip, Left 1 View [CR Hip - LT without Pel 1 Vw] Urgent
Comment:
Reason For Exam: post reduction
Abnormal Lab Results
08/28/24
21:58
MCH 31.4 H pg
(27.0-31.0)
MCHC 32.8 L g/dL
(33.0-37.0)
RDW 16.1 H %
(11.5-14.5)
Abs Immat Gran (auto) 0.1 H 10^3/uL
(0-0.05)
Absolute Neuts (auto) 6.9 H 10^3/uL
(1.4-6.5)
Absolute Monos (auto) 1.1 H 10^3/uL
(0.1-0.6)
Immature Gran % 1.0 H %
(0-0.5)
Lymphocytes % 19.2 L %
(20.5-51.1)
Monocytes % 10.5 H %
(1.7-9.3)
Chloride 109 H mmol/L
(98-107)
BUN 27 H mg/dl
(7-17)
Glucose 102 H mg/dl
(70-99)
08/28/24 21:58
08/28/24 21:58
Vital Signs
Initial and Last Documented VS:
Initial Vital Signs
Temp
97.8 F
08/28/24 21:30
Last Documented Vital Signs
Temp Pulse Resp BP Pulse Ox
97.8 F 75 18 144/80 94
08/28/24 23:56 08/28/24 23:40 08/28/24 23:40 08/28/24 23:40 08/28/24 23:40
Procedures
Moderate Sedation
ASA Risk Score: Class II
Chart and allergies reviewed: Yes
Consent for anesthesia obtained: Yes
Time out completed (validating right patient & procedure): Yes
Moderate Sedation Start Time(when first medication is given): 11:10
History of difficult intubation: No
Airway free of obstruction: Yes
Patient has a gag reflex: Yes
Patient is able to open mouth: Yes
Patient has no dentures: Yes
Patient has no loose teeth: Yes
Medication administered by Provider during Moderate Sedation: IV Propofol (mg)
Total dose administered: 100
Time drug administered: 11:10
Moderate Sedation Procedure End Time: 11:20
Joint/Fracture Reduction
Left Lateral Proximal Hip:
Indication for procedure:: Hip dislocation
Procedure completed by: Jose Angel Jain DO
Consent form signed: Yes
Joint reduced: with anesthesia sedation
Injury was: closed
Further treatement: needs re-check only
Post reduction exam: stable
Capillary Refill: normal
Peripheral Pulses: dorsalis pedis (left): 2+
MDM/Problems Addressed
Differential Diagnosis Includes:
HPI and MDM Narrative:
83-year-old female presenting with right-sided headache and left hip pain. Patient was leaning forward and she felt her left hip pop. She then fell backwards hitting her head. She is on Eliquis. Patient was given fentanyl by EMS prior to
arrival. She states she is feeling somewhat better. Patient states this would be her third hip dislocation. She was told by her orthopedist that if this keeps happening, she may need a revision
Based on the large hematoma on the right posterior scalp, will obtain CT head. GCS 15. No neck injury or tenderness noted. Will also obtain x-ray of the hip to rule out dislocation versus fracture
Physical exam
General: Well appearing and non-toxic
HEENT: protecting airway. Large hematoma to right posterior
Neck: Nontender, supple
CV: No evidence of cyanosis
Resp: No accessory muscle use
Abd: Non-distended
Extremities: Tenderness to left hip. Left leg shortened but neurovascular intact
Neuro: alert
Psych: Normal affect
Skin: Intact
Problems Addressed including Acute and Chronic Conditions affecting care:
1. Fall with scalp injury
Acuity: acute
Prognosis: stable
Details: Will obtain CT head given age and anticoagulation
2. Left hip pain
Acuity: acute
Prognosis: stable
Details: Given the prior history, with an x-ray with concern for hip dislocation
Updates
CT head negative but hip x-ray consistent with dislocation. After signed consent, the hip was reduced without difficulty.
Patient states that her at home cannot deal with her in this state. Will admit for pain control
11:58 PM patient actually able to ambulate to the bathroom without difficulty. She now feels comfortable going home. She states she will call her daughter to help her and she feels comfortable being discharged. Discussed calling her orthopedist
tomorrow
Differential Diagnosis (but not limited to): Hip fracture, hip dislocation, intracranial hemorrhage, scalp contusion
Testing considered: CT neck but she has no tenderness
Drug therapy (if applicable): OTC meds, please see d/c instruction regarding Rx drugs
Amount and/or Complexity of Data Reviewed
Clinical info obtained from: Patient
External data reviewed: N/A
Labs I independently reviewed (but not limited to): White blood cell count normal
Radiology: the CT scan was personally and independently reviewed. In addition, official CT report reviewed.
X-ray independently reviewed: Left hip dislocation
Pulse Ox: not hypoxic
EKG independently reviewed: N/A
Engineering Coordinator: N/A
Critical Care: N/A
Risk of Complication:
Social Determinants of health: Good social support
Discussed with other providers: N/A
Escalation of Care includes Admit/Obs: Patient able to ambulate and feels comfortable being discharged home
Occasional wrong word or 'sound a like' substitutions may have occurred due to the inherent limitations of voice recognition software. Read the chart carefully and recognize, using context, where substitutions have occurred.
*Pulse Oximetry
Oxygen Mode of Delivery: Room air
Patient hypoxic: no
*Critical Care Note
Total Time (30-74mins, 75-104mins- exclusive of procedures): Not Applicable
ED Attending Note
-
Portions of this chart may have been created with voice recognition software.� Occasional wrong word or��sound alike� substitutions may have occurred due to the inherent limitations of voice recognition software.
Discharge Plan
Departure
Patient Disposition: Home (Routine Discharge)
Date of Disposition: 08/28/24
Time of Disposition: 23:31
Patient with high blood pressure during this ER visit?: Yes
Discharge Problem:
Dislocation of hip, left, closed
Instructions: Hip Dislocation (DC), MODERATE SEDATION ADULT, BLOOD PRESSURE
Prescriptions:
No Action
fluoxetine 20 MG capsule
20 mg PO DAILY
rosuvastatin 10 mg tablet
10 mg PO NOON
potassium chloride 20 mEq tablet,ER particles/crystals
20 meq PO DAILY
B-complex with vitamin C Tablet
1 tab PO NOON
furosemide 40 mg tablet
40 mg PO DAILY
Jardiance 10 mg Tablet
10 mg PO DAILY 30 Days Qty: 30 0RF
colchicine 0.6 mg Tablet
0.3 mg PO BID 84 Days Qty: 42 0RF
magnesium 250 mg Tablet
250 mg PO DAILY
calcium carb-D3-mag ox-zinc ox 333 mg-133 unit -133 mg-5 mg Tablet
1 tab PO BID
Eliquis 5 mg Tablet
5 mg PO BID
prednisone 5 mg Tablet
5 mg PO DAILY
dofetilide 250 mcg capsule
250 mcg PO BID
diltiazem HCl 120 mg capsule,extended release 24hr
360 mg PO DAILY
Referrals:
Samir Tobias MD [Family Provider, Family Practice]
Activity Restrictions/Additional Instructions:
Please return for any worsening symptoms.
You may return at any time if you have further concerns.
Please follow up with your orthopedist at the first available appointment, preferably this week.
Thank you for choosing [facility].
Interventions
Interventions:
*Risk Screen - Suicide Last Done: 08/28/24 21:39
*General Assessment Last Done: 08/28/24 21:39
*Neglect/Abuse Screening Last Done: 08/28/24 21:39
*ED- Fall Risk Assessment Last Done: 08/28/24 21:39
*ED COVID-19 Vaccine History Last Done: 08/28/24 21:39
ED-Musculoskeletal Assessment Last Done: 08/28/24 21:39
ED- Neurological Assessment Last Done: 08/28/24 21:39
ED-Skin Assessment Last Done: 08/28/24 21:39
Discharge Date and Time
Print Language: GREEK
[2024-08-28 22:07] LABS: Hematocrit 43.3 % (37.0-47.0); Hemoglobin 14.2 g/dL (12.0-16.0); Mean Corp Hgb Conc. 32.8 g/dL (33.0-37.0); Mean Corpuscular Volume 95.8 fL (81.0-99.0); Nucleated Red Blood Cells % 0 %; Platelet Count 246 10^3/uL (130-400); Red Cell Dist. Width 16.1 % (11.5-14.5)
[2024-08-28 22:30] LABS: Blood Urea Nitrogen 27 mg/dl (7-17); Calcium 8.9 mg/dl (8.4-10.2); Carbon Dioxide 25 mmol/L (22-30); Chloride 109 mmol/L (98-107); Estimated Creatinine Clearance 46 ml/min; Glucose 102 mg/dl (70-99); Sodium 139 mmol/L (135-145); eGFR > 60.00
[2024-08-28] MEDS: DILAUDID 0.5 MG IV (22:43)
[2024-08-29] VITALS: BP 160/90
== END 2024-08-29 00:55 | disposition home or self-care (01) ==
LOC: EMR 21:25
PROVIDERS: EMERGENCY PHYSICIAN Student in an Organized Health Care Education/Training Program; FAMILY PHYSICIAN Family Medicine
DX: T84.021A Dislocation of internal left hip prosthesis, initial encounter (principal); X58.XXXA Exposure to other specified factors, initial encounter; I48.91 Unspecified atrial fibrillation; I11.0 Hypertensive heart disease with heart failure; I50.9 Heart failure, unspecified; E78.00 Pure hypercholesterolemia, unspecified; F41.8 Other specified anxiety disorders; M06.9 Rheumatoid arthritis, unspecified; Z96.642 Presence of left artificial hip joint; Z96.653 Presence of artificial knee joint, bilateral
CPT/HCPCS: 99284; 27266; 96374; 70450; 73501; 73502; 80048; 85025

== ENCOUNTER → 2024-09-14 13:51 | Outpatient (REF) | payer MEDICARE, OTHER, SELFPAY | LOC: HWRAD 13:51 | PROVIDERS: ATTENDING PHYSICIAN Nurse Practitioner Acute Care; FAMILY PHYSICIAN Family Medicine | DX: M54.16 Radiculopathy, lumbar region (principal) | CPT/HCPCS: 72114 ==

== ENCOUNTER → 2024-09-21 12:55 | Outpatient (REF) | payer MEDICARE, OTHER, SELFPAY | LOC: HWRAD 12:55 | PROVIDERS: ATTENDING PHYSICIAN Nurse Practitioner Acute Care; FAMILY PHYSICIAN Family Medicine | DX: M54.16 Radiculopathy, lumbar region (principal); S32.010A Wedge compression fracture of first lumbar vertebra, initial encounter for closed fracture | CPT/HCPCS: 72100 ==

== ENCOUNTER 2024-10-18 12:11 | Inpatient (IN) | payer MEDICARE, OTHER, SELFPAY ==
[2024-10-18] VITALS (12 sets, daily range): BP systolic 113–213; BP diastolic 66–109; BMI 26.3; BMI 24.9
[2024-10-18 09:35] LABS: Hematocrit 47.2 % (37.0-47.0); Hemoglobin 14.8 g/dL (12.0-16.0); Mean Corp Hgb Conc. 31.4 g/dL (33.0-37.0); Mean Corpuscular Volume 99.8 fL (81.0-99.0); Nucleated Red Blood Cells % 0 %; Platelet Count 244 10^3/uL (130-400); Red Cell Dist. Width 17.4 % (11.5-14.5)
[2024-10-18 09:44] LABS: INR 1.12; PT 14.7 Sec (11.4-14.6)
[2024-10-18 09:53] LABS: COVID-19 Antigen Negative (Negative)
[2024-10-18 09:56] LABS: ALT (SGPT) 29 U/L (0-35); AST (SGOT) 29 U/L (14-36); Albumin 3.9 g/dl (3.5-5.0); Alkaline Phosphatase 80 U/L (38-126); Blood Urea Nitrogen 21 mg/dl (7-17); Calcium 9.3 mg/dl (8.4-10.2); Carbon Dioxide 28 mmol/L (22-30); Chloride 110 mmol/L (98-107); Estimated Creatinine Clearance 67 ml/min; Glucose 113 mg/dl (70-99); Potassium 3.7 mmol/L (3.5-5.1); Sodium 143 mmol/L (135-145); Total Protein 6.8 g/dl (6.3-8.2); eGFR > 60.00
[2024-10-18 09:58] LABS: Troponin I 0.027 ng/ml
--- NOTE | 2024-10-18 10:13 | ED.GENMED ---
History of Present Illness
General
Chief Complaint: Breathing Problem
Time Seen by Provider: 10/18/24 09:39
History of Present Illness
History of Present Illness:
83-year-old female presents to the emergency department for evaluation of shortness of breath for the past several days, she took an extra dose of furosemide after noting 3 days ago that her weight had increased by 5 pounds, notes mild weight
improvement but no improvement in shortness of breath. Denies fevers or chills. Denies any nausea or vomiting. Has been compliant with her medications otherwise. Last echocardiogram was February 2024 showing an EF of 50 to 55% with stage II
diastolic dysfunction.
Past History
Past History
ED Past Medical History: Arrthythmia (atrial fibrillation), CHF, GERD, HTN, Hypercholesterolemia, Psychiatric (Anxiety, Depression), Other (Rheumatoid arthritis, dizziness, shingles, Lyme disease, vertigo, PNA, Diverticulitis, Cataracts) and Other
(RA)
ED Past Surgical History: Orthopedic (Laminectomy, Left hip replacement, Bilateral knee replacement) and Other (Cataract surgery, laminectomy)
Patient has exhibited threatening behavior?: No
PSI?: No
Social History
Tobacco: Non-smoker
Alcohol: None
Drug: None
Personal:
Living: with family
Employment: Retired
Family History
Family History: Other
Review of Systems
Review of Systems
Allergies reviewed?: Yes
All Other Systems: ROS reviewed and negative except as documented in HPI and ROS
Phy Exam
Physical Exam
Physical Exam:
GEN: Well appearing, NAD, WDWN
HEENT: Oral mucosa moist, no scleral icterus
Cardiac: Regular rate and rhythm
Lung: Tachypneic at rest on supplemental oxygen but no accessory muscle use, widespread dry crackles heard throughout all lung lomas
MSK: No gross deformity or injuries, mild pretibial edema bilaterally
Skin: Good color, no pallor or jaundice, no rashes
Neuro: AO x3, moves all extremities freely
Psych: Calm, cooperative
Scores
Heart Failure Risk
Heart Failure Risk Score: Not Applicable
Course
Orders/Labs/Results
Orders:
Orders
10/18/24 09:18
EKG [Electrocardiogram (*1)] Urgent
Reason for Study: Shortness of Breath
CR Chest - 2 Views Urgent
Comment:
Reason For Exam: SOB
10/18/24 09:19
EKG- Treatment ONCE
10/18/24 09:20
COVID-19 Antigen Urgent
Source: Nasal Swab
Complete Blood Count/With Diff Urgent
Comprehensive Metabolic Panel Urgent
NT-proBNP Urgent
Comment: ADD ON
Prothrombin Time Urgent
Troponin I Urgent
Influenza A+B Rapid Molecular Urgent
MARCIN Source: Nasal Swab
Specimen Description:
10/18/24 10:12
Acetaminophen [Tylenol] 650 mg PO NOW STA
Furosemide [Lasix] 40 mg IV NOW STA
Nitroglycerin Ointment [Nitro-Bid] 1 inch TOPICAL NOW STA
Potassium Chloride [KCl] 40 meq PO NOW STA
10/18/24 10:41
Add On- LAB Urgent
Tests Added?: BNP
10/18/24 11:50
Admit/Transfer Patient As Directed
Co-Sign Provider:
Level of Care: Inpatient admission
Assign to:: Telemetry
Physician / Group: Hospitalist
Diagnosis: CHF
Reason for Telemetry: Medication for Arrhythmia
Date to Stop Telemetry: 10/20/24
Time to Stop Telemetry: 11:00
Reason for Hospitalization: .
Expected length of stay greater than two midnights?: Yes
ELOS- Estimated Length of Stay in days: 3
I certify the patient meets the requirements for IP care: Yes
PRN Pain Medication Management As Directed
May give lesser potent ordered pain med per pt: Yes
preference::
Protocol:: Medication orders for pain may be administered in a
manner that supports deferring to patient preference
when the pt is:
- Requesting an ordered lesser potent pain medication.
Least to most potent pain medications are defined
as: acetaminophen < NSAID < tramadol < opioids
(morphine, oxycodone, hydromorphone).
- Requesting a lesser dose of the same medication IF
ORDERED.
- Requesting a less intrusive route of administration
if both routes are prescribed by the provider (PO <
IV).
10/18/24 11:52
Consult Cardiology [CARDIOLOGY CONSULT] Routine
Consulting Provider: Jann Curtis
Was physician already notified: Yes
Reason for consult: heart failure
10/20/24 11:00
DC Protocol for Telemetry ONCE
Abnormal Lab Results
10/18/24
09:20
WBC 14.0 H 10^3/uL
(4.8-10.8)
Hct 47.2 H %
(37.0-47.0)
MCV 99.8 H fL
(81.0-99.0)
MCH 31.3 H pg
(27.0-31.0)
MCHC 31.4 L g/dL
(33.0-37.0)
RDW 17.4 H %
(11.5-14.5)
Abs Immat Gran (auto) 0.1 H 10^3/uL
(0-0.05)
Absolute Neuts (auto) 11.0 H 10^3/uL
(1.4-6.5)
Absolute Monos (auto) 1.0 H 10^3/uL
(0.1-0.6)
Immature Gran % 0.6 H %
(0-0.5)
Neutrophils % 78.7 H %
(42.2-75.2)
Lymphocytes % 10.8 L %
(20.5-51.1)
PT 14.7 H Sec
(11.4-14.6)
Chloride 110 H mmol/L
(98-107)
BUN 21 H mg/dl
(7-17)
Glucose 113 H mg/dl
(70-99)
10/18/24 09:20
10/18/24 09:20
Vital Signs
Initial and Last Documented VS:
Initial Vital Signs
BP Pulse Ox
213/108 90
10/18/24 09:11 10/18/24 09:11
Last Documented Vital Signs
Temp Pulse Resp BP Pulse Ox
97.1 F 84 22 146/93 99
10/18/24 09:14 10/18/24 14:45 10/18/24 14:45 10/18/24 14:17 10/18/24 14:56
MDM/Problems Addressed
MDM/Problems Addressed:
While she has no hypoxemia at rest she becomes markedly dyspneic with hypoxemia with any degree of ambulation. She does appear to be mildly volume overloaded but cannot discount the possibility of acute flareup of interstitial lung disease as well.
Will trial diuretics for the time being but the patient will be admitted to the hospital for further management
Comment
Comment:
EKG independently interpreted by me shows sinus rhythm at a rate of 91 with frequent PACs, no concerning ST changes, QTc is prolonged at 521
*Pulse Oximetry
SaO2: 98
Nasal Cannula flow liters per minute: 87
Oxygen Mode of Delivery: Room air
Patient hypoxic: no
*Critical Care Note
Total Time (30-74mins, 75-104mins- exclusive of procedures): Not Applicable
ED Attending Note
-
Portions of this chart may have been created with voice recognition software.� Occasional wrong word or��sound alike� substitutions may have occurred due to the inherent limitations of voice recognition software.
Discharge Plan
Departure
Patient Disposition: Admit
Date of Disposition: 10/18/24
Time of Disposition: 11:23
Admit to: Telemetry
Presentation/result/management discussed w/ accepting MD/DO: Hospitalist
Discharge Problem:
Acute heart failure with preserved ejection fraction (HFpEF)
Interventions
Interventions:
*Risk Screen - Suicide Last Done: 10/18/24 09:16
*General Assessment Last Done: 10/18/24 09:16
*Neglect/Abuse Screening Last Done: 10/18/24 09:16
*ED COVID-19 Vaccine History Last Done: 10/18/24 09:16
ED- Cardiac Assessment Last Done: 10/18/24 09:16
ED- Pulmonary Assessment Last Done: 10/18/24 09:16
[2024-10-18] MEDS: TYLENOL 650 MG PO (10:22)
[2024-10-18] MEDS: NITRO-BID 1 INCH TOPICAL (10:22)
[2024-10-18] MEDS: KCL 40 MEQ PO (10:23)
[2024-10-18] MEDS: LASIX 40 MG IV ×2 (10:24→17:54)
--- NOTE | 2024-10-18 11:50 | HPS.HSE ---
Family Physician
-
Family Physician: Samir Tobias
Chief Complaint
-
I could not breathe today, called 911
History of Present Illness
83 female with history of ILD presented with progressive SOB. She reported that she took daily dose of 40 mg daily of Lasix. Recently, she felt she gained weight with exertional sob. She noticed she gained around 5 pounds, she took extra pill of
Lasix and did not loose the weight. She is not on home oxygen. She sees Dr Horton for ILD, was told her disease improved during last visit. No fever or cough. In ER, Pro-BNP was elevated, chest x ray possible interstitial edema.
Medical History
Past Medical History
Past Medical History: Reports Other (Paroxysmal A-fib, diastolic heart failure, hypertension, spinal stenosis, depression, thrombophilia, rheumatoid arthritis, first-degree AV block, aortic aneurysm, obstructive sleep apnea, interstitial lung
disease, osteopenia)
Past Surgical History: Reports Other (No recent major surgery)
Social History
Tobacco: Non-smoker
Alcohol: None
Drug: None
Personal:
Living: With Family
Employment: Retired
Family History
Family History: Other (Her brother has ILD. Mother had heart disease. )
Allergies / Home Medications
Allergies reflects when Allergies were last updated in [place] [employer].
Home Medications with original date entered in [place] [employer]
Allergy/Medication List:
Allergies
Allergy/AdvReac Type Severity Reaction Status Date / Time
No Known Allergies Allergy Verified 10/18/24 09:15
Home Medications
fluoxetine 20 mg capsule 20 mg PO DAILY Mental Health/Anxiety 04/26/18
rosuvastatin 10 mg tablet 10 mg PO NOON High Cholesterol 10/25/22
potassium chloride 20 mEq tablet,extended release(part/cryst) 20 meq PO DAILY Supplement 06/19/23
B-complex with vitamin C 1 tab PO NOON Supplement 06/28/23
furosemide 40 mg tablet 40 mg PO DAILY Fluid Retention/Swelling 06/29/23
empagliflozin 10 mg tablet (Jardiance) 10 mg PO DAILY Heart disease/condition 30 days #30 tabs 07/02/23
apixaban 5 mg tablet (Eliquis) 5 mg PO BID 09/07/23
calcium 333 mg-vit D3 133 unit-magnesium 133 mg-zinc 5 mg tablet 1 tab PO BID 09/07/23
magnesium 250 mg tablet 250 mg PO DAILY 09/07/23
prednisone 5 mg tablet 5 mg PO DAILY inflammation 10/13/23
dofetilide 250 mcg capsule 250 mcg PO BID Arrhythmia 11/23/23
diltiazem HCl 120 mg capsule,extended release 24 hr 120 mg PO DAILY 08/28/24
acetaminophen 500 mg tablet (Tylenol Extra Strength) 1,000 mg PO BID Pain 10/18/24
budesonide 160 mcg-glycopyr 9 mcg-formot 4.8 mcg/actuation HFA inhaler ([email or web address]) 1 inh inhalation BID 10/18/24
Review of Systems
-
History Source: Patient
A 12 point ROS was completed and negative except as noted: Yes
Constitutional: Reports Weight Gain; Denies Fever or Chills
EENT: Denies Sore Throat
Respiratory: Reports Trouble Breathing; Denies Cough
Cardiac: Denies Chest Pain
Abdomen/GI: Denies Abdominal Pain
: Denies Dysuria
Musculoskeletal: Denies Joint Pain or Joint Swelling
Skin: Denies Rash
Neurological: Denies Numbness
Hematologic/Lymphatic: Denies Bruising
Psych: Denies Panic Disorder
Physical Exam
Vital Signs
Vital Signs
Temp Pulse Resp BP Pulse Ox
97.1 F 91 15 160/109 98
10/18/24 09:14 10/18/24 10:24 10/18/24 10:10 10/18/24 10:24 10/18/24 10:13
Physical Exam
General: Appears Chronically Ill
HEENT: Moist mucous membranes and Atraumatic
Respiratory: Rales; No Wheezes
Cardiac: S1/S2 and Regular Rhythm
GI: Soft and Non Tender
Genito-urinary: No costovertebral tender; No German
Musculoskeletal: No Cyanosis and No Edema
Skin: No Jaundice
Neuro: AO x 3 and Nonfocal/grossly intact
Psych: Calm and Intact Judgment/Insight
Laboratory Results
-
10/18/24 09:20
10/18/24 09:20
Laboratory Results
PT 14.7 Sec (11.4-14.6) H 10/18/24 09:20
INR 1.12 10/18/24 09:20
Total Bilirubin 1.0 mg/dl (0.2-1.3) 10/18/24 09:20
AST 29 U/L (14-36) 10/18/24 09:20
ALT 29 U/L (0-35) 10/18/24 09:20
Alkaline Phosphatase 80 U/L (38-126) 10/18/24 09:20
Troponin I 0.027 ng/ml 10/18/24 09:20
Impression/Plan
-
83 years old female presented with shortness of breath/respiratory distress
# Acute respiratory distress/progressive shortness of breath
Hypoxia not detected although started on oxygen. Oxygen on arrival was low 90s. She has pulse ox amatory at home, reportedly oxygen around 94-95%
Seems possible combination of acute on chronic diastolic heart failure/chronic heart failure with a preserved ejection fraction
We will rule out ILD flareup. No fever, no cough.
Will order CT of the chest
Start the patient on IV Lasix
Daily weight
Monitor renal function and electrolyte level
Doubt cardiac ischemia with absence of acute ischemic changes on EKG and chest pain
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
Appreciate cardiology input
# History of primary hypertension
Hypertensive urgency on arrival, currently improving with IV Lasix.
Monitor blood pressure.
Patient denied chest pain or headache or abdominal pain.
# Paroxysmal Atrial Fibrillation
No history of palpitations. EKG sinus rhythm.
Continue with Eliquis/rate control medications
#Leukocytosis -likely reactive
Afebrile
#Hyperlipidemia
#Chronic Interstitial Lung Disease
Primary engagement lead Dr. Horton
Not on home oxygen
Follow-up with CT of chest
No cough. No fever
#Depression
Continue Fluoxetine
# Prolonged QT, mild, monitor
#Spinal stenosis/DDD osteopenia/osteoarthritis/ Rheumatoid Arthritis
Continue daily dose of prednisone
#DVT prophylaxis: Eliquis
#Code Status: DNR, confirmed with patient.
Total time spent to see the patient, examine the patient, review data lab result, discuss treatment plan with patient, ER doctor, nursing staff around 75 minutes
--- NOTE | 2024-10-18 12:19 | CM ---
CM reviewed chart and met with pt bedside in ED. Lives [place] in [place] apartment at [facility].
Independent in ADLs, personal care and ambulation at baseline, has been using RW recently since being diagnosed with vertebrae fracture.
Confirms prescription coverage.
Currently on 2L NC, has been on home O2 in past, does not remember previous supplier.
Hx [facility] VN, no hx SNF
PCP: Samir Tobias
Pharmacy: [facility] for local rx, [facility] mail order
Anticipate discharge home, CM will continue to follow for any discharge planning needs.
--- NOTE | 2024-10-18 13:52 | CON.CAR ---
Addendum entered and electronically signed by Hayden Lange MD 10/18/24 17:49:
I saw and evaluated the patient with the resident. I was present for the sol portions of the consult and personally performed the MDM, including reviewing labs, assessing testing, and directing management plan. I agree with the residents note with
my comments/adjustments below:
83-year-old female with a past medical history of PAF on Eliquis, managed on dofetilide with PVI in November 2023, HFpEF, hypertension, ILD presented with weight gain and increase in shortness of breath. She reports she has been lax about following
her sodium restriction. She claims to weigh herself daily and has increased her weight in the last several days. She also noted increased lower extremity edema. On exam she has a regular rate and rhythm with a normal S1-S2 no murmur rubs gallops
were appreciated lungs had diffuse fine rales, extremities with 1+ pitting in the legs up through the thighs and into the sacrum. JVP is elevated at about 14 cm of H2O.
EKG tracing shows normal sinus rhythm with PACs qtc 521 m/s.
CT scan ILD and pulm edema with pleural effusions.
A/P:
HFpEF: will diurese with iv lasix bid,This requires intensive monitoring start GDMT--start with MRA. continue sglt2-1, update echo
PAF: qtc prolonged no longer dofetilide candidate but will observe off agents gvien PVI in 12/09. Continue Eliquis
ILD on chronic steroids, not a new dose
HTN; add Mra
Original Note:
Consultation
Consultation Request
Date/Time Consultation Requested: 10/18/2024, 11:52
Date/Time Consultation Performed: 10/18/2024, 14:00
Requesting Provider: Dr. Handy Diaz
Performing Provider: Dr. Lange, Dr. Lauren.
Reason for Consultation: Shortness of breath
Medical History
-
Chief Complaint: Shortness of breath, weight gain
History of Present Illness:
83-year-old Ms. Quiñonez, with paroxysmal A-fib on Eliquis, CHF, hypertension, hyperlipidemia, interstitial lung disease presents with shortness of breath since 3 days associated with bilateral lower extremity swelling. She reports dyspnea started 1
week ago, has progressed and worsened, associated with orthopnea and 5 LB weight gain. She took an extra dose of Lasix 40 mg which helped with her lower extremity swelling but not with her dyspnea. Patient reports that she is compliant with her
medications. In the ER, she received a dose of Lasix IV. She had elevated white count, renal function stable, electrolytes normal, BNP elevated to 2930, troponins negative. Chest x-ray with interstitial pulmonary edema and evidence of chronic
interstitial fibrosis. EKG�NSR with frequent PACs and prolonged QT�521. Previous echo in 03/17/2024�ejection fraction of 50 to 55%, aortic valve stenosis, type II diastolic dysfunction.
Past Medical History
Past Medical History: Arrhythmias, CHF, GERD, HTN, Hypercholesterolemia and Other (Interstitial lung disease, obstructive sleep apnea, rheumatoid arthritis)
Past Surgical History: None
Social History
Tobacco: Non-Smoker
Alcohol: None
Drug: None
Personal:
Living: With Family
Employment: Retired
Family History
Family History: Other (Brother has interstitial lung disease, mother had heart disease)
Allergies / Home Medications
Allergy/AdvReac Type Severity Reaction Status Date / Time
No Known Allergies Allergy Verified 10/18/24 09:15
�Medication �Instructions �Recorded �Confirmed �Type
fluoxetine 20 mg capsule 20 mg PO DAILY Mental 04/26/18 10/18/24 History
Health/Anxiety
rosuvastatin 10 mg tablet 10 mg PO NOON High Cholesterol 10/25/22 10/18/24 History
potassium chloride 20 mEq 20 meq PO DAILY Supplement 06/19/23 10/18/24 History
tablet,extended release(part/cryst)
B-complex with vitamin C 1 tab PO NOON Supplement 06/28/23 10/18/24 History
furosemide 40 mg tablet 40 mg PO DAILY Fluid 06/29/23 10/18/24 History
Retention/Swelling
empagliflozin 10 mg tablet 10 mg PO DAILY Heart 07/02/23 10/18/24 Rx
(Jardiance) disease/condition 30 days #30 tabs
apixaban 5 mg tablet (Eliquis) 5 mg PO BID 09/07/23 10/18/24 History
calcium 333 mg-vit D3 133 1 tab PO BID 09/07/23 10/18/24 History
unit-magnesium 133 mg-zinc 5 mg
tablet
magnesium 250 mg tablet 250 mg PO DAILY 09/07/23 10/18/24 History
prednisone 5 mg tablet 5 mg PO DAILY inflammation 10/13/23 10/18/24 History
dofetilide 250 mcg capsule 250 mcg PO BID Arrhythmia 11/23/23 10/18/24 History
diltiazem HCl 120 mg 120 mg PO DAILY 08/28/24 10/18/24 History
capsule,extended release 24 hr
acetaminophen 500 mg tablet 1,000 mg PO BID Pain 10/18/24 10/18/24 History
(Tylenol Extra Strength)
budesonide 160 mcg-glycopyr 9 1 inh inhalation BID 10/18/24 10/18/24 History
mcg-formot 4.8 mcg/actuation HFA
inhaler (Breztri Aerosphere)
Review of Systems
-
All other systems: Negative unless noted
Physical Exam
Vital Signs
Temp Pulse Resp BP Pulse Ox
97.1 F 92 24 157/97 98
10/18/24 09:14 10/18/24 11:45 10/18/24 11:45 10/18/24 11:00 10/18/24 11:45
Lab Results
10/18/24 09:20
10/18/24 09:20
Troponin I 0.027 ng/ml 10/18/24 09:20
Pey-D-Jhxotufidbw Pept 2930 pg/ml 10/18/24 09:20
Physical Exam
General: No Apparent Distress and Other (On 2 L nasal cannula)
HEENT: Normocephalic and Moist Mucous Membranes
Respiratory: Crackles (Throughout the lung lomas bilaterally)
Cardiac: S1/S2, Regular Rhythm and Other (Bilateral lower extremity edema up to the sacrum.)
GI: Soft, Non Tender, Non Distended and Normal Bowel Sounds
Skin: Warm and Dry
Neuro: Awake, Alert, Oriented and AO x 3
Impression / Plan
-
Impression
83-year-old female with A-fib s/p ablation on Eliquis, CHF, hypertension, hyperlipidemia, interstitial lung disease presenting with shortness of breath and lower extremity edema.
Plan
#Dyspnea
Multifactorial
Likely from acute exacerbation of HFpEF vs progressing interstitial lung disease.
Patient not on home oxygen
BNP 1090 > 2930, troponins negative,Renal function stable
EKG with sinus rhythm and frequent PACs, prolonged QT�521
Echo�03/17/2024�with ejection fraction of 50-55%, moderate AR, stage II diastolic dysfunction.
Will update echo
Chest x-ray with evidence of interstitial pulmonary edema and chronic interstitial changes, small bilateral pleural effusions
CT chest with evidence of GGO's and finding suggestive of interstitial edema.
Start IV Lasix 40 mg, twice daily.
Continue Jardiance
Will add spironolactone 12.5 mg daily
Monitor I/os and electrolytes, trend weights.
Monitor respiratory status, currently on 2 L nasal cannula, try to wean as able.
Patient requires intensive monitoring with daily clinical exams, labs and medication adjustments depending on the clinical improvement.
#Paroxysmal A-fib
Continue diltiazem 120 mg daily
Continue Eliquis 5 mg twice daily
EKG with sinus rhythm, prolonged QT�521
Will discontinue dofetilide
#Essential hypertension
Continue diltiazem 120 mg daily
At presentation patient was in hypertensive urgency�blood pressure at 213/108 which has trended down to 140s/90s after an IV dose of Lasix.
Continue to monitor.
#Interstitial lung disease
Patient not on home oxygen
CT chest with evidence of progressive interstitial and ground glass opacities., Chronic interstitial fibrosis.
Continue oxygen supplementation, wean as tolerated.
Patient might benefit with a pulmonary consult.
Continue Breztri
#Rheumatoid arthritis
Continue prednisone
Rest of her chronic medical conditions management as per the primary team.
Data Reviewed
-
EKG: Tracing Personally Visualized and interpreted
Radiology: Report Reviewed by me
CT Scan: Report Reviewed by me
Labs: Labs Reviewed by me and Discussed with Patient
[2024-10-18] MEDS: ELIQUIS 5 MG PO (19:49)
[2024-10-18] MEDS: SYMBICORT 160/4.5 MCG INHALER 2 PUFF INH (19:49)
[2024-10-18] MEDS: KCL 20 MEQ PO (19:49)
[2024-10-18] MEDS: TYLENOL 1000 MG PO (19:50)
[2024-10-19] VITALS (8 sets, daily range): BP systolic 110–173; BP diastolic 60–96; PULSE 64–87; O2SAT 97–99; BMI 24.9; BMI 24.4
[2024-10-19] MEDS: SPIRIVA RESPIMAT 2.5 MCG 2 PUFF INH (07:58)
[2024-10-19] MEDS: SYMBICORT 160/4.5 MCG INHALER 2 PUFF INH ×2 (07:58→19:50)
[2024-10-19 08:07] LABS: Hematocrit 44.6 % (37.0-47.0); Hemoglobin 13.9 g/dL (12.0-16.0); Mean Corp Hgb Conc. 31.2 g/dL (33.0-37.0); Mean Corpuscular Volume 101.4 fL (81.0-99.0); Platelet Count 233 10^3/uL (130-400); Red Cell Dist. Width 17.2 % (11.5-14.5)
[2024-10-19] MEDS: ELIQUIS 5 MG PO ×2 (08:07→19:45)
[2024-10-19] MEDS: TYLENOL 1000 MG PO ×2 (08:07→19:45)
[2024-10-19] MEDS: KCL 20 MEQ PO ×2 (08:07→19:45)
[2024-10-19] MEDS: PROZAC 20 MG PO (08:08)
[2024-10-19] MEDS: FARXIGA 10 MG PO (08:08)
[2024-10-19] MEDS: DELTASONE 5 MG PO (08:09)
[2024-10-19] MEDS: LASIX 40 MG IV ×2 (08:16→16:37)
[2024-10-19] MEDS: ALDACTONE 12.5 MG PO (08:17)
[2024-10-19] MEDS: CARDIZEM CD 120 MG PO (08:17)
--- NOTE | 2024-10-19 08:18 | W.PN.CD ---
Today's Communication / Plan
-
-Shortness of breath improved compared to initial presentation but still not at baseline
-Continue diuresis with IV Lasix
-Update echocardiogram
-Optimization of treatment of underlying lung disease(pulmonary is consulted)
Impression / Plan
-
Impression
83-year-old female with A-fib s/p ablation on Eliquis, CHF, hypertension, hyperlipidemia, interstitial lung disease presenting with shortness of breath and lower extremity edema.
Plan
#Dyspnea
Multifactorial
Likely from acute exacerbation of HFpEF vs progressing interstitial lung disease.
Patient not on home oxygen
BNP 1090 > 2930, patient noted 5 pound weight gain took additional Lasix at home with some reduction in weight but no improvement in shortness of breath and then presented to ER.
EKG with sinus rhythm and frequent PACs, prolonged QT�521
Echo�03/17/2024�with ejection fraction of 50-55%, moderate AR, mild to moderate mitral regurgitation mild aortic stenosis with mean gradient 15 mmHg mild to moderate tricuspid regurgitation stage II diastolic dysfunction.
Chest x-ray with evidence of interstitial pulmonary edema and chronic interstitial changes, small bilateral pleural effusions
CT chest 10/18/2024 moderate interstitial fibrosis compared to previous subtle increase in ground glass and interstitial opacities within both lungs increase in bilateral pleural effusions with small to moderate bilateral effusions. Findings
suggestive of interstitial pulmonary edema superimposed on background of interstitial fibrosis ascending aorta 4.4 cm small multiple pulm slightly enlarged mediastinal lymph nodes slightly larger than previous exam with evidence of GGO's and finding
suggestive of interstitial edema.
-Shortness of breath improved compared to initial presentation but still not at baseline
-Continue diuresis with IV Lasix
-Update echocardiogram
-Optimization of treatment of underlying lung disease(pulmonary is consulted)
-
#Paroxysmal A-fib
-Patient is post ablation. Patient on dofetilide on admission which was discontinued yesterday due to prolonged [id number]
Continue diltiazem 120 mg daily
Continue Eliquis 5 mg twice daily
#Essential hypertension stable continue current therapy
#Interstitial lung disease
Patient not on home oxygen
CT chest with evidence of progressive interstitial and ground glass opacities., Chronic interstitial fibrosis.
Continue oxygen supplementation, wean as tolerated.
Patient might benefit with a pulmonary consult.
Continue Breztri
#Rheumatoid arthritis
Continue prednisone
Rest of her chronic medical conditions management as per the primary team.
Physical Exam
Vital Signs/Labs
Vital Signs
Temp Pulse Resp BP Pulse Ox
98 F 78 16 110/60 98
10/19/24 03:47 10/19/24 08:03 10/19/24 08:03 10/19/24 03:47 10/19/24 03:47
10/18/24 10/19/24 10/20/24
06:59 06:59 06:59
Actual Weight 68.663 kg
10/19/24 07:49
PT 14.7 Sec (11.4-14.6) H 10/18/24 09:20
INR 1.12 10/18/24 09:20
10/18/24
09:20
Qyo-F-Hbqbamagpdz Pept 2930
LAB Results
10/18/24
09:20
Troponin I 0.027
Physical Exam
Constitutional: No acute distress
Cardiovascular: Rhythm & rate is regular and Systolic murmur present
Respiratory: Other (Fine crackles at bases bilaterally)
GI: Soft and Non tender
Neuro/Psych: Alert
Other: Skin
Data Reviewed
-
Date of Service: October 19, 2024
Medical Decision Making: Reviewed Test Results
Echo: Report Reviewed by me
X-Ray/CT/US/MRI/NUC/PET: Report Reviewed by me
Medical Tests (PFT, Pathology etc): Report Reviewed by me
Labs: Labs Reviewed by me
[2024-10-19 09:12] LABS: Blood Urea Nitrogen 18 mg/dl (7-17); Calcium 9.2 mg/dl (8.4-10.2); Carbon Dioxide 29 mmol/L (22-30); Chloride 107 mmol/L (98-107); Estimated Creatinine Clearance 57 ml/min; Glucose 86 mg/dl (70-99); Magnesium 2.0 mg/dl (1.6-2.3); Potassium 4.3 mmol/L (3.5-5.1); Sodium 142 mmol/L (135-145); eGFR > 60.00
--- NOTE | 2024-10-19 10:14 | W.PN.HOSP.TC ---
Today's Communication/Plan
-
.
Assessment / Plan
Assessment / Plan
Physical Exam
General: Appears Chronically Ill
HEENT: Moist mucous membranes and Atraumatic
Respiratory: Rales; No Wheezes
Cardiac: S1/S2 and Regular Rhythm
GI: Soft and Non Tender
Genito-urinary: No costovertebral tender; No German
Musculoskeletal: No Cyanosis and No Edema
Skin: No Jaundice
Neuro: AO x 3 and Nonfocal/grossly intact
Psych: Calm and Intact Judgment/Insight
83 years old female presented with shortness of breath/respiratory distress
# Acute respiratory distress/progressive shortness of breath
Hypoxia not detected although started on oxygen. Oxygen on arrival was low 90s. She checks O2 level at home, reportedly oxygen around 94-95%
Seems possible combination of acute on chronic diastolic heart failure/chronic heart failure with a preserved ejection fraction with some superimposed ILD
No fever, no cough.
Will d/w pulmonary about CT findings but I feel to try to diurese her first
c/w IV Lasix
Daily weight
Monitor renal function and electrolyte level
Doubt cardiac ischemia with absence of acute ischemic changes on EKG and chest pain
Primary salesperson wigs Dr. Curtis
Appreciate cardiology input
# History of primary hypertension
Hypertensive urgency on arrival, currently improving with IV Lasix.
Monitor blood pressure.
Patient denied chest pain or headache or abdominal pain.
# prolonged QT, improved
Stopped Tikosyn
Normal Mg.
# Paroxysmal Atrial Fibrillation
No history of palpitations. EKG sinus rhythm.
Continue with Eliquis/rate control medications
#Leukocytosis -likely reactive
Afebrile
#Hyperlipidemia
#Depression
Continue Fluoxetine
# Prolonged QT, mild, monitor
#Spinal stenosis/DDD osteopenia/osteoarthritis/ Rheumatoid Arthritis
Continue daily dose of prednisone
#DVT prophylaxis: Eliquis
#Code Status: DNR, confirmed with patient.
Total time spent to see the patient, examine the patient, review data lab result, discuss treatment plan with patient, nursing staff around 55 minutes
Anticipated Discharge: > 48 hours
Subjective/Interval History
-
Date of Service: October 19, 2024
No chest pain
Less sob
good urine output
Objective Data
-
Labs:
Laboratory Results
10/19/24
07:49
WBC 11.6 H
Hgb 13.9
Hct 44.6
Plt Count 233
Sodium 142
Potassium 4.3
Chloride 107
Carbon Dioxide 29
BUN 18 H
Creatinine 0.7
Glucose 86
Calcium 9.2
Vital Signs:
Vital Signs
Temp Pulse Resp BP Pulse Ox
97.6 F 85 18 173/85 98
10/19/24 08:30 10/19/24 08:30 10/19/24 08:30 10/19/24 08:30 10/19/24 08:30
I&O
10/18/24 10/19/24 10/20/24
06:59 06:59 06:59
Intake Total 360 / 360
Output Total 2099 / 2099
Balance -1740 / -1740
--- NOTE | 2024-10-19 11:56 | PTCARENOTE ---
10/19/24 11:30 Pt had a run of A-fib on playground monitor. HRRI 120-142 range especially with ambulation. EKG done- ST with 1st degree AV block with PVC's. Dr. Granger and Dr. Solorio Made aware. Pt's HR then came down into 90 range. Pt not
symptomatic. Cont to assess patient status.
[2024-10-19] MEDS: CRESTOR 10 MG PO (12:04)
--- NOTE | 2024-10-19 14:03 | CON.PUL ---
Consultation
Consultation Request
Date/Time Consultation Requested: 10/19/2024
Date/Time Consultation Performed: 10/19/2024
Requesting Provider: Dr. Diaz
Performing Provider: Dr. Chris Eng
Reason for Consultation: Hypoxemic respiratory failure-history of interstitial lung disease
Medical History
-
Chief Complaint: Shortness of breath
History of Present Illness:
83-year-old female with history of hypertension, hyperlipidemia, rheumatoid arthritis, atrial fibrillation and interstitial lung disease followed by Dr. Horton. History of paroxysmal atrial fibrillation, diastolic heart failure on oral Lasix. Has
been taking oral Lasix without success.
reports recently gaining weight with subsequent shortness of breath.
Usually not on home oxygen.
During emergency room evaluation the chest x-ray showed changes consistent with heart failure. proBNP was elevated.
IV diuretics started.
l
Past Medical History
Past Medical History: Other (See assessment and plan)
Social History
Tobacco: Non-smoker
Alcohol: None
Drug: None
Personal:
Living: With Family
Occupational Exposures: No known asbestos exposure
Environmental Exposures: No known tuberculosis exposure
Family History
Family History: Reviewed & Not Pertinent and Other (Father-colon cancer. Daughter-asthma. Mother-CAD. Brother-rheumatoid arthritis and interstitial lung disease.)
Allergies / Home Medications
Allergies
Allergy/AdvReac Type Severity Reaction Status Date / Time
No Known Allergies Allergy Verified 10/18/24 09:15
Home Medications
�Medication �Instructions �Recorded �Confirmed �Last Taken �Type
fluoxetine 20 mg capsule 20 mg PO DAILY Mental 04/26/18 10/18/24 10/17/24 History
Health/Anxiety
rosuvastatin 10 mg tablet 10 mg PO NOON High Cholesterol 10/25/22 10/18/24 10/17/24 History
potassium chloride 20 mEq 20 meq PO DAILY Supplement 06/19/23 10/18/24 10/17/24 History
tablet,extended release(part/cryst)
B-complex with vitamin C 1 tab PO NOON Supplement 06/28/23 10/18/24 10/17/24 History
furosemide 40 mg tablet 40 mg PO DAILY Fluid 06/29/23 10/18/24 10/17/24 History
Retention/Swelling
empagliflozin 10 mg tablet 10 mg PO DAILY Heart 07/02/23 10/18/24 10/17/24 Rx
(Jardiance) disease/condition 30 days #30 tabs
apixaban 5 mg tablet (Eliquis) 5 mg PO BID Blood Clot 09/07/23 10/18/24 10/17/24 20:00 History
Prevention/Tx
calcium 333 mg-vit D3 133 1 tab PO BID Supplement 09/07/23 10/18/24 10/17/24 History
unit-magnesium 133 mg-zinc 5 mg
tablet
magnesium 250 mg tablet 250 mg PO DAILY Supplement 09/07/23 10/18/24 10/17/24 History
prednisone 5 mg tablet 5 mg PO DAILY inflammation 10/13/23 10/18/24 10/17/24 History
dofetilide 250 mcg capsule 250 mcg PO BID Arrhythmia 11/23/23 10/18/24 10/17/24 History
diltiazem HCl 120 mg 120 mg PO DAILY Blood Pressure 08/28/24 10/18/24 10/17/24 History
capsule,extended release 24 hr
acetaminophen 500 mg tablet 1,000 mg PO BID Pain 10/18/24 10/18/24 10/17/24 History
(Tylenol Extra Strength)
budesonide 160 mcg-glycopyr 9 1 inh inhalation BID 10/18/24 10/18/24 10/17/24 History
mcg-formot 4.8 mcg/actuation HFA Lung/Breathing Issues
inhaler (Breztri Aerosphere)
Review of Systems
-
History Source: Patient
All other systems: Negative unless noted
Vitals / Labs / Diagnostic Testing
Vital Signs
Temp Pulse Resp BP Pulse Ox
97.8 F 93 18 125/77 100
10/19/24 11:33 10/19/24 11:33 10/19/24 11:33 10/19/24 11:33 10/19/24 11:33
Lab Data
10/19/24 07:49
10/19/24 07:49
Microbiology
10/18/24 09:20 Nasal Swab Influenza Types A & B (SPENCER) - Final
Negative for Influenza A & B, NAAT
Negative results must be combined with clinical observations
and patient history.
Nucleic Acid Amplification test (NAAT)performed on the
[employer] platform.
Diagnostic Testing:
Physical Exam
-
HEENT: Normocephalic
Cardiovascular: Irregular Rhythm
Respiratory: Rales
GI: Soft and Non Distended
Neurology: Awake, Alert, Oriented and No Motor Deficits
Skin: Warm
General: Comfortable
Assessment
-
83-year-old woman with past medical history significant for rheumatoid arthritis on chronic low-dose prednisone, heart failure with preserved ejection fraction, atrial fibrillation anticoagulation, interstitial lung disease, asthma, admitted with
shortness of breath, weight gain despite oral diuretics.
CT of the chest with bilateral increased interstitial markings and small pleural effusions. We were consulted on 10/19/2024 for evaluation.
Acute hypoxemic respiratory insufficiency-progressive shortness of breath-low saturation 90% on room air.
CT of the chest reviewed 10/2024: Showed bilateral increased interstitial markings, some ground glass opacities with small bilateral pleural effusions-suspect heart failure on top of chronic pulmonary fibrosis.
Increased proBNP 2930
Negative troponin
Afebrile/mild leukocytosis
Suspect acute on chronic heart failure with preserved ejection fraction.
Echocardiogram 10/19/2024: Reviewed ejection fraction 58%. Mild LVH. Moderate aortic stenosis. Moderate MR. Mild to moderate aortic and tricuspid regurgitation. Estimated pulmonary pressure 48 mmHg. Normal RV function.
Conditions present prior to admission:
Recent hospitalization 10/25--pneumonia, CHF, asthma exacerbation
Recent hospitalization 11/22--CHF preserved EF, asthma, interstitial lung disease
ILD followed by Dr. Ramos-most recently Dr. Horton
Last time seen in the office 08/01/2024: Sanjana RIVERO
Mild intermittent asthma- On Breztri
Severe obstructive sleep apnea: On CPAP therapy
Tiny bilateral pulmonary nodules-deemed to be benign per [facility] notes.
Rheumatoid arthritis previously on methotrexate-currently on low-dose prednisone 5 mg-follows up with Dr. Crowder.
Methotrexate chronically-recently discontinued and no longer on immunosuppressive's
Asthma-mild intermittent.
Diastolic dysfunction-stage II MR/AR.
Previous pericardial effusion s/p pericardiocentesis in June 2023-received colchicine at that time.
Postnasal drip.
Skin cancer.
Pulmonary nodules-stable 2020 through 2022-2 mm right upper lobe, 3 mm right lower lobe, 3 mm left upper lobe.
Atrial fibrillation-chronic anticoagulation.
Hypertension.
Hyperlipidemia.
Depression.
Non-smoker
Bilateral cataract. Laminectomy. Left hip replacement. Right total knee replacement 2018. Left total knee replacement 2019. D&C.
DNR status
Assessment and plan:
Shortness of breath and respiratory sufficiency suspect related to acute on chronic heart failure based on increased proBNP, bilateral pleural effusions and new increased interstitial markings with ground glass opacities bilaterally.
Patient does have prior history of interstitial lung disease that has been stable per [facility] notes. Not currently on any particular therapy. ILD in her case likely related to rheumatoid arthritis.
Currently for rheumatoid arthritis only on 5 mg of prednisone. Previously on methotrexate-no longer taking.
-
The fact that in the past imaging of the chest improved without anti-inflammatory suggest that previous worsening was related mainly to volume overload/heart failure.
Most recent echocardiogram without significant RV dysfunction. Does have pulmonary hypertension suspect in the setting of cardiac disease and heart failure.
Agree with IV diuretics.
Monitor electrolytes and renal function
Daily weights
Cardiology following the patient
Echocardiogram from this admission noted.
-
Continue 5 mg of prednisone for now.
Will continue to reassess on a daily basis, if continues to be short of breath despite proper diuresis can consider a course of higher doses of the steroid for possibility of ILD flareup-suspicion is very high as the patient is already improved
compared to yesterday.
Her ILD is not consistent with UIP pattern. Is likely secondary to connective tissue disease as above.
Eventual home oxygen assessment currently wearing only 2 L. Prior to admission not on supplemental oxygen.
-
Mild intermittent asthma: Stable.
Not bronchospastic
Continue inhalers.
-
Obstructive sleep apnea: Restart CPAP therapy.
She has been compliant at home.
-
Increase activity as able
Incentive spirometry encouraged
-
DVT prophylaxis-already on apixaban for atrial fibrillation.
-
Dr. Eng updated patient in detail 10/19/2024.
Will follow
--- NOTE | 2024-10-19 15:13 | CM ---
Chart reviewed and plan is for patient to return to home back to [facility] with spouse when stable, physical therapy are recommending home care, referral sent to [facility]. Patient is still on oxygen, no oxygen in home.
Plan; Home with [facility] visiting nurses
[phone]
[2024-10-20 03:18] VITALS: BP 149/84
[2024-10-20 06:00] VITALS: BMI 24.4
[2024-10-20 07:00] VITALS: BP 145/85
[2024-10-20] MEDS: SYMBICORT 160/4.5 MCG INHALER 2 PUFF INH ×2 (07:26→19:20)
[2024-10-20] MEDS: SPIRIVA RESPIMAT 2.5 MCG 2 PUFF INH (07:26)
[2024-10-20] MEDS: ALDACTONE 12.5 MG PO (08:14)
[2024-10-20] MEDS: FARXIGA 10 MG PO (08:15)
[2024-10-20] MEDS: PROZAC 20 MG PO (08:15)
[2024-10-20] MEDS: ELIQUIS 5 MG PO ×2 (08:15→19:53)
[2024-10-20] MEDS: KCL 20 MEQ PO ×2 (08:15→19:53)
[2024-10-20] MEDS: DELTASONE 5 MG PO (08:15)
[2024-10-20] MEDS: FLUSH (NSS) 1 FLUSH IV ×2 (08:16→16:27)
[2024-10-20] MEDS: TYLENOL 1000 MG PO ×2 (08:16→19:53)
[2024-10-20] MEDS: LASIX 40 MG IV ×2 (08:16→16:27)
--- NOTE | 2024-10-20 08:16 | W.PN.CD ---
Today's Communication / Plan
-
continue lasix 40mg IV bid
labs
increase diltiazem to 240 mg daily
Impression / Plan
-
Impression
83-year-old female with A-fib s/p ablation on Eliquis, CHF, hypertension, hyperlipidemia, interstitial lung disease presenting with shortness of breath and lower extremity edema.
Plan
# Acute on chronic HFPEF, with valvular heart disease and pulmonary HTN
-severe, requiring hospitalization and IV diuresis, with close monitoring of labs/tele
-echo 10/19: EF 55-60%, moderate , mild/mod AR, moderate MR, mild/mod TR, PASP 48
-continue aldactone and farxiga
-continue lasix 40mg IV bid
#Paroxysmal A-fib
-Patient is post ablation. Patient on dofetilide on admission which was discontinued due to prolonged [id number] on admissio
-having frequent PAC's and brief runs A fib: increase diltiazem to 240 mg daily
Continue Eliquis 5 mg twice daily
#Essential hypertension
-monitor on current therapy
#Interstitial lung disease
-per pulmonology
Physical Exam
Vital Signs/Labs
Vital Signs
Temp Pulse Resp BP Pulse Ox
98 F 74 16 149/84 99
10/20/24 03:18 10/20/24 07:30 10/20/24 07:30 10/20/24 03:18 10/20/24 08:10
10/19/24 10/20/24 10/21/24
06:59 06:59 06:59
Actual Weight 68.663 kg 68.577 kg
10/19/24 07:49
PT 14.7 Sec (11.4-14.6) H 10/18/24 09:20
INR 1.12 10/18/24 09:20
Magnesium 2.0 mg/dl (1.6-2.3) 10/19/24 07:49
10/18/24
09:20
Mzc-B-Irizggjtvow Pept 2930
LAB Results
10/18/24
09:20
Troponin I 0.027
Physical Exam
Constitutional: No acute distress
EENT: Moist mucous membranes
Cardiovascular: Pedal edema is absent, Rhythm/rate is irregular, Pedal edema present and JVD present
Respiratory: Respiratory effort normal
Neuro/Psych: AO x 3
Data Reviewed
-
Date of Service: October 20, 2024
EKG: Other (Tele: SR, frequent PAC's, brief A fib)
Echo: Report Reviewed by me
Labs: Labs Ordered by me
[2024-10-20] MEDS: CARDIZEM CD 240 MG PO (08:24)
[2024-10-20 09:10] LABS: Blood Urea Nitrogen 29 mg/dl (7-17); Calcium 9.5 mg/dl (8.4-10.2); Carbon Dioxide 32 mmol/L (22-30); Chloride 105 mmol/L (98-107); Estimated Creatinine Clearance 57 ml/min; Glucose 90 mg/dl (70-99); Potassium 4.0 mmol/L (3.5-5.1); Sodium 142 mmol/L (135-145); eGFR > 60.00
[2024-10-20] MEDS: CARDIZEM CD PO (09:23)
--- NOTE | 2024-10-20 09:34 | W.PN.HOSP.TC ---
Today's Communication/Plan
-
I think she is still symptomatic on exertion, will c/w IV Lasix. Might re-consider to repeat CT chest to compare findings over the weekend
Assessment / Plan
Assessment / Plan
Physical Exam
General: Appears Chronically Ill
HEENT: Moist mucous membranes and Atraumatic
Respiratory: Rales; No Wheezes
Cardiac: S1/S2 and Regular Rhythm
GI: Soft and Non Tender
Genito-urinary: No costovertebral tender; No German
Musculoskeletal: No Cyanosis and No Edema
Skin: No Jaundice
Neuro: AO x 3 and Nonfocal/grossly intact
Psych: Calm and Intact Judgment/Insight
83 years old female presented with shortness of breath/respiratory distress
# Acute respiratory distress/progressive shortness of breath
Hypoxia not detected although started on oxygen. Oxygen on arrival was low 90s. She checks O2 level at home, reportedly oxygen around 94-95%
Seems possible combination of acute on chronic diastolic heart failure/chronic heart failure with a preserved ejection fraction with some superimposed ILD
No fever, no cough.D/W pulmonary about CT findings, try to diurese her first
c/w IV Lasix
She lost weight
Monitor renal function and electrolyte level
Doubt cardiac ischemia with absence of acute ischemic changes on EKG and chest pain
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 Curtis
Appreciate cardiology input
# History of primary hypertension
Hypertensive urgency on arrival, currently improving with IV Lasix.
Monitor blood pressure.
Patient denied chest pain or headache or abdominal pain.
# prolonged QT, improved
Stopped Tikosyn
Normal Mg.
# Paroxysmal Atrial Fibrillation
Few bursts on tele, increased Cardizem
No history of palpitations. EKG sinus rhythm.
Continue with Eliquis/rate control medications
#Leukocytosis -likely reactive
Afebrile
#Hyperlipidemia
#Depression
Continue Fluoxetine
# Prolonged QT, mild, monitor
#Spinal stenosis/DDD osteopenia/osteoarthritis/ Rheumatoid Arthritis
Continue daily dose of prednisone
#DVT prophylaxis: Eliquis
#Code Status: DNR, confirmed with patient.
Total time spent to see the patient, examine the patient, review data lab result, discuss treatment plan with patient, nursing staff around 55 minutes
Anticipated Discharge: > 48 hours
Subjective/Interval History
-
Date of Service: October 20, 2024
Still sob upon exertion
Objective Data
-
Labs:
Laboratory Results
10/20/24
08:19
Sodium 142
Potassium 4.0
Chloride 105
Carbon Dioxide 32 H
BUN 29 H
Creatinine 0.7
Glucose 90
Calcium 9.5
Vital Signs:
Vital Signs
Temp Pulse Resp BP Pulse Ox
97.7 F 78 16 145/85 99
10/20/24 07:00 10/20/24 08:24 10/20/24 07:30 10/20/24 08:24 10/20/24 08:10
I&O
10/19/24 10/20/24 10/21/24
06:59 06:59 06:59
Intake Total 360 / 360 720 / 720
Output Total 2099 / 2099 1750 / 1750
Balance -1740 / -1740 -1030 / -1030
[2024-10-20 10:33] VITALS: BMI 24.4
[2024-10-20 11:00] VITALS: BP 126/74
--- NOTE | 2024-10-20 12:44 | W.PN.UPDATE ---
Update Note
Progress Note Update
Ms. Quiñonez is a 83-year-old woman with history of persistent atrial fibrillation who had failed flecainide and dofetilide with a history of rheumatoid arthritis and history of pericardial effusions (hemorrhagic), along with interstitial lung
disease, HTN, HFpEF, obstructive sleep apnea who eventually underwent for A-fib ablation on 11/23/2023.
Patient's A-fib ablation included pulsed field with Tashia pulse. Patient's electroanatomic map shows severe scarring of the left atrium. There was scar noted in the posterior and anterior wall. The ablation included pulm vein isolation and posterior
wall isolation. The anterior wall scar was not able to be ablated completely without the risk of causing standstill atrium and isolation of left atrial appendage.
Given patient's extent of scarring, she is at risk of developing recurrent atrial fibrillation.
She presented this admission with short recurrence of atrial fibrillation. She has not seen any significant A-fib since the ablation but she had been maintained on Tikosyn. Unfortunately this admission, patient's QTc was noted to be significantly
elevated. Tikosyn was held and the QTc is already normalized.
Given patient's extent of scarring in the left atrium, she is at risk of developing recurrent atrial fibrillation. If she cannot take Tikosyn, I suggest switching her to sotalol 80 mg twice a day. We can stop diltiazem and switch to sotalol.
Patient's creatinine is normal and acceptable liver functions.
--- NOTE | 2024-10-20 12:49 | W.PN.PUL3 ---
Today's Communication / Plan
-
Continue IV diuretics
Monitor electrolytes and renal function
Wean off oxygen
Home oxygen assessment tomorrow
Continue inhalers
CXR in AM
Assessment
-
83-year-old woman with past medical history significant for rheumatoid arthritis on chronic low-dose prednisone, heart failure with preserved ejection fraction, atrial fibrillation anticoagulation, interstitial lung disease, asthma, admitted with
shortness of breath, weight gain despite oral diuretics.
CT of the chest with bilateral increased interstitial markings and small pleural effusions. We were consulted on 10/19/2024 for evaluation.
Acute hypoxemic respiratory insufficiency-progressive shortness of breath-low saturation 90% on room air.
CT of the chest reviewed 10/2024: Showed bilateral increased interstitial markings, some ground glass opacities with small bilateral pleural effusions-suspect heart failure on top of chronic pulmonary fibrosis.
Increased proBNP 2930
Negative troponin
Afebrile/mild leukocytosis
Suspect acute on chronic heart failure with preserved ejection fraction.
Echocardiogram 10/19/2024: Reviewed ejection fraction 58%. Mild LVH. Moderate aortic stenosis. Moderate MR. Mild to moderate aortic and tricuspid regurgitation. Estimated pulmonary pressure 48 mmHg. Normal RV function.
Conditions present prior to admission:
Recent hospitalization 10/25--pneumonia, CHF, asthma exacerbation
Recent hospitalization 11/22--CHF preserved EF, asthma, interstitial lung disease
ILD followed by Dr. Ramos-most recently Dr. Horton
Last time seen in the office 08/01/2024: Sanjana RIVERO
Mild intermittent asthma- On Breztri
Severe obstructive sleep apnea: On CPAP therapy
Tiny bilateral pulmonary nodules-deemed to be benign per [facility] notes.
Rheumatoid arthritis previously on methotrexate-currently on low-dose prednisone 5 mg-follows up with Dr. Crowder.
Methotrexate chronically-recently discontinued and no longer on immunosuppressive's
Asthma-mild intermittent.
Diastolic dysfunction-stage II MR/AR.
Previous pericardial effusion s/p pericardiocentesis in June 2023-received colchicine at that time.
Postnasal drip.
Skin cancer.
Pulmonary nodules-stable 2020 through 2022-2 mm right upper lobe, 3 mm right lower lobe, 3 mm left upper lobe.
Atrial fibrillation-chronic anticoagulation.
Hypertension.
Hyperlipidemia.
Depression.
Non-smoker
Bilateral cataract. Laminectomy. Left hip replacement. Right total knee replacement 2017. Left total knee replacement 2019. D&C.
DNR status
Assessment and plan:
Shortness of breath and respiratory sufficiency suspect related to acute on chronic heart failure based on increased proBNP, bilateral pleural effusions and new increased interstitial markings with ground glass opacities bilaterally.
Patient does have prior history of interstitial lung disease that has been stable per [facility] notes. Not currently on any particular therapy. ILD in her case likely related to rheumatoid arthritis.
Currently for rheumatoid arthritis only on 5 mg of prednisone. Previously on methotrexate-no longer taking.
-
The fact that in the past imaging of the chest improved without anti-inflammatory suggest that previous worsening was related mainly to volume overload/heart failure.
Most recent echocardiogram without significant RV dysfunction. Does have pulmonary hypertension suspect in the setting of cardiac disease and heart failure.
Echocardiogram 10/19/2024: Report reviewed, normal LVEF. Moderate aortic stenosis. Moderate MR. Mild to moderate AR. Estimated pulmonary artery pressure 40 mmHg.
Agree with continue IV diuretics.
Monitor electrolytes and renal function
Daily weights-trending lower
Cardiology following the patient
-
Continue 5 mg of prednisone for now. Continue to hold higher dose of steroids.
Will continue to reassess on a daily basis, if continues to be short of breath despite proper diuresis can consider a course of higher doses of the steroid for possibility of ILD flareup-suspicion is very high as the patient is already improved
compared to yesterday.
Her ILD is not consistent with UIP pattern. Is likely secondary to connective tissue disease as above.
-
Eventual home oxygen assessment currently wearing only 2 L. Prior to admission not on supplemental oxygen.
Home oxygen assessment 10/21/2024.
-
Mild intermittent asthma: Stable.
Not bronchospastic
Continue inhalers.
-
Obstructive sleep apnea: CPAP therapy.
She has been compliant at home.
-
Increase activity as able
Incentive spirometry encouraged
-
DVT prophylaxis-already on apixaban for atrial fibrillation.
-
Dr. Eng updated patient in detail 10/19/2024.
Will follow
Follow-up with Dr. Horton after discharge.
Subjective Data
-
Date of Service:
Date of Service: October 20, 2024
Chief Complaint: Pulmonary Follow Up (Hypoxemic respiratory failure-ILD/CHF)
Subjective:
Clinically improved-less short of breath.
Denies increased coughing, hemoptysis or phlegm production
Denies leg edema
Review of Systems
Cardiopulmonary: Dyspnea (n) and Dyspnea on Exertion (n)
GI: Abdominal Pain (n)
Neuro: Headache (n)
Objective Data
Data Reviewed
Vital Signs / I&O / Oxygen:
Vital Signs
Temp Pulse Resp BP Pulse Ox
98.2 F 75 16 126/74 98
10/20/24 11:00 10/20/24 11:00 10/20/24 11:00 10/20/24 11:00 10/20/24 11:00
Intake and Output
10/19/24 10/20/24 10/21/24
06:59 06:59 06:59
Intake Total 360 / 360 720 / 720
Output Total 2099 / 2100 1750 / 1750
Balance -1740 / -1740 -1030 / -1030
SaO2 98
Nasal Cannula flow liters per 2
minute
Physical Exam
General: Comfortable
HEENT: Normocephalic
Cardiovascular: S1-S2
Respiratory: Non-Labored Respirations
GI: Soft and Non Distended
Neurology: Awake, Alert and No Motor Deficits
Skin: Warm
Labs/Micro/Reports
Lab Data
10/19/24 07:49
10/20/24 08:19
Microbiology
10/18/24 09:20 Nasal Swab Influenza Types A & B (SPENCER) - Final
Negative for Influenza A & B, NAAT
Negative results must be combined with clinical observations
and patient history.
Nucleic Acid Amplification test (NAAT)performed on the
[employer] platform.
[2024-10-20] MEDS: CRESTOR 10 MG PO (12:57)
[2024-10-20 15:00] VITALS: BP 125/71
[2024-10-20] MEDS: TYLENOL 325 MG PO (16:26)
--- NOTE | 2024-10-20 16:56 | CM ---
Maintained on oxygen 2 liter NC POx 98%.
Will need home oxygen test prior to discharge.
Maintained on IV diuretics.
PT Ot indicated VN
Referral placed for [facility] JACKSON
PLAN Home with Derek JACKSON fax [phone]
[2024-10-20 19:20] VITALS: BP 117/73
[2024-10-20 23:07] VITALS: BP 120/70
[2024-10-21] VITALS (7 sets, daily range): BP systolic 105–137; BP diastolic 76–93; PULSE 106; O2SAT 97; BMI 24.3
[2024-10-21] MEDS: TYLENOL 325 MG PO (05:47)
[2024-10-21] MEDS: SPIRIVA RESPIMAT 2.5 MCG 2 PUFF INH (07:43)
[2024-10-21] MEDS: SYMBICORT 160/4.5 MCG INHALER 2 PUFF INH ×2 (07:43→19:28)
[2024-10-21] MEDS: CARDIZEM CD 240 MG PO (08:12)
[2024-10-21] MEDS: DELTASONE 5 MG PO (08:13)
[2024-10-21] MEDS: ELIQUIS 5 MG PO ×2 (08:13→20:37)
[2024-10-21] MEDS: PROZAC 20 MG PO (08:13)
--- NOTE | 2024-10-21 08:26 | W.PN.CD ---
Today's Communication / Plan
-
- D/c Dilt and start Sotalol 80 mg BID
- EKG with Sotalol loading
Impression / Plan
-
Impression
Ms. Quiñonez is a 83-year-old woman with history of persistent atrial fibrillation who had failed flecainide and dofetilide with a history of rheumatoid arthritis and history of pericardial effusions (hemorrhagic), along with interstitial lung
disease, HTN, HFpEF, obstructive sleep apnea who eventually underwent for A-fib ablation on 11/23/2023 now presenting with shortness of breath and lower extremity edema.
Plan
# Acute on chronic HFPEF, with valvular heart disease and pulmonary HTN
-severe, requiring hospitalization and IV diuresis, with close monitoring of labs/tele
-echo 10/19: EF 55-60%, moderate , mild/mod AR, moderate MR, mild/mod TR, PASP 48
-continue aldactone and farxiga
-continue lasix 40mg IV bid
- Pulmonary is following.
#Paroxysmal A-fib
-Patient is post ablation. Patient on dofetilide on admission which was discontinued due to prolonged [id number] on admissio
-having frequent PAC's and brief runs A fib.
- A-fib ablation included pulsed field with Tashia pulse. Patient's electroanatomic map shows severe scarring of the left atrium. There was scar noted in the posterior and anterior wall. The ablation included pulm vein isolation and posterior wall
isolation. The anterior wall scar was not able to be ablated completely without the risk of causing standstill atrium and isolation of left atrial appendage.
Given patient's extent of scarring, she is at risk of developing recurrent atrial fibrillation.
- Start Sotlaol 80 mg BID
- Discontinue Diltiazem
- If her resp status cannot tolerate Sotalol then will have to stop and continue Diltiazme.
Continue Eliquis 5 mg twice daily
#Essential hypertension
-monitor on current therapy
#Interstitial lung disease
-per pulmonology
Physical Exam
Vital Signs/Labs
Vital Signs
Temp Pulse Resp BP Pulse Ox
97.8 F 116 16 119/85 100
10/21/24 02:58 10/21/24 08:12 10/21/24 07:47 10/21/24 08:12 10/21/24 07:47
10/20/24 10/21/24 10/22/24
06:59 06:59 06:59
Actual Weight 68.577 kg 68.237 kg
PT 14.7 Sec (11.4-14.6) H 10/18/24 09:20
INR 1.12 10/18/24 09:20
Magnesium 2.0 mg/dl (1.6-2.3) 10/19/24 07:49
10/18/24
09:20
Lmk-O-Wylezabxwit Pept 2930
LAB Results
10/18/24
09:20
Troponin I 0.027
Physical Exam
Constitutional: No acute distress and Comfortable
EENT: Anicteric and Moist mucous membranes
Cardiovascular: Rhythm & rate is regular and Pedal edema is absent
Respiratory: Respiratory effort normal and Lungs clear to auscul.
GI: Soft, Non tender and Normal bowel sounds
Neuro/Psych: Alert, Oriented and AO x 3
Data Reviewed
-
Date of Service: October 21, 2024
Medical Decision Making: Reviewed Test Results, Test Interpretation and Review of Case with other Provider
EKG: Tracing Personally Visualized and interpreted
Echo: Report Reviewed by me
X-Ray/CT/US/MRI/NUC/PET: Image Personally Visualized and interpreted
Labs: Labs Reviewed by me
Old Records: Reviewed
--- NOTE | 2024-10-21 09:40 | W.PN.HOSP.TC ---
Today's Communication/Plan
-
Starting Sotalol
Assessment / Plan
Assessment / Plan
Physical Exam
General: Appears Chronically Ill
HEENT: Moist mucous membranes and Atraumatic
Respiratory: Rales; No Wheezes
Cardiac: S1/S2 and Regular Rhythm
GI: Soft and Non Tender
Genito-urinary: No costovertebral tender; No German
Musculoskeletal: No Cyanosis and No Edema
Skin: No Jaundice
Neuro: AO x 3 and Nonfocal/grossly intact
Psych: Calm and Intact Judgment/Insight
83 years old female presented with shortness of breath/respiratory distress
# Acute respiratory distress/progressive shortness of breath
Hypoxia not detected although started on oxygen. Oxygen on arrival was low 90s. She checks O2 level at home, reportedly oxygen around 94-95%
Seems possible combination of acute on chronic diastolic heart failure/chronic heart failure with a preserved ejection fraction with some superimposed ILD
No fever, no cough. D/W pulmonary about CT findings, try to diurese her first
c/w IV Lasix
She lost weight
Monitor renal function and electrolyte level
Doubt cardiac ischemia with absence of acute ischemic changes on EKG and chest pain
Primary family independence case manager Dr. Curtis
Appreciate cardiology input
# History of primary hypertension
Hypertensive urgency on arrival, currently improving with IV Lasix.
Monitor blood pressure.
Patient denied chest pain or headache or abdominal pain.
# prolonged QT, improved
Stopped Tikosyn
Normal Mg.
# Paroxysmal Atrial Fibrillation
Few bursts on tele,
d/w EP family independence case manager
Start Sotalol 80 mg BID, dc Diltiazem
No history of palpitations. EKG sinus rhythm.
Continue with Eliquis/rate control medications
#Leukocytosis -likely reactive
Afebrile
#Hyperlipidemia
#Depression
Mood is pleasant
Continue Fluoxetine
# Prolonged QT, mild, resolved.
#Spinal stenosis/DDD osteopenia/osteoarthritis/ Rheumatoid Arthritis
Continue daily dose of prednisone
#DVT prophylaxis: Eliquis
#Code Status: DNR, confirmed with patient.
Total time spent to see the patient, examine the patient, review data lab result, discuss treatment plan with patient, family independence case manager, nursing staff around 55 minutes
Anticipated Discharge: 24 - 48 hours
Subjective/Interval History
-
Date of Service: October 21, 2024
No chest pain
same sob
Objective Data
-
Labs:
Laboratory Results
10/21/24 10/21/24
07:35 09:37
WBC Pending
Hgb Pending
Hct Pending
Plt Count Pending
Sodium Cancelled Pending
Potassium Cancelled Pending
Chloride Cancelled Pending
Carbon Dioxide Cancelled Pending
BUN Cancelled Pending
Creatinine Cancelled Pending
Glucose Cancelled Pending
Calcium Cancelled Pending
Vital Signs:
Vital Signs
Temp Pulse Resp BP Pulse Ox
97.7 F 116 16 119/85 100
10/21/24 07:00 10/21/24 08:12 10/21/24 07:47 10/21/24 08:12 10/21/24 07:47
I&O
10/20/24 10/21/24 10/22/24
06:59 06:59 06:59
Intake Total 720 / 720 2040 / 2040
Output Total 1750 / 1750 1850 / 1850
Balance -1030 / -1030 190 / 190
[2024-10-21] MEDS: TYLENOL 1000 MG PO ×2 (10:16→20:37)
[2024-10-21] MEDS: BETAPACE 80 MG PO ×2 (12:31→20:43)
[2024-10-21] MEDS: CRESTOR 10 MG PO (12:31)
[2024-10-21 12:47] LABS: Blood Urea Nitrogen 28 mg/dl (7-17); Calcium 9.7 mg/dl (8.4-10.2); Carbon Dioxide 30 mmol/L (22-30); Chloride 105 mmol/L (98-107); Estimated Creatinine Clearance 57 ml/min; Glucose 98 mg/dl (70-99); Potassium 4.6 mmol/L (3.5-5.1); Sodium 142 mmol/L (135-145); eGFR > 60.00
[2024-10-21 12:54] LABS: Hematocrit 47.4 % (37.0-47.0); Hemoglobin 15.0 g/dL (12.0-16.0); Mean Corp Hgb Conc. 31.6 g/dL (33.0-37.0); Mean Corpuscular Volume 100.2 fL (81.0-99.0); Platelet Count 293 10^3/uL (130-400); Red Cell Dist. Width 17.0 % (11.5-14.5)
[2024-10-21] MEDS: ALDACTONE 12.5 MG PO (13:35)
[2024-10-21] MEDS: KCL 20 MEQ PO ×2 (13:35→20:37)
[2024-10-21] MEDS: FARXIGA 10 MG PO (13:35)
[2024-10-21] MEDS: LASIX 40 MG IV ×2 (13:36→20:44)
--- NOTE | 2024-10-21 13:54 | W.PN.PUL3 ---
Today's Communication / Plan
-
Cont. Cardiac management
Oxygen weaned off
Cont. Usual prednisone 5mg
sing off.
Assessment
-
83-year-old woman with past medical history significant for rheumatoid arthritis on chronic low-dose prednisone, heart failure with preserved ejection fraction, atrial fibrillation anticoagulation, interstitial lung disease, asthma, admitted with
shortness of breath, weight gain despite oral diuretics.
CT of the chest with bilateral increased interstitial markings and small pleural effusions. We were consulted on 10/19/2024 for evaluation.
Acute hypoxemic respiratory insufficiency-progressive shortness of breath-low saturation 90% on room air.
CT of the chest reviewed 10/2024: Showed bilateral increased interstitial markings, some ground glass opacities with small bilateral pleural effusions-suspect heart failure on top of chronic pulmonary fibrosis.
Increased proBNP 2930
Negative troponin
Afebrile/mild leukocytosis
Suspect acute on chronic heart failure with preserved ejection fraction.
Echocardiogram 10/19/2024: Reviewed ejection fraction 58%. Mild LVH. Moderate aortic stenosis. Moderate MR. Mild to moderate aortic and tricuspid regurgitation. Estimated pulmonary pressure 48 mmHg. Normal RV function.
Conditions present prior to admission:
Recent hospitalization 10/25--pneumonia, CHF, asthma exacerbation
Recent hospitalization 11/22--CHF preserved EF, asthma, interstitial lung disease
ILD followed by Dr. Ramos-most recently Dr. Horton
Last time seen in the office 08/01/2024: Sanjana RIVERO
Mild intermittent asthma- On Breztri
Severe obstructive sleep apnea: On CPAP therapy
Tiny bilateral pulmonary nodules-deemed to be benign per [facility] notes.
Rheumatoid arthritis previously on methotrexate-currently on low-dose prednisone 5 mg-follows up with Dr. Crowder.
Methotrexate chronically-recently discontinued and no longer on immunosuppressive's
Asthma-mild intermittent.
Diastolic dysfunction-stage II MR/AR.
Previous pericardial effusion s/p pericardiocentesis in June 2023-received colchicine at that time.
Postnasal drip.
Skin cancer.
Pulmonary nodules-stable 2020 through 2022-2 mm right upper lobe, 3 mm right lower lobe, 3 mm left upper lobe.
Atrial fibrillation-chronic anticoagulation.
Hypertension.
Hyperlipidemia.
Depression.
Non-smoker
Bilateral cataract. Laminectomy. Left hip replacement. Right total knee replacement 2018. Left total knee replacement 2019. D&C.
DNR status
Assessment and plan:
Shortness of breath and respiratory sufficiency suspect related to acute on chronic heart failure based on increased proBNP, bilateral pleural effusions and new increased interstitial markings with ground glass opacities bilaterally.
Patient does have prior history of interstitial lung disease that has been stable per [facility] notes. Not currently on any particular therapy. ILD in her case likely related to rheumatoid arthritis.
Currently for rheumatoid arthritis only on 5 mg of prednisone. Previously on methotrexate-no longer taking.
-
Clinically improved.
Oxygen has been weaned off.
CXR 10/21/2024: Reviewed - improved.
Confirms symptoms mainly due to CHF on to of underlying ILD.
-
The fact that in the past imaging of the chest improved without anti-inflammatory suggest that previous worsening was related mainly to volume overload/heart failure.
-
Most recent echocardiogram without significant RV dysfunction. Does have pulmonary hypertension suspect in the setting of cardiac disease and heart failure.
Echocardiogram 10/19/2024: Report reviewed, normal LVEF. Moderate aortic stenosis. Moderate MR. Mild to moderate AR. Estimated pulmonary artery pressure 40 mmHg.
Continue IV diuretics. She is responding.
Monitor electrolytes and renal function
Daily weights-trending lower
Atrial fibrillation- not controlled- medications being adjusted.
Cardiology following the patient
-
Continue 5 mg of prednisone for now takes for RA/ILD. Continue to hold higher dose of steroids not indicated. .
-
Mild intermittent asthma: Stable.
Not bronchospastic
Continue inhalers.
-
Obstructive sleep apnea: CPAP therapy.
She has been compliant at home.
-
Increase activity as able
Incentive spirometry encouraged
-
DVT prophylaxis-already on apixaban for atrial fibrillation.
-
Dr. Eng updated patient in detail 10/19/2024.
-
No additional recommendations, will sign off. Please call if questions.
OUtpx follow up with DR. Horton 2-4Weeks.
Subjective Data
-
Date of Service:
Date of Service: October 21, 2024
Chief Complaint: Pulmonary Follow Up (Hypoxemic respiratory failure-ILD/CHF)
Subjective:
Clinically improved.
Oxygen has been weaned off.
Review of Systems
Cardiopulmonary: Dyspnea (improved.)
GI: Abdominal Pain (n) and Nausea (n)
Objective Data
Data Reviewed
Vital Signs / I&O / Oxygen:
Vital Signs
Temp Pulse Resp BP Pulse Ox
98 F 106 16 127/91 97
10/21/24 11:00 10/21/24 12:31 10/21/24 11:00 10/21/24 13:35 10/21/24 11:00
Intake and Output
10/20/24 10/21/24 10/22/24
06:59 06:59 06:59
Intake Total 720 / 720 2040 / 2040
Output Total 1750 / 1750 1850 / 1850
Balance -1030 / -1030 190 / 190
SaO2 97
Nasal Cannula flow liters per 2
minute
Physical Exam
General: Comfortable
HEENT: Normocephalic
Cardiovascular: S1-S2
Respiratory: Non-Labored Respirations
GI: Soft and Non Distended
Neurology: Awake, Alert and No Motor Deficits
Skin: Warm
Labs/Micro/Reports
Lab Data
10/21/24 11:53
10/21/24 11:53
Microbiology
10/18/24 09:20 Nasal Swab Influenza Types A & B (SPENCER) - Final
Negative for Influenza A & B, NAAT
Negative results must be combined with clinical observations
and patient history.
Nucleic Acid Amplification test (NAAT)performed on the
[employer] platform.
[2024-10-21] MEDS: LASIX IV (17:09)
--- NOTE | 2024-10-21 17:15 | CM ---
Weaned off oxygen Pox 95% RA
Maintained on IV diuretics.
PT Ot indicated VN
Referral placed for Derek JACKSON.
Lucía kacey will drive her [place]
PLAN Home with Derek JACKSON fax [phone]
[2024-10-22] VITALS (7 sets, daily range): BP systolic 107–135; BP diastolic 70–93; O2SAT 91–97; BMI 23.9
--- NOTE | 2024-10-22 05:50 | PTCARENOTE ---
QTc interval last ukttv=900 ms. Repeat EKG this am, ZBk=341. Will continue to monitor.
[2024-10-22] MEDS: SYMBICORT 160/4.5 MCG INHALER 2 PUFF INH ×2 (07:20→19:43)
[2024-10-22] MEDS: SPIRIVA RESPIMAT 2.5 MCG 2 PUFF INH (07:20)
[2024-10-22 08:07] LABS: Blood Urea Nitrogen 30 mg/dl (7-17); Calcium 9.2 mg/dl (8.4-10.2); Carbon Dioxide 35 mmol/L (22-30); Chloride 105 mmol/L (98-107); Estimated Creatinine Clearance 44 ml/min; Glucose 95 mg/dl (70-99); Potassium 4.9 mmol/L (3.5-5.1); Sodium 143 mmol/L (135-145); eGFR > 60.00
--- NOTE | 2024-10-22 08:32 | W.PN.HOSP.TC ---
Today's Communication/Plan
-
Change to oral Lasix
f/w EKG and adjust Sotalol
c/w potassium BID for today
Assessment / Plan
Assessment / Plan
Physical Exam
General: Appears Chronically Ill
HEENT: Moist mucous membranes and Atraumatic
Respiratory: Rales; No Wheezes
Cardiac: S1/S2 and Regular Rhythm
GI: Soft and Non Tender
Genito-urinary: No costovertebral tender; No German
Musculoskeletal: No Cyanosis and No Edema
Skin: No Jaundice
Neuro: AO x 3 and Nonfocal/grossly intact
Psych: Calm and Intact Judgment/Insight
83 years old female presented with shortness of breath/respiratory distress
# Acute respiratory distress/progressive shortness of breath
Hypoxia not detected although started on oxygen. Oxygen on arrival was low 90s. She checks O2 level at home, reportedly oxygen around 94-95%
Seems possible combination of acute on chronic diastolic heart failure/chronic heart failure with a preserved ejection fraction with some superimposed ILD
No fever, no cough. D/W pulmonary about CT findings, try to diurese her first
c/w IV Lasix, can switch to oral Lasix.
She lost weight
Monitor renal function and electrolyte level
Doubt cardiac ischemia with absence of acute ischemic changes on EKG and chest pain
Primary restorative rehab aide Dr. Curtis
Appreciate cardiology input
# History of primary hypertension
Hypertensive urgency on arrival, currently improving with IV Lasix.
Monitor blood pressure.
Patient denied chest pain or headache or abdominal pain.
# prolonged QT, improved
Stopped Tikosyn
Normal Mg.
# Paroxysmal Atrial Fibrillation
Few bursts on tele,
d/w EP restorative rehab aide
Started Sotalol 80 mg BID, dc Diltiazem
No history of palpitations. EKG sinus rhythm.
Continue with Eliquis/rate control medications
#Leukocytosis -likely reactive
Afebrile
#Hyperlipidemia
#Depression
Mood is pleasant
Continue Fluoxetine
# Prolonged QT, mild, resolved.
#Spinal stenosis/DDD osteopenia/osteoarthritis/ Rheumatoid Arthritis
Continue daily dose of prednisone
#DVT prophylaxis: Eliquis
#Code Status: DNR, confirmed with patient.
Total time spent to see the patient, examine the patient, review data lab result, discuss treatment plan with patient, restorative rehab aide, nursing staff around 55 minutes
Anticipated Discharge: > 48 hours
Subjective/Interval History
-
Date of Service: October 22, 2024
No chest pain
No sob
No abdominal pain
Objective Data
-
Labs:
Laboratory Results
10/22/24
06:46
Sodium 143
Potassium 4.9
Chloride 105
Carbon Dioxide 35 H
BUN 30 H
Creatinine 0.9
Glucose 95
Calcium 9.2
Vital Signs:
Vital Signs
Temp Pulse Resp BP Pulse Ox
98.3 F 82 14 120/82 99
10/22/24 03:34 10/22/24 07:25 10/22/24 07:25 10/22/24 03:34 10/22/24 07:25
I&O
10/21/24 10/22/24 10/23/24
06:59 06:59 06:59
Intake Total 2039 1260 / 1260
Output Total 1849 / 1849 1999 / 1999
Balance 190 / 190 -740 / -740
[2024-10-22] MEDS: ALDACTONE 12.5 MG PO (09:37)
[2024-10-22] MEDS: DELTASONE 5 MG PO (09:38)
[2024-10-22] MEDS: LASIX 40 MG IV ×2 (09:38→17:03)
[2024-10-22] MEDS: BETAPACE 80 MG PO ×2 (09:38→20:53)
[2024-10-22] MEDS: ELIQUIS 5 MG PO ×2 (09:38→20:50)
[2024-10-22] MEDS: PROZAC 20 MG PO (09:38)
[2024-10-22] MEDS: FARXIGA 10 MG PO (09:38)
[2024-10-22] MEDS: TYLENOL 1000 MG PO ×2 (09:38→20:50)
[2024-10-22] MEDS: KCL 20 MEQ PO ×2 (09:38→20:50)
[2024-10-22] MEDS: FLUSH (NSS) 2 FLUSH IV (09:39)
--- NOTE | 2024-10-22 09:53 | W.PN.CD ---
Addendum entered and electronically signed by Hayden Lange MD 10/22/24 11:49:
I saw and evaluated the patient, and I provided the substantive portion of the medical decision making.
I reviewed and agree with the note by Jody Nava and it accurately reflects our care.
I personally performed the medical decision making of the this encounter and my assessment and plan is below:
Overall, she is still a bit short of breath but feeling better since admission.
On exam lungs are clear to auscultation, irregularly irregular rate and rhythm normal S1-S2 no murmur rubs or gallops were appreciated no lower extreme edema. EKG tracing reviewed from yesterday evening showed A-fib with a QTc on my measurement of
476 ms.
Acute heart failure with preserved EF: Improving, will transition to p.o. diuretic tomorrow morning. Continue 1 last day of IV twice daily with intensive monitoring.
Persistent atrial fibrillation: Did not tolerate dofetilide due to prolonged QT on admission, now on sotalol load. Will continue. If no worship of sinus rhythm chemically, will arrange for cardioversion on Thursday. N.p.o. after midnight
tomorrow.
HTN stable
Original Note:
Today's Communication / Plan
-
Sotalol loading, monitor QTc and tele.
plan for DCCV on 10/24/24.
Impression / Plan
-
Impression
Mrs. Quiñonez is an 83-year-old woman with persistent atrial fibrillation failed flecainide and dofetilide s/p A-fib ablation on 11/23/2023, rheumatoid arthritis, history of pericardial effusions (hemorrhagic), interstitial lung disease, HTN, HFpEF,
and [place] on CPAP, who c/o shortness of breath and lower extremity edema. Acute HFpEF and persistent Afib.
Plan
Acute on chronic HFpEF - with valvular heart disease and pulmonary HTN
-severe, requiring hospitalization and IV diuresis, with close monitoring of labs/tele
-echo 10/19: EF 55-60%, moderate , mild/mod AR, moderate MR, mild/mod TR, PASP 48
-continue Aldactone and Farxiga, Lasix 40mg IV bid.
-Pulmonary is following.
Afib - persistent.
-s/p post ablation. Patient on dofetilide on admission which was discontinued due to prolonged QTc 521 ms on admission.
-now on Sotalol 80 mg BID per EP cardiology Dr. Hampton and Diltiazem stopped.
-monitor QTc.
-plan for DCCV on 10/24/24.
-Afib ablation included pulsed field with Tashia pulse. Patient's electroanatomic map shows severe scarring of the left atrium. There was scar noted in the posterior and anterior wall. The ablation included pulm vein isolation and posterior wall
isolation. The anterior wall scar was not able to be ablated completely
without the risk of causing standstill atrium and isolation of left atrial appendage. Given patient's extent of scarring, she is at risk of developing recurrent atrial fibrillation.
-If her respiratory status cannot tolerate Sotalol then will have to stop and continue Diltiazem.
-continue Eliquis 5 mg twice daily.
Essential hypertension - stable on current therapy.
Interstitial lung disease - per pulmonology.
Physical Exam
Vital Signs/Labs
Vital Signs
Temp Pulse Resp BP Pulse Ox
98 F 89 18 121/79 95
10/22/24 07:46 10/22/24 09:37 10/22/24 07:46 10/22/24 09:37 10/22/24 07:46
10/21/24 10/22/24 10/23/24
06:59 06:59 06:59
Actual Weight 150 lb 7 oz 148 lb 3 oz
10/21/24 11:53
10/22/24 06:46
PT 14.7 Sec (11.4-14.6) H 10/18/24 09:20
INR 1.12 10/18/24 09:20
Magnesium 2.0 mg/dl (1.6-2.3) 10/19/24 07:49
10/18/24
09:20
Tks-U-Njyiayyvbau Pept 2930
Physical Exam
Constitutional: No acute distress and Comfortable
EENT: Anicteric and Moist mucous membranes
Cardiovascular: Rhythm/rate is irregular
Respiratory: Respiratory effort normal and Other (dry rales bibasilar )
GI: Soft and Normal bowel sounds
Neuro/Psych: AO x 3
Other: Skin (warm, dry )
Data Reviewed
-
Date of Service: October 22, 2024
Medical Decision Making: Reviewed Test Results
EKG: Tracing Personally Visualized and interpreted
Labs: Labs Reviewed by me
Old Records: Reviewed
[2024-10-22] MEDS: CRESTOR 10 MG PO (13:52)
[2024-10-22] MEDS: TYLENOL 325 MG PO (17:09)
[2024-10-23 03:02] VITALS: BP 132/97
[2024-10-23 04:56] VITALS: BMI 24.0
[2024-10-23] MEDS: SYMBICORT 160/4.5 MCG INHALER 2 PUFF INH ×2 (07:35→20:02)
[2024-10-23] MEDS: SPIRIVA RESPIMAT 2.5 MCG 2 PUFF INH (07:35)
[2024-10-23 08:00] VITALS: BP 134/88
--- NOTE | 2024-10-23 08:37 | W.PN.HOSP.TC ---
Today's Communication/Plan
-
Consult rn case manager for home oxygen, pt wants to have it for comfort
Assessment / Plan
Assessment / Plan
Physical Exam
General: Appears Chronically Ill
HEENT: Moist mucous membranes and Atraumatic
Respiratory: Rales; No Wheezes
Cardiac: S1/S2 and Regular Rhythm
GI: Soft and Non Tender
Genito-urinary: No costovertebral tender; No German
Musculoskeletal: No Cyanosis and No Edema
Skin: No Jaundice
Neuro: AO x 3 and Nonfocal/grossly intact
Psych: Calm and Intact Judgment/Insight
83 years old female presented with shortness of breath/respiratory distress
# Acute respiratory distress/progressive shortness of breath
Hypoxia not detected although started on oxygen. Oxygen on arrival was low 90s. She checks O2 level at home, reportedly oxygen around 94-95%
Seemed mostly due to acute on chronic diastolic heart failure/chronic heart failure with a preserved ejection fraction rather than ILD flare-up
She is feeling better, but wants oxygen at home for comfort
s/p IV Lasix, now on oral Lasix.
She lost weight
Monitored renal function and electrolyte level
No cardiac ischemia with absence of acute ischemic changes on EKG and chest pain
Primary preschool special education teacher Dr. Curtis
Appreciate cardiology input
# History of primary hypertension
Hypertensive urgency on arrival, currently improving with IV Lasix.
Monitor blood pressure.
Patient denied chest pain or headache or abdominal pain.
# prolonged QT, improved
Stopped Tikosyn
Normal Mg.
# Paroxysmal Atrial Fibrillation
continue in A fib, plan fror cardioversion in AM if A fib
d/w EP preschool special education teacher
Started Sotalol 80 mg BID, dc Diltiazem
No history of palpitations. EKG sinus rhythm.
Continue with Eliquis/rate control medications
#Leukocytosis -likely reactive
Afebrile
#Hyperlipidemia
#Depression
Mood is pleasant
Continue Fluoxetine
# Prolonged QT, mild, resolved.
#Spinal stenosis/DDD osteopenia/osteoarthritis/ Rheumatoid Arthritis
Continue daily dose of prednisone
#DVT prophylaxis: Eliquis
#Code Status: DNR, confirmed with patient.
Total time spent to see the patient, examine the patient, review data lab result, discuss treatment plan with patient, preschool special education teacher, nursing staff around 55 minutes
Anticipated Discharge: > 48 hours
Subjective/Interval History
-
Date of Service: October 23, 2024
No chest pain
No sob
No abdominal pain
Objective Data
-
Labs:
Laboratory Results
10/23/24
06:39
Sodium Pending
Potassium Pending
Chloride Pending
Carbon Dioxide Pending
BUN Pending
Creatinine Pending
Glucose Pending
Calcium Pending
Vital Signs:
Vital Signs
Temp Pulse Resp BP Pulse Ox
97.9 F 86 16 134/88 97
10/23/24 08:00 10/23/24 08:00 10/23/24 08:00 10/23/24 08:00 10/23/24 08:00
I&O
10/22/24 10/23/24 10/24/24
06:59 06:59 06:59
Intake Total 1260 / 1260 1580 / 1580
Output Total 1999
Balance -740 / -740 -345 / -345
[2024-10-23] MEDS: ALDACTONE 12.5 MG PO (08:44)
[2024-10-23] MEDS: DELTASONE 5 MG PO (08:44)
[2024-10-23] MEDS: BETAPACE 80 MG PO ×2 (08:45→20:55)
[2024-10-23] MEDS: PROZAC 20 MG PO (08:45)
[2024-10-23] MEDS: TYLENOL 1000 MG PO ×2 (08:45→20:49)
[2024-10-23] MEDS: KCL 20 MEQ PO ×2 (08:45→20:49)
[2024-10-23] MEDS: ELIQUIS 5 MG PO ×2 (08:45→20:49)
[2024-10-23] MEDS: LASIX 40 MG PO (08:45)
[2024-10-23] MEDS: FLUSH (NSS) 1 FLUSH IV (08:46)
[2024-10-23 08:47] LABS: Blood Urea Nitrogen 34 mg/dl (7-17); Calcium 9.4 mg/dl (8.4-10.2); Carbon Dioxide 35 mmol/L (22-30); Chloride 105 mmol/L (98-107); Estimated Creatinine Clearance 50 ml/min; Glucose 89 mg/dl (70-99); Potassium 4.4 mmol/L (3.5-5.1); Sodium 142 mmol/L (135-145); eGFR > 60.00
[2024-10-23] MEDS: FARXIGA 10 MG PO (09:48)
--- NOTE | 2024-10-23 10:31 | CM ---
Addendum entered by Susan Ramírez 10/23/24 10:52:
CM Consult completed regarding request for home O2
Documented Note for Consult is incorrect
Original Note:
Per Attending, Patient requested having Home Oxygen for 'Comfort' even it is SELF PAY. Attending is agreeable.
CM contacted Oxygen vendor. Per Charis from [facility]; they can supply Oxygen, Self-Pay. Vendor is unable to support this request today.
[employer] will need to Fax H&P, Script, Attending Progress Note to Charis @ [facility] tomorrow. Once information is received, [facility] will call patient to obtain payment information (need a credit card to be kept on file). Cost is $180.00 per month
--- NOTE | 2024-10-23 10:45 | W.PN.CD ---
Today's Communication / Plan
-
npo after mn for dccv
continue sotalol load with intensive monitoring
Impression / Plan
-
Impression
Mrs. Quiñonez is an 83-year-old woman with persistent atrial fibrillation failed flecainide and dofetilide s/p A-fib ablation on 11/23/2023, rheumatoid arthritis, history of pericardial effusions (hemorrhagic), interstitial lung disease, HTN, HFpEF,
and [place] on CPAP, who c/o shortness of breath and lower extremity edema. Acute HFpEF and persistent Afib.
Plan
Acute on chronic HFpEF - with valvular heart disease and pulmonary HTN
-improved, euvolemic at 148.7lbs, continue po lasix(40mg)
-severe, requiring hospitalization and IV diuresis, with close monitoring of labs/tele
-echo 10/19: EF 55-60%, moderate , mild/mod AR, moderate MR, mild/mod TR, PASP 48
-continue Aldactone and Farxiga,.
-Pulmonary is following.
Afib - persistent.
-s/p post ablation. Patient on dofetilide on admission which was discontinued due to prolonged QTc 521 ms on admission.
-now on Sotalol 80 mg BID per EP cardiology Dr. Hampton and Diltiazem stopped.
-monitor QTc. stable on ecgs after 5 doses
-plan for DCCV on 10/24/24, npo after mn
-Afib ablation included pulsed field with Tashia pulse. Patient's electroanatomic map shows severe scarring of the left atrium. There was scar noted in the posterior and anterior wall. The ablation included pulm vein isolation and posterior wall
isolation. The anterior wall scar was not able to be ablated completely
without the risk of causing standstill atrium and isolation of left atrial appendage. Given patient's extent of scarring, she is at risk of developing recurrent atrial fibrillation.
-If her respiratory status cannot tolerate Sotalol then will have to stop and continue Diltiazem.
-continue Eliquis 5 mg twice daily.
Essential hypertension - stable on current therapy.
Interstitial lung disease - per pulmonology.
Physical Exam
Vital Signs/Labs
Vital Signs
Temp Pulse Resp BP Pulse Ox
97.9 F 86 16 134/88 97
10/23/24 08:00 10/23/24 08:44 10/23/24 08:00 10/23/24 08:44 10/23/24 08:00
10/22/24 10/23/24 10/24/24
06:59 06:59 06:59
Actual Weight 148 lb 3 oz 148 lb 7 oz
10/21/24 11:53
10/23/24 06:39
PT 14.7 Sec (11.4-14.6) H 10/18/24 09:20
INR 1.12 10/18/24 09:20
Magnesium 2.0 mg/dl (1.6-2.3) 10/19/24 07:49
10/18/24
09:20
Gdg-T-Uwffbjhycwh Pept 2930
Physical Exam
Constitutional: No acute distress
Cardiovascular: Pedal edema is absent, JVD pressure is normal, Systolic murmur absent, Diastolic murmur absent and Rhythm/rate is irregular
Respiratory: Respiratory effort normal, Lungs clear to auscul., Wheeze Absent, Crackles Absent and Rhonchi Absent
Neuro/Psych: AO x 3
Data Reviewed
-
Date of Service: October 23, 2024
--- NOTE | 2024-10-23 10:50 | PTCARENOTE ---
EKG 2 hours post Sotalol this am reading a QTC of 527 ms, made Dr. Lange aware.
[2024-10-23 11:21] VITALS: BP 116/77
[2024-10-23] MEDS: CRESTOR 10 MG PO (12:22)
[2024-10-23 15:00] VITALS: BP 128/88
[2024-10-23] MEDS: TYLENOL 325 MG PO (15:44)
--- NOTE | 2024-10-23 16:50 | PTCARENOTE ---
Pt's telemetry appearing like she converted to SR. EKG obtained to confirm. EKG reading Aflutter with variable A-V block, awaiting read. HR 90s-low 100s, will continue to monitor closely.
[2024-10-23 19:21] VITALS: BP 137/87
[2024-10-23 23:07] VITALS: BP 141/93
[2024-10-24] VITALS (7 sets, daily range): BP systolic 118–135; BP diastolic 79–103; O2SAT 94; BMI 24.3
[2024-10-24] MEDS: SYMBICORT 160/4.5 MCG INHALER 2 PUFF INH ×2 (07:22→19:37)
[2024-10-24] MEDS: SPIRIVA RESPIMAT 2.5 MCG 2 PUFF INH (07:22)
[2024-10-24] MEDS: DELTASONE 5 MG PO (08:24)
[2024-10-24] MEDS: FARXIGA 10 MG PO (08:24)
[2024-10-24] MEDS: TYLENOL 1000 MG PO ×2 (08:24→21:24)
[2024-10-24] MEDS: PROZAC 20 MG PO (08:25)
[2024-10-24] MEDS: ELIQUIS 5 MG PO ×2 (08:25→20:17)
[2024-10-24] MEDS: BETAPACE 80 MG PO ×2 (08:27→20:17)
[2024-10-24 08:43] LABS: Hematocrit 46.9 % (37.0-47.0); Hemoglobin 14.6 g/dL (12.0-16.0); Mean Corp Hgb Conc. 31.1 g/dL (33.0-37.0); Mean Corpuscular Volume 101.7 fL (81.0-99.0); Platelet Count 286 10^3/uL (130-400); Red Cell Dist. Width 16.5 % (11.5-14.5)
[2024-10-24 09:09] LABS: Blood Urea Nitrogen 35 mg/dl (7-17); Calcium 9.8 mg/dl (8.4-10.2); Carbon Dioxide 34 mmol/L (22-30); Chloride 104 mmol/L (98-107); Estimated Creatinine Clearance 50 ml/min; Glucose 97 mg/dl (70-99); Potassium 4.8 mmol/L (3.5-5.1); Sodium 142 mmol/L (135-145); eGFR > 60.00
[2024-10-24 09:19] LABS: Magnesium 2.2 mg/dl (1.6-2.3)
[2024-10-24] MEDS: LASIX 40 MG PO (10:18)
[2024-10-24] MEDS: ALDACTONE 12.5 MG PO (10:18)
[2024-10-24] MEDS: KCL 20 MEQ PO ×2 (10:18→20:17)
--- NOTE | 2024-10-24 12:47 | W.PN.CD ---
Today's Communication / Plan
-
back in sinus after DCCV
continue sotalol 80mg bid and eliquis 5mg bid
continue lasix 40mg PO daily
Impression / Plan
-
Impression
Mrs. Quiñonez is an 83-year-old woman with persistent atrial fibrillation failed flecainide and dofetilide s/p A-fib ablation on 11/23/2023, rheumatoid arthritis, history of pericardial effusions (hemorrhagic), interstitial lung disease, HTN, HFpEF,
and [place] on CPAP, who c/o shortness of breath and lower extremity edema. Acute HFpEF and persistent Afib.
Plan
Acute on chronic HFpEF - with valvular heart disease and pulmonary HTN--improved s/p IV lasix
-echo 10/19: EF 55-60%, moderate , mild/mod AR, moderate MR, mild/mod TR, PASP 48
-improved, euvolemic at 68 kg, continue po lasix(40mg) daily, aldactone, farxiga
Afib - persistent. Now back in sinus after sotalol load and DCCV today
-s/p post ablation. Patient on dofetilide on admission which was discontinued due to prolonged QTc 521 ms on admission.
-continue on Sotalol 80 mg BID per EP cardiology Dr. Hampton; Diltiazem stopped.
-continue Eliquis 5 mg twice daily.
Essential hypertension - stable on current therapy.
Interstitial lung disease - per pulmonology.
Physical Exam
Vital Signs/Labs
Vital Signs
Temp Pulse Resp BP Pulse Ox
97.8 F 107 18 120/90 94
10/24/24 08:33 10/24/24 08:33 10/24/24 08:33 10/24/24 08:33 10/24/24 08:33
10/23/24 10/24/24 10/25/24
06:59 06:59 06:59
Actual Weight 67.33 kg 68.237 kg
10/24/24 08:06
10/24/24 08:06
PT 14.7 Sec (11.4-14.6) H 10/18/24 09:20
INR 1.12 10/18/24 09:20
Magnesium 2.2 mg/dl (1.6-2.3) 10/24/24 08:06
10/18/24
09:20
Cmt-B-Fcwkaegonxe Pept 2930
Physical Exam
Constitutional: No acute distress and Comfortable
EENT: Moist mucous membranes
Cardiovascular: Rhythm & rate is regular, Pedal edema is absent, JVD pressure is normal and Systolic murmur present
Respiratory: Respiratory effort normal and Lungs clear to auscul.
Neuro/Psych: AO x 3
Data Reviewed
-
Date of Service: October 24, 2024
Labs: Labs Reviewed by me
Old Records: Reviewed
--- NOTE | 2024-10-24 12:58 | W.PN.HOSP.TC ---
Addendum entered and electronically signed by Isaias Glez MD 10/24/24 15:05:
Patient is in need of oxygen on exertion due to pulse oximetry of 94% on room air at rest; 81% on room air with exertion.
Patient was placed on 2L O2 via nasal cannula with saturation of 95%. Oxygen will help to improve hypoxemia.
Patient is mobile within the home. Albuterol therapy has been discussed and is ineffective in treating hypoxemia-related symptoms.
Oxygen will improve the patient's symptoms.
Original Note:
Today's Communication/Plan
-
monitor vitals
see plan
CV today
hypoxic per CM this morning; check home o2 evaluation
Assessment / Plan
Assessment / Plan
Physical Exam
General: Appears Chronically Ill
HEENT: Moist mucous membranes and Atraumatic
Respiratory: Rales; No Wheezes
Cardiac: S1/S2 and Regular Rhythm
GI: Soft and Non Tender
Genito-urinary: No costovertebral tender; No German
Musculoskeletal: No Edema
Neuro: AO x 3 and Nonfocal/grossly intact
Psych: Calm and Intact Judgment/Insight
83 years old female presented with shortness of breath/respiratory distress
# Acute respiratory distress/progressive shortness of breath
Hypoxia not detected although started on oxygen. Oxygen on arrival was low 90s. She checks O2 level at home, reportedly oxygen around 94-95%
Seemed mostly due to acute on chronic diastolic heart failure/chronic heart failure with a preserved ejection fraction rather than ILD flare-up
check home o2 eval; per CM today it was low this am.
s/p IV Lasix, now on oral Lasix.
She lost weight
Monitored renal function and electrolyte level
No cardiac ischemia with absence of acute ischemic changes on EKG and chest pain
Primary community director Dr. Curtis
Appreciate cardiology input
# History of primary hypertension
Hypertensive urgency on arrival, currently improving with IV Lasix.
Monitor blood pressure.
Patient denied chest pain or headache or abdominal pain.
# prolonged QT, improved
Stopped Tikosyn
Normal Mg.
# Paroxysmal Atrial Fibrillation
continue in A fib, Status post successful cardioversion 10/24
d/w EP community director
Started Sotalol 80 mg BID, dc Diltiazem
No history of palpitations. EKG sinus rhythm.
Continue with Eliquis/rate control medications
#Leukocytosis -likely reactive
Afebrile
#Hyperlipidemia
#Depression
Mood is pleasant
Continue Fluoxetine
# Prolonged QT, mild, resolved.
#Spinal stenosis/DDD osteopenia/osteoarthritis/ Rheumatoid Arthritis
Continue daily dose of prednisone
#DVT prophylaxis: Eliquis
#Code Status: DNR, confirmed with patient.
Total time spent to see the patient, examine the patient, review data lab result, discuss treatment plan with patient, community director, nursing staff around 52 minutes
Anticipated Discharge: Today
Subjective/Interval History
-
Date of Service: October 24, 2024
denies pain
Objective Data
-
Labs:
Laboratory Results
10/24/24
08:06
WBC 9.9
Hgb 14.6
Hct 46.9
Plt Count 286
Sodium 142
Potassium 4.8
Chloride 104
Carbon Dioxide 34 H
BUN 35 H
Creatinine 0.8
Glucose 97
Calcium 9.8
Vital Signs:
Vital Signs
Temp Pulse Resp BP Pulse Ox
97.8 F 107 18 120/90 94
10/24/24 08:33 10/24/24 08:33 10/24/24 08:33 10/24/24 08:33 10/24/24 08:33
I&O
10/23/24 10/24/24 10/25/24
06:59 06:59 06:59
Intake Total 1580 / 1580 1200 / 1200
Output Total 1924 / 1924 1100 / 1100
Balance -345 / -345 100 / 100
--- NOTE | 2024-10-24 13:46 | CM ---
Was notified by RT that pt desaturated down to 83% on room air. Dr Glez made aware. Will need home O2 eval. Planned cardioversion for today.
Plan: Home with [facility]. Will go home with O2 Lpm
[2024-10-24] MEDS: CRESTOR 10 MG PO (13:51)
--- NOTE | 2024-10-24 15:34 | CM ---
Patient meets criteria for home oxygen, updated MD note and oxygen assessment sent to [facility].
Tank delivered and is bedside.
Plan: home with Home oxygen and [facility]
[2024-10-24] MEDS: TYLENOL 325 MG PO (17:59)
[2024-10-25 03:26] VITALS: BP 135/89
[2024-10-25 06:00] VITALS: BMI 24.3
[2024-10-25 07:00] VITALS: BP 130/76
[2024-10-25] MEDS: SYMBICORT 160/4.5 MCG INHALER 2 PUFF INH (07:51)
[2024-10-25] MEDS: SPIRIVA RESPIMAT 2.5 MCG 2 PUFF INH (07:51)
[2024-10-25 08:16] LABS: Hematocrit 43.3 % (37.0-47.0); Hemoglobin 13.6 g/dL (12.0-16.0); Mean Corp Hgb Conc. 31.4 g/dL (33.0-37.0); Mean Corpuscular Volume 101.9 fL (81.0-99.0); Nucleated Red Blood Cells % 0 %; Platelet Count 250 10^3/uL (130-400); Red Cell Dist. Width 16.5 % (11.5-14.5)
[2024-10-25] MEDS: TYLENOL 1000 MG PO (08:20)
[2024-10-25] MEDS: ELIQUIS 5 MG PO (08:21)
[2024-10-25] MEDS: PROZAC 20 MG PO (08:21)
[2024-10-25] MEDS: FARXIGA 10 MG PO (08:21)
[2024-10-25] MEDS: DELTASONE 5 MG PO (08:23)
--- NOTE | 2024-10-25 09:23 | W.PN.CD ---
Today's Communication / Plan
-
patient is stable on current regimen
discussed in detail with EP: sotalol 80mg bid, diltiazem 180mg daily, eliquis 5mg bid; then we will call her to return for outpatient ablation
continue lasix 40mg PO daily, aldactone, farxiga
Impression / Plan
-
Impression
Mrs. Quiñonez is an 83-year-old woman with persistent atrial fibrillation failed flecainide and dofetilide s/p A-fib ablation on 11/23/2023, rheumatoid arthritis, history of pericardial effusions (hemorrhagic), interstitial lung disease, HTN, HFpEF,
and [place] on CPAP, who c/o shortness of breath and lower extremity edema. Acute HFpEF and persistent Afib.
Plan
Acute on chronic HFpEF - with valvular heart disease and pulmonary HTN--improved s/p IV lasix
-echo 10/19: EF 55-60%, moderate , mild/mod AR, moderate MR, mild/mod TR, PASP 48
-improved, euvolemic at 68 kg, continue po lasix(40mg) daily, aldactone, farxiga
Afib - persistent s/p prior ablation. Recurred after stopping tikosyn for prolonged QTc. s/p DCCV 10/24, and now in atypical atrial flutter
-plan discussed with EP and patient in detail
-continue sotalol; add diltiazem; schedule for outpatient ablation
-continue on Sotalol 80 mg BID
-diltiazem 180mg added for rate control
-continue Eliquis 5 mg twice daily.
NSVT
-brief, EF normal
-cont sotalol (discussed with EP)
Essential hypertension - stable on current therapy.
Interstitial lung disease - per pulmonology.
Physical Exam
Vital Signs/Labs
Vital Signs
Temp Pulse Resp BP Pulse Ox
97.8 F 73 18 130/76 97
10/25/24 07:00 10/25/24 07:57 10/25/24 07:57 10/25/24 07:00 10/25/24 07:57
10/24/24 10/25/24 10/26/24
06:59 06:59 06:59
Actual Weight 68.237 kg 68.152 kg
10/25/24 07:21
PT 14.7 Sec (11.4-14.6) H 10/18/24 09:20
INR 1.12 10/18/24 09:20
Magnesium 2.2 mg/dl (1.6-2.3) 10/24/24 08:06
10/18/24
09:20
Bim-N-Disxyubtwwh Pept 2930
Physical Exam
Constitutional: No acute distress and Comfortable
EENT: Moist mucous membranes
Cardiovascular: Pedal edema is absent, JVD pressure is normal, Rhythm/rate is irregular and Systolic murmur present
Respiratory: Respiratory effort normal and Lungs clear to auscul.
Neuro/Psych: AO x 3
Data Reviewed
-
Date of Service: October 25, 2024
EKG: Other (Tele: A flutter, avg HR 100-105)
Labs: Labs Reviewed by me
[2024-10-25 09:32] LABS: Blood Urea Nitrogen 32 mg/dl (7-17); Calcium 9.3 mg/dl (8.4-10.2); Carbon Dioxide 29 mmol/L (22-30); Chloride 107 mmol/L (98-107); Estimated Creatinine Clearance 57 ml/min; Glucose 84 mg/dl (70-99); Potassium 4.8 mmol/L (3.5-5.1); Sodium 140 mmol/L (135-145); eGFR > 60.00
[2024-10-25] MEDS: ALDACTONE 12.5 MG PO (09:53)
[2024-10-25] MEDS: LASIX 40 MG PO (09:54)
[2024-10-25] MEDS: BETAPACE 80 MG PO (09:55)
[2024-10-25] MEDS: KCL PO (09:59)
--- NOTE | 2024-10-25 10:52 | CM ---
Addendum entered by Emma Sanchez 10/25/24 15:02:
[facility]

Original Note:
Met with pt at bedside on O2- 97% n/c @ 2 Lpm. Pt has portable O2 tank in room from [facility]. IMM given. Pt is ready for D/C from CM perspective [facility] aware of pending d/c today.
Plan: Home to [facility] with O2 and resumption of VN
[2024-10-25 11:00] VITALS: BP 125/78
--- NOTE | 2024-10-25 11:08 | W.PN.HOSP.TC ---
Today's Communication/Plan
-
monitor vitals
see plan
started back on cardizem; cw sotalol
cw o2
Discussed with cardiology, okay for discharge
Time of discharge 38 minutes
Assessment / Plan
Assessment / Plan
Physical Exam
General: Appears Chronically Ill
HEENT: Moist mucous membranes and Atraumatic
Respiratory: Rales; No Wheezes
Cardiac: S1/S2 and Regular Rhythm
GI: Soft and Non Tender
Genito-urinary: No costovertebral tender; No German
Musculoskeletal: No Edema
Neuro: AO x 3 and Nonfocal/grossly intact
Psych: Calm and Intact Judgment/Insight
83 years old female presented with shortness of breath/respiratory distress
# Acute respiratory distress/progressive shortness of breath
Seemed mostly due to acute on chronic diastolic heart failure/chronic heart failure with a preserved ejection fraction rather than ILD flare-up
Patient is in need of oxygen on exertion due to pulse oximetry of 94% on room air at rest; 81% on room air with exertion.
Patient was placed on 2L O2 via nasal cannula with saturation of 95%. Oxygen will help to improve hypoxemia.
Patient is mobile within the home. Albuterol therapy has been discussed and is ineffective in treating hypoxemia-related symptoms.
Oxygen will improve the patient's symptoms.
s/p IV Lasix, now on oral Lasix.
She lost weight
Monitored renal function and electrolyte level
No cardiac ischemia with absence of acute ischemic changes on EKG and chest pain
Primary manager ed Dr. Curtis
Appreciate cardiology input
# History of primary hypertension
Hypertensive urgency on arrival, currently improving with IV Lasix.
Monitor blood pressure.
Patient denied chest pain or headache or abdominal pain.
# prolonged QT, improved
Stopped Tikosyn
Normal Mg.
# Paroxysmal Atrial Fibrillation
continue in A fib, Status post successful cardioversion 10/24 however now back in and out of a flutter. Discussed with cardiology. Started back on Cardizem. Possible ablation outpatient
d/w EP manager ed
Started Sotalol 80 mg BID
No history of palpitations. EKG sinus rhythm.
Continue with Eliquis/rate control medications
#Leukocytosis -likely reactive
Afebrile
#Hyperlipidemia
#Depression
Mood is pleasant
Continue Fluoxetine
# Prolonged QT, mild, resolved.
#Spinal stenosis/DDD osteopenia/osteoarthritis/ Rheumatoid Arthritis
Continue daily dose of prednisone
#DVT prophylaxis: Eliquis
#Code Status: DNR, confirmed with patient.
Anticipated Discharge: Today
Subjective/Interval History
-
Date of Service: October 25, 2024
In and out of a flutter
Objective Data
-
Labs:
Laboratory Results
10/25/24
07:21
WBC 8.1
Hgb 13.6
Hct 43.3
Plt Count 250
Sodium 140
Potassium 4.8
Chloride 107
Carbon Dioxide 29
BUN 32 H
Creatinine 0.7
Glucose 84
Calcium 9.3
Vital Signs:
Vital Signs
Temp Pulse Resp BP Pulse Ox
97.8 F 103 18 112/76 97
10/25/24 07:00 10/25/24 09:55 10/25/24 07:57 10/25/24 09:55 10/25/24 07:57
I&O
10/24/24 10/25/24 10/26/24
06:59 06:59 06:59
Intake Total 1200 / 1200 960 / 960
Output Total 1100 / 1100 900 / 900
Balance 100 / 100 60 / 60
--- NOTE | 2024-10-25 11:14 | W.DCSUMMARY ---
Discharge Summary
Discharge Data
Date of Admission: 10/18/24
Date of Discharge: 10/25/24
-
Pending Results: No
Hospital Course
83-year-old female with past medical history of A-fib, atrial flutter, CHF, depression, spinal stenosis, osteoarthritis, rheumatoid arthritis, osteopenia, hypertension, interstitial lung disease came to the hospital with progressive shortness of
breath. Patient was seen by cardiology and pulmonary and was thought that her respiratory distress is likely secondary to acute on chronic CHF exacerbation along with her arrhythmia. Pulmonary did not think patient had ILD flareup and did not want
to start patient on high-dose of steroids. On this hospitalization patient Tikosyn was discontinued and was started on sotalol. She then underwent successful cardioversion on 10/24/2024 however she went back into atrial flutter. Cardiology then
recommended her to be started on 180 mg of Cardizem prior to discharge. Patient also required oxygenation with ambulation and was approved for home O2. Once her symptoms continue to improve, she was then discharged home with instructions to
follow-up with all her physicians outpatient.
Discharge Plan
-
Patient Disposition: Home (Routine Discharge)
Discharge Diagnosis/Procedures: Acute hypoxic respiratory insufficiency
Acute on chronic congestive heart failure exacerbation
Interstitial lung disease
Paroxysmal atrial fibrillation/atrial flutter
Prolonged QTc
Condition: Fair
Diet: As tolerated
Activity: As tolerated
Driving Restrictions: As prior to admission
Bathing Restrictions: None
Referrals:
Lucía Dan NP [Specified Professional Personl, Cardiology] - 11/15/24 3:20 pm
Tamiko Liu DO [Active, Pulmonary Medicine] - in two to four weeks
Referral Note: May see [facility]
Samir Tobias MD [Family Provider, Family Practice] - in less than 1 week
Prescriptions:
New
sotalol 80 mg Tablet
80 mg PO Q12H Qty: 60 0RF
spironolactone 25 mg Tablet
12.5 mg PO DAILY 30 Days Qty: 15 0RF
diltiazem HCl [Cardizem CD] 180 mg capsule,extended release 24hr
180 mg PO DAILY Qty: 30 0RF
Continued
fluoxetine 20 MG capsule
20 mg PO DAILY
rosuvastatin 10 mg tablet
10 mg PO NOON
potassium chloride 20 mEq tablet,ER particles/crystals
20 meq PO DAILY
B-complex with vitamin C Tablet
1 tab PO NOON
furosemide 40 mg tablet
40 mg PO DAILY
Jardiance 10 mg Tablet
10 mg PO DAILY 30 Days Qty: 30 0RF
magnesium 250 mg Tablet
250 mg PO DAILY
calcium carb-D3-mag ox-zinc ox 333 mg-133 unit -133 mg-5 mg Tablet
1 tab PO BID
Eliquis 5 mg Tablet
5 mg PO BID
prednisone 5 mg Tablet
5 mg PO DAILY
acetaminophen [Tylenol Extra Strength] 500 mg Tablet
1,000 mg PO BID
Breztri Aerosphere 160-9-4.8 mcg/actuation HFA aerosol inhaler
1 inh inhalation BID
Discontinued
dofetilide 250 mcg capsule
250 mcg PO BID
diltiazem HCl 120 mg capsule,extended release 24hr
120 mg PO DAILY
Discharge Orders:
Discharge Patient (As Directed); Ordered 10/25/24
Ordered By: Isaias Glez
Discharge Date and Time
Discharge Date/Time: 10/25/24 15:19
Print Language: CYMRAES
[2024-10-25] MEDS: CARDIZEM CD 180 MG PO (12:16)
[2024-10-25] MEDS: CRESTOR 10 MG PO (12:16)
== END 2024-10-25 15:19 | disposition home health service (06) | DRG 291 ==
LOC: 4 EAST ACU 12:11
PROVIDERS: Internal Medicine; ADMITTING PHYSICIAN Internal Medicine; ATTENDING PHYSICIAN Internal Medicine; EMERGENCY PHYSICIAN Emergency Medicine; FAMILY PHYSICIAN Family Medicine; OTHER PHYSICIAN Internal Medicine Cardiovascular Disease; OTHER PHYSICIAN Internal Medicine Critical Care Medicine
PROC: 5A2204Z Restoration of Cardiac Rhythm, Single (ICD-10-PCS; 2024-10-24)
DX: I11.0 Hypertensive heart disease with heart failure (principal); I50.33 Acute on chronic diastolic (congestive) heart failure; J84.9 Interstitial pulmonary disease, unspecified; I48.92 Unspecified atrial flutter; I47.20 Ventricular tachycardia, unspecified; R09.02 Hypoxemia; I48.0 Paroxysmal atrial fibrillation; R06.03 Acute respiratory distress; I16.0 Hypertensive urgency; F32.A Depression, unspecified; M48.00 Spinal stenosis, site unspecified; D72.829 Elevated white blood cell count, unspecified; Z66 Do not resuscitate; M06.9 Rheumatoid arthritis, unspecified; G47.33 Obstructive sleep apnea (adult) (pediatric); E78.00 Pure hypercholesterolemia, unspecified; I08.2 Rheumatic disorders of both aortic and tricuspid valves; I27.20 Pulmonary hypertension, unspecified; J45.20 Mild intermittent asthma, uncomplicated; F41.9 Anxiety disorder, unspecified; M19.90 Unspecified osteoarthritis, unspecified site; Z79.01 Long term (current) use of anticoagulants; Z79.899 Other long term (current) drug therapy; Z82.49 Family history of ischemic heart disease and other diseases of the circulatory system; Z79.84 Long term (current) use of oral hypoglycemic drugs; Z79.52 Long term (current) use of systemic steroids
CPT/HCPCS: 71046; 71250; 80048; 80053; 83735; 83880; 84484; 85025; 85027; 85610; 87502; 87811; 92960; 93005; 93306; 94640; 96374; 97116; 97162; 97166; 97535; 99285

== ENCOUNTER → 2024-10-28 09:36 | Outpatient (REF) | payer MEDICARE, OTHER, SELFPAY ==
[2024-10-28 12:54] LABS: ALT (SGPT) 57 U/L (0-35); AST (SGOT) 52 U/L (14-36); Albumin 3.8 g/dl (3.5-5.0); Alkaline Phosphatase 75 U/L (38-126); Blood Urea Nitrogen 32 mg/dl (7-17); Calcium 10.2 mg/dl (8.4-10.2); Carbon Dioxide 32 mmol/L (22-30); Chloride 104 mmol/L (98-107); Glucose 98 mg/dl (70-99); HDL Cholesterol 55 mg/dl; LDL Cholesterol, Calculated 60 mg/dl; Potassium 4.7 mmol/L (3.5-5.1); Sodium 142 mmol/L (135-145); Total Protein 6.7 g/dl (6.3-8.2); Very Low Density Lipoprotein 18 mg/dl (0-30); eGFR > 60.00
== END ==
LOC: HWLAB 09:36
PROVIDERS: ATTENDING PHYSICIAN Family Medicine
DX: I48.19 Other persistent atrial fibrillation (principal); I50.32 Chronic diastolic (congestive) heart failure; E78.2 Mixed hyperlipidemia
CPT/HCPCS: 36415; 80053; 80061

== ENCOUNTER 2024-10-31 08:04 | Day surgery (SDC) | payer MEDICARE, OTHER, SELFPAY ==
[2024-10-31] VITALS (15 sets, daily range): BP systolic 107–137; BP diastolic 73–89; BMI 26.8
[2024-10-31 11:35] LABS: ACT-LR - POC 324 Seconds (116-155)
[2024-10-31 11:56] LABS: ACT-LR - POC 321 Seconds (116-155)
[2024-10-31 12:14] LABS: ACT-LR - POC 335 Seconds (116-155)
--- NOTE | 2024-10-31 13:27 | ITS.CL.ABL ---
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
Ablation
Procedure Report:
AFIB / A flutter ablation:
Ms. Quiñonez is a very pleasant 84 yr old woman with medical history significant for rheumatoid arthritis, spontaneous pericardial hemorrhagic effusion, HTN, interstitial lung disease, NOLA and HFpEF with symptomatic persistent atrial fibrillation s/p
AF ablation on 11/23/2023 with PVI, PWI and anterior wall flutter ablation using Farapulse PFA catheter and ANGELA mapping who had failed Flecainide and Dofetilide and was started on Sotalol post ablation who had developed atypical atrial flutter and
is here in the EP lab for atrial fibrillation / flutter ablation
Date of Procedure:
10/31/2024
Indications:
Symptomatic persistent atrial fibrillation / atrial flutter
Pre-Operative Diagnosis:
Persistent atrial fibrillation / atrial flutter
Post-Operative Diagnosis:
Persistent atrial fibrillation / atrial flutter
Procedure Performed:
Ablation of anterior wall flutter line of block creation for felicita-mitral flutter
Redo atrial fibrillation ablation with posterior wall isolation
Substrate Modification with CFAE ablation.
Roof and Coumadin ridge ablation for atypical atrial flutter
Left atrial anterior wall tachycardia ablation
Biatrial flutter ablation
Performing Physician:
Jen Hampton MD
Assistants:
EP staff
Anesthesia:
See anesthesia records
Detailed Description of the Procedure:
Written informed consent was obtained from the patient after a full explanation of the risks and benefits of the procedure including the risks of sedation and anesthesia.
The patient was brought to the electrophysiology laboratory in stable condition in fasting state. Continuous electrocardiographic and hemodynamic monitoring was initiated.
The initial rhythm was atrial flutter.
The procedure site was meticulously prepared with surgical scrub and allowed to dry with no pooling. Sterile draping was applied to cover the procedure site. The image intensifier was draped with sterile bag and positioned over the patient. After
infusion of local anesthetic, vascular access was obtained under ultrasound guidance and sheaths were placed over guide wire as detailed below.
The images of the ultrasound of the femoral vessels were stored in patient chart.
Sheath and Catheter Placement:
Given patient renal transplant, long sheaths were used for the acess
Sheaths:
��������� Agilis sheath in right femoral vein upgraded from 8Fr in right femoral vein
��������� 9Fr in right femoral vein
��������� 7Fr in right femoral vein
Catheters:
��������� The Affera Sphere 9 catheter -bidirectional D/F� - at locations of HRA, RV, LA and LV.
��������� ICE catheter -AccuNav -� at locations of RA, SVC, and RV.
��������� Decapolar Bard catheter in the RA and CS
Heparin was initiated after the access was obtained.
Intracardiac ECHO:
An 8-[place] Citizen AcuNav intracardiac ECHO (ICE) probe was advanced through the 9-[place] Citizen sheath in the left femoral vein into the right atrium under fluoroscopic and ICE ultrasound image guidance and a baseline ECHO study was performed. The left atrial
size was dilated. There was trace tricuspid regurgitation. The aortic valve was grossly normal. There was borderline normal left ventricular size and function. There is a trace pericardial effusion. The MAGNOLIA has normal velocities. The pulmonary had
good flow identified.
During the procedure, ICE was used for monitoring of complications, guidance of trans-septal puncture, monitor the catheter position and tracking ablation lesions. No change in the pericardial space noted throughout the procedure.
Trans-septal Puncture:
Heparin was initiated and infused to maintain appropriate ACT. A J-tipped guidewire was advanced through into the superior vena cava under fluoroscopic and ICE guidance. The Agilis sheath with BRK needle was advanced into the superior vena cava over
the guidewire. The apparatus was withdrawn until it was in contact with the fossa ovalis. The position was adjusted based on fluoroscopy and ultrasound images from ICE. Under fluoroscopic, hemodynamic and ICE ultrasound guidance, left atrium was
cannulated by advancing the needle. Once atrial septum was cannulated, the needle was pulled back and the guide wire was advanced through the needle into the left atrium. The guide wire was advanced into the left superior pulmonary vein. Both the
sheath and the dilator was advanced into the left atrium. The dilator with the needle was withdrawn. Blood was aspirated from the Agilis sheath and arterial blood confirmed. The sheath was flushed. Saline injection noted into the left atrium on ICE.
The waveform of the LA pressure was recorded. The mapping catheter was advanced in the Agilis sheath into the left pulmonary vein.
3D Electroanatomic Mapping:
Using the Sphere 9 Affera catheter advanced through Agilis sheath into the left atrium, an electroanatomic map (EAM) of the left atrium was created using Kadenze� mapping system with [employer] software. The map was used for localization of catheter
position and tacking of ablation lesions. The EAM of the left atrium showed a total of 4 PVs with two left and the two right sided pulmonary veins with all electrically isolated from the body the LA.
The previous ablation lesions were reviewed. The vein were still isolated. There was block at the roof and the floor of the LA but there was patch of activity at the postioer border of the RIPV at the location of the ganglion plexi. EAM showed
extensive scar on the posterior and anterior ariza of the LA. The LA was dilated in size.
The LA was in two separate flutters. The Flutter at the Coumadin ridge was going around the MAGNOLIA at 240 ms and the second flutter was 330 ms that was going around the mitral valve.
Following the EAM, preparation were made for ablation.
Ablation:
Ablation # 1: Atypical atrial flutter / Roof line Formation:
Given silent pulmonary veins, the decision was made to proceed with roof line formation for the AF/Flutter. The LA was in having two different flutter in the same chamber due to extensive scarring.
Pulsed field ablation was performed using an open irrigation, bidirectional, contact sensing, dual energy ablation catheter (TV TubeXa sphere -9). A set of pulsed field ablations were placed on the roof line connecting the left superior pulmonary vein
ablation lesions to the right superior pulmonary vein lesions rings.
Ablation # 2: Ablation of anterior wall flutter line of block creation for felicita-mitral flutter
The fast flutter subsided with ablation and the 330 ms flutter was visible. The flutter was mapped in detail and a reconnection through the anterior line was responsible to maintain the flutter. The anterior was critical isthmus was ablated. The
first ablation slowed it down to 400 msec and second ablation terminated the flutter into sinus rhythm.
�
Ablation # 3: Anterior wall focal / micro reentry flutter ablation:
There was focal atrial tachycardia noted at the base of the MAGNOLIA on the anterior wall with baseline severely fractionated signals adjacent to a scar tissue.
Series of ablations were placed to suppress any abnormal activity.
Ablation # 4: Posterior wall isolation and Substrate modification:
Pulsed field ablation was performed using an open irrigation, bidirectional, contact sensing, dual energy ablation catheter (Affera sphere -9) by placing the ablation in the posterior wall patch where the epicardial connections were sustaining the
connection to the LA.
There was connection from the Michael bundle that was a substrate for biatrial flutter. With the anterior line formed. The septum via the Right atrium and and MAGNOLIA to the Michael bundle created the slow conduction needed to sustain flutter.
Decision was made to ablate the fractionated signals at the atrial septum to eliminate the risk for flutter.
Confirmation of the PVI and bidirectional block:
Following achievement of entrance block at the pulmonary veins, pacing from the Sphere 9 affera catheter in each of the four veins at 20 milliamps for 4 milliseconds showed entrance and exit block.
EP study:
Sinus Node Function: The sinus node functions are within acceptable normal range.
Atrioventricular Juan C Function: �Normal AV conduction noted.
Procedure End
ICE study was done again that showed no epicardial accumulation. No complications noted.
Following the completion of the EP study, catheters were removed. Protamine 40 mg was given at the end of the procedure and ACT was checked repeatedly. The sheaths were removed and hemostasis achieved with VASCADE and manual compression after
acceptable ACT is achieved.
Left atrial Pressure:
Pre-Procedure: Mean LA pressure was 18mmHg
Post-Procedure: Mean LA pressure was 24mmHg (MR with large v waves)
Post-Procedure: Mean RA pressure was 6mmHg
Estimated Blood loss:
<10 cc
Specimens Removed:
None.
Implants / Devices:
None
Urine output:
None
Packs / Drains/ Tubes:
None
Instrument / Sponge Count Correct:
Yes
Complications of the Procedure:
None
Condition of Patient at Time of Transfer:
Hemodynamically stable with no neurological or vascular compromise.
Summary:
��������� Successful atrial fibrillation ablation with circumferential bidirectional line of block at posterior wall, atrial flutter ablation with anterior mitral flutter, roof flutter line creation, substrate modification.
Figures from the Procedure:
Figure 1: The electroanatomic mapping (EAM) of the left atrium with bipolar voltage (purple indicates normal electrical activity with red as no myocardial muscle electric activity indicating a line of block or scar.
--- NOTE | 2024-10-31 15:28 | PTCARENOTE ---
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 AO x3. Denies pain or shortness of breath POX 100% on 2 liters, crackles b/l at bases. NSR with 1st degree AVB. HOB flat, voiding on bedpan. Right puncture site CDI. Call zaragoza in reach
--- NOTE | 2024-10-31 16:26 | CM ---
Chart reviewed. Patient is independent of ADLS, lives with her in a apartment at [facility], ambulates with a rollator for long distances, elevator access. Plan is for the patient to return home. CM to follow
--- NOTE | 2024-10-31 17:09 | PTCARENOTE ---
Figure 8 suture removed from right femoral site at 1630
--- NOTE | 2024-10-31 17:22 | PTCARENOTE ---
Patient out of bed, voided, in chair. Right femoral site soft and dressing is dry
[2024-10-31] MEDS: CRESTOR 10 MG PO (17:41)
[2024-10-31] MEDS: SYMBICORT 160/4.5 MCG INHALER 2 PUFF INH (20:02)
[2024-10-31] MEDS: BETAPACE 80 MG PO (20:13)
[2024-10-31] MEDS: ELIQUIS 5 MG PO (20:15)
[2024-10-31] MEDS: TYLENOL 1000 MG PO (21:26)
[2024-10-31] MEDS: ANESTHETIC LOZENGE 1 LOZENGE PO (21:26)
--- NOTE | 2024-10-31 22:04 | PTCARENOTE ---
Assumed care of pt at aprox 1930. Pt vitals stable. SR with 1st degree block on monitor. Right groin dressing CDI with no bleeding. Pt does c/o of back pain from previous compression fractures. Pt states she normally takes extra strength tylenol at
home. Carlos WALLACE TT to changed current Tylenol order from regular strength to extra Strength per patient request. Pt also given throat lozenge as she complains of a dry throat. Pt instructed to ring for assistance.
[2024-11-01 01:48] VITALS: BMI 26.8
[2024-11-01 03:43] VITALS: BP 118/80
[2024-11-01 04:13] LABS: Hematocrit 39.3 % (37.0-47.0); Hemoglobin 13.1 g/dL (12.0-16.0); Mean Corp Hgb Conc. 33.3 g/dL (33.0-37.0); Mean Corpuscular Volume 98.5 fL (81.0-99.0); Platelet Count 267 10^3/uL (130-400); Red Cell Dist. Width 16.3 % (11.5-14.5)
[2024-11-01 04:29] VITALS: BMI 26.7
[2024-11-01 04:34] LABS: Blood Urea Nitrogen 32 mg/dl (7-17); Calcium 8.9 mg/dl (8.4-10.2); Carbon Dioxide 28 mmol/L (22-30); Chloride 106 mmol/L (98-107); Estimated Creatinine Clearance 45 ml/min; Glucose 134 mg/dl (70-99); Potassium 4.7 mmol/L (3.5-5.1); Sodium 138 mmol/L (135-145); eGFR > 60.00
--- NOTE | 2024-11-01 06:17 | PTCARENOTE ---
Assumed care on pt at 2300, VSS, remains SR on tele monitor. denied cp, SOB or any other discomfort. O2 at 2L via NC overnight. Denied any urinary symptoms, however post void bladder scan 242 cc. Updated pt on plan of care and in agreement, call
zaragoza within reach.
[2024-11-01 07:24] VITALS: BP 139/98
--- NOTE | 2024-11-01 07:55 | PTCARENOTE ---
Assumed care of pt from prev nsg shift; Pt AAOx3 w/no c/o CP or SOB. Pt w/VSS w/HR in the 70's & BP 139/98 this AM. Pt is SR w/1st deg AVB & occas PVC's on telemetry monitoring. Pt w/R groin site w/dressing C/D/I w/no signs or symptoms of bleeding
or hematoma. Pt w/no addtl needs at this time. Call zaragoza within reach.
[2024-11-01] MEDS: SYMBICORT 160/4.5 MCG INHALER 2 PUFF INH (08:34)
[2024-11-01] MEDS: SPIRIVA RESPIMAT 2.5 MCG 2 PUFF INH (08:34)
--- NOTE | 2024-11-01 08:50 | W.PN.CARDCBS ---
Addendum entered and electronically signed by Jen Hampton MD 11/01/24 10:22:
Patient seen and oriented to person today. I agree with the note, documentation and plan of care and physical examination as noted below.
Ms. Quiñonez is a 84-year-old woman who underwent A-fib ablation with need for mitral flutter in the left atrium along with left anterior wall A. tach. We also did posterior wall isolation. Patient's pulmonary veins were isolated and remained
isolated.
Diltiazem was discontinued and we will discharge patient home on sotalol.
Patient has at least moderate MR and will continue with diuresis. Continue Lasix at home.
Plan to repeat echo in 2 to 3 months to evaluate progression of MR/TR.
Continue CPAP for NOLA
Follow-up with office in 2 weeks for post ablation incision check.
Original Note:
Today's Communication / Plan
-
home today
followup in 2 weeks at [facility]
Impression / Plan
-
PCP: Samir Tobias MD
CDY: Rayray Curtis MD
84 y/o, presents with persistent AFib, prior PFA 11/2023, failed flecainide and dofetilide. [id number]=0, maintained on eliquis. Recent hospitalization 10/18 for acute on chronic HFpEF, pulmonary edema and AFib/Flutter with prolonged QTc on
dofetilide. Effectively diuresed and meds adjusted, tikosyn discontinued in favor of sotalol.
Now s/p redo PRA w/LAPW, atypical atrial flutter and left atrial anterior wall tachycardia ablation.
IMPRESSION/PLAN:
Persistent AFib
s/p redo PFA/LAPW/Mitral Flutter/biatrial flutter/LA AT ablation, 10/31/24
tele- NSR w/PAC, PVCs, one triplet
groin site stable
resume eliquis last evening
continue sotalol 80mg BID, discontinue diltiazem
oob ambulating
home today with followup at [facility] as scheduled
Chronic diastolic HFpEF, 55-60%
well compensated on lasix, spironolactone
I/O negative
continue current therapy
Interstitial Lung Disease
continuous home O2
O2Sat high 90s overnight
continue inhaler, prednisone
follows with pulm
HTN- stable on current meds
GERD
NOLA/CPAP
history of pericardial hemorrhagic effusion
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
Subjective
Date of Service: November 01, 2024
Denies cp/palps/dyspnea
groin site without pain
oob ambulating
Objective
Labs:
11/01/24 03:49
11/01/24 03:49
Labs
Hgb 13.1 g/dL (12.0-16.0) 11/01/24 03:49
Hct 39.3 % (37.0-47.0) 11/01/24 03:49
Plt Count 267 10^3/uL (130-400) 11/01/24 03:49
Sodium 138 mmol/L (135-145) 11/01/24 03:49
Potassium 4.7 mmol/L (3.5-5.1) 11/01/24 03:49
BUN 32 mg/dl (7-17) H 11/01/24 03:49
Creatinine 0.8 mg/dL (0.6-1.0) 11/01/24 03:49
Glucose 134 mg/dl (70-99) H 11/01/24 03:49
Vital Signs and I&O:
Vital Signs
Temp Pulse Resp BP Pulse Ox
97.3 F 76 16 139/98 97
11/01/24 07:24 11/01/24 08:39 11/01/24 08:39 11/01/24 07:24 11/01/24 08:39
Vital Signs
Temp Pulse Resp BP Pulse Ox
97.3 F 76 16 139/98 97
11/01/24 07:24 11/01/24 08:39 11/01/24 08:39 11/01/24 07:24 11/01/24 08:39
Intake & Output
10/30/24 10/31/24 11/01/24 11/02/24
06:59 06:59 06:59 06:59
Intake Total 540 / 540
Output Total 1725 / 1725
Balance -1185 / -1185
Physical Exam
Physical Exam
AAOx3, MAEE 5/5
RRR S1 S2 no murmurs
CTA bilat, non labored
soft abd, + bs
right groin site without ht/bleeding, non tender
bilat extremities without edema, palpable distal pulses
[2024-11-01] MEDS: BETAPACE 80 MG PO (09:16)
[2024-11-01] MEDS: ALDACTONE 12.5 MG PO (09:17)
[2024-11-01] MEDS: KCL 20 MEQ PO (09:17)
[2024-11-01] MEDS: PROZAC 20 MG PO (09:17)
[2024-11-01] MEDS: ELIQUIS 5 MG PO (09:17)
[2024-11-01] MEDS: DELTASONE 5 MG PO (09:17)
[2024-11-01] MEDS: FARXIGA 10 MG PO (09:17)
[2024-11-01] MEDS: LASIX 40 MG PO (09:17)
[2024-11-01] MEDS: TYLENOL 1000 MG PO (09:19)
[2024-11-01 11:14] VITALS: BP 90/67
--- NOTE | 2024-11-01 11:56 | W.DS.TRANS ---
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
-
Discharge Instructions:
Discharge Diagnosis/Procedures AFib/AFlutter, s/p ablation
Diet Low Cholesterol
Driving Restrictions No driving for 24 hours
Instructions:
Stand-Alone Forms: DC Instructions- Cath/EP Lab
Changes to Home Medications: Yes
Discharge Medications:
DC Medications w/original date entered in [email or web address]
fluoxetine 20 mg capsule 20 mg PO DAILY Mental Health/Anxiety 04/26/18
rosuvastatin 10 mg tablet 10 mg PO QPM High Cholesterol 10/25/22
potassium chloride 20 mEq tablet,extended release(part/cryst) 20 meq PO DAILY Supplement 06/19/23
B-complex with vitamin C 1 tab PO NOON Supplement 06/28/23
furosemide 40 mg tablet 40 mg PO DAILY Fluid Retention/Swelling 06/29/23
empagliflozin 10 mg tablet (Jardiance) 10 mg PO DAILY Heart disease/condition 30 days #30 tabs 07/02/23
apixaban 5 mg tablet (Eliquis) 5 mg PO BID Blood Clot Prevention/Tx 09/07/23
calcium 333 mg-vit D3 133 unit-magnesium 133 mg-zinc 5 mg tablet 1 tab PO BID Supplement 09/07/23
magnesium 250 mg tablet 250 mg PO DAILY Supplement 09/07/23
prednisone 5 mg tablet 5 mg PO DAILY inflammation 10/13/23
acetaminophen 500 mg tablet (Tylenol Extra Strength) 1,000 mg PO BID Pain 10/18/24
budesonide 160 mcg-glycopyr 9 mcg-formot 4.8 mcg/actuation HFA inhaler (Breztri Aerosphere) 1 inh inhalation BID Lung/Breathing Issues 10/18/24
spironolactone 25 mg tablet 12.5 mg (1/2 x 25 mg) PO DAILY 30 days #15 tabs 10/25/24
sotalol 80 mg tablet 80 mg PO BID 10/31/24
Home Medication Changes
STOP: diltiazem
Pending Results: No
[2024-11-01 12:09] VITALS: BMI 26.7
[2024-11-01 15:14] VITALS: BP 126/86
--- NOTE | 2024-11-01 16:39 | PTCARENOTE ---
Pt's IV & telemetry pack D/C'd. Discussed D/C instructions w/pt. Pt escorted via WC w/personal belongings incl cell phone, healthcare market consultant, own hm O2, & own rollator walker. Pt's daughter picked pt up to drive her hm.
== END 2024-11-01 16:42 | disposition home or self-care (01) ==
LOC: CATH 08:04
PROVIDERS: Nurse Practitioner; ATTENDING PHYSICIAN Internal Medicine Cardiovascular Disease; FAMILY PHYSICIAN Family Medicine; OTHER PHYSICIAN Internal Medicine Cardiovascular Disease
DX: I48.19 Other persistent atrial fibrillation (principal); I34.0 Nonrheumatic mitral (valve) insufficiency; I11.0 Hypertensive heart disease with heart failure; I50.32 Chronic diastolic (congestive) heart failure; J84.9 Interstitial pulmonary disease, unspecified; Z99.81 Dependence on supplemental oxygen; K21.9 Gastro-esophageal reflux disease without esophagitis; G47.33 Obstructive sleep apnea (adult) (pediatric); I48.4 Atypical atrial flutter; I44.0 Atrioventricular block, first degree; I47.19 Other supraventricular tachycardia; Z79.01 Long term (current) use of anticoagulants; Z79.52 Long term (current) use of systemic steroids; I49.3 Ventricular premature depolarization; Z79.899 Other long term (current) drug therapy
CPT/HCPCS: C1769; C1894; C1730; C1733; C1766; C1892; C1759; 80048; 85027; 85347; 93005; 93655; 93656; 94640

== ENCOUNTER → 2024-11-04 14:02 | Outpatient (REF) | payer MEDICARE, OTHER, SELFPAY | LOC: HWRAD 14:02 | PROVIDERS: ATTENDING PHYSICIAN Nurse Practitioner Acute Care; FAMILY PHYSICIAN Family Medicine | DX: S32.010A Wedge compression fracture of first lumbar vertebra, initial encounter for closed fracture (principal); M54.16 Radiculopathy, lumbar region | CPT/HCPCS: 72100 ==

== ENCOUNTER → 2024-12-06 14:29 | Outpatient (REF) | payer MEDICARE, OTHER, SELFPAY | LOC: REG 14:29 | PROVIDERS: ATTENDING PHYSICIAN Family Medicine; FAMILY PHYSICIAN Family Medicine | DX: R19.5 Other fecal abnormalities (principal) | CPT/HCPCS: 83993; 87045; 87046; 87328; 87329; 87427; 89055 ==

== ENCOUNTER → 2024-12-14 07:54 | Outpatient (REF) | payer MEDICARE, OTHER, SELFPAY | LOC: RAD 07:54 | PROVIDERS: ATTENDING PHYSICIAN Family Medicine; REFERRING PHYSICIAN Nurse Practitioner Acute Care | DX: R19.5 Other fecal abnormalities (principal); S32.010A Wedge compression fracture of first lumbar vertebra, initial encounter for closed fracture | CPT/HCPCS: 74177; Q9967 ==

== ENCOUNTER → 2024-12-21 14:23 | Outpatient (REF) | payer MEDICARE, OTHER, SELFPAY | LOC: HWRAD 14:23 | PROVIDERS: ATTENDING PHYSICIAN Nurse Practitioner Acute Care; FAMILY PHYSICIAN Family Medicine | DX: S32.010A Wedge compression fracture of first lumbar vertebra, initial encounter for closed fracture (principal); M54.16 Radiculopathy, lumbar region | CPT/HCPCS: 72100 ==

== ENCOUNTER 2025-02-13 12:51 | Inpatient (IN) | payer MEDICARE, OTHER, SELFPAY ==
[2025-02-13] VITALS (13 sets, daily range): BP systolic 98–149; BP diastolic 67–90; BMI 24.6; BMI 23.5
--- NOTE | 2025-02-13 06:08 | ED.GENMED ---
History of Present Illness
<Hal Cassidy Kimberley, DO - Last Filed: 02/13/25 10:25>
General
Chief Complaint: Cold/Flu/URI Symptoms
Time Seen by Provider: 02/13/25 06:08
<Livan Montana MD, Resident - Last Filed: 02/13/25 10:48>
History of Present Illness
History of Present Illness:
84 yo F PMH ILD, paroxysmal afib, HFpEF, GERD p/w cough, dyspnea, weakness poor appetite, and diarrhea since 02/10. She has been feeling progressively worse. Cough is clear sputum. is also sick. Denies chest pain. no blood in diarrhea. no
palpitations, no syncope, no falls. denies hemoptysis, recent surgeries or travel or immobilization.
nkda
Past History
<Livan Montana MD, Resident - Last Filed: 02/13/25 10:48>
Past History
ED Past Medical History: Arrthythmia (atrial fibrillation), CHF, GERD, HTN, Hypercholesterolemia, Psychiatric (Anxiety, Depression), Other (Rheumatoid arthritis, dizziness, shingles, Lyme disease, vertigo, PNA, Diverticulitis, Cataracts) and Other
(RA)
ED Past Surgical History: Orthopedic (Laminectomy, Left hip replacement, Bilateral knee replacement) and Other (Cataract surgery, laminectomy)
Patient has exhibited threatening behavior?: No
PSI?: No
Social History
Tobacco: Non-smoker
Alcohol: None
Drug: None
Personal:
Living: with family
Employment: Retired
Family History
Family History: Other
Review of Systems
<Livan Montana MD, Resident - Last Filed: 02/13/25 10:48>
Review of Systems
Constitutional: Reports no symptoms
EENT: Reports no symptoms
Respiratory: Reports cough and trouble breathing
Cardiac: Reports no symptoms
ABD/GI: Reports diarrhea
Neurological: Reports no symptoms
Phy Exam
<Livan Montana MD, Resident - Last Filed: 02/13/25 10:48>
Physical Exam
Physical Exam:
VS: 120/78; HR 67; RR 24; T 98.2; O2 95%
General: no acute distress
CV: no murmurs
Pulm: fine crackles bilaterally
GI: no tenderness to palpation
MSK: right leg varicose veins, no tenderness to palpation of calf
Course
<Hal Chu, DO - Last Filed: 02/13/25 10:25>
Orders/Labs/Results
Orders:
Orders
02/13/25 05:46
COVID-19 Antigen Urgent
Source: Nasal Swab
Influenza A+B Rapid Molecular Urgent
MARCIN Source: Nasal Swab
Specimen Description:
02/13/25 06:21
0.9% Sodium Chloride 1000 ml [Nss] 1,000 ml IV BOLUS
Oseltamivir Phosphate [Tamiflu] 75 mg PO NOW STA
02/13/25 06:22
Electrocardiogram (*1) Urgent
Reason for Study: Vertigo / Dizzy
EKG- Treatment ONCE
Chest [CR Chest - 2 Views ] Urgent
Comment:
Reason For Exam: weakness hypotension h/o ILD
02/13/25 06:25
Complete Blood Count/With Diff Urgent
02/13/25 08:06
Comprehensive Metabolic Panel Urgent
02/13/25 09:32
Comprehensive Metabolic Panel Urgent
Magnesium Urgent
Abnormal Lab Results
02/13/25 02/13/25 02/13/25
06: 08:06 09:32
Hgb 17.4 H g/dL
(12.0-16.0)
Hct 52.4 H %
(37.0-47.0)
MCH 32.4 H pg
(27.0-31.0)
RDW 15.3 H %
(11.5-14.5)
Abs Immat Gran (auto) 0.1 H 10^3/uL
(0-0.05)
Absolute Monos (auto) 1.1 H 10^3/uL
(0.1-0.6)
Immature Gran % 1.1 H %
(0-0.5)
Monocytes % 17.9 H %
(1.7-9.3)
Sodium 134 L mmol/L
(135-145)
Potassium 2.3 L* mmol/L
(3.5-5.1)
Chloride 119 H mmol/L
(98-107)
Carbon Dioxide 16 L mmol/L
(22-30)
BUN 22 H mg/dl 33 H mg/dl
(7-17) (7-17)
Glucose 67 L mg/dl
(70-99)
Calcium 4.4 L* mg/dl 7.6 L D mg/dl
(8.4-10.2) (8.4-10.2)
Alkaline Phosphatase 27 L U/L
(38-126)
Total Protein 3.5 L g/dl 5.9 L D g/dl
(6.3-8.2) (6.3-8.2)
Albumin 1.5 L g/dl 3.0 L D g/dl
(3.5-5.0) (3.5-5.0)
02/13/25 06:25
02/13/25 09:32
Vital Signs
Blood pressure: 120/78
Initial and Last Documented VS:
Initial Vital Signs
Temp Pulse Resp BP Pulse Ox
98.2 F 67 24 98/73 95
02/13/25 05:26 02/13/25 05:26 02/13/25 05:26 02/13/25 05:26 02/13/25 05:26
Last Documented Vital Signs
Temp Pulse Resp BP Pulse Ox
98.2 F 66 17 120/72 92
02/13/25 05:26 02/13/25 08:00 02/13/25 08:00 02/13/25 08:00 02/13/25 08:00
<Livan Montana MD, Resident - Last Filed: 02/13/25 10:48>
Orders/Labs/Results
Orders:
Orders
02/13/25 05:46
COVID-19 Antigen Urgent
Source: Nasal Swab
Influenza A+B Rapid Molecular Urgent
MARCIN Source: Nasal Swab
Specimen Description:
02/13/25 06:21
0.9% Sodium Chloride 1000 ml [Nss] 1,000 ml IV BOLUS
Oseltamivir Phosphate [Tamiflu] 75 mg PO NOW STA
02/13/25 06:22
Electrocardiogram (*1) Urgent
Reason for Study: Vertigo / Dizzy
EKG- Treatment ONCE
Chest [CR Chest - 2 Views ] Urgent
Comment:
Reason For Exam: weakness hypotension h/o ILD
02/13/25 06:25
Complete Blood Count/With Diff Urgent
02/13/25 08:06
Comprehensive Metabolic Panel Urgent
02/13/25 09:32
Comprehensive Metabolic Panel Urgent
Magnesium Urgent
Abnormal Lab Results
02/13/25 02/13/25 02/13/25
06: 08:06 09:32
Hgb 17.4 H g/dL
(12.0-16.0)
Hct 52.4 H %
(37.0-47.0)
MCH 32.4 H pg
(27.0-31.0)
RDW 15.3 H %
(11.5-14.5)
Abs Immat Gran (auto) 0.1 H 10^3/uL
(0-0.05)
Absolute Monos (auto) 1.1 H 10^3/uL
(0.1-0.6)
Immature Gran % 1.1 H %
(0-0.5)
Monocytes % 17.9 H %
(1.7-9.3)
Sodium 134 L mmol/L
(135-145)
Potassium 2.3 L* mmol/L
(3.5-5.1)
Chloride 119 H mmol/L
(98-107)
Carbon Dioxide 16 L mmol/L
(22-30)
BUN 22 H mg/dl 33 H mg/dl
(7-17) (7-17)
Glucose 67 L mg/dl
(70-99)
Calcium 4.4 L* mg/dl 7.6 L D mg/dl
(8.4-10.2) (8.4-10.2)
Alkaline Phosphatase 27 L U/L
(38-126)
Total Protein 3.5 L g/dl 5.9 L D g/dl
(6.3-8.2) (6.3-8.2)
Albumin 1.5 L g/dl 3.0 L D g/dl
(3.5-5.0) (3.5-5.0)
02/13/25 06:25
02/13/25 09:32
Vital Signs
Initial and Last Documented VS:
Initial Vital Signs
Temp Pulse Resp BP Pulse Ox
98.2 F 67 24 98/73 95
02/13/25 05:26 02/13/25 05:26 02/13/25 05:26 02/13/25 05:26 02/13/25 05:26
Last Documented Vital Signs
Temp Pulse Resp BP Pulse Ox
98.2 F 66 17 120/72 92
02/13/25 05:26 02/13/25 08:00 02/13/25 08:00 02/13/25 08:00 02/13/25 08:00
Procedures
<Hal Chu DO - Last Filed: 02/13/25 10:25>
IV Access
Indication: Emergent access required and Physician skill needed
Performed by:: , Dr. Chu
Site:: Right femoral vein-this was only accessed to obtain blood, no IV catheter
Gauge:: 18-gauge
Ultrasound Guidance: No
<Livan Montana MD, Resident - Last Filed: 02/13/25 10:48>
MDM/Problems Addressed
Differential Diagnosis Includes:
viral pneumonia, URI, arrhythmia, PE, ILD exacerbation, PE, orthostasis
MDM/Problems Addressed:
84 yo F p/w dyspnea and cough since 02/10. symptoms progressively worse and reports generalized fatigue. Found to be positive for flu A.
onset of symptoms ~ 3 days prior, given higher risk (elderly patient, PMH ILD),
afebrile, BP 120/78, HR 67
Plan
CBC: Hgb 17.4 suggests dehydration/hemoconcentration
CMP
Covid test: negative
Flu test: positive for flu A
EKG
1L NS ordered
start oseltamivir
Update:
- CMP showed K 2.3, Ca 4.4, albumin 1.5 (corrected calcium of 6.4) given profound lab abnormalities and delay in CMP resulting, reordered CMP and magnesium
- CXR: Findings of chronic interstitial lung disease without evidence of superimposed pneumonia or pulmonary edema.
Update @ 10:16
- repeat CMP showed K 3.9; Ca 7.6 corrects to 8.4 with albumin 3.0. Mg 2.0; BUN 33, Cr 0.9
Patient feels improved but not well enough to go home
Hospitalist notified
<Livan Montana MD, Resident - Last Filed: 02/13/25 10:48>
*Pulse Oximetry
SaO2: 95
Oxygen Mode of Delivery: Room air
Patient hypoxic: no
*Critical Care Note
Total Time (30-74mins, 75-104mins- exclusive of procedures): Not Applicable
ED Attending Note
<Hal Chu, DO - Last Filed: 02/13/25 10:25>
ED Attending Note
Patient seen and examined by attending physician: Yes
I performed a history and physical exam of patient and discussed management with resident, I reviewed resident's note and agree with documented findings and plan of care.: Yes
ED Attending Note:
Patient initial blood pressure slightly low but on reassessment improved, hemoglobin high at 17.4 suggestive of dehydration she was given IV fluids. She is flu positive. Chest x-ray appears to show chronic findings.
<Livan Montana MD, Resident - Last Filed: 02/13/25 10:48>
-
Portions of this chart may have been created with voice recognition software.� Occasional wrong word or��sound alike� substitutions may have occurred due to the inherent limitations of voice recognition software.
Discharge Plan
Departure
Patient Disposition: Admit
Date of Disposition: 02/13/25
Time of Disposition: 10:47
Admit to: Telemetry
Presentation/result/management discussed w/ accepting MD/DO: Hospitalist
Condition: Fair
Discharge Problem:
Dyspnea
Prescriptions:
No Action
fluoxetine 20 MG capsule
20 mg PO QPM
rosuvastatin 10 mg tablet
10 mg PO QPM
potassium chloride 20 mEq tablet,ER particles/crystals
20 meq PO QPM
furosemide 40 mg tablet
40 mg PO DAILY
Eliquis 5 mg Tablet
5 mg PO BID
prednisone 5 mg Tablet
5 mg PO DAILY
Breztri Aerosphere 160-9-4.8 mcg/actuation HFA aerosol inhaler
1 inh inhalation R BID
sotalol 80 mg tablet
80 mg PO BID
magnesium Tablet
1 tab PO NOON
calcium
1 tab PO QPM
Jardiance 10 mg tablet
10 mg PO DAILY
vitamin B complex Tablet
1 tab PO DAILY
spironolactone 25 mg tablet
12.5 mg PO DAILY
Referrals:
Samir Tobias MD [Family Provider, Family Practice]
Interventions
Interventions:
*Neglect/Abuse Screening Last Done: 02/13/25 08:11
*ED COVID-19 Vaccine History Last Done: 02/13/25 08:11
*ED Influenza Vaccine History Last Done: 02/13/25 08:11
[facility] Fall Risk Assessment Tool Last Done: 02/13/25 08:11
*Risk Screen - Suicide (C-SSRS) Last Done: 02/13/25 05:26
ED- Pulmonary Assessment Last Done: 02/13/25 06:40
Discharge Date and Time
Print Language: SLOVENIAN
[2025-02-13 06:16] LABS: COVID-19 Antigen Negative (Negative)
[2025-02-13] MEDS: TAMIFLU 75 MG PO (06:29)
[2025-02-13] MEDS: NSS 1000 IV (06:31)
[2025-02-13 06:37] LABS: Hematocrit 52.4 % (37.0-47.0); Hemoglobin 17.4 g/dL (12.0-16.0); Mean Corp Hgb Conc. 33.2 g/dL (33.0-37.0); Mean Corpuscular Volume 97.6 fL (81.0-99.0); Nucleated Red Blood Cells % 0 %; Platelet Count 195 10^3/uL (130-400); Red Cell Dist. Width 15.3 % (11.5-14.5)
[2025-02-13 09:06] LABS: ALT (SGPT) 10 U/L (0-35); AST (SGOT) 16 U/L (14-36); Albumin 1.5 g/dl (3.5-5.0); Alkaline Phosphatase 27 U/L (38-126); Blood Urea Nitrogen 22 mg/dl (7-17); Calcium 4.4 mg/dl (8.4-10.2); Carbon Dioxide 16 mmol/L (22-30); Chloride 119 mmol/L (98-107); Glucose 67 mg/dl (70-99); Potassium 2.3 mmol/L (3.5-5.1); Sodium 138 mmol/L (135-145); Total Protein 3.5 g/dl (6.3-8.2); eGFR > 60.00
[2025-02-13 10:08] LABS: ALT (SGPT) 17 U/L (0-35); AST (SGOT) 32 U/L (14-36); Albumin 3.0 g/dl (3.5-5.0); Alkaline Phosphatase 44 U/L (38-126); Blood Urea Nitrogen 33 mg/dl (7-17); Calcium 7.6 mg/dl (8.4-10.2); Carbon Dioxide 23 mmol/L (22-30); Chloride 105 mmol/L (98-107); Glucose 96 mg/dl (70-99); Magnesium 2.0 mg/dl (1.6-2.3); Potassium 3.9 mmol/L (3.5-5.1); Sodium 134 mmol/L (135-145); Total Protein 5.9 g/dl (6.3-8.2); eGFR > 60.00
--- NOTE | 2025-02-13 11:14 | HPS.HSE ---
Addendum entered and electronically signed by Isaias Glez MD 02/13/25 14:05:
I personally performed a history and physical exam of the patient and discussed management with the resident. I reviewed the resident's note and agree with the documented findings and plan of care HPI/CC.
84-year-old female with past medical show approximator fibrillation on Eliquis, CHF, hypertension, rheumatoid arthritis, interstitial lung disease came to the hospital with progressive weakness, cough and shortness of breath. Flu positive in the
ED. Patient currently denies any chest pain. Does endorse bit of loose stool which has been improving. Given her worsening symptoms we will treat with Tamiflu, steroid.
Influenza A positive
#SOB- likely due to influenza with component of flare of Interstitial Lung Disease
- CXR showing chronic ILD changes, no other acute cardiopulmonary changes
-Continue Tamiflu
- will start IV decadron 4mg
- O2 sat normal on room air
- continue Breztri
Mild loose stool likely secondary to flu
Continue to monitor
#HFpEF
- last echo in 10/2024 with EF of 58%
- continue home meds
- start lasix tomorrow
#Peroxysmal Afib on eliquis
- continue eliquis
# Rheumatoid Arthritis
- hold prednisone for now
- start IV decadron 4mgQ12
#Hyperlipidemia
- continue statin
#Anxiety/depression
- continue fluoxetine
Code: DNR
DVT: SCDs, eliquis
General: No Apparent Distress and Conversant
HEENT: NormoCephalic
Respiratory: mild crackles
Cardiac: S1/S2 and JVD
GI: Soft, Non Tender and Non Distended
Musculoskeletal: No Edema
Neuro: Awake, Alert and Oriented
Psych: Calm
I spent a total of 76 minutes with the patient or on the floor. More than 50% of this time involved counseling and coordination of care.
Original Note:
Family Physician
-
Family Physician: Samir Tobias
Chief Complaint
-
Weakness, cough
History of Present Illness
This is a 84-year-old female patient with past medical history of A-fib on Eliquis, CHF, HTN, RA and interstitial lung disease presents to the hospital for concerns of cough and weakness. She states that since having a [place] democrat at her
apartment at [facility] where she lives with her she has had symptoms of a productive cough with clear sputum, body aches, feeling weak and SOB on exertion. She had difficulty even lifting herself off of the couch due to her weakness and
has noticed her shortness of breath when trying to walk even short distances. She normally takes Breztri and albuterol when needed if she has SOB but this did not help currently. She also admits to diarrhea for the past 2 to 3 days with 2 episodes
of watery stool per day. Denies any blood in stool.
She denies any fevers, nausea vomiting or history of travel.
Medical History
Past Medical History
Past Medical History: Reports Other (Paroxysmal A-fib, diastolic heart failure, hypertension, spinal stenosis, depression, thrombophilia, rheumatoid arthritis, first-degree AV block, aortic aneurysm, obstructive sleep apnea, interstitial lung
disease, osteopenia)
Past Surgical History: Reports Other (No recent major surgery)
Social History
Tobacco: Non-smoker
Alcohol: None
Drug: None
Personal:
Living: With Family
Employment: Retired
Family History
Family History: Not pertinent and Other (Her brother has ILD. Mother had heart disease. )
Allergies / Home Medications
Allergies reflects when Allergies were last updated in isango!.
Home Medications with original date entered in [facility]!
Allergy/Medication List:
Allergies
Allergy/AdvReac Type Severity Reaction Status Date / Time
dabigatran etexilate Allergy Unknown Unknown Verified 02/13/25 05:31
Home Medications
fluoxetine 20 mg capsule 20 mg PO QPM Mental Health/Anxiety 04/26/18
rosuvastatin 10 mg tablet 10 mg PO QPM High Cholesterol 10/25/22
potassium chloride 20 mEq tablet,extended release(part/cryst) 20 meq PO QPM Supplement 06/19/23
furosemide 40 mg tablet 40 mg PO DAILY Fluid Retention/Swelling 06/29/23
apixaban 5 mg tablet (Eliquis) 5 mg PO BID Blood Clot Prevention/Tx 09/07/23
prednisone 5 mg tablet 5 mg PO DAILY inflammation 10/13/23
budesonide 160 mcg-glycopyr 9 mcg-formot 4.8 mcg/actuation HFA inhaler ([employer] Aerosphere) 1 inh inhalation R BID Lung/Breathing Issues 10/18/24
sotalol 80 mg tablet 80 mg PO BID Arrhythmia 10/31/24
calcium 1 tab PO QPM Supplement 02/13/25
empagliflozin 10 mg tablet (Jardiance) 10 mg PO DAILY Heart Failure 02/13/25
magnesium 1 tab PO NOON Supplement 02/13/25
spironolactone 25 mg tablet 12.5 mg PO DAILY Fluid Retention/Swelling 02/13/25
vitamin B complex 1 tab PO DAILY Supplement 02/13/25
Review of Systems
-
A 12 point ROS was completed and negative except as noted: Yes
Respiratory: Reports Cough and Other (SOB)
Abdomen/GI: Reports Diarrhea
Physical Exam
Vital Signs
Vital Signs
Temp Pulse Resp BP Pulse Ox
98.2 F 63 22 120/80 94
02/13/25 05:26 02/13/25 10:45 02/13/25 10:45 02/13/25 09:00 02/13/25 10:45
Physical Exam
General: No Apparent Distress and Conversant
HEENT: NormoCephalic
Respiratory: Crackles (mild on R side)
Cardiac: S1/S2 and JVD
GI: Soft, Non Tender and Non Distended
Musculoskeletal: No Clubbing, No Cyanosis and No Edema
Skin: Warm and Dry
Neuro: Awake, Alert and Oriented
Psych: Calm
Laboratory Results
-
02/13/25 06:25
02/13/25 09:32
Laboratory Results
Total Bilirubin 0.7 mg/dl (0.2-1.3) 02/13/25 09:32
AST 32 U/L (14-36) 02/13/25 09:32
ALT 17 U/L (0-35) 02/13/25 09:32
Alkaline Phosphatase 44 U/L (38-126) 02/13/25 09:32
Impression/Plan
-
IMPRESSION:This is a 84-year-old female patient with past medical history of A-fib on Eliquis, CHF, HTN, RA and interstitial lung disease presents to the hospital for concerns of cough and weakness.
PLAN:
#Influenza A positive
#SOB- likely due to influenza vs flare of Interstitial Lung Disease
- CXR showing chronic ILD changes, no other acute cardiopulmonary changes
- Had 1L of NS in ER
- continue symptomatic measures
- will start IV decadron 4mg
- O2 sat normal on room air
- continue Breztri
#HFpEF
- last echo in 10/2024 with EF of 58%
- continue home meds
- start lasix tomorrow
#Persistent Afib on eliquis
- continue eliquis
- admit to telemetry
# Rheumatoid Arthritis
- hold prednisone
- will start IV decadron 4mg
#Hyperlipidemia
- continue statin
#Anxiety
- continue fluoxetine
Code: DNR
DVT: SCDs, eliquis
--- NOTE | 2025-02-13 12:53 | CM ---
Chart reviewed and spoke with pt at ED bedside
She lives in [place] with
Independent with ADLs
Ambulates with RW outside for balance
hx of ablation
DME RW
not on home O2 anymore per pt
PCP Samir Tobias
[facility] [place]
Hx of [facility] [facility]
no hx of SNF
DCP is to go back to [facility] [place]
Cm will continue to follow up for any dcp needs
[2025-02-13] MEDS: OSCAL CAL 500 500 MG PO (17:32)
[2025-02-13] MEDS: KCL 20 MEQ PO ×2 (17:32→17:35)
[2025-02-13] MEDS: DECADRON 4 MG IV (17:32)
[2025-02-13] MEDS: PROZAC 20 MG PO (17:32)
[2025-02-13] MEDS: FARXIGA 10 MG PO (17:32)
[2025-02-13] MEDS: CRESTOR 10 MG PO (17:32)
[2025-02-13] MEDS: IMODIUM 2 MG PO (17:35)
[2025-02-13] MEDS: SYMBICORT 160/4.5 MCG INHALER 2 PUFF INH (18:14)
[2025-02-13] MEDS: ELIQUIS 5 MG PO (20:53)
[2025-02-13] MEDS: BETAPACE 80 MG PO (20:54)
[2025-02-14] VITALS (7 sets, daily range): BP systolic 107–155; BP diastolic 69–88; PULSE 61; O2SAT 98
[2025-02-14] MEDS: DECADRON 4 MG IV ×2 (05:30→17:16)
[2025-02-14] MEDS: SPIRIVA RESPIMAT 2.5 MCG 2 PUFF INH (07:53)
[2025-02-14] MEDS: SYMBICORT 160/4.5 MCG INHALER 2 PUFF INH ×2 (07:53→18:27)
[2025-02-14] MEDS: ALDACTONE 12.5 MG PO (08:12)
[2025-02-14] MEDS: BETAPACE 80 MG PO ×2 (08:14→20:46)
[2025-02-14] MEDS: FARXIGA 10 MG PO (08:14)
[2025-02-14] MEDS: LASIX 40 MG PO (08:14)
[2025-02-14] MEDS: ELIQUIS 5 MG PO ×2 (08:14→20:46)
[2025-02-14] MEDS: TAMIFLU 30 MG PO ×2 (08:14→20:46)
[2025-02-14] MEDS: B COMPLEX w/VITAMIN C 1 CAPLET PO (08:14)
[2025-02-14 09:28] LABS: Hematocrit 49.9 % (37.0-47.0); Hemoglobin 16.3 g/dL (12.0-16.0); Mean Corp Hgb Conc. 32.7 g/dL (33.0-37.0); Mean Corpuscular Volume 99.2 fL (81.0-99.0); Nucleated Red Blood Cells % 0 %; Platelet Count 174 10^3/uL (130-400); Red Cell Dist. Width 15.4 % (11.5-14.5)
[2025-02-14 10:06] LABS: ALT (SGPT) 19 U/L (0-35); AST (SGOT) 31 U/L (14-36); Albumin 3.2 g/dl (3.5-5.0); Alkaline Phosphatase 46 U/L (38-126); Blood Urea Nitrogen 35 mg/dl (7-17); Calcium 8.2 mg/dl (8.4-10.2); Carbon Dioxide 24 mmol/L (22-30); Chloride 105 mmol/L (98-107); Estimated Creatinine Clearance 42 ml/min; Glucose 126 mg/dl (70-99); Potassium 4.4 mmol/L (3.5-5.1); Sodium 136 mmol/L (135-145); Total Protein 6.1 g/dl (6.3-8.2); eGFR > 60.00
[2025-02-14] MEDS: MAGNESIUM OXIDE 400 MG PO (11:18)
--- NOTE | 2025-02-14 12:39 | W.PN.HOSP.TC ---
Today's Communication/Plan
-
Monitor vital signs see plan
Wean oxygen as tolerated
Continue with Decadron
PT
Continue Tamiflu
Assessment / Plan
Assessment / Plan
Influenza A positive
#SOB- likely due to influenza with component of flare of Interstitial Lung Disease
- CXR showing chronic ILD changes, no other acute cardiopulmonary changes
-Continue Tamiflu
- cw IV decadron 4mg
She was put on 2 L nasal cannula overnight, likely since she has sleep apnea and she has not had her CPAP
- continue Breztri
Mild loose stool likely secondary to flu
Continue to monitor
#HFpEF
- last echo in 10/2024 with EF of 58%
- continue home meds
- start lasix tomorrow
#Peroxysmal Afib on eliquis
- continue eliquis
# Rheumatoid Arthritis
- hold prednisone for now
- start IV decadron 4mgQ12
#Hyperlipidemia
- continue statin
#Anxiety/depression
- continue fluoxetine
Sleep apnea
Code: DNR
DVT: SCDs, eliquis
General: No Apparent Distress and Conversant
HEENT: NormoCephalic
Respiratory: mild crackles
Cardiac: S1/S2 and JVD
GI: Soft, Non Tender and Non Distended
Musculoskeletal: No Edema
Neuro: Awake, Alert and Oriented
Psych: Calm
I spent a total of 52 minutes with the patient or on the floor. More than 50% of this time involved counseling and coordination of care.
Anticipated Discharge: 24 - 48 hours
Subjective/Interval History
-
Date of Service: February 14, 2025
Denies pain
Objective Data
-
Labs:
Laboratory Results
02/14/25
09:16
WBC 5.6
Hgb 16.3 H
Hct 49.9 H
Plt Count 174
Sodium 136
Potassium 4.4
Chloride 105
Carbon Dioxide 24
BUN 35 H
Creatinine 0.9
Glucose 126 H
Calcium 8.2 L
Total Bilirubin 0.5
AST 31
ALT 19
Alkaline Phosphatase 46
Vital Signs:
Vital Signs
Temp Pulse Resp BP Pulse Ox
97.4 F 54 18 119/71 99
02/14/25 11:37 02/14/25 11:37 02/14/25 11:37 02/14/25 11:37 02/14/25 11:37
--- NOTE | 2025-02-14 15:27 | CM ---
CM met with pt bedside
She was tearful throughout visit due to medical status of spouse who is also admitted to [facility] with flu
VN recs by therapy, she would like to be set up with [place] [facility]
Referral faxed to [phone]
Watch for O2 needs
Of note, plan is for spouse to go to SNF for STR
Discharge Disposition- home with [place] [facility], watch for O2 needs
[2025-02-14] MEDS: OSCAL CAL 500 500 MG PO (17:16)
[2025-02-14] MEDS: PROZAC 20 MG PO (17:16)
[2025-02-14] MEDS: KCL 20 MEQ PO (17:16)
[2025-02-14] MEDS: CRESTOR 10 MG PO (17:16)
[2025-02-15 03:20] VITALS: BP 159/91
[2025-02-15] MEDS: DECADRON 4 MG IV (05:20)
[2025-02-15 06:00] VITALS: BMI 24.0
[2025-02-15] MEDS: SYMBICORT 160/4.5 MCG INHALER 2 PUFF INH (07:13)
[2025-02-15] MEDS: SPIRIVA RESPIMAT 2.5 MCG 2 PUFF INH (07:13)
[2025-02-15 07:51] VITALS: BP 165/88
[2025-02-15] MEDS: BETAPACE 80 MG PO (08:18)
[2025-02-15] MEDS: TAMIFLU 30 MG PO (08:18)
[2025-02-15] MEDS: ALDACTONE 12.5 MG PO (08:18)
[2025-02-15] MEDS: B COMPLEX w/VITAMIN C 1 CAPLET PO (08:18)
[2025-02-15] MEDS: ELIQUIS 5 MG PO (08:19)
[2025-02-15] MEDS: LASIX 40 MG PO (08:19)
[2025-02-15] MEDS: FARXIGA 10 MG PO (08:19)
[2025-02-15 10:00] LABS: Hematocrit 49.7 % (37.0-47.0); Hemoglobin 16.2 g/dL (12.0-16.0); Mean Corp Hgb Conc. 32.6 g/dL (33.0-37.0); Mean Corpuscular Volume 98.4 fL (81.0-99.0); Nucleated Red Blood Cells % 0 %; Platelet Count 218 10^3/uL (130-400); Red Cell Dist. Width 15.2 % (11.5-14.5)
[2025-02-15 10:12] LABS: ALT (SGPT) 23 U/L (0-35); AST (SGOT) 29 U/L (14-36); Albumin 3.4 g/dl (3.5-5.0); Alkaline Phosphatase 52 U/L (38-126); Blood Urea Nitrogen 37 mg/dl (7-17); Calcium 8.9 mg/dl (8.4-10.2); Carbon Dioxide 25 mmol/L (22-30); Chloride 105 mmol/L (98-107); Estimated Creatinine Clearance 42 ml/min; Glucose 104 mg/dl (70-99); Potassium 4.6 mmol/L (3.5-5.1); Sodium 138 mmol/L (135-145); Total Protein 6.4 g/dl (6.3-8.2); eGFR > 60.00
[2025-02-15 11:55] VITALS: BP 129/78
[2025-02-15] MEDS: MAGNESIUM OXIDE 400 MG PO (11:55)
--- NOTE | 2025-02-15 12:57 | W.PN.HOSP.TC ---
Addendum entered and electronically signed by Isaias Glez MD 02/15/25 15:53:
Patient is in need of oxygen on exertion due to pulse oximetry of 93% on room air at rest; 84% on room air with exertion.
Patient was placed on 2L O2 via nasal cannula with saturation of 95%. Oxygen will help to improve hypoxemia.
Patient is mobile within the home. Albuterol therapy has been discussed and is ineffective in treating hypoxemia-related symptoms.
Oxygen will improve the patient's symptoms.
Addendum entered and electronically signed by Isaias Glez MD 02/15/25 14:03:
Time of discharge 38 minutes
Original Note:
Today's Communication/Plan
-
Monitor vitals
See plan
Continue with Tamiflu
Will switch IV steroids to oral with taper on discharge
Check home O2 evaluation
Discharge later today versus tomorrow pending improvement
Assessment / Plan
Assessment / Plan
Influenza A positive
#SOB- likely due to influenza with component of flare of Interstitial Lung Disease
- CXR showing chronic ILD changes, no other acute cardiopulmonary changes
-Continue Tamiflu
- cw IV decadron 4mg, will switch to p.o. prednisone on discharge with taper
She was put on 2 L nasal cannula overnight, likely since she has sleep apnea and she has not had her CPAP. Currently on room air. Will check home O2 evaluation
- continue Breztri
Mild loose stool likely secondary to flu
Continue to monitor, resolved
#HFpEF
- last echo in 10/2024 with EF of 58%
- continue home meds
- Continue Lasix
#Peroxysmal Afib on eliquis
- continue eliquis
# Rheumatoid Arthritis
- hold prednisone for now
- cw IV decadron 4mgQ12
#Hyperlipidemia
- continue statin
#Anxiety/depression
- continue fluoxetine
Sleep apnea
Code: DNR
DVT: SCDs, eliquis
General: No Apparent Distress and Conversant
HEENT: NormoCephalic
Respiratory: mild crackles
Cardiac: S1/S2 and JVD
GI: Soft, Non Tender and Non Distended
Musculoskeletal: No Edema
Neuro: Awake, Alert and Oriented
Psych: Calm
Anticipated Discharge: Within 24 hours
Subjective/Interval History
-
Date of Service: February 15, 2025
Denies pain
Objective Data
-
Labs:
Laboratory Results
02/15/25
08:58
WBC 9.9
Hgb 16.2 H
Hct 49.7 H
Plt Count 218 D
Sodium 138
Potassium 4.6
Chloride 105
Carbon Dioxide 25
BUN 37 H
Creatinine 0.9
Glucose 104 H
Calcium 8.9
Total Bilirubin 0.4
AST 29
ALT 23
Alkaline Phosphatase 52
Vital Signs:
Vital Signs
Temp Pulse Resp BP Pulse Ox
97.4 F 60 16 129/78 100
02/15/25 11:55 02/15/25 11:55 02/15/25 07:51 02/15/25 11:55 02/15/25 11:55
I&O
02/14/25 02/15/25 02/16/25
06:59 06:59 06:59
Intake Total 780 / 780
Balance 780 / 780
--- NOTE | 2025-02-15 14:02 | W.DCSUMMARY ---
Discharge Summary
Discharge Data
Date of Admission: 02/13/25
Date of Discharge: 02/15/25
-
Pending Results: No
Hospital Course
84-year-old female with past medical history of CHF, paroxysmal atrial fibrillation, rheumatoid arthritis, hyperlipidemia, anxiety, depression, sleep apnea came to the hospital with shortness of breath secondary to influenza A infection along with
flare up of her interstitial lung disease. Patient was started on IV steroids which improved her symptoms. She was also started on Tamiflu. Over time her symptoms continue to improve and she was switched to oral prednisone with taper. Upon home
O2 evaluation she was found to have hypoxia and needed oxygen on ambulation. Since her symptoms were improving, she was then discharged home with instructions to follow-up with all her physicians outpatient.
Discharge Plan
-
Patient Disposition: Home (Routine Discharge)
Discharge Diagnosis/Procedures: Influenza A positive
Shortness of breath secondary to influenza A infection with component of flare of interstitial lung disease
Condition: Fair
Diet: As tolerated
Activity: As tolerated
Driving Restrictions: As prior to admission
Bathing Restrictions: None
Others Tests: Chest x-ray in 4 weeks with primary care provider
Referrals:
Chris Lowe MD [Active, Pulmonary Medicine]
Samir Tobias MD [Family Provider, [facility]] - in less than 1 week
Prescriptions:
New
oseltamivir 30 mg Capsule
30 mg PO BID Qty: 6 0RF
prednisone 10 mg Tablet
See Rx Instructions .ROUTE .COMPLEX Qty: 30 0RF
Rx Instructions:
Take By Mouth:
40 mg daily x3 days, 30 mg daily x3 days,
20 mg daily x3 days, 10 mg daily x3 days.
pantoprazole [Protonix] 40 mg tablet,delayed release (DR/EC)
40 mg PO DAILY Qty: 30 0RF
Continued
fluoxetine 20 MG capsule
20 mg PO QPM
rosuvastatin 10 mg tablet
10 mg PO QPM
potassium chloride 20 mEq tablet,ER particles/crystals
20 meq PO QPM
furosemide 40 mg tablet
40 mg PO DAILY
Eliquis 5 mg Tablet
5 mg PO BID
Breztri Aerosphere 160-9-4.8 mcg/actuation HFA aerosol inhaler
1 inh inhalation R BID
sotalol 80 mg tablet
80 mg PO BID
magnesium Tablet
1 tab PO NOON
calcium
1 tab PO QPM
Jardiance 10 mg tablet
10 mg PO DAILY
vitamin B complex Tablet
1 tab PO DAILY
spironolactone 25 mg tablet
12.5 mg PO DAILY
Held
prednisone 5 mg Tablet
5 mg PO DAILY
Hold Instructions: Restart when done with steroid taper
Discharge Orders:
Discharge Patient (As Directed); Ordered 02/15/25
Ordered By: Isaias Glez
Discharge Date and Time
Discharge Date/Time: 02/15/25 16:43
Print Language: [id number]
--- NOTE | 2025-02-15 14:18 | CM ---
Addendum entered by Celso Su 02/15/25 16:05:
Walk test completed prior to discharge. Desat to 84% with ambulation. Requires home O2. Pertinent medical records forwarded to [facility]. Anticipate transport tank to be delivered to hospital room at approximately 5:30 PM. O2
concentrator will be delivered to home this PM. Attending notified.
Original Note:
Patient has been medically cleared for discharge to home with [facility] for RN, PT/OT services. Patient's daughter will transport home.
[2025-02-15 15:57] VITALS: BP 143/81
== END 2025-02-15 16:43 | disposition home or self-care (01) | DRG 194 ==
LOC: 2 NORTH 12:51
PROVIDERS: Emergency Medicine; Student in an Organized Health Care Education/Training Program; ADMITTING PHYSICIAN Internal Medicine; EMERGENCY PHYSICIAN Emergency Medicine; FAMILY PHYSICIAN Family Medicine
DX: J10.00 Influenza due to other identified influenza virus with unspecified type of pneumonia (principal); I48.19 Other persistent atrial fibrillation; I50.32 Chronic diastolic (congestive) heart failure; J84.9 Interstitial pulmonary disease, unspecified; Z11.52 Encounter for screening for COVID-19; Z79.01 Long term (current) use of anticoagulants; M06.9 Rheumatoid arthritis, unspecified; F32.A Depression, unspecified; F41.9 Anxiety disorder, unspecified; Z66 Do not resuscitate
CPT/HCPCS: 71046; 80053; 83735; 85025; 87502; 87811; 93005; 94640; 96360; 97163; 99285